=== PATIENT | male | born 1940 | race Caucasian/White ===

== ENCOUNTER 2018-07-28 14:48 | Emergency (ER) | payer MEDICARE ==
[2018-07-28] MEDS ORDERED: Sodium Chloride 0.9% 1,000 ML IV ONE (16:13)
--- NOTE | 2018-07-28 16:32 | C.PDOC ---
History Of Present Illness 78 year old male patient presents to the ER with c/o frontal headache. Patient reports he never had a headache before and that it happened suddenly in the morning as he was making coffee. Patient denies dizziness, syncope, neck pain, photophobia, weakness, light headedness, nasal congestion, nausea and blurry vision. Family at the bedside notes that patient has right-sided abdominal pain for several weeks along with excessive burping. Time Seen by Provider: 07/28/18 15:39 Chief Complaint (Nursing): Headache History Per: Patient History/Exam Limitations: no limitations Onset/Duration Of Symptoms: Hrs Current Symptoms Are (Timing): Still Present Past Medical History Reviewed: Historical Data, Nursing Documentation, Vital Signs Vital Signs: Last Vital Signs Temp 98.4 F 07/28/18 15:10 Pulse 63 07/28/18 15:10 Resp 20 07/28/18 15:10 BP 108/66 07/28/18 15:10 Pulse Ox 99 07/28/18 15:10 - Medical History PMH: HTN Surgical History: Pacemaker - [facility] Procedures DILATION OF COMMON BILE DUCT WITH INTRALUMINAL DEVICE, ENDO (10/08/16) Family History: States: Unknown Family Hx - Social History Hx Alcohol Use: No Hx Substance Use: No - Immunization History Hx Tetanus Toxoid Vaccination: No Hx Influenza Vaccination: No Hx Pneumococcal Vaccination: No Review Of Systems Constitutional: Negative for: Weakness Eyes: Negative for: Vision Change, Other (photophobia) ENT: Negative for: Nose Congestion Cardiovascular: Negative for: Light Headedness Gastrointestinal: Negative for: Nausea Musculoskeletal: Negative for: Neck Pain Neurological: Positive for: Headache (frontal). Negative for: Dizziness Psych: Negative for: Other (syncope) Physical Exam - Physical Exam Appears: Non-toxic, No Acute Distress Skin: Normal Color, Warm, Dry Head: Atraumatic, Normacephalic Eye(s): bilateral: Normal Inspection, PERRL, EOMI Oral Mucosa: Moist Throat: Normal Neck: Normal ROM, Supple Chest: Symmetrical, No Deformity, Other (well healed sternotomy scar; pacemaker on the L chest) Cardiovascular: Rhythm Regular Respiratory: Normal Breath Sounds, No Rales, No Rhonchi, No Wheezing Gastrointestinal/Abdominal: Soft, No Tenderness Back: No CVA Tenderness Extremity: Normal ROM (x4) Neurological/Psych: Oriented x3, Normal Speech, No Other (neuro deficit) Gait: Steady ED Course And Treatment - Laboratory Results Result Diagrams: 07/28/18 16:47 07/28/18 16:47 O2 Sat by Pulse Oximetry: 99 (RA) Pulse Ox Interpretation: Normal - CT Scan/US CT head Other Rad Studies (CT/US): Read By Radiologist, Radiology Report Reviewed CT/US Interpretation: Accession No. : [id number]. Patient Name / ID : DWAYNE VARGAS / [id number]. Exam Date : 07/28/2018 16:47:42 ( Approved ). Study Comment : Sex / Age : M / 78Y. Creator : Melissa Pineda. Dictator : Aaron Matos MD. Gatehouse Attendant : Rv Service Technician : Aaron Matos MD. Approver2 : Report Date : 07/28/2018 17:16:28. My Comment : . Date of service: 07/28/2018. PROCEDURE: CT HEAD WITHOUT CONTRAST. HISTORY: Headache. COMPARISON: None available. TECHNIQUE: Axial computed tomography images were obtained through the head/brain without intravenous contrast. Radiation dose: Total exam DLP = 1048.48 mGy-cm. This CT exam was performed using one or more of the following dose reduction techniques: Automated exposure control, adjustment of the mA and/or kV according to patient size, and/or use of iterative reconstruction technique. FINDINGS: HEMORRHAGE: No acute parenchymal, subarachnoid or extra-axial hemorrhage. BRAIN: Mild moderate diffuse/confluent chronic periventricular white matter ischemic changes seen extending peripherally with scattered more discrete deep and subcortical white matter chronic ischemic changes. 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 Moderate generalized volume loss. Minor vascular calcifications both carotid siphons. VENTRICLES: No obstructive hydrocephalus. CALVARIUM: Calvarium intact. PARANASAL SINUSES: Un visualized paranasal sinuses well-developed. No fluid levels seen to suggest acute sinusitis. Localized mucosal thickening superolateral margin right frontal sinus. MASTOID AIR CELLS: Unremarkable as visualized. No inflammatory changes. OTHER FINDINGS: None. IMPRESSION: No acute intracran ial hemorrhage. Mild moderate chronic periventricular white matter ischemic changes. Moderate generalized volume loss Medical Decision Making Medical Decision Making: Impression: frontal headache Plans: -- CT head -- chem labs -- blood work -- reglan -- IV fluids -- toradol -- UA Results discussed with patient and family. On re-eval, patient reports complete relief of headache after reglan, toradol and IV fluids. Stable for discharge home. Advised followupw ith PMD, patient and family are amenable to this plan. Disposition - Disposition Disposition: HOME/ ROUTINE Disposition Time: 18:17 Condition: GOOD Additional Instructions: SAM RICE, thank you for letting us take care of you today. Your provider was Donna Mariee MD and you were treated for HEADACHE. The emergency medical care you received today was directed at your acute symptoms. If you were prescribed any medication, please fill it and take as directed. It may take several days for your symptoms to resolve. Return to the Emergency Department if your symptoms worsen, do not improve, or if you have any other problems. Please contact your doctor or call one of the physicians/clinics you have been referred to that are listed on the Patient Visit Information form that is included in your discharge packet. Bring any paperwork you were given at discharge with you along with any medications you are taking to your follow up visit. Our treatment cannot replace ongoing medical care by a primary care provider outside of the emergency department. Thank you for allowing the [facility] team to be part of your care today. If you had an X-Ray or CT scan: A Radiologist will review the ED reading if any change in treatment is needed we will contact you. If you had a blood, urine, or wound culture: It will take several days for the results, if any change in treatment is needed we will contact you. If you had an STI test: It will take 48 hours for the results. Please call after 1 week if you have not heard back. Instructions: Headache, Adult (DC) Forms: [employer] (German) - Clinical Impression Clinical Impression: Headache - Scribe Statement The provider has reviewed the documentation as recorded by the Scribe Longoria Do Provider Attestation: All medical record entries made by the Scribe were at my direction and personally dictated by me. I have reviewed the chart and agree that the record accurately reflects my personal performance of the history, physical exam, medical decision making, and the department course for this patient. I have also personally directed, reviewed, and agree with the discharge instructions and disposition.
[2018-07-28 17:00] LABS: BASO % 0.8 % (0.0-2.0); EOS # 0.1 K/uL (0.0-0.7); EOS % 2.4 % (0.0-4.0); HEMOGLOBIN 13.8 g/dL (12.0-18.0); LYMPH # 1.6 K/uL (1.0-4.3); LYMPH % 26.7 % (20.0-40.0); MEAN CELL VOLUME 89.3 fL (80.0-94.0); MEAN CORPUSCULAR HEMOGLOBIN 30.7 pg (27.0-31.0); MEAN CORPUSCULAR HGB CONC 34.4 g/dL (33.0-37.0); MEAN PLATELET VOLUME 8.5 fL (7.2-11.7); MONO # 0.5 K/uL (0.0-0.8); MONO % 8.7 % (0.0-10.0); NEUT # 3.8 K/uL (1.8-7.0); NEUT % 61.4 % (50.0-75.0); NRBC % 0.1 % (0.0-2.0); RBC 4.49 Mil/uL (4.40-5.90); RED CELL DISTRIBUTION WIDTH 13.2 % (11.5-14.5); WHITE BLOOD COUNT 6.2 K/uL (4.8-10.8)
[2018-07-28 17:07] LABS: BLOOD UREA NITROGEN 12 mg/dL (9-20); CALCIUM 9.7 mg/dl (8.6-10.4); GFR NON-AFRICAN AMERICAN > 60; SQUAMOUS EPITHIAL < 1 /hpf (0-5); URINE BACTERIA FEW (<OCC); URINE BILIRUBIN NEGATIVE (NEGATIVE); URINE BLOOD NEGATIVE (NEGATIVE); URINE CLARITY Clear (Clear); URINE COLOR Yellow (YELLOW); URINE GLUCOSE (UA) NORMAL (Normal); URINE LEUKOCYTE ESTERASE 1+ Leu/uL (Negative); URINE PROTEIN NEGATIVE (NEGATIVE); URINE UROBILINOGEN NORMAL mg/dL (0.2-1.0)
--- NOTE | 2018-07-28 17:39 | CT ---
Date of service: 07/28/2018 PROCEDURE: CT HEAD WITHOUT CONTRAST. HISTORY: Headache COMPARISON: None available. TECHNIQUE: Axial computed tomography images were obtained through the head/brain without intravenous contrast. Radiation dose: Total exam DLP = 1048.48 mGy-cm. This CT exam was performed using one or more of the following dose reduction techniques: Automated exposure control, adjustment of the mA and/or kV according to patient size, and/or use of iterative reconstruction technique. FINDINGS: HEMORRHAGE: No acute parenchymal, subarachnoid or extra-axial hemorrhage. BRAIN: Mild moderate diffuse/confluent chronic periventricular white matter ischemic changes seen extending peripherally with scattered more discrete deep and subcortical white matter chronic ischemic changes. 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 Moderate generalized volume loss. Minor vascular calcifications both carotid siphons. VENTRICLES: No obstructive hydrocephalus. CALVARIUM: Calvarium intact. PARANASAL SINUSES: Un visualized paranasal sinuses well-developed. No fluid levels seen to suggest acute sinusitis. Localized mucosal thickening superolateral margin right frontal sinus. MASTOID AIR CELLS: Unremarkable as visualized. No inflammatory changes. OTHER FINDINGS: None. IMPRESSION: No acute intracranial hemorrhage. Mild moderate chronic periventricular white matter ischemic changes Moderate generalized volume loss
[2018-07-28 18:31] VITALS: BP 109/59; PULSE 62; RESP 16; TEMP 98.3
[2018-07-29 13:52] VITALS: O2SAT 99
== END 2018-07-28 18:31 | disposition home or self-care (01) ==
LOC: C.ER 14:48
DX: R51 Headache (principal); I10 Essential (primary) hypertension; Z95.0 Presence of cardiac pacemaker
CPT/HCPCS: 70450; 80048; 81001; 85025; 96361; 96374; 96375; 99285; J1885; J2765; J7030

== ENCOUNTER 2018-09-10 05:11 | Inpatient (IN) | payer MEDICARE ==
--- NOTE | 2018-09-10 05:38 | C.PDOC ---
History Of Present Illness 78 y/o male pt presents to the ER complaining of RUQ abdominal pain for x3 days. Associated sx includes decrease in appetite, decrease in water intake, nausea and vomiting. Pt reports the abdominal pain got worse in 24 hours. Pt denies fever, chills, diarrhea and back pain. Time Seen by Provider: 09/10/18 05:38 Chief Complaint (Nursing): Abdominal Pain History Per: Patient History/Exam Limitations: no limitations Onset/Duration Of Symptoms: Days (x3) Current Symptoms Are (Timing): Worse Severity: Moderate Pain Scale Rating Of: 4 Location Of Pain/Discomfort: RUQ Radiation Of Pain To:: None Quality Of Discomfort: "Pain" Associated Symptoms: Nausea, Vomiting, Loss Of Appetite, Other (decrease in water intake ). denies: Fever, Chills, Diarrhea, Back Pain Exacerbating Factors: None Alleviating Factors: None Last Bowel Movement: Yesterday Recent travel outside of the [place]: No Additional History Per: Family Past Medical History Reviewed: Historical Data, Nursing Documentation, Vital Signs - Medical History PMH: HTN Surgical History: Pacemaker - [facility] Procedures DILATION OF COMMON BILE DUCT WITH INTRALUMINAL DEVICE, ENDO (10/08/16) Family History: States: Unknown Family Hx - Social History Hx Alcohol Use: No Hx Substance Use: No - Immunization History Hx Tetanus Toxoid Vaccination: No Hx Influenza Vaccination: No Hx Pneumococcal Vaccination: No Review Of Systems Constitutional: Positive for: Other (decrease in appetite and water intake). Negative for: Fever, Chills ENT: Negative for: Throat Pain Cardiovascular: Negative for: Chest Pain Respiratory: Negative for: Shortness of Breath Gastrointestinal: Positive for: Nausea, Vomiting, Abdominal Pain (RUQ). Negative for: Diarrhea Musculoskeletal: Negative for: Back Pain Skin: Negative for: Rash Neurological: Negative for: Weakness Psych: Negative for: Anxiety Physical Exam - Physical Exam Appears: Non-toxic, No Acute Distress Skin: Warm, Dry Head: Normacephalic Eye(s): bilateral: Normal Inspection Oral Mucosa: Moist Neck: Trachea Midline, Supple Chest: Symmetrical, Other (CABG scar, pacer left) Cardiovascular: Rhythm Regular Respiratory: No Rales, No Rhonchi, No Wheezing Gastrointestinal/Abdominal: Bowel Sounds (tympanic to percussion), Soft, Tenderness, Distention, No Guarding Back: No CVA Tenderness Extremity: Normal ROM (x4) Extremity: Bilateral: Atraumatic, Normal Color And Temperature, Normal ROM Pulses: Left Dorsalis Pedis: Normal, Right Dorsalis Pedis: Normal Neurological/Psych: Oriented x3 Gait: Steady ED Course And Treatment - Laboratory Results Result Diagrams: 09/10/18 06:08 09/10/18 06:08 ECG: Interpreted By Me, Viewed By Me ECG Rhythm: Sinus Rhythm (62), Nonspecific Changes (ventricular paced rhythm) O2 Sat by Pulse Oximetry: 97 Pulse Ox Interpretation: Normal Progress Note: plans: -- EKG. -- chem labs. -- blood work. -- morphone. -- protonix injection. -- zofran injection. -- UA Disposition Counseled Patient/Family Regarding: Studies Performed, Diagnosis - Disposition Disposition Time: 05:38 Condition: FAIR Forms: [employer] (Czech) - Clinical Impression Clinical Impression: Abdominal pain - Scribe Statement The provider has reviewed the documentation as recorded by the Scribe Swati Schrader Provider Attestation: All medical record entries made by the Scribe were at my direction and personally dictated by me. I have reviewed the chart and agree that the record accurately reflects my personal performance of the history, physical exam, medical decision making, and the department course for this patient. I have also personally directed, reviewed, and agree with the discharge instructions and disposition. Physician Patient Turnover Patient Signed Over To: Lucero Marcos Handoff Comments: pending ct result , re-eval and dispostion
[2018-09-10] MEDS ORDERED: Morphine 4 MG/ML VIAL IV ONE (05:39)
[2018-09-10 06:12] LABS: BASO % 0.2 % (0.0-2.0); EOS % 0.1 % (0.0-4.0); HEMOGLOBIN 12.8 g/dL (12.0-18.0); LYMPH # 0.7 K/uL (1.0-4.3); LYMPH % 6.6 % (20.0-40.0); MEAN CELL VOLUME 89.5 fL (80.0-94.0); MEAN CORPUSCULAR HEMOGLOBIN 30.2 pg (27.0-31.0); MEAN CORPUSCULAR HGB CONC 33.7 g/dL (33.0-37.0); MONO # 0.6 K/uL (0.0-0.8); MONO % 6.1 % (0.0-10.0); NEUT # 8.9 K/uL (1.8-7.0); PLATELET COUNT 126 K/uL (130-400); RBC 4.24 Mil/uL (4.40-5.90); RED CELL DISTRIBUTION WIDTH 13.2 % (11.5-14.5); WHITE BLOOD COUNT 10.2 K/uL (4.8-10.8)
[2018-09-10 06:19] LABS: INR 1.6; PROTHROMBIN TIME 17.6 SECONDS (9.7-12.2)
[2018-09-10 06:23] LABS: ALB/GLOB RATIO 1.3 (1.0-2.1); ALBUMIN 4.2 g/dL (3.5-5.0); ALT/SGPT 26 U/L (21-72); AST/SGOT 25 U/L (17-59); BLOOD UREA NITROGEN 15 mg/dL (9-20); CALCIUM 8.7 mg/dl (8.6-10.4); GFR NON-AFRICAN AMERICAN > 60; LIPASE 17 U/L (23-300)
[2018-09-10] MEDS ORDERED: Iodixanol 320 MG/ML 100 ML BOTTLE IV ONE (06:36)
[2018-09-10 09:16] LABS: BANDS 6 % (0-2); LYMPHOCYTE 4 % (20-40); MONOCYTE 3 % (0-10); NEUTROPHIL 87 % (50-75); PLATELET ESTIMATE NORMAL (NORMAL); TOTAL CELLS COUNTED 100
[2018-09-10] MEDS ORDERED: Piperacillin/Tazobact 3.375 gm 100 ML IV STA (09:24)
[2018-09-10 09:34] LABS: SQUAMOUS EPITHIAL < 1 /hpf (0-5); URINE BILIRUBIN NEGATIVE (NEGATIVE); URINE BLOOD 1+ (NEGATIVE); URINE CLARITY Clear (Clear); URINE COLOR Yellow (YELLOW); URINE GLUCOSE (UA) NORMAL (Normal); URINE LEUKOCYTE ESTERASE NEG Leu/uL (Negative); URINE PROTEIN 1+ mg/dL (NEGATIVE); URINE UROBILINOGEN NORMAL mg/dL (0.2-1.0)
--- NOTE | 2018-09-10 10:37 | CP.PCM.HP ---
<Edgar Young E - Last Filed: 09/10/18 20:38> History of Present Illness - History of Present Illness History of Present Illness: CC: Right sided abdominal pain HPI: Patient is a 78 year old male with past medical history of CAD (CABG x3), HTN, HLD, and prior history of gall stones, who presents to the ED with his niece with complaints of right sided abdominal pain that started on 09/10/18 at 9am while sleeping. Patient reports the pain as a 9/10 intermittent squeezing pain that radiates to the right side of his chest, which is worsening with cough, hiccups and sneezing. In addition, patient had three episodes of non-bloody/non-bilious vomiting between Tuesday and Tuesday night as well 3-4 episodes of loose stool on Tuesday night. Patient states that he has been using warm compresses on his abdomen with no relief. As per EMR, patient has prior admission of probable choledocholithiasis. Patient admits to chills on Tuesday night but denies any symptoms of fever, chest pain, palpitations, shortness of breath. Patient has been on a liquid diet since Tuesday. Code Status: Full code Emergency contact: Bridger Guillory, PMD: [place] PSHx: CAD (CABG x3; 1980,1985 and 1999), HTN, HLD, and prior history of gall stones FHx: Unknown Medications: Ramipril 5mg po daily, Toprol XL 50mg PO daily, Lipitor 40mg PO HS Allergies: NKDA Social Hx: Lives alone. Denies any current or former use of Tobacco and illicit drugs and occasional ETOH intake Present on Admission - Present on Admission Any Indicators Present on Admission: No Review of Systems - Constitutional Constitutional: Chills. absent: Fever, Headache, Weakness - EENT Eyes: absent: Blurred Vision, Change in Vision - Cardiovascular Cardiovascular: absent: Chest Pain, Diaphoresis, Dyspnea, Lightheadedness, Palpitations, Pedal Edema, Syncope - Respiratory Respiratory: absent: Cough, Dyspnea, Wheezing - Gastrointestinal Gastrointestinal: Abdominal Pain, Loose Stools, Nausea, Vomiting - Neurological Neurological: absent: Confusion, Dizziness, Headaches, Weakness - Psychiatric Psychiatric: Change in Appetite - Endocrine Endocrine: absent: Fatigue, Palpitations Past Patient History - Infectious Disease Hx of Infectious Diseases: None - Past Medical History & Family History Past Medical History?: Yes - Past Social History Smoking Status: Never Smoked - CARDIAC Hx Hypertension: Yes Hx Pacemaker: Yes - MUSCULOSKELETAL/RHEUMATOLOGICAL Hx Falls: No - PSYCHIATRIC Hx Substance Use: No - SURGICAL HISTORY Hx Surgeries: Yes Hx Open Heart Surgery: Yes Hx Valve Replacement: Yes Other/Comment: Pacemaker - ANESTHESIA Hx Anesthesia: Yes Hx Anesthesia Reactions: No Hx Malignant Hyperthermia: No Meds Allergies/Adverse Reactions: Allergies Allergy/AdvReac Type Severity Reaction Status Date / Time No Known Allergies Allergy Verified 09/10/18 05:25 Physical Exam - Constitutional Appears: No Acute Distress - Head Exam Head Exam: ATRAUMATIC, NORMAL INSPECTION - Eye Exam Eye Exam: EOMI, Normal appearance. absent: Scleral icterus - ENT Exam ENT Exam: Mucous Membranes Moist - Respiratory Exam Respiratory Exam: Clear to Auscultation Bilateral, NORMAL BREATHING PATTERN. absent: Prolonged Expiratory Phase, Rhonchi, Wheezes - Cardiovascular Exam Cardiovascular Exam: REGULAR RHYTHM, +S1, +S2 Additional comments: Midline scar from previous CABG - GI/Abdominal Exam GI & Abdominal Exam: Normal Bowel Sounds, Soft. absent: Distended, Firm, Guarding Additional comments: RUQ tenderness (+ Nina sign) - Extremities Exam Extremities exam: Positive for: normal inspection. Negative for: calf tenderness, pedal edema - Back Exam Back exam: NORMAL INSPECTION. absent: CVA tenderness (L), CVA tenderness (R) - Neurological Exam Neurological exam: Alert, Normal Gait, Oriented x3 - Psychiatric Exam Psychiatric exam: Normal Affect - Skin Skin Exam: Normal Color Results - Vital Signs Recent Vital Signs: Last Vital Signs Temp 100.4 F H 09/10/18 08:53 Pulse 62 09/10/18 08:53 Resp 16 09/10/18 08:53 BP 132/69 09/10/18 08:53 Pulse Ox 97 09/10/18 08:53 - Labs Result Diagrams: 09/10/18 06:08 09/10/18 06:08 Labs: Laboratory Results - last 24 hr 09/10/18 09/10/18 09/10/18 06:08 06:08 06:08 WBC 10.2 D RBC 4.24 L Hgb 12.8 Hct 38.0 MCV 89.5 MCH 30.2 MCHC 33.7 RDW 13.2 Plt Count 126 L D MPV 9.0 Neut % (Auto) 87.0 H Lymph % (Auto) 6.6 L [place] % (Auto) 6.1 Eos % (Auto) 0.1 Baso % (Auto) 0.2 Neut # (Auto) 8.9 H Lymph # (Auto) 0.7 L [place] # (Auto) 0.6 Eos # (Auto) 0.0 Baso # (Auto) 0.0 Neutrophils % (Manual) 87 H Band Neutrophils % 6 H Lymphocytes % (Manual) 4 L Monocytes % (Manual) 3 Platelet Estimate Normal RBC Morphology Normal PT 17.6 H INR 1.6 APTT 38 H Sodium 134 Potassium 4.5 Chloride 96 L Carbon Dioxide 27 Anion Gap 17 BUN 15 Creatinine 1.0 Est GFR ( Amer) > 60 Est GFR (Non-Af Amer) > 60 Random Glucose 133 H Calcium 8.7 Total Bilirubin 2.0 H AST 25 ALT 26 Alkaline Phosphatase 77 Total Protein 7.4 Albumin 4.2 Globulin 3.3 Albumin/Globulin Ratio 1.3 Lipase 17 L Urine Color Urine Clarity Urine pH Ur Specific [place] Urine Protein Urine Glucose (UA) Urine Ketones Urine Blood Urine Nitrate Urine Bilirubin Urine Urobilinogen Ur Leukocyte Esterase Urine WBC (Auto) Urine RBC (Auto) Ur Squamous Epith Cells 09/10/18 09:22 WBC RBC Hgb Hct MCV MCH MCHC RDW Plt Count MPV Neut % (Auto) Lymph % (Auto) [place] % (Auto) Eos % (Auto) Baso % (Auto) Neut # (Auto) Lymph # (Auto) [place] # (Auto) Eos # (Auto) Baso # (Auto) Neutrophils % (Manual) Band Neutrophils % Lymphocytes % (Manual) Monocytes % (Manual) Platelet Estimate RBC Morphology PT INR APTT Sodium Potassium Chloride Carbon Dioxide Anion Gap BUN Creatinine Est GFR ( Amer) Est GFR (Non-Af Amer) Random Glucose Calcium Total Bilirubin AST ALT Alkaline Phosphatase Total Protein Albumin Globulin Albumin/Globulin Ratio Lipase Urine Color Yellow Urine Clarity Clear Urine pH 6.0 Ur Specific [place] 1.055 H Urine Protein 1+ H Urine Glucose (UA) Normal Urine Ketones Negative Urine Blood 1+ H Urine Nitrate Negative Urine Bilirubin Negative Urine Urobilinogen Normal Ur Leukocyte Esterase Neg Urine WBC (Auto) 4 Urine RBC (Auto) 13 H Ur Squamous Epith Cells < 1 Assessment & Plan (1) Acute cholecystitis Assessment and Plan: Consultation: General Surgery, Dr. Haq----> Help appreciated * management as per recommendation * Plans for surgery Cardiology, Dr. Garcia---> cardiac clearance * Management as per recommendation * F/u ECHO Imaging: * Abdomen pelvis/CT with contrast: Findings concerning for acute cholecystitis. Cholelithiasis. Biliary obstruction with intra and extrahepatic biliary di latation. Biliary drainage catheter noted. Mild ascites. Thickened bladder wall raising suspicion of cystitis versus bladder outlet obstruction. * Abdomen US: Cholelithiasis. Thickened gallbladder wall. Trace pericholecystic fluid negative sonographic Nina sign. Findings are concerning for cholecystitis nevertheless. Dilated common bile duct with biliary catheter. Medications/Management: * Morphine 1mg or 2mg iv Q6H PRN * Zosyn 3.375gm IV Q6H * Florastor 250mg PO BID * Liquid diet * Medicine day team to obtain cardiac clearance from Dr. Mariusz Valencia, earle adkins had recent stress test last year Status: Acute (2) History of coronary artery disease Assessment and Plan: CABG x3: * ASA 81mg PO daily * Toprol XL 50mg PO daily * Crestor 10mg PO daily Status: Acute (3) Hypertension Assessment and Plan: Toprol XL 50mg PO daily Ramipril 5mg PO at home converted to inpatient medication of vasotec 10mg PO daily Monitor with vital sign Q4H Status: Acute (4) Hyperlipidemia Assessment and Plan: Crestor 10mg PO HS Status: Acute (5) Prophylactic measure Assessment and Plan: DVT: SCDS GI: Not indicated Hypoglycemia protocol for liquid/NPO diet Disposition: Medical records to be obtained from Dr. Mariusz Valencia for cardiac clearance Patient does of effient to be clarified with patient's niece and to be restarted inpatient All plans and management discussed with Dr. Rashid Status: Acute <Babita Rashid V - Last Filed: 09/11/18 15:46> Results - Vital Signs Recent Vital Signs: Last Vital Signs Temp 99.2 F 09/11/18 09:15 Pulse 65 09/11/18 13:42 Resp 20 09/11/18 09:15 BP 150/65 09/11/18 13:11 Pulse Ox 95 09/11/18 13:42 - Labs Result Diagrams: 09/11/18 06:15 09/11/18 06:15 Labs: Laboratory Results - last 24 hr 09/11/18 09/11/18 09/11/18 00:14 06:09 06:15 WBC 6.1 RBC 4.09 L Hgb 12.4 Hct 36.1 MCV 88.3 MCH 30.2 MCHC 34.3 RDW 13.4 Plt Count 125 L MPV 8.5 Neut % (Auto) 83.7 H Lymph % (Auto) 9.0 L [place] % (Auto) 6.0 Eos % (Auto) 0.9 Baso % (Auto) 0.4 Neut # (Auto) 5.1 Lymph # (Auto) 0.6 L [place] # (Auto) 0.4 Eos # (Auto) 0.1 Baso # (Auto) 0.0 Neutrophils % (Manual) 83 H Lymphocytes % (Manual) 12 L Monocytes % (Manual) 5 Platelet Estimate Slightly decreased L Sodium Potassium Chloride Carbon Dioxide Anion Gap BUN Creatinine Est GFR ( Amer) Est GFR (Non-Af Amer) POC Glucose (mg/dL) 88 81 Random Glucose Calcium Total Bilirubin AST ALT Alkaline Phosphatase NT-Pro-B Natriuret Pep Total Protein Albumin Globulin Albumin/Globulin Ratio Triglycerides Cholesterol LDL Cholesterol Direct HDL Cholesterol 09/11/18 09/11/18 09/11/18 06:15 08:14 11:46 WBC RBC Hgb Hct MCV MCH MCHC RDW Plt Count MPV Neut % (Auto) Lymph % (Auto) [place] % (Auto) Eos % (Auto) Baso % (Auto) Neut # (Auto) Lymph # (Auto) [place] # (Auto) Eos # (Auto) Baso # (Auto) Neutrophils % (Manual) Lymphocytes % (Manual) Monocytes % (Manual) Platelet Estimate Sodium 136 Potassium 4.1 Chloride 98 Carbon Dioxide 25 Anion Gap 17 BUN 13 Creatinine 0.9 Est GFR ( Amer) > 60 Est GFR (Non-Af Amer) > 60 POC Glucose (mg/dL) 85 85 Random Glucose 97 Calcium 8.2 L Total Bilirubin 1.4 H AST 24 ALT 27 Alkaline Phosphatase 57 NT-Pro-B Natriuret Pep 1350 H Total Protein 6.8 Albumin 3.6 Globulin 3.3 Albumin/Globulin Ratio 1.1 Triglycerides 106 Cholesterol 124 LDL Cholesterol Direct 53 HDL Cholesterol 44 Attending/Attestation - Attestation I have personally seen and examined this patient.: Yes I have fully participated in the care of the patient.: Yes I have reviewed all pertinent clinical information: Yes Notes (Text): This is late computer entry for 09/10/18. Patient seen, examined and case discussed with medical claims assistant. Patient in the Emergency Room and accompaned by his niece. Patient noted for abdominal pain worsened with food. Patient has completed CT abdomen/pelvis and abdominal US. Patient has significant cardiac history including CAD, CABG, hypertension, lipid disorder, and follows-up with his PMD/step finisher. Resident has attempted to call him to obtain his prior cardiac workup but his office is closed and voice mail notes he is away. Niece indicates he has not had echo cardiogram in quite sometime and has had a stress test about one year ago. Will obtain chest xray, ekg, and obtain cardiac clearance. Medicine resident has discussed with surgery resident, and is aware patient has significant cardiac history. Will continue antibiotic to cover for cholecystitis and f/u result of Abdominal US Assessment/Plan (1) Acute cholecystitis Assessment and Plan: Consultation: General Surgery, Dr. Haq----> Help appreciated * management as per recommendation * Plans for surgery Cardiology, Dr. Garcia---> cardiac clearance * Management as per recommendation * F/u ECHO Imaging: * Abdomen pelvis/CT with contrast: Findings concerning for acute cholecystitis. Cholelithiasis. Biliary obstruction with intra and extrahepatic biliary dilatation. Biliary drainage catheter noted. Mild ascites. Thickened bladder wall raising suspicion of cystitis versus bladder outlet obstruction. * Abdomen US: Cholelithiasis. Thickened gallbladder wall. Trace pericholecystic fluid negative sonographic Nina sign. Findings are concerning for cholecystitis nevertheless. Dilated common bile duct with biliary catheter. Medications/Management: * Morphine 1mg or 2mg iv Q6H PRN * Zosyn 3.375gm IV Q6H * Florastor 250mg PO BID * Liquid diet * Medicine day team to obtain cardiac clearance from Dr. Mariusz Valencia, patient had recent stress test last year Status: Acute (2) History of coronary artery disease Assessment and Plan: CABG x3: * ASA 81mg PO daily * hold pending date of surgery * Toprol XL 50mg PO daily * Crestor 10mg PO daily Status: Acute (3) Hypertension Assessment and Plan: * Toprol XL 50mg PO daily * Ramipril 5mg PO at home converted to inpatient medication of vasotec 10mg PO daily * Monitor with vital sign Q4H Status: Acute (4) Hyperlipidemia Assessment and Plan: * Crestor 10mg PO HS Status: Acute (5) Prophylactic measure Assessment and Plan: * DVT: SCDS * GI: Not indicated * Hypoglycemia protocol for liquid/NPO diet Disposition: Medical records to be obtained from Dr. Mariusz Valencia for cardiac clearance * Patient does of effient to be clarified with patient's niece and to be re started inpatient; patient nor niece denies any recent intervention in the past year regarding TOI Status: Acute
[2018-09-10] MEDS ORDERED: Piperacillin/Tazobact 3.375 gm 100 ML IVPB ONE (10:54)
--- NOTE | 2018-09-10 11:57 | US ---
Date of service: 09/10/2018 HISTORY: ruq pain ro acute choles COMPARISON: None. TECHNIQUE: Sonographic evaluation of the right upper quadrant of the abdomen. FINDINGS: LIVER: Measures 16.3 cm in length. Normal echogenicity of the liver parenchyma. No mass. No intrahepatic bile duct dilatation. GALLBLADDER: Sludge and calculi. Thickened wall up to 10 mm. No definite calculi. Trace pericholecystic fluid. Negative sonographic Nina sign. COMMON BILE DUCT: Measures 16 mm. No evidence of choledocholithiasis. Biliary catheter seen within common bile duct. PANCREAS: Unremarkable as visualized. No mass. No ductal dilatation. RIGHT KIDNEY: Measures 10.3 cm in length. Normal echogenicity. Mid right renal cortical cyst, 4 x 5 x 5 mm. No calculus or hydronephrosis. AORTA: No aneurysmal dilatation. IVC: Unremarkable. OTHER FINDINGS: None . IMPRESSION: Cholelithiasis. Thickened gallbladder wall. Trace pericholecystic fluid negative sonographic Nina sign. Findings are concerning for cholecystitis nevertheless. Dilated common bile duct with biliary catheter.
--- NOTE | 2018-09-10 12:07 | CT ---
Date of service: 09/10/2018 PROCEDURE: CT Abdomen and Pelvis with contrast HISTORY: ruq abd pain, elevated bili COMPARISON: None. TECHNIQUE: Contrast dose: 100 mL Visipaque 320 Radiation dose: Total exam DLP = 207.02 mGy-cm. This CT exam was performed using one or more of the following dose reduction techniques: Automated exposure control, adjustment of the mA and/or kV according to patient size, and/or use of iterative reconstruction technique. FINDINGS: LOWER THORAX: Linear scar/atelectasis in left lower lobe. Cardiomegaly. AICD. LIVER: Normal size, contour and attenuation. No mass. There is mild intrahepatic biliary ductal dilatation in both the right and left lobe. GALLBLADDER AND BILE DUCTS: Thickened wall. Cholelithiasis. Pericholecystic inflammatory change. Concerning for cholecystitis. A biliary drainage catheter is seen extending from the common bile duct to the 3rd portion of the duodenum. There is dilatation of the common bile duct up to a diameter approximately 16 mm. PANCREAS: Unremarkable. No gross lesion or ductal dilatation. SPLEEN: Several accessory splenule incidentally noted. No mass. ADRENALS: Unremarkable. No mass. KIDNEYS AND URETERS: Left lower pole rounded low-density mass, 17 mm, measuring 18 Hounsfield units. Consistent with cortical cyst. No calculus or hydronephrosis. VASCULATURE: Unremarkable. No aortic aneurysm. No aortic atherosclerotic calcification or mural plaque present. BOWEL: Sigmoid diverticulosis. No evidence of diverticulitis. No bowel obstruction. APPENDIX: Normal appendix. PERITONEUM: Small amount of fluid in right pericolic gutter. LYMPH NODES: Unremarkable. No enlarged lymph nodes. BLADDER: Mild diffuse mural thickening. Rule out cystitis versus bladder outlet obstruction.. Correlate with urinalysis. REPRODUCTIVE: Enlarged prostate. BONES: No acute fracture. OTHER FINDINGS: None. IMPRESSION: Findings concerning for acute cholecystitis. Cholelithiasis. Biliary obstruction with intra and extrahepatic biliary dilatation. Biliary drainage catheter noted. Mild ascites. Thickened bladder wall raising suspicion of cystitis versus bladder outlet obstruction.. The preliminary findings for this examination were reported by [facility] Radiology at 7:47 a.m. on 09/10/2018. There is concurrence of this report with the preliminary findings. Correlate with urinalysis.
--- NOTE | 2018-09-10 12:54 | RAD ---
Date of service: 09/10/2018 HISTORY: MED CLEAR COMPARISON: No prior. TECHNIQUE: Chest PA and lateral FINDINGS: LUNGS: No active pulmonary disease. PLEURA: No significant pleural effusion identified. No pneumothorax apparent. CARDIOVASCULAR: No aortic atherosclerotic calcification present. Normal cardiac size. No congestive change. Permanent pacemaker. Sternotomy wires. OSSEOUS STRUCTURES: No significant abnormalities. VISUALIZED UPPER ABDOMEN: Normal. OTHER FINDINGS: None. IMPRESSION: No active disease.
[2018-09-10] MEDS ORDERED: Glucagon Recombinant 1 mg Inj IM PRN (13:22)
[2018-09-10] MEDS ORDERED: Dextrose 50% SYRINGE Inj (50 ml) IV PRN (13:22)
[2018-09-10] MEDS: Piperacill/Tazo 3.375gm in Dex 3.375 GM/50 ML BAG IVPB SCH ×2 (14:48→20:20)
[2018-09-10] MEDS: Saccharomyces Boulardi 250 mg Cap PO SCH (18:26)
--- NOTE | 2018-09-10 19:00 | CP.PCM.CON ---
History of Present Illness - History of Present Illness History of Present Illness: General Surgery Consult note for Dr. Haq This 78M with a PMH of open heart surgery X 3 , CAD s/p CABG, HTN & HLD presents today the emergencey department with right sided abdominal pain that started after thanksgiving meal. He reports that since that time he has only had small amounts of liquid due to the pain. He reports nothing makes it better and nothing makes it worse. He reports that he is not experiencing any nausea or vom iting and that he has not had any changes in his bowel habits and he is passing gas. He deneis any fevers or chills at home. He denies any chest pain or SOB. PMHx: as stated above PSHx: CABG, pacemaker, 3 open heart valve surgeries SocialHx: social EtOH Review of Systems - Review of Systems Review of Systems: 12 point review of symptoms conducted and negative aside from right sided abdominal pain. Past Patient History - Infectious Disease Hx of Infectious Diseases: None - Past Medical History & Family History Past Medical History?: Yes - Past Social History Smoking Status: Never Smoked - CARDIAC Hx Hypertension: Yes Hx Pacemaker: Yes - MUSCULOSKELETAL/RHEUMATOLOGICAL Hx Falls: No - PSYCHIATRIC Hx Substance Use: No - SURGICAL HISTORY Hx Surgeries: Yes Hx Open Heart Surgery: Yes Hx Valve Replacement: Yes Other/Comment: Pacemaker - ANESTHESIA Hx Anesthesia: Yes Hx Anesthesia Reactions: No Hx Malignant Hyperthermia: No Meds Allergies/Adverse Reactions: Allergies Allergy/AdvReac Type Severity Reaction Status Date / Time No Known Allergies Allergy Verified 09/10/18 05:25 - Medications Medications: Current Medications Acetaminophen (Tylenol 325mg Tab) 650 mg PO Q6 PRN PRN Reason: Fever >100.4 F Dextrose (Dextrose 50% Inj) 0 ml IV STAT PRN; Protocol PRN Reason: Hypoglycemia Protocol Dextrose (Glutose 15) 0 gm PO ONCE PRN; Protocol PRN Reason: Hypoglycemia Protocol Glucagon (Glucagen Diagnostic Kit) 0 mg IM STAT PRN; Protocol PRN Reason: Hypoglycemia Protocol Piperacillin Sod/Tazobactam Sod (Zosyn 3.375 Gm Iv Premix) 3.375 gm in 50 mls @ 100 mls/hr IVPB Q6H [facility]; Protocol Last Admin: 09/10/18 14:48 Dose: Not Given Dextrose (Dextrose 5% In Water 1000 Ml) 1,000 mls @ 0 mls/hr IV .Q0M PRN; Protocol PRN Reason: Hypoglycemia Protocol Saccharomyces Boulardii (Florastor) 250 mg PO BID KRISTIN Physical Exam - Constitutional Appears: Non-toxic, No Acute Distress - Head Exam Head Exam: ATRAUMATIC, NORMOCEPHALIC - Eye Exam Eye Exam: EOMI - ENT Exam ENT Exam: Mucous Membranes Moist - Respiratory Exam Respiratory Exam: NORMAL BREATHING PATTERN - Cardiovascular Exam Cardiovascular Exam: +S1, +S2 - GI/Abdominal Exam GI & Abdominal Exam: Soft, Tenderness. absent: Distended, Firm, Guarding, Hernia, Rebound, Rigid - Neurological Exam Neurological exam: Alert, Oriented x3 - Psychiatric Exam Psychiatric exam: Normal Affect, Normal Mood - Skin Skin Exam: Dry, Intact Results - Vital Signs Recent Vital Signs: Last Vital Signs Temp 98.4 F 09/10/18 16:34 Pulse 62 09/10/18 16:34 Resp 13 09/10/18 16:34 BP 109/62 09/10/18 16:34 Pulse Ox 98 09/10/18 16:34 - Labs Result Diagrams: 09/10/18 06:08 09/10/18 06:08 Labs: Laboratory Results - last 24 hr 09/10/18 09/10/18 09/10/18 06:08 06:08 06:08 WBC 10.2 D RBC 4.24 L Hgb 12.8 Hct 38.0 MCV 89.5 MCH 30.2 MCHC 33.7 RDW 13.2 Plt Count 126 L D MPV 9.0 Neut % (Auto) 87.0 H Lymph % (Auto) 6.6 L [place] % (Auto) 6.1 Eos % (Auto) 0.1 Baso % (Auto) 0.2 Neut # (Auto) 8.9 H Lymph # (Auto) 0.7 L [place] # (Auto) 0.6 Eos # (Auto) 0.0 Baso # (Auto) 0.0 Neutrophils % (Manual) 87 H Band Neutrophils % 6 H Lymphocytes % (Manual) 4 L Monocytes % (Manual) 3 Platelet Estimate Normal RBC Morphology Normal PT 17.6 H INR 1.6 APTT 38 H Sodium 134 Potassium 4.5 Chloride 96 L Carbon Dioxide 27 Anion Gap 17 BUN 15 Creatinine 1.0 Est GFR ( Amer) > 60 Est GFR (Non-Af Amer) > 60 Random Glucose 133 H Calcium 8.7 Total Bilirubin 2.0 H AST 25 ALT 26 Alkaline Phosphatase 77 Total Protein 7.4 Albumin 4.2 Globulin 3.3 Albumin/Globulin Ratio 1.3 Lipase 17 L Urine Color Urine Clarity Urine pH Ur Specific [place] Urine Protein Urine Glucose (UA) Urine Ketones Urine Blood Urine Nitrate Urine Bilirubin Urine Urobilinogen Ur Leukocyte Esterase Urine WBC (Auto) Urine RBC (Auto) Ur Squamous Epith Cells 09/10/18 09:22 WBC RBC Hgb Hct MCV MCH MCHC RDW Plt Count MPV Neut % (Auto) Lymph % (Auto) [place] % (Auto) Eos % (Auto) Baso % (Auto) Neut # (Auto) Lymph # (Auto) [place] # (Auto) Eos # (Auto) Baso # (Auto) Neutrophils % (Manual) Band Neutrophils % Lymphocytes % (Manual) Monocytes % (Manual) Platelet Estimate RBC Morphology PT INR APTT Sodium Potassium Chloride Carbon Dioxide Anion Gap BUN Creatinine Est GFR ( Amer) Est GFR (Non-Af Amer) Random Glucose Calcium Total Bilirubin AST ALT Alkaline Phosphatase Total Protein Albumin Globulin Albumin/Globulin Ratio Lipase Urine Color Yellow Urine Clarity Clear Urine pH 6.0 Ur Specific [place] 1.055 H Urine Protein 1+ H Urine Glucose (UA) Normal Urine Ketones Negative Urine Blood 1+ H Urine Nitrate Negative Urine Bilirubin Negative Urine Urobilinogen Normal Ur Leukocyte Esterase Neg Urine WBC (Auto) 4 Urine RBC (Auto) 13 H Ur Squamous Epith Cells < 1 Assessment & Plan - Assessment and Plan (Free Text) Assessment: 78M with acute cholecystitis US: 16MM CBD, no Stones 10m GB wall Regular diet Pain control Zofran Medical and cardiac clearance Plan for surgery D/W Dr. Severino Santos PGY3
[2018-09-11] MEDS: Piperacill/Tazo 3.375gm in Dex 3.375 GM/50 ML BAG IVPB SCH ×4 (02:13→19:39)
[2018-09-11 06:18] LABS: BASO % 0.4 % (0.0-2.0); EOS # 0.1 K/uL (0.0-0.7); EOS % 0.9 % (0.0-4.0); HEMOGLOBIN 12.4 g/dL (12.0-18.0); LYMPH # 0.6 K/uL (1.0-4.3); MEAN CELL VOLUME 88.3 fL (80.0-94.0); MEAN CORPUSCULAR HEMOGLOBIN 30.2 pg (27.0-31.0); MEAN CORPUSCULAR HGB CONC 34.3 g/dL (33.0-37.0); MEAN PLATELET VOLUME 8.5 fL (7.2-11.7); MONO # 0.4 K/uL (0.0-0.8); NEUT # 5.1 K/uL (1.8-7.0); NEUT % 83.7 % (50.0-75.0); PLATELET COUNT 125 K/uL (130-400); RBC 4.09 Mil/uL (4.40-5.90); RED CELL DISTRIBUTION WIDTH 13.4 % (11.5-14.5); WHITE BLOOD COUNT 6.1 K/uL (4.8-10.8)
[2018-09-11 06:35] LABS: ALB/GLOB RATIO 1.1 (1.0-2.1); ALBUMIN 3.6 g/dL (3.5-5.0); ALT/SGPT 27 U/L (21-72); AST/SGOT 24 U/L (17-59); BLOOD UREA NITROGEN 13 mg/dL (9-20); CALCIUM 8.2 mg/dl (8.6-10.4); GFR NON-AFRICAN AMERICAN > 60; HDL CHOLESTEROL 44 mg/dL (30-70)
[2018-09-11 06:43] LABS: B-TYPE NATRIURETIC PEPTIDE 1350 pg/mL (0-900)
[2018-09-11 06:45] LABS: LDL CHOLESTEROL 53 mg/dL (0-129)
--- NOTE | 2018-09-11 08:19 | CP.PCM.PN ---
Subjective - Date & Time of Evaluation Date of Evaluation: 09/11/18 Time of Evaluation: 07:00 - Subjective Subjective: general surgery progress note for Dr. Haq Patient seen and examined this am at bedside. Patient states that his pain is improving but still present. He has not eaten since last night. He denies n/v, f/c SOB, CP and extremity pain or weakness. Objective - Vital Signs/Intake and Output Vital Signs (last 24 hours): Temp Pulse Resp BP Pulse Ox 97.7 F 63 16 111/58 L 98 09/11/18 06:19 09/11/18 06:19 09/11/18 06:19 09/11/18 06:19 09/11/18 06:19 - Medications Medications: Current Medications Acetaminophen (Tylenol 325mg Tab) 650 mg PO Q6 PRN PRN Reason: Fever >100.4 F Aspirin (Ecotrin) 81 mg PO DAILY [facility] Dextrose (Dextrose 50% Inj) 0 ml IV STAT PRN; Protocol PRN Reason: Hypoglycemia Protocol Dextrose (Glutose 15) 0 gm PO ONCE PRN; Protocol PRN Reason: Hypoglycemia Protocol Enalapril Maleate (Vasotec) 10 mg PO DAILY [facility] Glucagon (Glucagen Diagnostic Kit) 0 mg IM STAT PRN; Protocol PRN Reason: Hypoglycemia Protocol Piperacillin Sod/Tazobactam Sod (Zosyn 3.375 Gm Iv Premix) 3.375 gm in 50 mls @ 100 mls/hr IVPB Q6H KRISTIN; Protocol Last Admin: 09/11/18 02:13 Dose: 100 mls/hr Dextrose (Dextrose 5% In Water 1000 Ml) 1,000 mls @ 0 mls/hr IV .Q0M PRN; Protocol PRN Reason: Hypoglycemia Protocol Metoprolol Succinate (Toprol Xl) 50 mg PO DAILY [facility] Morphine Sulfate (Morphine) 1 mg IV Q6 PRN PRN Reason: Pain, moderate (4-7) Last Admin: 09/11/18 04:40 Dose: 1 mg Morphine Sulfate (Morphine) 2 mg IV Q6H PRN PRN Reason: Pain, severe (8-10) Rosuvastatin Calcium (Crestor) 10 mg PO HS [facility] Last Admin: 09/10/18 22:14 Dose: 10 mg Saccharomyces Boulardii (Florastor) 250 mg PO BID [facility] Last Admin: 09/10/18 18:26 Dose: 250 mg - Labs Labs: 09/11/18 06:15 09/11/18 06:15 PT 17.6 SECONDS (9.7-12.2) H 09/10/18 06:08 INR 1.6 09/10/18 06:08 APTT 38 SECONDS (21-34) H 09/10/18 06:08 - Constitutional Appears: Well, Non-toxic, No Acute Distress - Head Exam Head Exam: ATRAUMATIC, NORMOCEPHALIC - Eye Exam Eye Exam: EOMI - ENT Exam ENT Exam: Mucous Membranes Moist - Respiratory Exam Respiratory Exam: NORMAL BREATHING PATTERN - Cardiovascular Exam Cardiovascular Exam: REGULAR RHYTHM - GI/Abdominal Exam GI & Abdominal Exam: Guarding (RUQ), Soft, Tenderness (RUQ). absent: Distended - Extremities Exam Extremities Exam: absent: Calf Tenderness, Pedal Edema - Neurological Exam Neurological Exam: Alert, Awake, Oriented x3 - Psychiatric Exam Psychiatric exam: Normal Affect, Normal Mood - Skin Skin Exam: Dry, Intact, Normal Color, Warm Assessment and Plan - Assessment and Plan (Free Text) Assessment: 78 yr old male with acute cholecystitis Plan: Pain control Zofran Medical and cardiac clearance Plan for surgery possibly tuesday will D/W Dr. Haq
[2018-09-11] MEDS ORDERED: Piperacillin/Tazobact 3.375 gm 100 ML IVPB ONE (08:20)
[2018-09-11 08:37] LABS: LYMPHOCYTE 12 % (20-40); MONOCYTE 5 % (0-10); NEUTROPHIL 83 % (50-75); PLATELET ESTIMATE SLIGHTLY DECREASED (NORMAL); TOTAL CELLS COUNTED 100
--- NOTE | 2018-09-11 09:19 | CP.PCM.PN ---
<Amador Hart - Last Filed: 09/11/18 17:04> Subjective - Date & Time of Evaluation Date of Evaluation: 09/11/18 Time of Evaluation: 09:14 - Subjective Subjective: Hospitalist Service Pt seen and examined at bedside. Pt reports the RUQ abdominal has improved but is furnace tender upon movement and deep palpation. Pt denies any acute event overnight. Pt denies CP FC NV SOB PALPs Objective - Vital Signs/Intake and Output Vital Signs (last 24 hours): Temp Pulse Resp BP Pulse Ox 97.7 F 60 18 117/67 100 09/11/18 08:30 09/11/18 08:30 09/11/18 08:30 09/11/18 08:30 09/11/18 08:30 - Medications Medications: Current Medications Acetaminophen (Tylenol 325mg Tab) 650 mg PO Q6 PRN PRN Reason: Fever >100.4 F Aspirin (Ecotrin) 81 mg PO DAILY [facility] Dextrose (Dextrose 50% Inj) 0 ml IV STAT PRN; Protocol PRN Reason: Hypoglycemia Protocol Dextrose (Glutose 15) 0 gm PO ONCE PRN; Protocol PRN Reason: Hypoglycemia Protocol Enalapril Maleate (Vasotec) 10 mg PO DAILY [facility] Glucagon (Glucagen Diagnostic Kit) 0 mg IM STAT PRN; Protocol PRN Reason: Hypoglycemia Protocol Piperacillin Sod/Tazobactam Sod (Zosyn 3.375 Gm Iv Premix) 3.375 gm in 50 mls @ 100 mls/hr IVPB Q6H KRISTIN; Protocol Last Admin: 09/11/18 08:20 Dose: 100 mls/hr Dextrose (Dextrose 5% In Water 1000 Ml) 1,000 mls @ 0 mls/hr IV .Q0M PRN; Protocol PRN Reason: Hypoglycemia Protocol Metoprolol Succinate (Toprol Xl) 50 mg PO DAILY [facility] Morphine Sulfate (Morphine) 1 mg IV Q6 PRN PRN Reason: Pain, moderate (4-7) Last Admin: 09/11/18 04:40 Dose: 1 mg Morphine Sulfate (Morphine) 2 mg IV Q6H PRN PRN Reason: Pain, severe (8-10) Rosuvastatin Calcium (Crestor) 10 mg PO HS [facility] Last Admin: 09/10/18 22:14 Dose: 10 mg Saccharomyces Boulardii (Florastor) 250 mg PO BID [facility] Last Admin: 09/10/18 18:26 Dose: 250 mg - Labs Labs: 09/11/18 06:15 09/11/18 06:15 PT 17.6 SECONDS (9.7-12.2) H 09/10/18 06:08 INR 1.6 09/10/18 06:08 APTT 38 SECONDS (21-34) H 09/10/18 06:08 - Constitutional Appears: Well, Non-toxic, No Acute Distress - Head Exam Head Exam: ATRAUMATIC, NORMAL INSPECTION - Eye Exam Eye Exam: EOMI, Scleral icterus - ENT Exam ENT Exam: Mucous Membranes Moist, Normal Exam - Neck Exam Neck Exam: Full ROM, Normal Inspection - Respiratory Exam Respiratory Exam: Clear to Ausculation Bilateral, NORMAL BREATHING PATTERN. absent: Rhonchi, Wheezes - Cardiovascular Exam Cardiovascular Exam: RRR, +S1, +S2 - GI/Abdominal Exam GI & Abdominal Exam: Guarding, Tenderness (RUQ). absent: Distended, Rebound - Extremities Exam Extremities Exam: Full ROM, Normal Inspection - Neurological Exam Neurological Exam: Alert, Awake, CN II-XII Intact, Oriented x3 - Psychiatric Exam Psychiatric exam: Normal Affect, Normal Mood - Skin Skin Exam: Dry, Intact, Normal Color, Warm Assessment and Plan - Assessment and Plan (Free Text) Assessment: 79 M pmhx of CAD CABGx3, HTN, HLD, plan for Lap Marisela tmrw/ Dr Haq, cleared by Dr Sams Acute Cholecystitis General Surgery, Dr. Haq----> Help appreciated * management as per recommendation * Plans for surgery 09/12 tmrw Cardiology, Dr. Garcia and Dr Sams---> cardiac clearance * Management as per recommendation * cleared for surgery * F/u ECHO Imaging: * Abdomen pelvis/CT with contrast: Findings concerning for acute cholecystitis. Cholelithiasis. Biliary obstruction with intra and extrahepatic biliary dilatation. Biliary drainage catheter noted. Mild ascites. Thickened bladder wall raising suspicion of cystitis versus bladder outlet obstruction. * Abdomen US: Cholelithiasis. Thickened gallbladder wall. Trace pericholecystic fluid negative sonographic Nina sign. Findings are concerning for cholecystitis nevertheless. Dilated common bile duct with biliary catheter. Medications/Management: * Morphine 1mg or 2mg iv Q6H PRN * Zosyn 3.375gm IV Q6H * Florastor 250mg PO BID * Liquid diet * 09/[address] Sams Status: Acute CAD CABG x3: * ASA 81mg PO daily * Toprol XL 50mg PO daily * Crestor 10mg PO daily Status: Acute HTN Toprol XL 50mg PO daily vasotec 10mg PO daily Monitor with vital sign Q4H Status: Acute HLD Crestor 10mg PO HS Status: Acute PPX DVT: SCDS GI: Not indicated Hypoglycemia protocol for liquid HHD Disposition: Pt to go for Lap Marisela tmrw 09/12, cardiac clearance obtained from Dr Sams All plans and management discussed with Dr. Feliz Hart PGY1 <Jason Piper - Last Filed: 09/15/18 22:52> Objective - Vital Signs/Intake and Output Vital Signs (last 24 hours): Temp Pulse Resp BP Pulse Ox 98.5 F 63 20 111/57 L 95 09/15/18 15:20 09/15/18 15:20 09/15/18 15:20 09/15/18 15:20 09/15/18 15:20 Intake and Output: 09/15/18 09/16/18 18:59 06:59 Intake Total 600 Balance 600 - Medications Medications: Current Medications Acetaminophen (Tylenol 325mg Tab) 650 mg PO Q6 PRN PRN Reason: Fever >100.4 F Aspirin (Ecotrin) 81 mg PO DAILY [facility] Last Admin: 09/11/18 11:00 Dose: Not Given Benzocaine/Menthol (Cepacol Sore Throat) 1 janet MT Q1H PRN PRN Reason: Sore Throat Cephalexin Monohydrate (Keflex) 500 mg PO BID [facility]; Protocol Stop: 09/20/18 10:01 Last Admin: 09/15/18 19:01 Dose: 500 mg Dextrose (Dextrose 50% Inj) 0 ml IV STAT PRN; Protocol PRN Reason: Hypoglycemia Protocol Dextrose (Glutose 15) 0 gm PO ONCE PRN; Protocol PRN Reason: Hypoglycemia Protocol Docusate Sodium (Colace) 100 mg PO DAILY [facility] Last Admin: 09/15/18 10:29 Dose: 100 mg Enalapril Maleate (Vasotec) 10 mg PO DAILY [facility] Last Admin: 09/15/18 10:16 Dose: 10 mg Famotidine (Pepcid) 20 mg PO DAILY [facility] Last Admin: 09/15/18 10:16 Dose: 20 mg Glucagon (Glucagen Diagnostic Kit) 0 mg IM STAT PRN; Protocol PRN Reason: Hypoglycemia Protocol Metoprolol Succinate (Toprol Xl) 50 mg PO DAILY [facility] Last Admin: 09/15/18 10:16 Dose: 50 mg Ondansetron HCl (Zofran Inj) 4 mg IVP Q6H PRN PRN Reason: Nausea/Vomiting Last Admin: 09/14/18 02:21 Dose: 4 mg Oxycodone/Acetaminophen (Percocet 5/325 Mg Tab) 1 tab PO Q4H PRN PRN Reason: Pain, moderate (4-7) Stop: 09/16/18 15:40 Last Admin: 09/15/18 19:58 Dose: 1 tab Rosuvastatin Calcium (Crestor) 10 mg PO HS [facility] Last Admin: 09/15/18 21:24 Dose: 10 mg Saccharomyces Boulardii (Florastor) 250 mg PO BID [facility] Last Admin: 09/15/18 17:54 Dose: 250 mg Tamsulosin HCl (Flomax) 0.4 mg PO DAILY [facility] Last Admin: 09/15/18 10:16 Dose: 0.4 mg - Labs Labs: 09/15/18 17:04 09/15/18 07:09 PT 12.7 SECONDS (9.7-12.2) H 09/12/18 14:00 INR 1.2 09/12/18 14:00 APTT 32 SECONDS (21-34) D 09/12/18 14:00 Attending/Attestation - Attestation I have personally seen and examined this patient.: Yes I have fully participated in the care of the patient.: Yes I have reviewed all pertinent clinical information, including history, physical exam and plan: Yes Notes (Text): 09/15/18 22:51 This is a late entry. Care of this patient was gone over in detail with resident Dr. Hart. Jason Piper D.O.
--- NOTE | 2018-09-11 09:46 | CP.PCM.CON ---
History of Present Illness - History of Present Illness History of Present Illness: The pt is a 78 year old man, a patient of Dr kathie Valencia, who had CABG several years ago. He also has a PPM. Pt has felt well, no chest pain, and Dr Valencia told him that hit hear was fine. No h/o chf or PAF. Pt has had a biliary stent in the past, and now CT and lab work, with patient's report of RUG abdominal pain are all c/w cholecystitis. Pt needs cardiac clearance for OR. CXR is clear. ECg shows NSR, V pacing first degree av block Review of Systems - Review of Systems All systems: reviewed and no additional remarkable complaints except (as above.) Past Patient History - Infectious Disease Hx of Infectious Diseases: None - Past Medical History & Family History Past Medical History?: Yes - Past Social History Smoking Status: Never Smoked - CARDIAC Hx Hypertension: Yes Hx Pacemaker: Yes - MUSCULOSKELETAL/RHEUMATOLOGICAL Hx Falls: No - PSYCHIATRIC Hx Substance Use: No - SURGICAL HISTORY Hx Surgeries: Yes Hx Open Heart Surgery: Yes Hx Valve Replacement: Yes Other/Comment: Pacemaker - ANESTHESIA Hx Anesthesia: Yes Hx Anesthesia Reactions: No Hx Malignant Hyperthermia: No Meds Allergies/Adverse Reactions: Allergies Allergy/AdvReac Type Severity Reaction Status Date / Time No Known Allergies Allergy Verified 09/10/18 05:25 - Medications Medications: Current Medications Acetaminophen (Tylenol 325mg Tab) 650 mg PO Q6 PRN PRN Reason: Fever >100.4 F Aspirin (Ecotrin) 81 mg PO DAILY [facility] Dextrose (Dextrose 50% Inj) 0 ml IV STAT PRN; Protocol PRN Reason: Hypoglycemia Protocol Dextrose (Glutose 15) 0 gm PO ONCE PRN; Protocol PRN Reason: Hypoglycemia Protocol Enalapril Maleate (Vasotec) 10 mg PO DAILY [facility] Glucagon (Glucagen Diagnostic Kit) 0 mg IM STAT PRN; Protocol PRN Reason: Hypoglycemia Protocol Piperacillin Sod/Tazobactam Sod (Zosyn 3.375 Gm Iv Premix) 3.375 gm in 50 mls @ 100 mls/hr IVPB Q6H KRISTIN; Protocol Last Admin: 09/11/18 08:20 Dose: 100 mls/hr Dextrose (Dextrose 5% In Water 1000 Ml) 1,000 mls @ 0 mls/hr IV .Q0M PRN; Protocol PRN Reason: Hypoglycemia Protocol Metoprolol Succinate (Toprol Xl) 50 mg PO DAILY [facility] Morphine Sulfate (Morphine) 1 mg IV Q6 PRN PRN Reason: Pain, moderate (4-7) Last Admin: 09/11/18 04:40 Dose: 1 mg Morphine Sulfate (Morphine) 2 mg IV Q6H PRN PRN Reason: Pain, severe (8-10) Rosuvastatin Calcium (Crestor) 10 mg PO [facility] Last Admin: 09/10/18 22:14 Dose: 10 mg Saccharomyces Boulardii (Florastor) 250 mg PO BID [facility] Last Admin: 09/10/18 18:26 Dose: 250 mg Physical Exam - Constitutional Appears: Well - Head Exam Head Exam: ATRAUMATIC - Eye Exam Eye Exam: EOMI Pupil Exam: NORMAL ACCOMODATION - ENT Exam ENT Exam: Mucous Membranes Moist - Respiratory Exam Respiratory Exam: Clear to Auscultation Bilateral - Cardiovascular Exam Cardiovascular Exam: REGULAR RHYTHM - GI/Abdominal Exam GI & Abdominal Exam: Hypoactive Bowel Sounds, Normal Bowel Sounds, Tenderness - Exam External exam: NORMAL EXTERNAL EXAM - Extremities Exam Extremities exam: Positive for: normal inspection - Back Exam Back exam: NORMAL INSPECTION - Neurological Exam Neurological exam: Alert, Oriented x3, Reflexes Normal - Psychiatric Exam Psychiatric exam: Normal Affect - Skin Skin Exam: Normal Color Results - Vital Signs Recent Vital Signs: Last Vital Signs Temp 97.7 F 09/11/18 08:30 Pulse 60 09/11/18 08:30 Resp 18 09/11/18 08:30 BP 117/67 09/11/18 08:30 Pulse Ox 100 09/11/18 08:30 - Labs Result Diagrams: 09/11/18 06:15 09/11/18 06:15 Labs: Laboratory Results - last 24 hr 09/11/18 09/11/18 09/11/18 00:14 06:09 06:15 WBC 6.1 RBC 4.09 L Hgb 12.4 Hct 36.1 MCV 88.3 MCH 30.2 MCHC 34.3 RDW 13.4 Plt Count 125 L MPV 8.5 Neut % (Auto) 83.7 H Lymph % (Auto) 9.0 L [place] % (Auto) 6.0 Eos % (Auto) 0.9 Baso % (Auto) 0.4 Neut # (Auto) 5.1 Lymph # (Auto) 0.6 L [place] # (Auto) 0.4 Eos # (Auto) 0.1 Baso # (Auto) 0.0 Neutrophils % (Manual) 83 H Lymphocytes % (Manual) 12 L Monocytes % (Manual) 5 Platelet Estimate Slightly decreased L Sodium Potassium Chloride Carbon Dioxide Anion Gap BUN Creatinine Est GFR ( Amer) Est GFR (Non-Af Amer) POC Glucose (mg/dL) 88 81 Random Glucose Calcium Total Bilirubin AST ALT Alkaline Phosphatase NT-Pro-B Natriuret Pep Total Protein Albumin Globulin Albumin/Globulin Ratio Triglycerides Cholesterol LDL Cholesterol Direct HDL Cholesterol 09/11/18 09/11/18 06:15 08:14 WBC RBC Hgb Hct MCV MCH MCHC RDW Plt Count MPV Neut % (Auto) Lymph % (Auto) [place] % (Auto) Eos % (Auto) Baso % (Auto) Neut # (Auto) Lymph # (Auto) [place] # (Auto) Eos # (Auto) Baso # (Auto) Neutrophils % (Manual) Lymphocytes % (Manual) Monocytes % (Manual) Platelet Estimate Sodium 136 Potassium 4.1 Chloride 98 Carbon Dioxide 25 Anion Gap 17 BUN 13 Creatinine 0.9 Est GFR ( Amer) > 60 Est GFR (Non-Af Amer) > 60 POC Glucose (mg/dL) 85 Random Glucose 97 Calcium 8.2 L Total Bilirubin 1.4 H AST 24 ALT 27 Alkaline Phosphatase 57 NT-Pro-B Natriuret Pep 1350 H Total Protein 6.8 Albumin 3.6 Globulin 3.3 Albumin/Globulin Ratio 1.1 Triglycerides 106 Cholesterol 124 LDL Cholesterol Direct 53 HDL Cholesterol 44 - EKG Data EKG Interpreted by: Myself EKG shows normal: Sinus rhythm (v pacing, first degree av block) Assessment & Plan - Assessment and Plan (Free Text) Assessment: 1. Pt is a 78 year old man with CAD, s/p CABG and PPM. He is currently optimized and surgery for gallbladder can proceed. May hold asa.
[2018-09-11] MEDS: Saccharomyces Boulardi 250 mg Cap PO SCH ×2 (11:00→17:42)
[2018-09-11] MEDS: Metoprolol Succinate 50 mg XL Tab PO SCH (13:11)
[2018-09-12] MEDS: Piperacill/Tazo 3.375gm in Dex 3.375 GM/50 ML BAG IVPB SCH ×4 (02:21→21:18)
[2018-09-12 08:33] LABS: BASO % 0.2 % (0.0-2.0); EOS # 0.1 K/uL (0.0-0.7); EOS % 1.5 % (0.0-4.0); HEMOGLOBIN 12.8 g/dL (12.0-18.0); LYMPH # 0.9 K/uL (1.0-4.3); LYMPH % 13.5 % (20.0-40.0); MEAN CELL VOLUME 88.7 fL (80.0-94.0); MEAN CORPUSCULAR HEMOGLOBIN 30.6 pg (27.0-31.0); MEAN CORPUSCULAR HGB CONC 34.5 g/dL (33.0-37.0); MEAN PLATELET VOLUME 8.8 fL (7.2-11.7); MONO # 0.5 K/uL (0.0-0.8); MONO % 8.4 % (0.0-10.0); NEUT # 4.8 K/uL (1.8-7.0); NEUT % 76.4 % (50.0-75.0); NRBC % 0.1 % (0.0-2.0); RBC 4.18 Mil/uL (4.40-5.90); RED CELL DISTRIBUTION WIDTH 12.9 % (11.5-14.5); WHITE BLOOD COUNT 6.3 K/uL (4.8-10.8)
[2018-09-12 08:55] LABS: ALB/GLOB RATIO 1.2 (1.0-2.1); ALBUMIN 4.1 g/dL (3.5-5.0); ALT/SGPT 29 U/L (21-72); AST/SGOT 22 U/L (17-59); BLOOD UREA NITROGEN 14 mg/dL (9-20); CALCIUM 8.8 mg/dl (8.6-10.4); GFR NON-AFRICAN AMERICAN > 60
[2018-09-12] MEDS: Metoprolol Succinate 50 mg XL Tab PO SCH (09:41)
[2018-09-12] MEDS: Saccharomyces Boulardi 250 mg Cap PO SCH ×2 (09:41→17:07)
--- NOTE | 2018-09-12 10:40 | CP.PCM.PN ---
<Amador Hart - Last Filed: 09/13/18 09:58> Subjective - Date & Time of Evaluation Date of Evaluation: 09/12/18 Time of Evaluation: 10:33 - Subjective Subjective: Hospitalist Service Pt seen and examined at bedside. Pt denies any acute events overnight. Pt still has the persistent RUQ abdominal pain. Pt is able tyo tolerate foods. Denies CP SOB FC NV acute changes in bms or urine Objective - Vital Signs/Intake and Output Vital Signs (last 24 hours): Temp Pulse Resp BP Pulse Ox 98.4 F 70 18 144/79 96 09/12/18 07:40 09/12/18 07:40 09/12/18 07:40 09/12/18 09:41 09/12/18 07:40 - Medications Medications: Current Medications Acetaminophen (Tylenol 325mg Tab) 650 mg PO Q6 PRN PRN Reason: Fever >100.4 F Aspirin (Ecotrin) 81 mg PO DAILY [facility] Last Admin: 09/11/18 11:00 Dose: Not Given Dextrose (Dextrose 50% Inj) 0 ml IV STAT PRN; Protocol PRN Reason: Hypoglycemia Protocol Dextrose (Glutose 15) 0 gm PO ONCE PRN; Protocol PRN Reason: Hypoglycemia Protocol Enalapril Maleate (Vasotec) 10 mg PO DAILY [facility] Last Admin: 09/12/18 09:41 Dose: 10 mg Glucagon (Glucagen Diagnostic Kit) 0 mg IM STAT PRN; Protocol PRN Reason: Hypoglycemia Protocol Heparin Sodium (Porcine) (Heparin) 5,000 units SC ONCE ONE Stop: 09/12/18 16:31 Heparin Sodium (Porcine) (Heparin) 5,000 units SC ONCE ONE Stop: 09/13/18 00:31 Piperacillin Sod/Tazobactam Sod (Zosyn 3.375 Gm Iv Premix) 3.375 gm in 50 mls @ 100 mls/hr IVPB Q6H [facility]; Protocol Last Admin: 09/12/18 09:41 Dose: 100 mls/hr Dextrose (Dextrose 5% In Water 1000 Ml) 1,000 mls @ 0 mls/hr IV .Q0M PRN; Protocol PRN Reason: Hypoglycemia Protocol Influenza Virus Vaccine (Fluzone Quad 1705-1100) 60 mcg IM .ONCE ONE Stop: 09/13/18 10:01 Metoprolol Succinate (Toprol Xl) 50 mg PO DAILY [facility] Last Admin: 09/12/18 09:41 Dose: 50 mg Morphine Sulfate (Morphine) 1 mg IV Q6 PRN PRN Reason: Pain, moderate (4-7) Last Admin: 09/11/18 22:15 Dose: 1 mg Morphine Sulfate (Morphine) 2 mg IV Q6H PRN PRN Reason: Pain, severe (8-10) Last Admin: 09/12/18 07:50 Dose: 2 mg Rosuvastatin Calcium (Crestor) 10 mg PO HS [facility] Last Admin: 09/11/18 22:14 Dose: 10 mg Saccharomyces Boulardii (Florastor) 250 mg PO BID [facility] Last Admin: 09/12/18 09:41 Dose: 250 mg - Labs Labs: 09/12/18 08:20 09/12/18 08:20 PT 17.6 SECONDS (9.7-12.2) H 09/10/18 06:08 INR 1.6 09/10/18 06:08 APTT 38 SECONDS (21-34) H 09/10/18 06:08 - Additional Findings Additional findings: - Constitutional Appears: Well, Non-toxic, No Acute Distress - Head Exam Head Exam: ATRAUMATIC, NORMAL INSPECTION - Eye Exam Eye Exam: EOMI, Scleral icterus - ENT Exam ENT Exam: Mucous Membranes Moist, Normal Exam - Neck Exam Neck Exam: Full ROM, Normal Inspection - Respiratory Exam Respiratory Exam: Clear to Ausculation Bilateral, NORMAL BREATHING PATTERN. absent: Rhonchi, Wheezes - Cardiovascular Exam Cardiovascular Exam: RRR, +S1, +S2 - GI/Abdominal Exam GI & Abdominal Exam: Guarding, Tenderness (RUQ). absent: Distended, Rebound - Extremities Exam Extremities Exam: Full ROM, Normal Inspection - Neurological Exam Neurological Exam: Alert, Awake, CN II-XII Intact, Oriented x3 - Psychiatric Exam Psychiatric exam: Normal Affect, Normal Mood - Skin Skin Exam: Dry, Intact, Normal Color, Warm Assessment and Plan - Assessment and Plan (Free Text) Assessment: 79 M pmhx of CAD CABGx3, HTN, HLD, plan for Lap Marisela tmrw/ Dr Haq, cleared by Dr Sams Acute Cholecystitis General Surgery, Dr. Haq----> Help appreciated * management as per recommendation * Plans for surgery 09/13 tmrw Cardiology, Dr. Garcia and Dr Sams---> cardiac clearance * Management as per recommendation * cleared for surgery * ECHO pending read Imaging: * Abdomen pelvis/CT with contrast: Findings concerning for acute cholecystitis. Cholelithiasis. Biliary obstruction with intra and extrahepatic biliary dilatation. Biliary drainage catheter noted. Mild ascites. Thickened bladder wall raising suspicion of cystitis versus bladder outlet obstruction. * Abdomen US: Cholelithiasis. Thickened gallbladder wall. Trace pericholecystic fluid negative sonographic Nina sign. Findings are concerning for cholecystitis nevertheless. Dilated common bile duct with carrol iary catheter. Medications/Management: * Morphine 1mg or 2mg iv Q6H PRN * Zosyn 3.375gm IV Q6H * Florastor 250mg PO BID * 09/[address] Sams CAD CABG x3: * ASA 81mg PO daily * Toprol XL 50mg PO daily * Crestor 10mg PO daily HTN Toprol XL 50mg PO daily vasotec 10mg PO daily Monitor with vital sign Q4H HLD Crestor 10mg PO HS PPX DVT: SCDS GI: Not indicated Hypoglycemia protocol for liquid HHD Disposition: Pt to go for Lap Marisela tmrw 09/13, cardiac clearance obtained from Dr Sams All plans and management discussed with Dr. Feliz Hart PGY1 <Jason Piper - Last Filed: 09/15/18 23:22> Objective - Vital Signs/Intake and Output Vital Signs (last 24 hours): Temp Pulse Resp BP Pulse Ox 98.5 F 63 20 111/57 L 95 09/15/18 15:20 09/15/18 15:20 09/15/18 15:20 09/15/18 15:20 09/15/18 15:20 Intake and Output: 09/15/18 09/16/18 18:59 06:59 Intake Total 600 Balance 600 - Medications Medications: Current Medications Acetaminophen (Tylenol 325mg Tab) 650 mg PO Q6 PRN PRN Reason: Fever >100.4 F Aspirin (Ecotrin) 81 mg PO DAILY [facility] Last Admin: 09/11/18 11:00 Dose: Not Given Benzocaine/Menthol (Cepacol Sore Throat) 1 janet MT Q1H PRN PRN Reason: Sore Throat Cephalexin Monohydrate (Keflex) 500 mg PO BID [facility]; Protocol Stop: 09/20/18 10:01 Last Admin: 09/15/18 19:01 Dose: 500 mg Dextrose (Dextrose 50% Inj) 0 ml IV STAT PRN; Protocol PRN Reason: Hypoglycemia Protocol Dextrose (Glutose 15) 0 gm PO ONCE PRN; Protocol PRN Reason: Hypoglycemia Protocol Docusate Sodium (Colace) 100 mg PO DAILY [facility] Last Admin: 09/15/18 10:29 Dose: 100 mg Enalapril Maleate (Vasotec) 10 mg PO DAILY [facility] Last Admin: 09/15/18 10:16 Dose: 10 mg Famotidine (Pepcid) 20 mg PO DAILY [facility] Last Admin: 09/15/18 10:16 Dose: 20 mg Glucagon (Glucagen Diagnostic Kit) 0 mg IM STAT PRN; Protocol PRN Reason: Hypoglycemia Protocol Metoprolol Succinate (Toprol Xl) 50 mg PO DAILY [facility] Last Admin: 09/15/18 10:16 Dose: 50 mg Ondansetron HCl (Zofran Inj) 4 mg IVP Q6H PRN PRN Reason: Nausea/Vomiting Last Admin: 09/14/18 02:21 Dose: 4 mg Oxycodone/Acetaminophen (Percocet 5/325 Mg Tab) 1 tab PO Q4H PRN PRN Reason: Pain, moderate (4-7) Stop: 09/16/18 15:40 Last Admin: 09/15/18 19:58 Dose: 1 tab Rosuvastatin Calcium (Crestor) 10 mg PO HS [facility] Last Admin: 09/15/18 21:24 Dose: 10 mg Saccharomyces Boulardii (Florastor) 250 mg PO BID [facility] Last Admin: 09/15/18 17:54 Dose: 250 mg Tamsulosin HCl (Flomax) 0.4 mg PO DAILY [facility] Last Admin: 09/15/18 10:16 Dose: 0.4 mg - Labs Labs: 09/15/18 17:04 09/15/18 07:09 PT 12.7 SECONDS (9.7-12.2) H 09/12/18 14:00 INR 1.2 09/12/18 14:00 APTT 32 SECONDS (21-34) D 09/12/18 14:00 Attending/Attestation - Attestation I have personally seen and examined this patient.: Yes I have fully participated in the care of the patient.: Yes I have reviewed all pertinent clinical information, including history, physical exam and plan: Yes Notes (Text): 09/15/18 23:21 This is a late entry. Care of this patient was gone over in detail with resident Dr. Hart. Jason Piper D.O.
[2018-09-12 14:15] LABS: INR 1.2; PROTHROMBIN TIME 12.7 SECONDS (9.7-12.2)
--- NOTE | 2018-09-12 14:36 | CP.PCM.PN ---
Subjective - Date & Time of Evaluation Date of Evaluation: 09/12/18 Time of Evaluation: 14:33 - Subjective Subjective: General Surgery Consult Note for Dr. Haq This 78M was seen and examined this AM at bedside no acute events overnight. he continue to complain of abdominal pain. He is tolerating clears. No new complaints at this time. Objective - Vital Signs/Intake and Output Vital Signs (last 24 hours): Temp Pulse Resp BP Pulse Ox 98.4 F 70 18 144/79 96 09/12/18 07:40 09/12/18 07:40 09/12/18 07:40 09/12/18 09:41 09/12/18 07:40 - Medications Medications: Current Medications Acetaminophen (Tylenol 325mg Tab) 650 mg PO Q6 PRN PRN Reason: Fever >100.4 F Aspirin (Ecotrin) 81 mg PO DAILY [facility] Last Admin: 09/11/18 11:00 Dose: Not Given Dextrose (Dextrose 50% Inj) 0 ml IV STAT PRN; Protocol PRN Reason: Hypoglycemia Protocol Dextrose (Glutose 15) 0 gm PO ONCE PRN; Protocol PRN Reason: Hypoglycemia Protocol Enalapril Maleate (Vasotec) 10 mg PO DAILY [facility] Last Admin: 09/12/18 09:41 Dose: 10 mg Glucagon (Glucagen Diagnostic Kit) 0 mg IM STAT PRN; Protocol PRN Reason: Hypoglycemia Protocol Heparin Sodium (Porcine) (Heparin) 5,000 units SC ONCE ONE Stop: 09/12/18 16:31 Piperacillin Sod/Tazobactam Sod (Zosyn 3.375 Gm Iv Premix) 3.375 gm in 50 mls @ 100 mls/hr IVPB Q6H [facility]; Protocol Last Admin: 09/12/18 13:58 Dose: 100 mls/hr Dextrose (Dextrose 5% In Water 1000 Ml) 1,000 mls @ 0 mls/hr IV .Q0M PRN; Protocol PRN Reason: Hypoglycemia Protocol Influenza Virus Vaccine (Fluzone Quad [id number]) 60 mcg IM .ONCE ONE Stop: 09/13/18 10:01 Metoprolol Succinate (Toprol Xl) 50 mg PO DAILY [facility] Last Admin: 09/12/18 09:41 Dose: 50 mg Morphine Sulfate (Morphine) 1 mg IV Q6 PRN PRN Reason: Pain, moderate (4-7) Last Admin: 09/11/18 22:15 Dose: 1 mg Morphine Sulfate (Morphine) 2 mg IV Q6H PRN PRN Reason: Pain, severe (8-10) Last Admin: 09/12/18 07:50 Dose: 2 mg Rosuvastatin Calcium (Crestor) 10 mg PO HS [facility] Last Admin: 09/11/18 22:14 Dose: 10 mg Saccharomyces Boulardii (Florastor) 250 mg PO BID [facility] Last Admin: 09/12/18 09:41 Dose: 250 mg - Labs Labs: 09/12/18 08:20 09/12/18 08:20 PT 12.7 SECONDS (9.7-12.2) H 09/12/18 14:00 INR 1.2 09/12/18 14:00 APTT 32 SECONDS (21-34) D 09/12/18 14:00 - Constitutional Appears: Well, Non-toxic, No Acute Distress - Head Exam Head Exam: ATRAUMATIC, NORMOCEPHALIC - Eye Exam Eye Exam: EOMI - ENT Exam ENT Exam: Mucous Membranes Moist - Respiratory Exam Respiratory Exam: NORMAL BREATHING PATTERN - Cardiovascular Exam Cardiovascular Exam: REGULAR RHYTHM - GI/Abdominal Exam GI & Abdominal Exam: Guarding (RUQ), Soft, Tenderness (RUQ). absent: Distended - Extremities Exam Extremities Exam: absent: Calf Tenderness, Pedal Edema - Neurological Exam Neurological Exam: Alert, Awake, Oriented x3 - Psychiatric Exam Psychiatric exam: Normal Affect, Normal Mood - Skin Skin Exam: Dry, Intact, Normal Color, Warm Assessment and Plan - Assessment and Plan (Free Text) Assessment: 77M with acute cholecystitis Cardiology cleared for surgery NPO past midnight IVF Plan for surgery tomorrow D/W Dr. Severino Santos PGY3
--- NOTE | 2018-09-12 16:47 | CP.PCM.PN ---
Subjective - Date & Time of Evaluation Date of Evaluation: 09/12/18 Time of Evaluation: 16:44 - Subjective Subjective: Pt feels well. Still has RUQ pain. Objective - Vital Signs/Intake and Output Vital Signs (last 24 hours): Temp Pulse Resp BP Pulse Ox 98.4 F 70 18 144/79 96 09/12/18 07:40 09/12/18 07:40 09/12/18 07:40 09/12/18 09:41 09/12/18 07:40 - Medications Medications: Current Medications Acetaminophen (Tylenol 325mg Tab) 650 mg PO Q6 PRN PRN Reason: Fever >100.4 F Aspirin (Ecotrin) 81 mg PO DAILY [facility] Last Admin: 09/11/18 11:00 Dose: Not Given Dextrose (Dextrose 50% Inj) 0 ml IV STAT PRN; Protocol PRN Reason: Hypoglycemia Protocol Dextrose (Glutose 15) 0 gm PO ONCE PRN; Protocol PRN Reason: Hypoglycemia Protocol Enalapril Maleate (Vasotec) 10 mg PO DAILY [facility] Last Admin: 09/12/18 09:41 Dose: 10 mg Glucagon (Glucagen Diagnostic Kit) 0 mg IM STAT PRN; Protocol PRN Reason: Hypoglycemia Protocol Piperacillin Sod/Tazobactam Sod (Zosyn 3.375 Gm Iv Premix) 3.375 gm in 50 mls @ 100 mls/hr IVPB Q6H [facility]; Protocol Last Admin: 09/12/18 13:58 Dose: 100 mls/hr Dextrose (Dextrose 5% In Water 1000 Ml) 1,000 mls @ 0 mls/hr IV .Q0M PRN; Protocol PRN Reason: Hypoglycemia Protocol Influenza Virus Vaccine (Fluzone Quad [id number]) 60 mcg IM .ONCE ONE Stop: 09/13/18 10:01 Metoprolol Succinate (Toprol Xl) 50 mg PO DAILY [facility] Last Admin: 09/12/18 09:41 Dose: 50 mg Morphine Sulfate (Morphine) 1 mg IV Q6 PRN PRN Reason: Pain, moderate (4-7) Last Admin: 09/11/18 22:15 Dose: 1 mg Morphine Sulfate (Morphine) 2 mg IV Q6H PRN PRN Reason: Pain, severe (8-10) Last Admin: 09/12/18 07:50 Dose: 2 mg Rosuvastatin Calcium (Crestor) 10 mg PO HS [facility] Last Admin: 09/11/18 22:14 Dose: 10 mg Saccharomyces Boulardii (Florastor) 250 mg PO BID [facility] Last Admin: 09/12/18 09:41 Dose: 250 mg - Labs Labs: 09/12/18 08:20 09/12/18 08:20 PT 12.7 SECONDS (9.7-12.2) H 09/12/18 14:00 INR 1.2 09/12/18 14:00 APTT 32 SECONDS (21-34) D 09/12/18 14:00 - Head Exam Head Exam: ATRAUMATIC, NORMAL INSPECTION - Eye Exam Eye Exam: EOMI, Normal appearance - ENT Exam ENT Exam: Mucous Membranes Moist - Respiratory Exam Respiratory Exam: Clear to Ausculation Bilateral - Cardiovascular Exam Cardiovascular Exam: REGULAR RHYTHM - GI/Abdominal Exam GI & Abdominal Exam: Soft, Normal Bowel Sounds - Exam Exam: NORMAL INSPECTION External exam: NORMAL EXTERNAL EXAM - Back Exam Back Exam: NORMAL INSPECTION - Neurological Exam Neurological Exam: Alert, Awake, CN II-XII Intact - Psychiatric Exam Psychiatric exam: Normal Affect, Normal Mood - Skin Skin Exam: Warm Assessment and Plan - Assessment and Plan (Free Text) Assessment: 1. CAD is stable: 2. S/P PPM. 3. Pt will have cholecystectomy tomorrow.
--- NOTE | 2018-09-12 19:47 | CARD ---
APPROVED REPORT Date of service: 09/11/2018 EXAM: Two-dimensional and M-mode echocardiogram with Doppler and color Doppler. Other Information Quality : GoodRhythm : INDICATION Cardiac Disease: CAD Surgery/Intervention Status/Post Aortic Valve Replacement: Bioprosthetic CABG: RISK FACTORS Hypertension Hyperlipidemia 2D DIMENSIONS IVSd0.9 (0.7-1.1cm)LVDd5.0 (3.9-5.9cm) PWd1.1 (0.7-1.1cm)LA Aftwfw31 (18-58mL) LVDs3.8 (2.5-4.0cm)FS (%) 25.0 % LVEF (%)49.1 (>50%)LVEF (Fish's)54.43 % M-Mode DIMENSIONS Left Atrium (MM)4.40 (2.5-4.0cm)IVSd0.88 (0.7-1.1cm) Aortic Root3.24 (2.2-3.7cm)LVDd4.78 (4.0-5.6cm) Aortic Cusp Exc.2.05 (1.5-2.0cm)PWd0.83 (0.7-1.1cm) FS (%) 17 %LVDs3.99 (2.0-3.8cm) LVEF (%)35 (>50%) Aortic Valve AoV Peak Galmfuul968.0cm/sAoV VTI54.7cmAO Peak GR.40mmHg AO Mean GR.22mmHg Mitral Valve MV E Oksyhwyl956.2cm/sMV A Odcbhyjm44.7cm/sE/A ratio1.9 TDI Lateral E' Peak V9.90cm/sMedial E' Peak V7.51cm/sE/Lateral E'10.6 E/Medial E'14.0 Tricuspid Valve TR Peak Grxwqqda779uw/sTR Peak Gr.99deNxPSNR49oaMo LEFT VENTRICLE The left ventricle is normal size. There is normal left ventricular wall thickness. Left ventricle systolic function is normal. The Ejection Fraction is 50-55%. There is normal LV segmental wall motion. The left ventricular diastolic function is normal. RIGHT VENTRICLE The right ventricle is normal size. There is normal right ventricular wall thickness. The right ventricular systolic function is normal. ATRIA The left atrium is mildly dilated. The right atrium size is normal. The interatrial septum is intact with no evidence for an atrial septal defect. AORTIC VALVE No aortic regurgitation is present. Calculated maximum pressure gradient of 40 mmHg and mean pressure gradient of 22 mmHg across the prosthetic aortic valve.. There are abnormal prosthetic aortic valve gradients. MITRAL VALVE Mitral annular calcification is mild to moderate. There is no evidence of mitral valve prolapse. There is no mitral valve stenosis. Mitral regurgitation is mild. TRICUSPID VALVE The tricuspid valve is normal in structure. There is mild to moderate tricuspid regurgitation. Right ventricular systolic pressure is estimated at 30-40 mmHg. There is mild pulmonary hypertension. PULMONIC VALVE The pulmonic valve is not well visualized. There is mild pulmonic valvular regurgitation. GREAT VESSELS The aortic root is normal in size. PERICARDIAL EFFUSION There is no significant pericardial effusion. <Conclusion> Left ventricle systolic function is normal. The Ejection Fraction is 50-55%. No aortic regurgitation is present. There are abnormal prosthetic aortic valve gradients. Mitral annular calcification is mild to moderate. Mitral regurgitation is mild. There is mild to moderate tricuspid regurgitation. There is mild pulmonary hypertension. There is mild pulmonic valvular regurgitation.
[2018-09-13] MEDS: Piperacill/Tazo 3.375gm in Dex 3.375 GM/50 ML BAG IVPB SCH ×2 (02:50→08:25)
[2018-09-13 07:57] LABS: BASO % 0.3 % (0.0-2.0); EOS # 0.1 K/uL (0.0-0.7); EOS % 2.4 % (0.0-4.0); HEMOGLOBIN 12.1 g/dL (12.0-18.0); LYMPH # 0.7 K/uL (1.0-4.3); LYMPH % 14.8 % (20.0-40.0); MEAN CELL VOLUME 88.3 fL (80.0-94.0); MEAN CORPUSCULAR HEMOGLOBIN 30.9 pg (27.0-31.0); MEAN PLATELET VOLUME 8.4 fL (7.2-11.7); MONO # 0.5 K/uL (0.0-0.8); MONO % 11.1 % (0.0-10.0); NEUT # 3.5 K/uL (1.8-7.0); NEUT % 71.4 % (50.0-75.0); NRBC % 0.1 % (0.0-2.0); RBC 3.93 Mil/uL (4.40-5.90); RED CELL DISTRIBUTION WIDTH 12.7 % (11.5-14.5)
[2018-09-13 08:07] LABS: ALB/GLOB RATIO 1.1 (1.0-2.1); ALBUMIN 3.5 g/dL (3.5-5.0); ALT/SGPT 31 U/L (21-72); AST/SGOT 17 U/L (17-59); BLOOD UREA NITROGEN 9 mg/dL (9-20); CALCIUM 8.6 mg/dl (8.6-10.4); GFR NON-AFRICAN AMERICAN > 60
[2018-09-13] MEDS ORDERED: Influenza Vaccine 60 MCG/0.5 ML SYR (3 yr & up) IM ONE (10:00)
[2018-09-13] MEDS: Metoprolol Succinate 50 mg XL Tab PO SCH (10:07)
[2018-09-13] MEDS: Saccharomyces Boulardi 250 mg Cap PO SCH ×2 (10:07→17:35)
[2018-09-13] MEDS ORDERED: Propofol 10 mg/ml Inj (20 ML) ONE (13:25)
[2018-09-13] MEDS ORDERED: Rocuronium 10 mg/ml (5 ml) ONE (13:26)
[2018-09-13] MEDS ORDERED: Succinylcholine Chloride 20 mg/ml Syr (5 ml) IV ONE (13:26)
[2018-09-13] MEDS ORDERED: Piperacillin/Tazobact 3.375 gm 100 ML IVPB ONE (13:39)
[2018-09-13] MEDS ORDERED: ePHEDrine 50 mg/ml Inj ONE (13:43)
--- NOTE | 2018-09-13 14:56 | CP.PCM.PN ---
<Amador Hart - Last Filed: 09/13/18 16:54> Subjective - Date & Time of Evaluation Date of Evaluation: 09/13/18 Time of Evaluation: 14:53 - Subjective Subjective: Hospitalist Service Pt seen and examined at bedside, denies acute events overnight, complains of persistent RUQ abdominal pain, pt remained npo past midnight, going for Lap Marisela today 09/[address] Haq. Pt understands status and agrees with plan, denies cp fc nv sob Objective - Vital Signs/Intake and Output Vital Signs (last 24 hours): Temp Pulse Resp BP Pulse Ox 99.1 F 61 20 113/63 98 09/13/18 08:00 09/13/18 08:00 09/13/18 08:00 09/13/18 08:00 09/13/18 08:00 Intake and Output: 09/13/18 09/13/18 06:59 18:59 Intake Total 100 Balance 100 - Medications Medications: Current Medications Acetaminophen (Tylenol 325mg Tab) 650 mg PO Q6 PRN PRN Reason: Fever >100.4 F Aspirin (Ecotrin) 81 mg PO DAILY [facility] Last Admin: 09/11/18 11:00 Dose: Not Given Dextrose (Dextrose 50% Inj) 0 ml IV STAT PRN; Protocol PRN Reason: Hypoglycemia Protocol Dextrose (Glutose 15) 0 gm PO ONCE PRN; Protocol PRN Reason: Hypoglycemia Protocol Enalapril Maleate (Vasotec) 10 mg PO DAILY [facility] Last Admin: 09/13/18 10:07 Dose: Not Given Glucagon (Glucagen Diagnostic Kit) 0 mg IM STAT PRN; Protocol PRN Reason: Hypoglycemia Protocol Influenza Virus Vaccine (Fluzone Quad [id number]) 60 mcg IM .ONCE ONE Stop: 09/14/18 10:01 Metoprolol Succinate (Toprol Xl) 50 mg PO DAILY [facility] Last Admin: 09/13/18 10:07 Dose: Not Given Morphine Sulfate (Morphine) 1 mg IV Q6 PRN PRN Reason: Pain, moderate (4-7) Last Admin: 09/11/18 22:15 Dose: 1 mg Morphine Sulfate (Morphine) 2 mg IV Q6H PRN PRN Reason: Pain, severe (8-10) Last Admin: 09/12/18 07:50 Dose: 2 mg Rosuvastatin Calcium (Crestor) 10 mg PO HS [facility] Last Admin: 09/12/18 21:17 Dose: 10 mg Saccharomyces Tommydii (Florastor) 250 mg PO BID [facility] Last Admin: 09/13/18 10:07 Dose: Not Given - Labs Labs: 09/13/18 07:44 09/13/18 07:44 PT 12.7 SECONDS (9.7-12.2) H 09/12/18 14:00 INR 1.2 09/12/18 14:00 APTT 32 SECONDS (21-34) D 09/12/18 14:00 - Additional Findings Additional findings: - Constitutional Appears: Well, Non-toxic, No Acute Distress - Head Exam Head Exam: ATRAUMATIC, NORMAL INSPECTION - Eye Exam Eye Exam: EOMI, Scleral icterus - ENT Exam ENT Exam: Mucous Membranes Moist, Normal Exam - Neck Exam Neck Exam: Full ROM, Normal Inspection - Respiratory Exam Respiratory Exam: Clear to Ausculation Bilateral, NORMAL BREATHING PATTERN. absent: Rhonchi, Wheezes - Cardiovascular Exam Cardiovascular Exam: RRR, +S1, +S2 - GI/Abdominal Exam GI & Abdominal Exam: Guarding, Tenderness (RUQ). absent: Distended, Rebound - Extremities Exam Extremities Exam: Full ROM, Normal Inspection - Neurological Exam Neurological Exam: Alert, Awake, CN II-XII Intact, Oriented x3 - Psychiatric Exam Psychiatric exam: Normal Affect, Normal Mood - Skin Skin Exam: Dry, Intact, Normal Color, Warm Assessment and Plan - Assessment and Plan (Free Text) Assessment: 79 M pmhx of CAD CABGx3, HTN, HLD, plan for Lap Marisela today w/ Dr Haq, cleared by Dr Sams Acute Cholecystitis General Surgery, Dr. Haq----> Help appreciated * management as per recommendation * Lap Marisela today * Extensive adhesions of peritoneum to the liver and gallbladder, gallbladder wall thickened, edematous with purulent fluid drainage from the gallbladder. Adequate hemostasis obtained by the end of the procedure by electrocautery Cardiology, Dr. Garcia and Dr Sams---> cardiac clearance * Management as per recommendation * cleared for surgery * ECHO shows EF 50%, abnormal aortic valve gradients, milf tricus and mitral regurg Imaging: * Abdomen pelvis/CT with contrast: Findings concerning for acute cholecystitis. Cholelithiasis. Biliary obstruction with intra and extrahepatic biliary dilatation. Biliary drainage catheter noted. Mild ascites. Thickened bladder wall raising suspicion of cystitis versus bladder outlet obstruction. * Abdomen US: Cholelithiasis. Thickened gallbladder wall. Trace pericholecystic fluid negative sonographic Nina sign. Findings are concerning for cholecystitis nevertheless. Dilated common bile duct with biliary catheter. Medications/Management: * Morphine 1mg or 2mg iv Q6H PRN * Zosyn 3.375gm IV Q6H * Florastor 250mg PO BID * 09/[address] Sams CAD CABG x3: * ASA 81mg PO daily * Toprol XL 50mg PO daily * Crestor 10mg PO daily HTN Toprol XL 50mg PO daily vasotec 10mg PO daily Monitor with vital sign Q4H HLD Crestor 10mg PO HS PPX DVT: SCDS GI: Not indicated Hypoglycemia protocol for liquid HHD Disposition: Pt to go for Lap Marisela today09/13, cardiac clearance obtained from Dr Sams Surgery success, ample bleeding no anticoag yet, All plans and management discussed with Dr. Feliz Hart PGY1 <Jason Piper - Last Filed: 09/14/18 00:29> Objective - Vital Signs/Intake and Output Vital Signs (last 24 hours): Temp Pulse Resp BP Pulse Ox 98.8 F 65 20 151/72 H 100 09/13/18 16:49 09/13/18 16:49 09/13/18 16:49 09/13/18 16:49 09/13/18 16:49 Intake and Output: 09/13/18 09/14/18 18:59 06:59 Intake Total 1999 1000 Output Total 500 Balance 1999 500 - Medications Medications: Current Medications Acetaminophen (Tylenol 325mg Tab) 650 mg PO Q6 PRN PRN Reason: Fever >100.4 F Aspirin (Ecotrin) 81 mg PO DAILY [facility] Last Admin: 09/11/18 11:00 Dose: Not Given Benzocaine/Menthol (Cepacol Sore Throat) 1 janet MT Q1H PRN PRN Reason: Sore Throat Dextrose (Dextrose 50% Inj) 0 ml IV STAT PRN; Protocol PRN Reason: Hypoglycemia Protocol Dextrose (Glutose 15) 0 gm PO ONCE PRN; Protocol PRN Reason: Hypoglycemia Protocol Docusate Sodium (Colace) 100 mg PO DAILY [facility] Enalapril Maleate (Vasotec) 10 mg PO DAILY [facility] Last Admin: 09/13/18 10:07 Dose: Not Given Famotidine (Pepcid) 20 mg PO DAILY [facility] Glucagon (Glucagen Diagnostic Kit) 0 mg IM STAT PRN; Protocol PRN Reason: Hypoglycemia Protocol Piperacillin Sod/Tazobactam (Sod 3.375 gm/ Sodium Chloride) 100 mls @ 200 mls/hr IVPB Q8H [facility]; Protocol Last Admin: 09/13/18 21:43 Dose: 200 mls/hr Influenza Virus Vaccine (Fluzone Quad 1392-5400) 60 mcg IM .ONCE ONE Stop: 09/14/18 10:01 Metoprolol Succinate (Toprol Xl) 50 mg PO DAILY [facility] Last Admin: 09/13/18 10:07 Dose: Not Given Morphine Sulfate (Morphine) 1 mg IV Q6 PRN PRN Reason: Pain, moderate (4-7) Last Admin: 09/11/18 22:15 Dose: 1 mg Morphine Sulfate (Morphine) 2 mg IV Q6H PRN PRN Reason: Pain, severe (8-10) Last Admin: 09/12/18 07:50 Dose: 2 mg Ondansetron HCl (Zofran Inj) 4 mg IVP Q6H PRN PRN Reason: Nausea/Vomiting Oxycodone/Acetaminophen (Percocet 5/325 Mg Tab) 1 tab PO Q4H PRN PRN Reason: Pain, moderate (4-7) Stop: 09/16/18 15:40 Last Admin: 09/13/18 21:28 Dose: 1 tab Rosuvastatin Calcium (Crestor) 10 mg PO HS [facility] Last Admin: 09/13/18 21:28 Dose: 10 mg Saccharomyces Boulardii (Florastor) 250 mg PO BID [facility] Last Admin: 09/13/18 17:35 Dose: 250 mg Tamsulosin HCl (Flomax) 0.4 mg PO DAILY [facility] - Labs Labs: 09/13/18 07:44 09/13/18 07:44 PT 12.7 SECONDS (9.7-12.2) H 09/12/18 14:00 INR 1.2 09/12/18 14:00 APTT 32 SECONDS (21-34) D 09/12/18 14:00 Attending/Attestation - Attestation I have personally seen and examined this patient.: Yes I have fully participated in the care of the patient.: Yes I have reviewed all pertinent clinical information, including history, physical exam and plan: Yes Notes (Text): 09/14/18 00:27 Patient was seen and examined at 7:15 PM 09/13/18 Care of this patient was gone over with resident Dr. Hart. Medicine Team please speak with Surgery Team to see if ok for discharge on 09/14/18 as long as tolerating diet, pain is controlled, passing flatus/moving bowels. Obtain follow up information with Surgeon and if antibiotics are needed. Jason Piper D.O.
[2018-09-13] MEDS ORDERED: Neostigmine Methylsulfate 3mg/3ml Syringe IV ONE (15:08)
--- NOTE | 2018-09-13 15:31 | PCM.SURG1 ---
Surgeon's Initial Post Op Note - Surgeon's Notes Surgeon: Dr. Robles Haq [employer] Requirements Analyst: Jocelyn Ny, PGY2 Type of Anesthesia: General Endo Pre-Operative Diagnosis: Acute exacerbation of chronic cholecystitis Operative Findings: Extensive adhesions of peritoneum to the liver and gallbladder, gallbladder wall thickened, edematous with purulent fluid drainage from the gallbladder. Adequate hemostasis obtained by the end of the procedure by electrocautery Post-Operative Diagnosis: Acute exacerbation of chronic cholecystitis Operation Performed: laparoscopic cholecystectomy Specimen/Specimens Removed: gallbladder Estimated Blood Loss: EBL {In ML}: 150 Blood Products Given: N/A Drains Used: No Drains Post-Op Condition: Fair Date of Surgery/Procedure: 09/13/18 Time of Surgery/Procedure: 13:00
[2018-09-13] MEDS: HYDROmorphone 0.5 mg/0.5 ml ISec IVP PRN ×2 (15:45→16:00)
[2018-09-13] MEDS ORDERED: HYDROmorphone 0.5 mg/0.5 ml ISec IVP PRN (15:57)
[2018-09-13] MEDS: Oxycodone/Acetaminophen 5/325 mg Tab PO PRN ×2 (17:39→21:28)
--- NOTE | 2018-09-13 18:00 | CARD ---
APPROVED REPORT Date of service: 09/10/2018 EKG Measurement Heart [id number] <Conclusion> Ventricular-paced rhythm Abnormal ECG
[2018-09-13] MEDS: Piperacillin/Tazobact 3.375 GM in Sodium Chloride 100 ML IVPB SCH (21:43)
[2018-09-13] MEDS ORDERED: Benzocaine/Menthol (Cepacol) Lozenge MT PRN (21:56)
--- NOTE | 2018-09-14 00:30 | CP.PCM.PCO ---
Physician Communication Note - Physician Communication Note Physician Communication Note: Please see above
[2018-09-14] MEDS: Piperacillin/Tazobact 3.375 GM in Sodium Chloride 100 ML IVPB SCH ×3 (04:46→21:44)
[2018-09-14 07:49] LABS: BASO % 0.4 % (0.0-2.0); EOS % 0.1 % (0.0-4.0); HEMOGLOBIN 11.8 g/dL (12.0-18.0); LYMPH # 0.4 K/uL (1.0-4.3); LYMPH % 5.1 % (20.0-40.0); MEAN CELL VOLUME 87.9 fL (80.0-94.0); MEAN CORPUSCULAR HGB CONC 35.3 g/dL (33.0-37.0); MEAN PLATELET VOLUME 8.1 fL (7.2-11.7); MONO # 0.6 K/uL (0.0-0.8); NEUT # 6.9 K/uL (1.8-7.0); NEUT % 86.4 % (50.0-75.0); PLATELET COUNT 179 K/uL (130-400); RBC 3.81 Mil/uL (4.40-5.90); RED CELL DISTRIBUTION WIDTH 12.7 % (11.5-14.5)
[2018-09-14 08:14] LABS: ALBUMIN 3.3 g/dL (3.5-5.0); ALT/SGPT 215 U/L (21-72); AST/SGOT 308 U/L (17-59); BLOOD UREA NITROGEN 11 mg/dL (9-20); CALCIUM 8.3 mg/dl (8.6-10.4); GFR NON-AFRICAN AMERICAN > 60
[2018-09-14 09:34] LABS: LYMPHOCYTE 4 % (20-40); MONOCYTE 8 % (0-10); NEUTROPHIL 88 % (50-75); PLATELET ESTIMATE NORMAL (NORMAL); TOTAL CELLS COUNTED 100
--- NOTE | 2018-09-14 09:37 | CP.PCM.PN ---
Subjective - Date & Time of Evaluation Date of Evaluation: 09/14/18 Time of Evaluation: 09:32 - Subjective Subjective: Surgery: Dr. Haq Pt seen and examined. No acute overnight events. States he feels well, and admits to post-op pain. Pt also admitting to burping a lot and denies flatus/BM. Denies fevers/chills. Objective - Vital Signs/Intake and Output Vital Signs (last 24 hours): Temp Pulse Resp BP Pulse Ox 98.8 F 63 20 128/60 97 09/14/18 08:43 09/14/18 08:43 09/14/18 08:43 09/14/18 08:43 09/14/18 08:43 Intake and Output: 09/14/18 09/14/18 06:59 18:59 Intake Total 2550 Output Total 600 Balance 1950 - Medications Medications: Current Medications Acetaminophen (Tylenol 325mg Tab) 650 mg PO Q6 PRN PRN Reason: Fever >100.4 F Aspirin (Ecotrin) 81 mg PO DAILY [facility] Last Admin: 09/11/18 11:00 Dose: Not Given Benzocaine/Menthol (Cepacol Sore Throat) 1 janet MT Q1H PRN PRN Reason: Sore Throat Dextrose (Dextrose 50% Inj) 0 ml IV STAT PRN; Protocol PRN Reason: Hypoglycemia Protocol Dextrose (Glutose 15) 0 gm PO ONCE PRN; Protocol PRN Reason: Hypoglycemia Protocol Docusate Sodium (Colace) 100 mg PO DAILY [facility] Enalapril Maleate (Vasotec) 10 mg PO DAILY [facility] Last Admin: 09/13/18 10:07 Dose: Not Given Famotidine (Pepcid) 20 mg PO DAILY [facility] Glucagon (Glucagen Diagnostic Kit) 0 mg IM STAT PRN; Protocol PRN Reason: Hypoglycemia Protocol Piperacillin Sod/Tazobactam (Sod 3.375 gm/ Sodium Chloride) 100 mls @ 200 mls/hr IVPB Q8H [facility]; Protocol Last Admin: 09/14/18 04:46 Dose: 200 mls/hr Influenza Virus Vaccine (Fluzone Quad [id number]) 60 mcg IM .ONCE ONE Stop: 09/14/18 10:01 Metoprolol Succinate (Toprol Xl) 50 mg PO DAILY [facility] Last Admin: 09/13/18 10:07 Dose: Not Given Morphine Sulfate (Morphine) 1 mg IV Q6 PRN PRN Reason: Pain, moderate (4-7) Last Admin: 09/14/18 01:11 Dose: 1 mg Morphine Sulfate (Morphine) 2 mg IV Q6H PRN PRN Reason: Pain, severe (8-10) Last Admin: 09/14/18 08:22 Dose: 2 mg Ondansetron HCl (Zofran Inj) 4 mg IVP Q6H PRN PRN Reason: Nausea/Vomiting Last Admin: 09/14/18 02:21 Dose: 4 mg Oxycodone/Acetaminophen (Percocet 5/325 Mg Tab) 1 tab PO Q4H PRN PRN Reason: Pain, moderate (4-7) Stop: 09/16/18 15:40 Last Admin: 09/13/18 21:28 Dose: 1 tab Rosuvastatin Calcium (Crestor) 10 mg PO HS [facility] Last Admin: 09/13/18 21:28 Dose: 10 mg Saccharomyces Boulardii (Florastor) 250 mg PO BID [facility] Last Admin: 09/13/18 17:35 Dose: 250 mg Tamsulosin HCl (Flomax) 0.4 mg PO DAILY [facility] - Labs Labs: 09/14/18 07:42 09/14/18 07:42 PT 12.7 SECONDS (9.7-12.2) H 09/12/18 14:00 INR 1.2 09/12/18 14:00 APTT 32 SECONDS (21-34) D 09/12/18 14:00 - Constitutional Appears: Well, No Acute Distress - Head Exam Head Exam: ATRAUMATIC, NORMOCEPHALIC - Eye Exam Eye Exam: Normal appearance - ENT Exam ENT Exam: Mucous Membranes Moist - Respiratory Exam Respiratory Exam: NORMAL BREATHING PATTERN - Cardiovascular Exam Cardiovascular Exam: RRR - GI/Abdominal Exam GI & Abdominal Exam: Distended (slightly ), Soft, Tenderness (around incisions, dressings C/D/I ) - Neurological Exam Neurological Exam: Alert, Awake, Oriented x3 - Skin Skin Exam: Dry, Warm Assessment and Plan - Assessment and Plan (Free Text) Assessment: 78M s/p lap cesar; POD#1 Plan: - due to abdominal distention & lack of flatus, keep pt on liquids - encourage ambulation - will advance diet slowly - monitor drain output - d/w Dr. Severino Shelton
[2018-09-14] MEDS: Metoprolol Succinate 50 mg XL Tab PO SCH (09:48)
[2018-09-14] MEDS: Saccharomyces Boulardi 250 mg Cap PO SCH ×2 (09:49→17:22)
[2018-09-14] MEDS ORDERED: Influenza Vaccine 60 MCG/0.5 ML SYR (3 yr & up) IM ONE ×2 (10:00→14:00)
--- NOTE | 2018-09-14 10:27 | CP.PCM.PN ---
Subjective - Date & Time of Evaluation Date of Evaluation: 09/14/18 Time of Evaluation: 10:20 - Subjective Subjective: Hospitalist Service Pt seen and examined at bedside. Pt reports intense LLQ abdominal pain, not passing gas or stools, burping frequent and vomiting. Surgery team notfied, Pt denies cp sob fc. Objective - Vital Signs/Intake and Output Vital Signs (last 24 hours): Temp Pulse Resp BP Pulse Ox 98.8 F 63 20 128/60 97 09/14/18 08:43 09/14/18 08:43 09/14/18 08:43 09/14/18 09:48 09/14/18 08:43 Intake and Output: 09/14/18 09/14/18 06:59 18:59 Intake Total 2550 Output Total 600 Balance 1950 - Medications Medications: Current Medications Acetaminophen (Tylenol 325mg Tab) 650 mg PO Q6 PRN PRN Reason: Fever >100.4 F Aspirin (Ecotrin) 81 mg PO DAILY [facility] Last Admin: 09/11/18 11:00 Dose: Not Given Benzocaine/Menthol (Cepacol Sore Throat) 1 janet MT Q1H PRN PRN Reason: Sore Throat Dextrose (Dextrose 50% Inj) 0 ml IV STAT PRN; Protocol PRN Reason: Hypoglycemia Protocol Dextrose (Glutose 15) 0 gm PO ONCE PRN; Protocol PRN Reason: Hypoglycemia Protocol Docusate Sodium (Colace) 100 mg PO DAILY [facility] Last Admin: 09/14/18 09:49 Dose: 100 mg Enalapril Maleate (Vasotec) 10 mg PO DAILY [facility] Last Admin: 09/14/18 09:48 Dose: 10 mg Famotidine (Pepcid) 20 mg PO DAILY [facility] Glucagon (Glucagen Diagnostic Kit) 0 mg IM STAT PRN; Protocol PRN Reason: Hypoglycemia Protocol Piperacillin Sod/Tazobactam (Sod 3.375 gm/ Sodium Chloride) 100 mls @ 200 mls/hr IVPB Q8H [facility]; Protocol Last Admin: 09/14/18 04:46 Dose: 200 mls/hr Metoprolol Succinate (Toprol Xl) 50 mg PO DAILY [facility] Last Admin: 09/14/18 09:48 Dose: 50 mg Morphine Sulfate (Morphine) 1 mg IV Q6 PRN PRN Reason: Pain, moderate (4-7) Last Admin: 09/14/18 01:11 Dose: 1 mg Morphine Sulfate (Morphine) 2 mg IV Q6H PRN PRN Reason: Pain, severe (8-10) Last Admin: 09/14/18 08:22 Dose: 2 mg Ondansetron HCl (Zofran Inj) 4 mg IVP Q6H PRN PRN Reason: Nausea/Vomiting Last Admin: 09/14/18 02:21 Dose: 4 mg Oxycodone/Acetaminophen (Percocet 5/325 Mg Tab) 1 tab PO Q4H PRN PRN Reason: Pain, moderate (4-7) Stop: 09/16/18 15:40 Last Admin: 09/13/18 21:28 Dose: 1 tab Rosuvastatin Calcium (Crestor) 10 mg PO HS [facility] Last Admin: 09/13/18 21:28 Dose: 10 mg Saccharomyces Boulardii (Florastor) 250 mg PO BID [facility] Last Admin: 09/14/18 09:49 Dose: 250 mg Tamsulosin HCl (Flomax) 0.4 mg PO DAILY [facility] Last Admin: 09/14/18 09:49 Dose: 0.4 mg - Labs Labs: 09/14/18 07:42 09/14/18 07:42 PT 12.7 SECONDS (9.7-12.2) H 09/12/18 14:00 INR 1.2 09/12/18 14:00 APTT 32 SECONDS (21-34) D 09/12/18 14:00 - Additional Findings Additional findings: - Constitutional Appears: Well, Non-toxic, No Acute Distress - Head Exam Head Exam: ATRAUMATIC, NORMAL INSPECTION - Eye Exam Eye Exam: EOMI, Scleral icterus - ENT Exam ENT Exam: Mucous Membranes Moist, Normal Exam - Neck Exam Neck Exam: Full ROM, Normal Inspection - Respiratory Exam Respiratory Exam: Clear to Ausculation Bilateral, NORMAL BREATHING PATTERN. absent: Rhonchi, Wheezes - Cardiovascular Exam Cardiovascular Exam: RRR, +S1, +S2 - GI/Abdominal Exam GI & Abdominal Exam: Guarding, Tenderness (RUQ). absent: Distended, Rebound - Extremities Exam Extremities Exam: Full ROM, Normal Inspection - Neurological Exam Neurological Exam: Alert, Awake, CN II-XII Intact, Oriented x3 - Psychiatric Exam Psychiatric exam: Normal Affect, Normal Mood - Skin Skin Exam: Dry, Intact, Normal Color, Warm Assessment and Plan - Assessment and Plan (Free Text) Assessment: 79 M pmhx of CAD CABGx3, HTN, HLD, POD #1 Uriel Antonio w/ Dr Haq, cleared by Dr Sams Acute Cholecystitis General Surgery, Dr. Haq----> Help appreciated * management as per recommendation * Lap Marisela 09/13 * Extensive adhesions of peritoneum to the liver and gallbladder, gallbladder wall thickened, edematous with purulent fluid drainage from the gallbladder. Adequate hemostasis obtained by the end of the procedure by electrocautery Cardiology, Dr. Garcia and Dr Sams---> cardiac clearance * Management as per recommendation * cleared for surgery * ECHO shows EF 50%, abnormal aortic valve gradients, milf tricus and mitral regurg Imaging: * Abdomen pelvis/CT with contrast: Findings concerning for acute cholecystitis. Cholelithiasis. Biliary obstruction with intra and extrahepatic biliary dilatation. Biliary drainage catheter noted. Mild ascites. Thickened bladder wall raising suspicion of cystitis versus bladder outlet obstruction. * Abdomen US: Cholelithiasis. Thickened gallbladder wall. Trace pericholecystic fluid negative sonographic Nina sign. Findings are concerning for cholecystitis nevertheless. Dilated common bile duct with biliary catheter. Medications/Management: * Morphine 1mg or 2mg iv Q6H PRN * Zosyn 3.375gm IV Q6H * Florastor 250mg PO BID * 09/[address] Sams Abdominal Distension General surgery notified POD#1 Uriel forbes/ Dr. Haq Monitor for possible SBO colace BID prn for constipation pt encouraged to ambulate Liquid diet CAD CABG x3: * ASA 81mg PO daily * Toprol XL 50mg PO daily * Crestor 10mg PO daily HTN Toprol XL 50mg PO daily vasotec 10mg PO daily Monitor with vital sign Q4H HLD Crestor 10mg PO HS PPX DVT: SCDS GI: Not indicated Hypoglycemia protocol for liquid HHD Disposition: Pt POD#1 Uriel forbes/ Dr Haq , cardiac clearance obtained from Dr Sams Surgery success, ample bleeding no anticoag yet, pending nbm and flatus may d/c home, All plans and management discussed with Dr. Rachid Hart PGY1
--- NOTE | 2018-09-14 19:12 | OP ---
PROCEDURE DATE: 09/13/2018 PREOPERATIVE DIAGNOSIS: Acute and chronic cholecystitis. POSTOPERATIVE DIAGNOSIS: Acute and chronic cholecystitis. PROCEDURE: Laparoscopic cholecystectomy. SURGEON: Robles Haq MD. EQUIPMENT OPERATOR WAREHOUSE: Jocelyn Ny DO ANESTHESIA: General. ANESTHESIOLOGIST: Jossue Shannon MD DESCRIPTION OF PROCEDURE: With the patient in the supine position under adequate general anesthesia, the abdomen was prepped and draped in the usual sterile manner. Veress needle puncture was performed at the umbilicus with insufflation to 15 cm water pressure of CO2 and a 10 mm laparoscopic trocar was inserted via an infraumbilical incision. Under direct vision, additional trocars were inserted in the epigastrium and right costal margin. The gallbladder was visualized. It was covered with a thick peel of matted omentum which was only loosely adherent to the liver, and the omentum was taken down bluntly to expose the gallbladder. The fundus of the gallbladder was noted to be thickened and distended and approximately 20 mL of bile was aspirated to allow the fundus to be grasped and elevated. The peritoneal surface of the gallbladder was then cleared of additional adhesions of the omentum to expose the area of the infundibulum and the stomach, which was somewhat adherent as well to the fundal portion of the gallbladder, was gently retracted downward. The area of the actual infundibulum was patulous and attempts to dissect more medially towards the common bile duct were made difficult by bleeding and adhesions where the patient had had previous ERCP with stent placement several years ago. Just above the area of the infundibulum, there was an area of thickening and narrowing and it was felt that the patient's acute symptoms were occurring distal to this area. At this point, the gallbladder was taken in a top-down manner free from the liver bed down past the area of the thickening which was extremely dense and may possibly be suspicious for either significant chronic inflammation or possibly malignancy, and the gallbladder was freed down past this area until more normal tissue was identified. The gallbladder at this point was freed completely from the liver bed and the 11 mm epigastric trocar was exchanged to a 12 mm trocar allowing an endoscopic stapler to be used to divide the gallbladder at the infundibulum. The gallbladder was removed. The liver bed was inspected for hemostasis, and the gallbladder was placed in a specimen retrieval bag and removed via the umbilical port site. The right upper quadrant was irrigated and suctioned and the pneumoperitoneum was released and the trocars were removed. The umbilical port site was closed with two [id number] fascial sutures of 0 Vicryl and all incisions closed with 4-0 Monocryl subcuticular sutures and Steri-Strips. Dry sterile dressings were applied. The patient tolerated the procedure well and transferred to recovery room in stable condition. Estimated blood loss for the procedure was 150 mL. Robles Haq MD Riley # [id number] ALDA
[2018-09-14] MEDS: Oxycodone/Acetaminophen 5/325 mg Tab PO PRN (21:43)
[2018-09-15] MEDS: Piperacillin/Tazobact 3.375 GM in Sodium Chloride 100 ML IVPB SCH (05:05)
[2018-09-15 07:19] LABS: BASO % 0.1 % (0.0-2.0); EOS # 0.1 K/uL (0.0-0.7); EOS % 0.9 % (0.0-4.0); HEMOGLOBIN 10.2 g/dL (12.0-18.0); LYMPH # 0.5 K/uL (1.0-4.3); MEAN CELL VOLUME 86.4 fL (80.0-94.0); MEAN CORPUSCULAR HEMOGLOBIN 30.6 pg (27.0-31.0); MEAN CORPUSCULAR HGB CONC 35.4 g/dL (33.0-37.0); MEAN PLATELET VOLUME 7.9 fL (7.2-11.7); MONO # 0.5 K/uL (0.0-0.8); MONO % 7.1 % (0.0-10.0); NEUT # 5.5 K/uL (1.8-7.0); NEUT % 83.9 % (50.0-75.0); PLATELET COUNT 153 K/uL (130-400); RBC 3.34 Mil/uL (4.40-5.90); RED CELL DISTRIBUTION WIDTH 13.1 % (11.5-14.5); WHITE BLOOD COUNT 6.6 K/uL (4.8-10.8)
[2018-09-15 07:47] LABS: ALB/GLOB RATIO 0.9 (1.0-2.1); ALBUMIN 2.9 g/dL (3.5-5.0); ALT/SGPT 140 U/L (21-72); AST/SGOT 102 U/L (17-59); BLOOD UREA NITROGEN 8 mg/dL (9-20); GFR NON-AFRICAN AMERICAN > 60
[2018-09-15] MEDS ORDERED: Sodium Chloride 0.9% 1,000 ML IV SCH (08:00)
[2018-09-15 08:27] LABS: MONOCYTE 6 % (0-10); NEUTROPHIL 84 % (50-75); TOTAL CELLS COUNTED 100
[2018-09-15 08:28] LABS: ANISOCYTOSIS SLIGHT; HYPOCHROMIC SLIGHT; LYMPHOCYTE 10 % (20-40); PLATELET ESTIMATE NORMAL (NORMAL); POIKILOCYTOSIS SLIGHT
--- NOTE | 2018-09-15 09:02 | CP.PCM.PN ---
Subjective - Date & Time of Evaluation Date of Evaluation: 09/15/18 Time of Evaluation: 08:59 - Subjective Subjective: Surgery: Dr. Haq Pt seen and examined. No acute events overnight. States he feels a lot better this morning. His abdominal pain has resolved, he admits to tolerating his diet and denies any nausea/vomiting. Pt states he's hungry this AM. Admits to one BM yest, denies flatus. Objective - Vital Signs/Intake and Output Vital Signs (last 24 hours): Temp Pulse Resp BP Pulse Ox 99.0 F 60 18 113/52 L 96 09/15/18 07:10 09/15/18 07:10 09/15/18 07:10 09/15/18 07:10 09/15/18 07:10 - Medications Medications: Current Medications Acetaminophen (Tylenol 325mg Tab) 650 mg PO Q6 PRN PRN Reason: Fever >100.4 F Aspirin (Ecotrin) 81 mg PO DAILY [facility] Last Admin: 09/11/18 11:00 Dose: Not Given Benzocaine/Menthol (Cepacol Sore Throat) 1 janet MT Q1H PRN PRN Reason: Sore Throat Dextrose (Dextrose 50% Inj) 0 ml IV STAT PRN; Protocol PRN Reason: Hypoglycemia Protocol Dextrose (Glutose 15) 0 gm PO ONCE PRN; Protocol PRN Reason: Hypoglycemia Protocol Docusate Sodium (Colace) 100 mg PO DAILY [facility] Last Admin: 09/14/18 09:49 Dose: 100 mg Enalapril Maleate (Vasotec) 10 mg PO DAILY [facility] Last Admin: 09/14/18 09:48 Dose: 10 mg Famotidine (Pepcid) 20 mg PO DAILY [facility] Last Admin: 09/14/18 09:49 Dose: 20 mg Glucagon (Glucagen Diagnostic Kit) 0 mg IM STAT PRN; Protocol PRN Reason: Hypoglycemia Protocol Sodium Chloride (Sodium Chloride 0.9%) 1,000 mls @ 75 mls/hr IV .[id number] [facility] Metoprolol Succinate (Toprol Xl) 50 mg PO DAILY [facility] Last Admin: 09/14/18 09:48 Dose: 50 mg Morphine Sulfate (Morphine) 2 mg IV Q6H PRN PRN Reason: Pain, severe (8-10) Last Admin: 09/14/18 08:22 Dose: 2 mg Ondansetron HCl (Zofran Inj) 4 mg IVP Q6H PRN PRN Reason: Nausea/Vomiting Last Admin: 09/14/18 02:21 Dose: 4 mg Oxycodone/Acetaminophen (Percocet 5/325 Mg Tab) 1 tab PO Q4H PRN PRN Reason: Pain, moderate (4-7) Stop: 09/16/18 15:40 Last Admin: 09/14/18 21:43 Dose: 1 tab Rosuvastatin Calcium (Crestor) 10 mg PO HS [facility] Last Admin: 09/14/18 21:43 Dose: 10 mg Saccharomyces Boulardii (Florastor) 250 mg PO BID [facility] Last Admin: 09/14/18 17:22 Dose: 250 mg Tamsulosin HCl (Flomax) 0.4 mg PO DAILY [facility] Last Admin: 09/14/18 09:49 Dose: 0.4 mg - Labs Labs: 09/15/18 07:09 09/15/18 07:09 PT 12.7 SECONDS (9.7-12.2) H 09/12/18 14:00 INR 1.2 09/12/18 14:00 APTT 32 SECONDS (21-34) D 09/12/18 14:00 - Constitutional Appears: Well, No Acute Distress - Head Exam Head Exam: ATRAUMATIC, NORMOCEPHALIC - Eye Exam Eye Exam: Normal appearance - ENT Exam ENT Exam: Mucous Membranes Moist - Respiratory Exam Respiratory Exam: NORMAL BREATHING PATTERN - Cardiovascular Exam Cardiovascular Exam: RRR - GI/Abdominal Exam GI & Abdominal Exam: Distended, Soft, Tenderness (around incision sites; inci sions clean/dry/intact with steris ). absent: Guarding, Rebound - Neurological Exam Neurological Exam: Alert, Awake, Oriented x3 - Skin Skin Exam: Dry, Warm Assessment and Plan - Assessment and Plan (Free Text) Assessment: 78M s/p lap cholecystectomy; POD#2 Plan: - advance to regular heart healthy diet - if pt tolerates regular diet; can be DC from surgical standpoint - f/u with Dr. Haq in 1-2 weeks - no heavy lifting > 15lbs for 4-6 weeks - d/w Dr. Severino Shelton
[2018-09-15] MEDS: Metoprolol Succinate 50 mg XL Tab PO SCH (10:16)
[2018-09-15] MEDS: Saccharomyces Boulardi 250 mg Cap PO SCH ×2 (10:17→17:54)
[2018-09-15] MEDS: Oxycodone/Acetaminophen 5/325 mg Tab PO PRN ×3 (10:22→19:58)
[2018-09-15] MEDS: Potassium & Sodium Phosphate PO SCH ×2 (14:31→17:54)
[2018-09-15 17:21] VITALS: RESP 20
[2018-09-15 17:22] LABS: BASO % 0.2 % (0.0-2.0); EOS # 0.1 K/uL (0.0-0.7); EOS % 0.8 % (0.0-4.0); HEMOGLOBIN 9.9 g/dL (12.0-18.0); LYMPH # 0.6 K/uL (1.0-4.3); LYMPH % 8.4 % (20.0-40.0); MEAN CELL VOLUME 87.4 fL (80.0-94.0); MEAN CORPUSCULAR HEMOGLOBIN 29.9 pg (27.0-31.0); MEAN CORPUSCULAR HGB CONC 34.2 g/dL (33.0-37.0); MEAN PLATELET VOLUME 8.4 fL (7.2-11.7); MONO # 0.4 K/uL (0.0-0.8); MONO % 6.4 % (0.0-10.0); NEUT # 5.7 K/uL (1.8-7.0); NEUT % 84.2 % (50.0-75.0); PLATELET COUNT 155 K/uL (130-400); RBC 3.32 Mil/uL (4.40-5.90); RED CELL DISTRIBUTION WIDTH 12.9 % (11.5-14.5); WHITE BLOOD COUNT 6.8 K/uL (4.8-10.8)
[2018-09-15 17:53] LABS: LYMPHOCYTE 5 % (20-40); MONOCYTE 4 % (0-10); NEUTROPHIL 91 % (50-75); PLATELET ESTIMATE NORMAL (NORMAL); TOTAL CELLS COUNTED 100
--- NOTE | 2018-09-15 18:46 | CP.PCM.PN ---
Subjective - Date & Time of Evaluation Date of Evaluation: 09/15/18 Time of Evaluation: 10:00 - Subjective Subjective: Pt seen and exaPGY-1 Medicine progress note for Dr. Weiss Pt was seen and examined at bedside. Pt continues to complain of RUQ pain and epigastric pain .he is passing gas and had a normal bowel movement today. He remains distended. Pt denies fever, chills, sob, chest pain, n/v/d, hematochezia, melena, lightehadedness, weakness, dizziness. Pt is ambulating well by himself, he continues to burp. Objective - Vital Signs/Intake and Output Vital Signs (last 24 hours): Temp Pulse Resp BP Pulse Ox 98.5 F 63 20 111/57 L 95 09/15/18 15:20 09/15/18 15:20 09/15/18 15:20 09/15/18 15:20 09/15/18 15:20 - Medications Medications: Current Medications Acetaminophen (Tylenol 325mg Tab) 650 mg PO Q6 PRN PRN Reason: Fever >100.4 F Aspirin (Ecotrin) 81 mg PO DAILY [facility] Last Admin: 09/11/18 11:00 Dose: Not Given Benzocaine/Menthol (Cepacol Sore Throat) 1 janet MT Q1H PRN PRN Reason: Sore Throat Dextrose (Dextrose 50% Inj) 0 ml IV STAT PRN; Protocol PRN Reason: Hypoglycemia Protocol Dextrose (Glutose 15) 0 gm PO ONCE PRN; Protocol PRN Reason: Hypoglycemia Protocol Docusate Sodium (Colace) 100 mg PO DAILY [facility] Last Admin: 09/15/18 10:29 Dose: 100 mg Enalapril Maleate (Vasotec) 10 mg PO DAILY [facility] Last Admin: 09/15/18 10:16 Dose: 10 mg Famotidine (Pepcid) 20 mg PO DAILY [facility] Last Admin: 09/15/18 10:16 Dose: 20 mg Glucagon (Glucagen Diagnostic Kit) 0 mg IM STAT PRN; Protocol PRN Reason: Hypoglycemia Protocol Metoprolol Succinate (Toprol Xl) 50 mg PO DAILY [facility] Last Admin: 09/15/18 10:16 Dose: 50 mg Ondansetron HCl (Zofran Inj) 4 mg IVP Q6H PRN PRN Reason: Nausea/Vomiting Last Admin: 09/14/18 02:21 Dose: 4 mg Oxycodone/Acetaminophen (Percocet 5/325 Mg Tab) 1 tab PO Q4H PRN PRN Reason: Pain, moderate (4-7) Stop: 09/16/18 15:40 Last Admin: 09/15/18 15:48 Dose: 1 tab Rosuvastatin Calcium (Crestor) 10 mg PO HS [facility] Last Admin: 09/14/18 21:43 Dose: 10 mg Saccharomyces Boulardii (Florastor) 250 mg PO BID [facility] Last Admin: 09/15/18 17:54 Dose: 250 mg Tamsulosin HCl (Flomax) 0.4 mg PO DAILY [facility] Last Admin: 09/15/18 10:16 Dose: 0.4 mg - Labs Labs: 09/15/18 17:04 09/15/18 07:09 PT 12.7 SECONDS (9.7-12.2) H 09/12/18 14:00 INR 1.2 09/12/18 14:00 APTT 32 SECONDS (21-34) D 09/12/18 14:00 - Additional Findings Additional findings: - Constitutional Appears: Well, Non-toxic, No Acute Distress - Head Exam Head Exam: ATRAUMATIC, NORMAL INSPECTION - Eye Exam Eye Exam: EOMI, Scleral icterus - ENT Exam ENT Exam: Mucous Membranes Moist, Normal Exam - Neck Exam Neck Exam: Full ROM, Normal Inspection - Respiratory Exam Respiratory Exam: Clear to Ausculation Bilateral, NORMAL BREATHING PATTERN. absent: Rhonchi, Wheezes - Cardiovascular Exam Cardiovascular Exam: RRR, +S1, +S2 - GI/Abdominal Exam GI & Abdominal Exam: Guarding, Tenderness (RUQ), distended. absent: Rebound, r igidity - Extremities Exam Extremities Exam: Full ROM, Normal Inspection - Neurological Exam Neurological Exam: Alert, Awake, CN II-XII Intact, Oriented x3 - Psychiatric Exam Psychiatric exam: Normal Affect, Normal Mood - Skin Skin Exam: Dry, Intact, Normal Color, Warm. No jaundice. Assessment and Plan - Assessment and Plan (Free Text) Assessment: 79 M pmhx of CAD CABGx3, HTN, HLD, POD #2 Uriel Cesar w/ Dr Haq, cleared by Dr Sams. Pt remains with abdominal distension, but is passing gas and mckeon a bowel movement. Reports minor improvement of abdominal pain. Acute Cholecystitis, treated with lap cesar General Surgery, Dr. Ivy * Lap Cesar 09/13 * currently POD #2 * Extensive adhesions of peritoneum to the liver and gallbladder, gallbladder wall thickened, edematous with purulent fluid drainage from the gallbladder. Adequate hemostasis obtained by the end of the procedure by electrocautery Cardiology, Dr. Garcia and Dr Sams---> cardiac clearance * Management as per recommendation * cleared for surgery * ECHO shows EF 50%, abnormal aortic valve gradients, milf tricus and mitral regurg Imaging: * Abdomen pelvis/CT with contrast: Findings concerning for acute cholecystitis. Cholelithiasis. Biliary obstruction with intra and extrahepatic biliary dilatation. Biliary drainage catheter noted. Mild ascites. Thickened bladder wall raising suspicion of cystitis versus bladder outlet obstruction. * Abdomen US: Cholelithiasis. Thickened gallbladder wall. Trace pericholecystic fluid negative sonographic Nina sign. Findings are concerning for cholecystitis nevertheless. Dilated common bile duct with biliary catheter. Medications/Management: * Morphine 1mg or 2mg iv Q6H PRN * Zosyn 3.375gm IV Q6H * pt started on Keflex 500 mg PO BID, with first dose today * Plan to give for total of 5 days * Florastor 250mg PO BID * 09/[address] Sams Abdominal Distension General surgery notified * if pt tolerates regular diet; can be DC from surgical standpoint * f/u with Dr. Haq in 1-2 weeks * no heavy lifting > 15lbs for 4-6 weeks Tbili is normal Hx of CAD CABG x3: * ASA 81mg PO daily * Toprol XL 50mg PO daily * Crestor 10mg PO daily Hx of HTN * Toprol XL 50mg PO daily * vasotec 10mg PO daily * Monitor with vital sign Q4H Hx of HLD * Crestor 10mg PO HS PPX DVT: SCDS GI: Not indicated HHD Disposition: Pt POD#2 Lap cesar w/ Dr Haq, cardiac clearance obtained from Dr Sams Surgery success, ample bleeding no anticoag yet Surgery has signed off, and would like outpatient follow up Pt to be discharge tomorrow pending any acute changes on clinical exam or labs Case discussed with attending physician, Dr. Weiss
[2018-09-16] MEDS: Oxycodone/Acetaminophen 5/325 mg Tab PO PRN ×3 (02:43→11:10)
--- NOTE | 2018-09-16 07:40 | CP.PCM.DIS ---
<Shoshana Brown - Last Filed: 09/16/18 14:25> Provider - Provider Date of Admission: 09/10/18 09:24 Attending physician: Jason Piper MD Primary care physician: Dr. Estephanie Rogers Consults: 09/10/18 09:18 Physician Consult Routine Comment: *ALREADY CALLED Consulting Provider: Robles Haq Consulting Physician: Robles Haq Reason for Consult: ACUTE MAGALY 09/10/18 10:52 Cardiology Consult Routine Comment: for magaly surgery Consulting Provider: Benji Garcia Consulting Physician: Benji Garcia Reason for Consult: cardiac clearance, hx of cad/cabg/pacemaker Time Spent in preparation of Discharge (in minutes): 45 Diagnosis - Discharge Diagnosis (1) Acute cholecystitis Status: Resolved Priority: High (2) Cholelithiasis Status: Resolved Priority: High Hospital Course - Lab Results Lab Results: Micro Results 09/10/18 12:16 Blood Blood Culture - Final NO GROWTH AFTER 5 DAYS 09/10/18 12:16 Blood Gram Stain - Final TEST NOT PERFORMED 09/10/18 11:12 Blood Blood Culture - Final NO GROWTH AFTER 5 DAYS 09/10/18 11:12 Blood Gram Stain - Final TEST NOT PERFORMED 09/10/18 11:12 Urine,Catheterized Urine Culture - Final No Growth (<1,000 CFU/ML) Most Recent Lab Values WBC 6.8 K/uL (4.8-10.8) 09/15/18 17:04 RBC 3.32 Mil/uL (4.40-5.90) L 09/15/18 17:04 Hgb 9.9 g/dL (12.0-18.0) L 09/15/18 17:04 Hct 29.0 % (35.0-51.0) L 09/15/18 17:04 MCV 87.4 fL (80.0-94.0) 09/15/18 17:04 MCH 29.9 pg (27.0-31.0) 09/15/18 17:04 MCHC 34.2 g/dL (33.0-37.0) 09/15/18 17:04 RDW 12.9 % (11.5-14.5) 09/15/18 17:04 Plt Count 155 K/uL (130-400) 09/15/18 17:04 MPV 8.4 fL (7.2-11.7) 09/15/18 17:04 Neut % (Auto) 84.2 % (50.0-75.0) H 09/15/18 17:04 Lymph % (Auto) 8.4 % (20.0-40.0) L 09/15/18 17:04 [place] % (Auto) 6.4 % (0.0-10.0) 09/15/18 17:04 Eos % (Auto) 0.8 % (0.0-4.0) 09/15/18 17:04 Baso % (Auto) 0.2 % (0.0-2.0) 09/15/18 17:04 Neut # (Auto) 5.7 K/uL (1.8-7.0) 09/15/18 17:04 Lymph # (Auto) 0.6 K/uL (1.0-4.3) L 09/15/18 17:04 [place] # (Auto) 0.4 K/uL (0.0-0.8) 09/15/18 17:04 Eos # (Auto) 0.1 K/uL (0.0-0.7) 09/15/18 17:04 Baso # (Auto) 0.0 K/uL (0.0-0.2) 09/15/18 17:04 Neutrophils % (Manual) 91 % (50-75) H 09/15/18 17:04 Band Neutrophils % 6 % (0-2) H 09/10/18 06:08 Lymphocytes % (Manual) 5 % (20-40) L 09/15/18 17:04 Monocytes % (Manual) 4 % (0-10) 09/15/18 17:04 Platelet Estimate Normal (NORMAL) 09/15/18 17:04 RBC Morphology Normal 09/15/18 17:04 Hypochromasia (manual) Slight 09/15/18 07:09 Poikilocytosis (manual Slight 09/15/18 07:09 Anisocytosis (manual) Slight 09/15/18 07:09 PT 12.7 SECONDS (9.7-12.2) H 09/12/18 14:00 INR 1.2 09/12/18 14:00 APTT 32 SECONDS (21-34) D 09/12/18 14:00 Sodium 132 mmol/L (132-148) 09/15/18 07:09 Potassium 4.4 mmol/L (3.6-5.2) 09/15/18 07:09 Chloride 94 mmol/L (98-107) L 09/15/18 07:09 Carbon Dioxide 30 mmol/L (22-30) 09/15/18 07:09 Anion Gap 12 (10-20) 09/15/18 07:09 BUN 8 mg/dL (9-20) L 09/15/18 07:09 Creatinine 0.9 mg/dL (0.8-1.5) 09/15/18 07:09 Est GFR ( Amer) > 60 09/15/18 07:09 Est GFR (Non-Af Amer) > 60 09/15/18 07:09 POC Glucose (mg/dL) 109 mg/dL (65-110) 09/16/18 06:31 Random Glucose 120 mg/dL (75-110) H 09/15/18 07:09 Hemoglobin A1c 5.7 % (4.2-6.5) 09/11/18 06:15 Calcium 8.0 mg/dl (8.6-10.4) L 09/15/18 07:09 Phosphorus 1.7 mg/dL (2.5-4.5) L 09/15/18 07:09 Magnesium 2.2 mg/dL (1.6-2.3) 09/15/18 07:09 Total Bilirubin 0.9 mg/dL (0.2-1.3) 09/15/18 07:09 AST 102 U/L (17-59) H D 09/15/18 07:09 ALT 140 U/L (21-72) H D 09/15/18 07:09 Alkaline Phosphatase 60 U/L (38-126) 09/15/18 07:09 NT-Pro-B Natriuret Pep 1350 pg/mL (0-900) H 09/11/18 06:15 Total Protein 6.1 g/dL (6.3-8.3) L 09/15/18 07:09 Albumin 2.9 g/dL (3.5-5.0) L 09/15/18 07:09 Globulin 3.1 gm/dL (2.2-3.9) 09/15/18 07:09 Albumin/Globulin Ratio 0.9 (1.0-2.1) L 09/15/18 07:09 Triglycerides 106 mg/dL (0-149) 09/11/18 06:15 Cholesterol 124 mg/dL (0-199) 09/11/18 06:15 LDL Cholesterol Direct 53 mg/dL (0-129) 09/11/18 06:15 HDL Cholesterol 44 mg/dL (30-70) 09/11/18 06:15 Lipase 17 U/L (23-300) L 09/10/18 06:08 Urine Color Yellow (YELLOW) 09/10/18 09:22 Urine Clarity Clear (Clear) 09/10/18 09:22 Urine pH 6.0 (5.0-8.0) 09/10/18 09:22 Ur Specific [place] 1.055 (1.003-1.030) H 09/10/18 09:22 Urine Protein 1+ mg/dL (NEGATIVE) H 09/10/18 09:22 Urine Glucose (UA) Normal mg/dL (Normal) 09/10/18 09:22 Urine Ketones Negative mg/dL (NEGATIVE) 09/10/18 09:22 Urine Blood 1+ (NEGATIVE) H 09/10/18 09:22 Urine Nitrate Negative (NEGATIVE) 09/10/18 09:22 Urine Bilirubin Negative (NEGATIVE) 09/10/18 09:22 Urine Urobilinogen Normal mg/dL (0.2-1.0) 09/10/18 09:22 Ur Leukocyte Esterase Neg Javad/uL (Negative) 09/10/18 09:22 Urine WBC (Auto) 4 /hpf (0-5) 09/10/18 09:22 Urine RBC (Auto) 13 /hpf (0-3) H 09/10/18 09:22 Ur Squamous Epith Cells < 1 /hpf (0-5) 09/10/18 09:22 - Hospital Course Hospital Course: Patient is a 78 year old male with past medical history of CAD (CABG x3), HTN, HLD, and prior history of gall stones, who presents to the ED with his niece with complaints of right sided abdominal pain that started on 09/10/18 at 9am while sleeping. Patient reports the pain as a 9/10 intermittent squeezing pain that radiates to the right side of his chest, which is worsening with cough, hiccups and sneezing. In addition, patient had three episodes of non-bloody/non-bilious vomiting between Tuesday and Tuesday night as well 3-4 episodes of loose stool on Tuesday night. Patient states that he has been using warm compresses on his abdomen with no relief. As per EMR, patient has prior admission of probable choledocholithiasis. Patient admits to chills on Tuesday night but denies any symptoms of fever, chest pain, palpitations, shortness of breath. Patient has been on a liquid diet since Tuesday. Patient was found to have acute cholecystitis 2/2 cholelithiasis on US and CT. Luna cummings had lap cholecystectomy on 09/13. Extensive adhesions of peritoneum to the liver and gallbladder, gallbladder wall thickened, edematous with purulent fluid drainage from the gallbladder. Adequate hemostasis obtained by the end of the procedure by electrocautery. Upon discharge, patient's abdominal pain was well controlled. His vitals were stable and wnl. He was ambulating independently. He had a BM and was urinating. He will continue a 5 day course of abx and follow-up with surgery in 1 week. Discharge Exam - Head Exam Head Exam: ATRAUMATIC, NORMOCEPHALIC - Eye Exam Eye Exam: EOMI, Normal appearance, PERRL - ENT Exam ENT Exam: Mucous Membranes Moist - Neck Exam Neck exam: Normal Inspection - Respiratory Exam Respiratory Exam: Clear to PA & Lateral, NORMAL BREATHING PATTERN, UNREMARKABLE - Cardiovascular Exam Cardiovascular Exam: REGULAR RHYTHM, +S1, +S2 - GI/Abdominal Exam GI & Abdominal Exam: Distended, Soft. absent: Guarding, Mass, Rebound, Tenderness Additional comments: surgical incisions clean, no signs of bleeding or infection - Rectal Exam Rectal Exam: Deferred - Extremities Exam Extremities exam: normal inspection - Neurological Exam Neurological exam: Alert, CN II-XII Intact, Normal Gait, Oriented x3 - Psychiatric Exam Psychiatric exam: Normal Affect, Normal Mood - Skin Skin Exam: Dry, Intact, Normal Color, Warm Discharge Plan - Discharge Medications Prescriptions: RX: Cephalexin [Keflex] 500 mg PO BID 4 Days #8 cap RX: Tamsulosin [Flomax] 0.4 mg PO DAILY #5 cap - Follow Up Plan Condition: IMPROVED Disposition: HOME/ ROUTINE Patient education suggested?: Yes Instructions: Cholecystitis (DC), Cholecystitis (GEN) Additional Instructions: Please follow-up with your primary care physician within 3-5 days of discharge. Please follow-up with surgery, Dr. Haq, in 1-2 weeks. No heavy lifting (>15 lb) for 4-6 weeks. You will be given a prescription for Keflex, an antibiotic. Please take twice daily for a total of 4 days. You may take over the counter medications for pain. you will be given a 5 day prescription for Flomax to help with urination. You may obtain refills from your primary care physician or surgeon if needed fro longer than 5 days. Resume all of your home medications. If symptoms recur, return to the nearest emergency room. Referrals: Robles Haq MD [Staff Provider] - Estephanie Rogers MD [Staff Provider] - <Marilin Rowland - Last Filed: 09/17/18 20:40> Provider - Provider Date of Admission: 09/10/18 09:24 Attending physician: Marilin Rowland MD Consults: 09/10/18 09:18 Physician Consult Routine Comment: *ALREADY CALLED Consulting Provider: Robles Haq Consulting Physician: Robles Haq Reason for Consult: ACUTE MAGALY 09/10/18 10:52 Cardiology Consult Routine Comment: for magaly surgery Consulting Provider: Benji Garcia Consulting Physician: Benji Garcia Reason for Consult: cardiac clearance, hx of cad/cabg/pacemaker Hospital Course - Lab Results Lab Results: Micro Results 09/10/18 12:16 Blood Blood Culture - Final NO GROWTH AFTER 5 DAYS 09/10/18 12:16 Blood Gram Stain - Final TEST NOT PERFORMED 09/10/18 11:12 Blood Blood Culture - Final NO GROWTH AFTER 5 DAYS 09/10/18 11:12 Blood Gram Stain - Final TEST NOT PERFORMED 09/10/18 11:12 Urine,Catheterized Urine Culture - Final No Growth (<1,000 CFU/ML) Most Recent Lab Values WBC 6.0 K/uL (4.8-10.8) 09/16/18 07:43 RBC 3.14 Mil/uL (4.40-5.90) L 09/16/18 07:43 Hgb 9.6 g/dL (12.0-18.0) L 09/16/18 07:43 Hct 27.4 % (35.0-51.0) L 09/16/18 07:43 MCV 87.2 fL (80.0-94.0) 09/16/18 07:43 MCH 30.5 pg (27.0-31.0) 09/16/18 07:43 MCHC 35.0 g/dL (33.0-37.0) 09/16/18 07:43 RDW 12.7 % (11.5-14.5) 09/16/18 07:43 Plt Count 168 K/uL (130-400) 09/16/18 07:43 MPV 8.2 fL (7.2-11.7) 09/16/18 07:43 Neut % (Auto) 82.9 % (50.0-75.0) H 09/16/18 07:43 Lymph % (Auto) 8.7 % (20.0-40.0) L 09/16/18 07:43 [place] % (Auto) 5.9 % (0.0-10.0) 09/16/18 07:43 Eos % (Auto) 2.3 % (0.0-4.0) 09/16/18 07:43 Baso % (Auto) 0.2 % (0.0-2.0) 09/16/18 07:43 Neut # (Auto) 5.0 K/uL (1.8-7.0) 09/16/18 07:43 Lymph # (Auto) 0.5 K/uL (1.0-4.3) L 09/16/18 07:43 [place] # (Auto) 0.4 K/uL (0.0-0.8) 09/16/18 07:43 Eos # (Auto) 0.1 K/uL (0.0-0.7) 09/16/18 07:43 Baso # (Auto) 0.0 K/uL (0.0-0.2) 09/16/18 07:43 Neutrophils % (Manual) 87 % (50-75) H 09/16/18 07:43 Band Neutrophils % 6 % (0-2) H 09/10/18 06:08 Lymphocytes % (Manual) 8 % (20-40) L 09/16/18 07:43 Monocytes % (Manual) 4 % (0-10) 09/16/18 07:43 Eosinophils % (Manual) 1 % (0-4) 09/16/18 07:43 Toxic Granulation Present 09/16/18 07:43 Platelet Estimate Normal (NORMAL) 09/16/18 07:43 Large Platelets Present 09/16/18 07:43 RBC Morphology Normal 09/15/18 17:04 Polychromasia Slight 09/16/18 07:43 Hypochromasia (manual) Slight 09/16/18 07:43 Poikilocytosis (manual Slight 09/16/18 07:43 Anisocytosis (manual) Slight 09/16/18 07:43 Ovalocytes Slight 09/16/18 07:43 PT 12.7 SECONDS (9.7-12.2) H 09/12/18 14:00 INR 1.2 09/12/18 14:00 APTT 32 SECONDS (21-34) D 09/12/18 14:00 Sodium 134 mmol/L (132-148) 09/16/18 07:43 Potassium 4.6 mmol/L (3.6-5.2) 09/16/18 07:43 Chloride 97 mmol/L (98-107) L 09/16/18 07:43 Carbon Dioxide 31 mmol/L (22-30) H 09/16/18 07:43 Anion Gap 12 (10-20) 09/16/18 07:43 BUN 7 mg/dL (9-20) L 09/16/18 07:43 Creatinine 0.8 mg/dL (0.8-1.5) 09/16/18 07:43 Est GFR ( Amer) > 60 09/16/18 07:43 Est GFR (Non-Af Amer) > 60 09/16/18 07:43 POC Glucose (mg/dL) 140 mg/dL (65-110) H 09/16/18 11:43 Random Glucose 117 mg/dL (75-110) H 09/16/18 07:43 Hemoglobin A1c 5.7 % (4.2-6.5) 09/11/18 06:15 Calcium 8.0 mg/dl (8.6-10.4) L 09/16/18 07:43 Phosphorus 2.7 mg/dL (2.5-4.5) 09/16/18 07:43 Magnesium 2.3 mg/dL (1.6-2.3) 09/16/18 07:43 Total Bilirubin 0.7 mg/dL (0.2-1.3) 09/16/18 07:43 AST 56 U/L (17-59) 09/16/18 07:43 ALT 102 U/L (21-72) H D 09/16/18 07:43 Alkaline Phosphatase 62 U/L (38-126) 09/16/18 07:43 NT-Pro-B Natriuret Pep 1350 pg/mL (0-900) H 09/11/18 06:15 Total Protein 6.0 g/dL (6.3-8.3) L 09/16/18 07:43 Albumin 2.8 g/dL (3.5-5.0) L 09/16/18 07:43 Globulin 3.1 gm/dL (2.2-3.9) 09/16/18 07:43 Albumin/Globulin Ratio 0.9 (1.0-2.1) L 09/16/18 07:43 Triglycerides 106 mg/dL (0-149) 09/11/18 06:15 Cholesterol 124 mg/dL (0-199) 09/11/18 06:15 LDL Cholesterol Direct 53 mg/dL (0-129) 09/11/18 06:15 HDL Cholesterol 44 mg/dL (30-70) 09/11/18 06:15 Lipase 17 U/L (23-300) L 09/10/18 06:08 Urine Color Yellow (YELLOW) 09/10/18 09:22 Urine Clarity Clear (Clear) 09/10/18 09:22 Urine pH 6.0 (5.0-8.0) 09/10/18 09:22 Ur Specific [place] 1.055 (1.003-1.030) H 09/10/18 09:22 Urine Protein 1+ mg/dL (NEGATIVE) H 09/10/18 09:22 Urine Glucose (UA) Normal mg/dL (Normal) 09/10/18 09:22 Urine Ketones Negative mg/dL (NEGATIVE) 09/10/18 09:22 Urine Blood 1+ (NEGATIVE) H 09/10/18 09:22 Urine Nitrate Negative (NEGATIVE) 09/10/18 09:22 Urine Bilirubin Negative (NEGATIVE) 09/10/18 09:22 Urine Urobilinogen Normal mg/dL (0.2-1.0) 09/10/18 09:22 Ur Leukocyte Esterase Neg Javad/uL (Negative) 09/10/18 09:22 Urine WBC (Auto) 4 /hpf (0-5) 09/10/18 09:22 Urine RBC (Auto) 13 /hpf (0-3) H 09/10/18 09:22 Ur Squamous Epith Cells < 1 /hpf (0-5) 09/10/18 09:22 Attending/Attestation - Attestation I have personally seen and examined this patient.: Yes I have fully participated in the care of the patient.: Yes I have reviewed all pertinent clinical information, including history, physical exam and plan: Yes
[2018-09-16 07:58] LABS: BASO % 0.2 % (0.0-2.0); EOS # 0.1 K/uL (0.0-0.7); EOS % 2.3 % (0.0-4.0); HEMOGLOBIN 9.6 g/dL (12.0-18.0); LYMPH # 0.5 K/uL (1.0-4.3); LYMPH % 8.7 % (20.0-40.0); MEAN CELL VOLUME 87.2 fL (80.0-94.0); MEAN CORPUSCULAR HEMOGLOBIN 30.5 pg (27.0-31.0); MEAN PLATELET VOLUME 8.2 fL (7.2-11.7); MONO # 0.4 K/uL (0.0-0.8); MONO % 5.9 % (0.0-10.0); NEUT % 82.9 % (50.0-75.0); PLATELET COUNT 168 K/uL (130-400); RBC 3.14 Mil/uL (4.40-5.90); RED CELL DISTRIBUTION WIDTH 12.7 % (11.5-14.5)
[2018-09-16 08:15] VITALS: PULSE 63; TEMP 98.4; O2SAT 96
[2018-09-16 08:28] LABS: ALB/GLOB RATIO 0.9 (1.0-2.1); ALBUMIN 2.8 g/dL (3.5-5.0); ALT/SGPT 102 U/L (21-72); AST/SGOT 56 U/L (17-59); BLOOD UREA NITROGEN 7 mg/dL (9-20); GFR NON-AFRICAN AMERICAN > 60
[2018-09-16 10:25] VITALS: BP 115/67
[2018-09-16] MEDS: Metoprolol Succinate 50 mg XL Tab PO SCH (10:25)
[2018-09-16] MEDS: Saccharomyces Boulardi 250 mg Cap PO SCH (10:36)
[2018-09-16 10:42] LABS: ANISOCYTOSIS SLIGHT; EOSINOPHIL 1 % (0-4); HYPOCHROMIC SLIGHT; LYMPHOCYTE 8 % (20-40); MONOCYTE 4 % (0-10); NEUTROPHIL 87 % (50-75); PLATELET ESTIMATE NORMAL (NORMAL); POLYCHROMIC SLIGHT; TOTAL CELLS COUNTED 100
[2018-09-16 10:43] LABS: LARGE PLATELETS PRESENT; POIKILOCYTOSIS SLIGHT; TOXIC GRANULATION PRESENT
[2018-09-16 10:44] LABS: OVALOCYTES SLIGHT
--- NOTE | 2018-09-16 11:25 | CP.PCM.PN ---
Subjective - Date & Time of Evaluation Date of Evaluation: 09/16/18 Time of Evaluation: 09:45 - Subjective Subjective: General Surgery Pt seen and examined. No acute events overnight. No abdominal pain, tolerating diet. Denies nausea/vomiting. + BM/flatus. Objective - Vital Signs/Intake and Output Vital Signs (last 24 hours): Temp Pulse Resp BP Pulse Ox 98.4 F 63 20 115/67 96 09/16/18 07:25 09/16/18 07:25 09/16/18 07:25 09/16/18 10:24 09/16/18 07:25 Intake and Output: 09/16/18 09/16/18 06:59 18:59 Intake Total 840 Balance 840 - Medications Medications: Current Medications Acetaminophen (Tylenol 325mg Tab) 650 mg PO Q6 PRN PRN Reason: Fever >100.4 F Aspirin (Ecotrin) 81 mg PO DAILY [facility] Last Admin: 09/11/18 11:00 Dose: Not Given Benzocaine/Menthol (Cepacol Sore Throat) 1 janet MT Q1H PRN PRN Reason: Sore Throat Last Admin: 09/16/18 10:39 Dose: 1 janet Cephalexin Monohydrate (Keflex) 500 mg PO BID [facility]; Protocol Stop: 09/20/18 10:01 Last Admin: 09/16/18 10:34 Dose: 500 mg Dextrose (Dextrose 50% Inj) 0 ml IV STAT PRN; Protocol PRN Reason: Hypoglycemia Protocol Dextrose (Glutose 15) 0 gm PO ONCE PRN; Protocol PRN Reason: Hypoglycemia Protocol Docusate Sodium (Colace) 100 mg PO DAILY [facility] Last Admin: 09/16/18 10:26 Dose: 100 mg Enalapril Maleate (Vasotec) 10 mg PO DAILY [facility] Last Admin: 09/16/18 10:24 Dose: 10 mg Famotidine (Pepcid) 20 mg PO DAILY [facility] Last Admin: 09/16/18 10:24 Dose: 20 mg Glucagon (Glucagen Diagnostic Kit) 0 mg IM STAT PRN; Protocol PRN Reason: Hypoglycemia Protocol Metoprolol Succinate (Toprol Xl) 50 mg PO DAILY [facility] Last Admin: 09/16/18 10:25 Dose: 50 mg Ondansetron HCl (Zofran Inj) 4 mg IVP Q6H PRN PRN Reason: Nausea/Vomiting Last Admin: 11/29/18 02:21 Dose: 4 mg Oxycodone/Acetaminophen (Percocet 5/325 Mg Tab) 1 tab PO Q4H PRN PRN Reason: Pain, moderate (4-7) Stop: 09/16/18 15:40 Last Admin: 09/16/18 11:10 Dose: 1 tab Rosuvastatin Calcium (Crestor) 10 mg PO HS [facility] Last Admin: 09/15/18 21:24 Dose: 10 mg Saccharomyces Boulardii (Florastor) 250 mg PO BID [facility] Last Admin: 09/16/18 10:36 Dose: 250 mg Tamsulosin HCl (Flomax) 0.4 mg PO DAILY [facility] Last Admin: 09/16/18 10:25 Dose: 0.4 mg - Labs Labs: 09/16/18 07:43 09/16/18 07:43 PT 12.7 SECONDS (9.7-12.2) H 09/12/18 14:00 INR 1.2 09/12/18 14:00 APTT 32 SECONDS (21-34) D 09/12/18 14:00 - Constitutional Appears: Non-toxic, No Acute Distress - Head Exam Head Exam: ATRAUMATIC, NORMOCEPHALIC - Eye Exam Eye Exam: EOMI. absent: Scleral icterus - Respiratory Exam Respiratory Exam: NORMAL BREATHING PATTERN. absent: Respiratory Distress - Cardiovascular Exam Cardiovascular Exam: RRR, +S1, +S2 - GI/Abdominal Exam GI & Abdominal Exam: Soft. absent: Distended, Firm, Guarding, Rigid, Tenderness, Rebound Additional comments: Incisions C/D/I - Extremities Exam Extremities Exam: absent: Calf Tenderness, Pedal Edema - Neurological Exam Neurological Exam: Alert, Awake, Oriented x3 - Skin Skin Exam: Dry, Warm Assessment and Plan - Assessment and Plan (Free Text) Assessment: 78M s/p lap cholecystectomy; POD#3 Plan: -Ok for DC from surgical standpoint - f/u with Dr. Haq in 1-2 weeks - no heavy lifting > 15lbs for 4-6 weeks - D/W Dr. Severino Martini PGY4
== END 2018-09-16 15:08 | disposition home or self-care (01) | DRG 418 ==
LOC: C.ER 05:11 → C.9E 09:24 → C.5S 09-11 07:21 → C.6T 09-14 22:34
PROVIDERS: ADMIT Internal Medicine; ATTEND Internal Medicine
PROC: 0FT44ZZ Resection of Gallbladder, Percutaneous Endoscopic Approach (ICD-10-PCS; principal; 2018-09-10)
DX: K80.00 Calculus of gallbladder with acute cholecystitis without obstruction (principal); R18.8 Other ascites; E78.5 Hyperlipidemia, unspecified; I10 Essential (primary) hypertension; I25.10 Atherosclerotic heart disease of native coronary artery without angina pectoris; I44.0 Atrioventricular block, first degree; Z95.0 Presence of cardiac pacemaker; Z95.1 Presence of aortocoronary bypass graft; Z95.2 Presence of prosthetic heart valve

== ENCOUNTER 2018-09-17 10:54 | Emergency (ER) | payer MEDICARE ==
[2018-09-17 10:59] VITALS: BMI 28.6
--- NOTE | 2018-09-17 11:24 | C.PDOC ---
History Of Present Illness 78 year old male presents to the ED complaining of worsening upper abdominal pain overnight. Reports he had a cholecystectomy 3 days ago and was discharged yesterday. Notes mild nausea but denies vomiting, fever, chills, GI bleeding, dysuria, hematuria, chest pain, shortness of breath. Last bowel movement was 2 days ago. Time Seen by Provider: 09/17/18 11:03 Chief Complaint (Nursing): Abdominal Pain History Per: Patient History/Exam Limitations: no limitations Onset/Duration Of Symptoms: Hrs Current Symptoms Are (Timing): Still Present Location Of Pain/Discomfort: RUQ Radiation Of Pain To:: None Last Bowel Movement: Days Ago (2) Past Medical History Reviewed: Historical Data, Nursing Documentation, Vital Signs Vital Signs: Last Vital Signs Temp 99.2 F 09/17/18 10:59 Pulse 71 09/17/18 10:59 Resp 18 09/17/18 10:59 BP 123/66 09/17/18 10:59 Pulse Ox 97 09/17/18 10:59 - Medical History PMH: HTN Surgical History: Cholecystectomy, Pacemaker - [facility] Procedures DILATION OF COMMON BILE DUCT WITH INTRALUMINAL DEVICE, ENDO (10/08/16) Family History: States: No Known Family Hx - Social History Hx Alcohol Use: No Hx Substance Use: No - Immunization History Hx Tetanus Toxoid Vaccination: Yes Hx Influenza Vaccination: Yes Hx Pneumococcal Vaccination: Yes Review Of Systems Except As Marked, All Systems Reviewed And Found Negative. Constitutional: Negative for: Fever, Chills Cardiovascular: Negative for: Chest Pain Respiratory: Negative for: Shortness of Breath Gastrointestinal: Positive for: Nausea, Abdominal Pain. Negative for: Vomiting, Diarrhea Genitourinary: Negative for: Dysuria, Hematuria Physical Exam - Physical Exam Appears: Non-toxic, No Acute Distress Skin: Warm, Dry Head: Normacephalic Eye(s): bilateral: Normal Inspection Nose: Normal Oral Mucosa: Moist Neck: Normal ROM, Supple Chest: Symmetrical Cardiovascular: Rhythm Regular Respiratory: Normal Breath Sounds, No Rales, No Rhonchi, No Wheezing Gastrointestinal/Abdominal: Soft, Tenderness (RUQ ), No Guarding, No Rebound, Other (Surgical wounds are healing well. Steri Strips in placed. No signs of infection) Extremity: Normal ROM Neurological/Psych: Oriented x3, Normal Speech Gait: Steady ED Course And Treatment - Laboratory Results Result Diagrams: 09/17/18 11:59 09/17/18 11:59 Lab Interpretation: Abnormal (low chloride and Na, anemia, elevated LFTs) O2 Sat by Pulse Oximetry: 97 (RA) Pulse Ox Interpretation: Normal - Other Rad CXR X-Ray: Viewed By Nm, Read By Radiologist Interpretation: Accession No. : [id number]. Patient Name / ID : DWAYNE LUNA CTOR / [id number]. Exam Date : 09/17/2018 11:28:37 ( Approved ). Study Comment : Sex / Age : M / 78Y. Creator : Christos Herron MD. Dictator : Christos Herron MD. Tiller Worker : Supervisor Looping : Christos Herron MD. Approver2 : Report Date : 09/17/2018 13:33:27. My Comment : . Chest x-ray single frontal view. HISTORY: Abdominal pain. COMPARISON: 09/10/2018. Findings: Left-sided pacemaker. Status post median sternotomy. Tortuous ectatic aorta. Cardiomegaly. Mild venous congestion. Patchy increased markings at the left lung base. Elevated right hemidiaphragm. Impression: Left-sided pacemaker. Status post median sternotomy. Tortuous ectatic aorta. Cardiomegaly. Mild venous congestion. Patchy increased markings at the left lung base. Elevated right hemidiaphragm. - CT Scan/US CT Abd/pel Other Rad Studies (CT/US): Read By Radiologist, Radiology Report Reviewed CT/US Interpretation: Accession No. : [id number]. Patient Name / ID : DWAYNE VARGAS / [id number]. Exam Date : 09/17/2018 13:31:06 ( Approved ). Study Comment : Sex / Age : M / 78Y. Creator : Christos Herron MD. Dictator : Christos Herron MD. Tiller Worker : Supervisor Looping : Christos Herron MD. Approver2 : Report Date : 09/17/2018 14:41:47. My Comment : . CT abdomen and pelvis. HISTORY: Abdominal pain. COMPARISON: CT scan dated 09/10/2018. TECHNIQUE: Multiple contiguous axial images were performed through the abdomen and pelvis with the use of intravenous contrast. Subsequently, sagittal coronal reformatted images were obtained. This CT exam was performed using one or more of the following dose reduction techniques: Automated exposure control, adjustment of the mA and/or kV according to patient size, and/or use of iterative reconstruction technique. Findings: Small right and trace left pleural effusion. Scattered atelectasis at the lung bases. Cardiomegaly. Pacer leads in place. Intrahepatic biliary ductal d ilatation. Internal biliary stent in place. Surgical clips at the gallbladder hiatus suggestive for prior surgery. Clinical correlation. At the level of the gallbladder fossa and extending inferiorly along the liver, there is a large collection measuring 11.8 x 7.6 x 12.1 centimeters demonstrating a Hounsfield unit attenuation of 16 with mixed attenuation. The collection extends from the gallbladder hiatus medially and inferiorly along the right hepatic lobe. This is of uncertain clinical etiology and may represent a postsurgical seroma versus postsurgical hematoma versus postsurgical abscess versus subcapsular collection versus additional etiology. Clinical correlation. Free intraperitoneal air in the upper abdomen likely from recent postsurgical status. Large amount of contiguous perihepatic ascites. Splenule. Spleen is preserved. Adrenal glands are preserved. Pancreas is preserved. Gastric distention with contrast and fluid. Few mildly distended loops of small bowel in the upper and mid abdomen. 5.6 millimeter low-attenuation lesion in the upper to midpole of the right kidney, too small to adequately characterize. Perinephric fat stranding. Parenchymal cortical defect at the upper pole of the right kidney. 6 millimeter low-attenuation lesion at the upper pole of the right kidney, too small to adequately characterize. Left Kidney: Perinephric fat stranding. Partially exophytic 2.7 centimeter low-attenuation lesion demonstrating a Hounsfield unit attenuation of 22, indeterminate. Distended and thick-walled urinary bladder. Prominent prostate measuring 6.5 x 5.5 centimeters with associated internal calcifications. Small amount of free fluid within the posterior pelvic cul-de-sac. Moderate fecal retention in the right hemicolon. Free fluid in the right paracolic gutter extending into the right inguinal region. Appendix not well delineated. Possibly imaged on series 601, image 48 measuring up to 8 millimeters in width, upper limits of normal. Clinical correlation. Small fat containing bilateral inguinal hernias. Atherosclerotic calcification and plaque within the aorta. Few shotty para-aortic and inguinal lymph nodes. Few shotty mesenteric lymph nodes. Degenerative changes in the spine. Degenerative change in the bilateral hips. Prominent subchondral cyst formation within the right proximal femur. Prominent paravertebral osteophytosis. Impression: Intrahepatic biliary ductal dilatation. Internal biliary stent in place. Surgical clips at the gallbladder hiatus suggestive for prior surgery. Clinical correlation. At the level of the gallbladder fossa and extending inferiorly along the liver, there is a large collection measuring 11.8 x 7.6 x 12.1 centimeters demonstrating a Hounsfield unit attenuation of 16 with mixed attenuation. The collection extends from the gallbladder hiatus medially and inferiorly along the right hepatic lobe. This is of uncertain clinical etiology and may represent a postsurgical seroma versus postsurgical hematoma versus postsurgical abscess versus subcapsular collection versus additional etiology. Clinical correlation. Free intraperitoneal air in the upper abdomen likely from recent postsurgical status. Large amount of contiguous perihepatic ascites. Free fluid in the right paracolic gutter extending into the right inguinal region. Additional findings as above. Medical Decision Making Medical Decision Making: Plan - CT abd/pel - EKG - CXR - UA - Tylenol 650mg PO - Zofran 4mg IVP Results - Elevated LFT Case discussed with Dr. Foster, after reviewing abd/pelvis CT report she recommended to d/c pt with 12 tabs of percocet, colace and mild of Mg. Pt has no fever, no sign of acute surgical pathology. Disposition Counseled Patient/Family Regarding: Studies Performed, Diagnosis, Need For Followup, Rx Given - Disposition Referrals: Robles Foster MD [Staff Provider] - Disposition: HOME/ ROUTINE Disposition Time: 15:34 Condition: STABLE Additional Instructions: FOLLOW UP WITH DR. FOSTER SCHEDULED. DRINK PLENTY OF WATER. IF SYMPTOMS GET WORSE OR ANY NEW CONCERNING SYMPTOMS DEVELOP RETURN TO ED. Prescriptions: Docusate [Colace] 100 mg PO TID #30 cap Magnesium Hydroxide [Milk Of Magnesia] 30 ml PO ONCE PRN #12 oz PRN Reason: Constipation oxyCODONE/Acetaminophen [Percocet 5/325 mg Tab] 1 tab PO QID PRN #12 tab PRN Reason: Pain Instructions: Acute Abdomen (Belly Pain), Adult (DC) Forms: Novacem (Serbian) - Clinical Impression Clinical Impression: Elevated LFTs, Abdominal pain - Scribe Statement The provider has reviewed the documentation as recorded by the Scribe Fatuma Garcia All medical record entries made by the Scribe were at my direction and perso suni dictated by me. I have reviewed the chart and agree that the record accurately reflects my personal performance of the history, physical exam, medical decision making, and the department course for this patient. I have also personally directed, reviewed, and agree with the discharge instructions and disposition.
[2018-09-17] MEDS ORDERED: Iohexol 240 (50 ml) PO STA (11:27)
[2018-09-17] MEDS ORDERED: Iohexol 240 (50 ml) ONE (11:46)
[2018-09-17 12:04] LABS: BASO % 0.3 % (0.0-2.0); EOS % 0.2 % (0.0-4.0); HEMOGLOBIN 10.3 g/dL (12.0-18.0); LYMPH # 0.2 K/uL (1.0-4.3); LYMPH % 2.6 % (20.0-40.0); MEAN CELL VOLUME 87.1 fL (80.0-94.0); MEAN CORPUSCULAR HEMOGLOBIN 30.4 pg (27.0-31.0); MEAN CORPUSCULAR HGB CONC 34.9 g/dL (33.0-37.0); MEAN PLATELET VOLUME 7.5 fL (7.2-11.7); MONO # 0.6 K/uL (0.0-0.8); MONO % 6.5 % (0.0-10.0); NEUT # 8.2 K/uL (1.8-7.0); NEUT % 90.4 % (50.0-75.0); PLATELET COUNT 211 K/uL (130-400); RBC 3.39 Mil/uL (4.40-5.90); RED CELL DISTRIBUTION WIDTH 13.1 % (11.5-14.5); WHITE BLOOD COUNT 9.1 K/uL (4.8-10.8)
[2018-09-17 12:33] LABS: ALBUMIN 3.4 g/dL (3.5-5.0); ALT/SGPT 184 U/L (21-72); AST/SGOT 218 U/L (17-59); BLOOD UREA NITROGEN 9 mg/dL (9-20); CALCIUM 8.3 mg/dl (8.6-10.4); GFR NON-AFRICAN AMERICAN > 60; LIPASE 43 U/L (23-300)
[2018-09-17 12:34] LABS: ANISOCYTOSIS SLIGHT; LYMPHOCYTE 3 % (20-40); MONOCYTE 6 % (0-10); NEUTROPHIL 91 % (50-75); PLATELET ESTIMATE NORMAL (NORMAL); TOTAL CELLS COUNTED 100
[2018-09-17 12:35] LABS: HYPOCHROMIC SLIGHT; POLYCHROMIC SLIGHT
[2018-09-17] MEDS ORDERED: Iodixanol 320 MG/ML 100 ML BOTTLE IV ONE (13:11)
--- NOTE | 2018-09-17 13:37 | RAD ---
Chest x-ray single frontal view HISTORY: Abdominal pain. COMPARISON: 09/10/2018 Findings: Left-sided pacemaker. Status post median sternotomy. Tortuous ectatic aorta. Cardiomegaly. Mild venous congestion. Patchy increased markings at the left lung base. Elevated right hemidiaphragm. Impression: Left-sided pacemaker. Status post median sternotomy. Tortuous ectatic aorta. Cardiomegaly. Mild venous congestion. Patchy increased markings at the left lung base. Elevated right hemidiaphragm.
--- NOTE | 2018-09-17 14:45 | CT ---
CT abdomen and pelvis HISTORY: Abdominal pain. COMPARISON: CT scan dated 09/10/2018 TECHNIQUE: Multiple contiguous axial images were performed through the abdomen and pelvis with the use of intravenous contrast. Subsequently, sagittal coronal reformatted images were obtained. This CT exam was performed using one or more of the following dose reduction techniques: Automated exposure control, adjustment of the mA and/or kV according to patient size, and/or use of iterative reconstruction technique. Findings: Small right and trace left pleural effusion. Scattered atelectasis at the lung bases. Cardiomegaly. Pacer leads in place. Intrahepatic biliary ductal dilatation. Internal biliary stent in place. Surgical clips at the gallbladder hiatus suggestive for prior surgery. Clinical correlation. At the level of the gallbladder fossa and extending inferiorly along the liver, there is a large collection measuring 11.8 x 7.6 x 12.1 centimeters demonstrating a Hounsfield unit attenuation of 16 with mixed attenuation. The collection extends from the gallbladder hiatus medially and inferiorly along the right hepatic lobe. This is of uncertain clinical etiology and may represent a postsurgical seroma versus postsurgical hematoma versus postsurgical abscess versus subcapsular collection versus additional etiology. Clinical correlation. Free intraperitoneal air in the upper abdomen likely from recent postsurgical status. Large amount of contiguous perihepatic ascites. Splenule. Spleen is preserved. Adrenal glands are preserved. Pancreas is preserved. Gastric distention with contrast and fluid. Few mildly distended loops of small bowel in the upper and mid abdomen. 5.6 millimeter low-attenuation lesion in the upper to midpole of the right kidney, too small to adequately characterize. Perinephric fat stranding. Parenchymal cortical defect at the upper pole of the right kidney. 6 millimeter low-attenuation lesion at the upper pole of the right kidney, too small to adequately characterize. Left Kidney: Perinephric fat stranding. Partially exophytic 2.7 centimeter low-attenuation lesion demonstrating a Hounsfield unit attenuation of 22, indeterminate. Distended and thick-walled urinary bladder. Prominent prostate measuring 6.5 x 5.5 centimeters with associated internal calcifications. Small amount of free fluid within the posterior pelvic cul-de-sac. Moderate fecal retention in the right hemicolon. Free fluid in the right paracolic gutter extending into the right inguinal region. Appendix not well delineated. Possibly imaged on series 601, image 48 measuring up to 8 millimeters in width, upper limits of normal. Clinical correlation. Small fat containing bilateral inguinal hernias. Atherosclerotic calcification and plaque within the aorta. Few shotty para-aortic and inguinal lymph nodes. Few shotty mesenteric lymph nodes. Degenerative changes in the spine. Degenerative change in the bilateral hips. Prominent subchondral cyst formation within the right proximal femur. Prominent paravertebral osteophytosis. Impression: Intrahepatic biliary ductal dilatation. Internal biliary stent in place. Surgical clips at the gallbladder hiatus suggestive for prior surgery. Clinical correlation. At the level of the gallbladder fossa and extending inferiorly along the liver, there is a large collection measuring 11.8 x 7.6 x 12.1 centimeters demonstrating a Hounsfield unit attenuation of 16 with mixed attenuation. The collection extends from the gallbladder hiatus medially and inferiorly along the right hepatic lobe. This is of uncertain clinical etiology and may represent a postsurgical seroma versus postsurgical hematoma versus postsurgical abscess versus subcapsular collection versus additional etiology. Clinical correlation. Free intraperitoneal air in the upper abdomen likely from recent postsurgical status. Large amount of contiguous perihepatic ascites. Free fluid in the right paracolic gutter extending into the right inguinal region. Additional findings as above.
[2018-09-17 14:48] VITALS: RESP 17
[2018-09-17 15:23] LABS: URINE BILIRUBIN NEGATIVE (NEGATIVE); URINE CLARITY Clear (Clear); URINE COLOR Yellow (YELLOW); URINE GLUCOSE (UA) NORMAL (Normal); URINE LEUKOCYTE ESTERASE NEG Leu/uL (Negative); URINE PROTEIN 1+ mg/dL (NEGATIVE); URINE UROBILINOGEN NORMAL mg/dL (0.2-1.0)
[2018-09-17] MEDS ORDERED: Sodium Chloride 0.9% 500 ML IV ONE ×2 (15:23→15:40)
[2018-09-17] MEDS ORDERED: Oxycodone/Acetaminophen 5/325 mg Tab PO STA (15:23)
[2018-09-17] MEDS ORDERED: Sodium Chloride 0.9% 0 ML ONE (15:30)
[2018-09-17] MEDS ORDERED: Oxycodone/Acetaminophen 5/325 mg Tab ONE (15:30)
[2018-09-17 15:38] LABS: URINE BLOOD TRACE (NEGATIVE)
[2018-09-17 16:17] VITALS: BP 142/60; PULSE 65; TEMP 99.6
[2018-09-17 18:30] VITALS: O2SAT 97
--- NOTE | 2018-09-18 09:51 | CARD ---
APPROVED REPORT Date of service: 09/17/2018 EKG Measurement Heart [id number] P84 [id number] <Conclusion> Ventricular-paced rhythm with premature ventricular or aberrantly conducted complexes Abnormal ECG
== END 2018-09-17 16:25 | disposition home or self-care (01) ==
LOC: C.ER 10:54
DX: R79.89 Other specified abnormal findings of blood chemistry (principal); R10.9 Unspecified abdominal pain; I10 Essential (primary) hypertension; Z90.49 Acquired absence of other specified parts of digestive tract; Z95.0 Presence of cardiac pacemaker
CPT/HCPCS: 71045; 74177; 80053; 81001; 83690; 84484; 85025; 93005; 96374; 99285; J2405; J7040; Q9966; Q9967

== ENCOUNTER 2018-10-13 17:00 | Inpatient (IN) | payer MEDICARE ==
[2018-10-13 17:00] VITALS: BMI 28.6
--- NOTE | 2018-10-13 17:50 | C.PDOC ---
History Of Present Illness 78 year old male presents to the ED complaining of right sided chest pain on exertion associated with shortness of breath on exertion. Reports he had a gallbladder removal surgery with no complications one month again. Denies any other symptoms. Time Seen by Provider: 10/13/18 17:34 Chief Complaint (Nursing): Chest Pain Past Medical History Reviewed: Historical Data, Nursing Documentation, Vital Signs Vital Signs: Last Vital Signs Temp 98.7 F 10/13/18 17:05 Pulse 71 10/13/18 17:05 Resp 20 10/13/18 17:05 BP 130/78 10/13/18 17:05 Pulse Ox 97 10/13/18 17:32 - Medical History PMH: HTN Surgical History: Cholecystectomy, Pacemaker - [facility] Procedures DILATION OF COMMON BILE DUCT WITH INTRALUMINAL DEVICE, ENDO (10/08/16) RESECTION OF GALLBLADDER, PERCUTANEOUS ENDOSCOPIC APPROACH (09/10/18) Family History: States: No Known Family Hx - Social History Hx Alcohol Use: No Hx Substance Use: No - Immunization History Hx Tetanus Toxoid Vaccination: No Hx Influenza Vaccination: No Hx Pneumococcal Vaccination: No Review Of Systems Except As Marked, All Systems Reviewed And Found Negative. Cardiovascular: Positive for: Chest Pain Musculoskeletal: Positive for: Other (b/l leg swelling ) Physical Exam - Physical Exam Appears: Non-toxic, No Acute Distress Skin: Warm, Dry, No Rash Head: Atraumatic, Normacephalic Eye(s): bilateral: Normal Inspection, PERRL, EOMI Neck: Supple Chest: Symmetrical Cardiovascular: Rhythm Regular, Murmur ( 3/6 systolic ejection murmur) Respiratory: Decreased Breath Sounds (B/L diminished breath sounds at the bases ), No Rales, No Rhonchi, No Wheezing Gastrointestinal/Abdominal: Soft, Tenderness (mild tenderness to ruq ), Other (surgical wound over abdomen are clean, dry, and intact ) Extremity: Pedal Edema (3+ B/L pitting edema ) Neurological/Psych: Oriented x3, Normal Speech Gait: Steady ED Course And Treatment - Laboratory Results Result Diagrams: 10/14/18 08:08 10/14/18 08:08 ECG: Interpreted By Me ECG Rhythm: V Paced Rate From EC O2 Sat by Pulse Oximetry: 97 (ra) Pulse Ox Interpretation: Normal - Other Rad CXR X-Ray: Viewed By Me, Read By Radiologist Interpretation: Accession No. : [id number]. Patient Name / ID : DWAYNE VARGAS / [id number]. Exam Date : 10/13/2018 17:08:26 ( Approved ). Study Comment : Sex / Age : M / 78Y. Creator : Satnam Grace MD. Dictator : Satnam Grace MD. Saddle Stitching Machine Operator : Natural Resources Engineer : Satnam Grace MD. Approver2 : Report Date : 10/13/2018 18:05:25. My Comment : . Date of service: 10/13/2018. PROCEDURE: CHEST RADIOGRAPH, 1 VIEW. HISTORY: chest pain. COMPARISON: 09/17/2018. FINDINGS: LUNGS: Extensive opacity lower right lung. This is due in large part to pleural effusion. Cannot rule out superimposed consolidation. PLEURA: Moderate right pleural effusion. No left pleural effusion no pneumothorax. CARDIOVASCULAR: No aortic atherosclerotic calcification present. Mild cardiomegaly. Permanent pacemaker. OSSEOUS STRUCTURES: No significant abnormalities. VISUALIZED UPPER ABDOMEN: Normal. OTHER FINDINGS: None. IMPRESSION: Moderate right pleural effusion. No defin ite consolidation. Permanent pacemaker - CT Scan/US CTA Chest Other Rad Studies (CT/US): Read By Radiologist, Radiology Report Reviewed CT/US Interpretation: Findings: The pulmonary arteries are well-opacified with contrast, with no intraluminal filling defects to suggest embolism. The thoracic aorta is unremarkable. Thyroid gland is within normal limits. There is no thoracic lymphadenopathy. There is a very small pericardial effusion along the lateral border of the right ventricle. There is a large right-sided pleural effusion with significant atelectasis of the right lower lung. There is a small left-sided pleural effusion. Limited imaging of the upper abdomen demonstrates a large loculated fluid collection air fluid level in the right upper quadrant measuring 12.3 x 8.1 cm. There are no suspicious osseous lesions. Impression: 1. No evidence of pulmonary embolism. 2. Large right-sided pleural effusion with significant atelectasis of the right lower lung. 3. Small left-sided pleural effusion. 4. Small pericardial effusion. 5. Large loculated fluid collection with air fluid level in the right upper quadrant, most likely representing a intrahepatic abscess or biloma. A dedicated CT of the abdomen and pelvis would be helpful for further evaluation. Medical Decision Making Medical Decision Making: Assessment: chest pain with shortness of breath Plan - Bloodwork - CXR - CTA Chest Patient admitted under hospitalist service to telemetry. Surgical consulted phoned in, discussed case with surgical corsetier. Antibiotics administered. Discussed plan with family who understand and agree. Disposition Discussed With DrAlva: Sherwin Pantoja Doctor Will See Patient In The: Hospital Counseled Patient/Family Regarding: Studies Performed, Diagnosis - Disposition Disposition Time: 20:42 Condition: FAIR - Clinical Impression Clinical Impression: SOB (shortness of breath), Pleural effusion, Biloma following surgery - Scribe Statement The provider has reviewed the documentation as recorded by the Scribvíctor Garcia All medical record entries made by the Salvadoribvíctor were at my direction and personally dictated by me. I have reviewed the chart and agree that the record accurately reflects my personal performance of the history, physical exam, medical decision making, and the department course for this patient. I have also personally directed, reviewed, and agree with the discharge instructions and disposition.
[2018-10-13 17:57] LABS: BASO % 0.4 % (0.0-2.0); EOS # 0.1 K/uL (0.0-0.7); EOS % 1.1 % (0.0-4.0); HEMOGLOBIN 9.3 g/dL (12.0-18.0); LYMPH # 0.9 K/uL (1.0-4.3); MEAN CELL VOLUME 85.7 fL (80.0-94.0); MEAN CORPUSCULAR HEMOGLOBIN 27.5 pg (27.0-31.0); MEAN CORPUSCULAR HGB CONC 32.1 g/dL (33.0-37.0); MEAN PLATELET VOLUME 7.4 fL (7.2-11.7); MONO # 0.7 K/uL (0.0-0.8); MONO % 11.2 % (0.0-10.0); NEUT # 4.5 K/uL (1.8-7.0); NEUT % 73.3 % (50.0-75.0); NRBC % 0.1 % (0.0-2.0); RBC 3.37 Mil/uL (4.40-5.90); RED CELL DISTRIBUTION WIDTH 15.2 % (11.5-14.5); WHITE BLOOD COUNT 6.1 K/uL (4.8-10.8)
--- NOTE | 2018-10-13 18:09 | RAD ---
Date of service: 10/13/2018 PROCEDURE: CHEST RADIOGRAPH, 1 VIEW HISTORY: chest pain COMPARISON: 09/17/2018 FINDINGS: LUNGS: Extensive opacity lower right lung. This is due in large part to pleural effusion. Cannot rule out superimposed consolidation. PLEURA: Moderate right pleural effusion. No left pleural effusion no pneumothorax. CARDIOVASCULAR: No aortic atherosclerotic calcification present. Mild cardiomegaly. Permanent pacemaker. OSSEOUS STRUCTURES: No significant abnormalities. VISUALIZED UPPER ABDOMEN: Normal. OTHER FINDINGS: None. IMPRESSION: Moderate right pleural effusion. No definite consolidation. Permanent pacemaker
[2018-10-13 18:14] LABS: ALB/GLOB RATIO 0.8 (1.0-2.1); ALT/SGPT 54 U/L (21-72); AST/SGOT 57 U/L (17-59); BLOOD UREA NITROGEN 9 mg/dL (9-20); CALCIUM 7.8 mg/dl (8.6-10.4); GFR NON-AFRICAN AMERICAN > 60
[2018-10-13 18:21] LABS: B-TYPE NATRIURETIC PEPTIDE 6520 pg/mL (0-900)
[2018-10-13] MEDS ORDERED: Iohexol 300 100 ML IJ ONE (19:08)
[2018-10-13] MEDS ORDERED: Piperacill/Tazo 3.375gm in Dex 3.375 GM/50 ML BAG IVPB STA (20:26)
[2018-10-13] MEDS ORDERED: Piperacillin/Tazobact 3.375 gm 100 ML IVPB ONE (21:03)
--- NOTE | 2018-10-13 21:47 | CP.PCM.CON ---
History of Present Illness - History of Present Illness History of Present Illness: Surgery Consult note. Dr. Haq 78yo M with PMHx of HTN, HLD, CAD s/p CABG, s/p lap cesar 09/13/18 here for evaluation of worsening shortness of breath with exertion and some mild RUQ tenderness. Patient states that he has been having worsening shortness of breath when he exerts himself. He also has some mild RUQ tenderness. Of note, he had a lap cholecystectomy performed on 09/13/18 and had a rajan-hepatic fluid collection post-operatively. Currently, he denies any fevers or chills. Abdominal pain is mild and located in the RUQ. Has been tolerating his diet, no N/V/D. Has been having regular bowel movements. Denies any Chest pain. No urinary complaints. In the ED, CTA chest was performed with no evidence of PE. Noted to have bilateral pleural effusions, R>L and a RUQ fluid collection (incompletely evaluated). He has a history of a biliary stent placed in 09/2016 for a biliary obstruction and cholecystectomy was deferred at that time. PMHx: HTN, HLD, CAD s/p CABG PSHx: Lap Cesar 09/13/18, Biliary Stent 09/2016. CABG. Pacemaker Family Hx: non-contributory Social Hx: Social ETOH use. Denies tobacco use. Denies illicit drugs NKDA Review of Systems - Review of Systems All systems: reviewed and no additional remarkable complaints except - Constitutional Constitutional: absent: Chills, Fever - EENT Eyes: absent: Blurred Vision Nose/Mouth/Throat: absent: Nasal Congestion - Cardiovascular Cardiovascular: Dyspnea, Dyspnea on Exertion - Respiratory Respiratory: Dyspnea, Dyspnea on Exertion. absent: Cough - Gastrointestinal Gastrointestinal: Abdominal Pain. absent: Diarrhea, Hematemesis, Hematochezia, Melena, Nausea, Vomiting - Genitourinary Genitourinary: absent: Dysuria - Musculoskeletal Musculoskeletal: absent: Back Pain - Integumentary Integumentary: absent: Jaundice - Neurological Neurological: absent: Dizziness, Headaches Past Patient History - Infectious Disease Hx of Infectious Diseases: None - Past Medical History & Family History Past Medical History?: Yes Past Family History: Reviewed and not pertinent - Past Social History Smoking Status: Never Smoked Alcohol: Social Drugs: Denies - CARDIAC Hx Hypertension: Yes Hx Pacemaker: Yes - MUSCULOSKELETAL/RHEUMATOLOGICAL Hx Falls: Yes - PSYCHIATRIC Hx Substance Use: No - SURGICAL HISTORY Hx Cholecystectomy: Yes - ANESTHESIA Hx Anesthesia: Yes Hx Anesthesia Reactions: No Hx Malignant Hyperthermia: No Meds Allergies/Adverse Reactions: Allergies Allergy/AdvReac Type Severity Reaction Status Date / Time No Known Allergies Allergy Verified 10/13/18 17:12 Physical Exam - Constitutional Appears: Well, Non-toxic, No Acute Distress - Head Exam Head Exam: ATRAUMATIC, NORMAL INSPECTION, NORMOCEPHALIC - Eye Exam Eye Exam: EOMI, Normal appearance. absent: Scleral icterus - ENT Exam ENT Exam: Mucous Membranes Moist - Respiratory Exam Respiratory Exam: NORMAL BREATHING PATTERN. absent: Accessory Muscle Use, Respiratory Distress - Cardiovascular Exam Cardiovascular Exam: absent: JVD - GI/Abdominal Exam GI & Abdominal Exam: Soft. absent: Firm, Guarding, Rebound, Rigid Additional comments: Mild RUQ tenderness No rebound, no guarding. No skin changes skin incisions healing well. mild distention - Neurological Exam Neurological exam: Alert, Oriented x3 - Psychiatric Exam Psychiatric exam: Normal Affect, Normal Mood - Skin Skin Exam: Dry, Intact, Normal Color, Warm Results - Vital Signs Recent Vital Signs: Last Vital Signs Temp 98.7 F 10/13/18 17:05 Pulse 64 10/13/18 18:56 Resp 20 10/13/18 17:05 BP 133/62 10/13/18 18:56 Pulse Ox 97 10/13/18 20:46 - Labs Result Diagrams: 10/13/18 17:48 10/13/18 17:48 Labs: Laboratory Results - last 24 hr 10/13/18 10/13/18 10/13/18 17:48 17:48 17:48 WBC 6.1 RBC 3.37 L Hgb 9.3 L Hct 28.8 L MCV 85.7 MCH 27.5 MCHC 32.1 L RDW 15.2 H Plt Count 266 MPV 7.4 Neut % (Auto) 73.3 Lymph % (Auto) 14.0 L Morgan % (Auto) 11.2 H Eos % (Auto) 1.1 Baso % (Auto) 0.4 Neut # (Auto) 4.5 Lymph # (Auto) 0.9 L Morgan # (Auto) 0.7 Eos # (Auto) 0.1 Baso # (Auto) 0.0 D-Dimer, Quantitative 4232 H Sodium 134 Potassium 4.2 Chloride 100 Carbon Dioxide 24 Anion Gap 14 BUN 9 Creatinine 0.6 L Est GFR ( Amer) > 60 Est GFR (Non-Af Amer) > 60 Random Glucose 133 H Calcium 7.8 L Total Bilirubin 0.8 AST 57 ALT 54 Alkaline Phosphatase 149 H D Troponin I 0.0230 NT-Pro-B Natriuret Pep 6520 H Total Protein 7.0 Albumin 3.0 L Globulin 3.9 Albumin/Globulin Ratio 0.8 L Assessment & Plan - Assessment and Plan (Free Text) Assessment: 78yo M here with SOB, noted to have bilateral pleural effusions R>L. He is s/p lap Cholecystectomy on 09/13/18 complicated with perihepatic fluid collection post-operatively. - T.Bili within normal limits. - No Leukocytosis. Afebrile - Hx of biliary stent placed in 09/2016 Plan: - Recommend dedicated CT Abd/Pelvis w PO contrast (non-urgent) - Recommend GI evaluation - We will follow and make recommendations as we follow patient's clinical course - f/u Labs in AM - medical management as per Primary team Further recs as per Dr. Severino Brennan PGY2 Surgery
--- NOTE | 2018-10-13 23:32 | CP.PCM.HP ---
<Cris Hart - Last Filed: 10/13/18 23:34> History of Present Illness - History of Present Illness History of Present Illness: Cris Hart PGY1 H&P for Dr. Pantoja Pt is a 78yo M with PMHx of HTN, HLD, CAD s/p CABG, s/p lap marisela 09/13/18 presenting to ED with shortness of breath for 1 week. He reports progressive shortness of breath over the past week, worse with exertion. He also reports some swelling in the legs b/l since the surgery. He also complains of abdominal pain since his surgery, which is mild. Pt denies fever, chills, nausea, vomiting, diarrhea. He reports last bowel movement was today which was formed and without any blood. Pt denies chest pain, dizziness, dysuria. PSHx: Lap Marisela 09/13/18, biliary stent 09/2016. CABG 2009, pacemaker 2008 FamHx: denies SocH: Denies tobacco use. Reports prior social etoh. Denies recreational drug use. Allergies: NKDA Meds: as per EMR PMD: [place] Present on Admission - Present on Admission Any Indicators Present on Admission: No Review of Systems - Review of Systems Review of Systems: as per HPI Past Patient History - Infectious Disease Hx of Infectious Diseases: None - Past Medical History & Family History Past Medical History?: Yes - Past Social History Smoking Status: Never Smoked Alcohol: Social Drugs: Denies - CARDIAC Hx Cardiac Disorders: Yes Hx Hypertension: Yes Hx Pacemaker: Yes - PULMONARY Hx Respiratory Disorders: No - NEUROLOGICAL Hx Neurological Disorder: No - HEENT Hx HEENT Problems: No - RENAL Hx Chronic Kidney Disease: No - ENDOCRINE/METABOLIC Hx Endocrine Disorders: No - HEMATOLOGICAL/ONCOLOGICAL Hx Blood Disorders: No - INTEGUMENTARY Hx Dermatological Problems: No - MUSCULOSKELETAL/RHEUMATOLOGICAL Hx Musculoskeletal Disorders: Yes Hx Falls: Yes - GASTROINTESTINAL Hx Gastrointestinal Disorders: Yes Hx Gall Bladder Disease: Yes - GENITOURINARY/GYNECOLOGICAL Hx Genitourinary Disorders: No - PSYCHIATRIC Hx Psychophysiologic Disorder: No Hx Substance Use: No - SURGICAL HISTORY Hx Surgeries: Yes Hx Cholecystectomy: Yes - ANESTHESIA Hx Anesthesia: Yes Hx Anesthesia Reactions: No Hx Malignant Hyperthermia: No Meds Allergies/Adverse Reactions: Allergies Allergy/AdvReac Type Severity Reaction Status Date / Time No Known Allergies Allergy Verified 10/13/18 17:12 Physical Exam - Constitutional Appears: Well, No Acute Distress - Head Exam Head Exam: ATRAUMATIC, NORMOCEPHALIC - Eye Exam Eye Exam: EOMI, Normal appearance, PERRL Pupil Exam: NORMAL ACCOMODATION - ENT Exam ENT Exam: Mucous Membranes Moist - Respiratory Exam Respiratory Exam: Decreased Breath Sounds, Clear to Auscultation Bilateral, NORMAL BREATHING PATTERN. absent: Rhonchi, Wheezes - Cardiovascular Exam Cardiovascular Exam: REGULAR RHYTHM, +S1, +S2. absent: Gallop, Rubs, Systolic Murmur - GI/Abdominal Exam GI & Abdominal Exam: Distended, Normal Bowel Sounds, Soft. absent: Firm, Tenderness - Extremities Exam Extremities exam: Positive for: pedal edema. Negative for: calf tenderness - Neurological Exam Neurological exam: Alert, CN II-XII Intact, Oriented x3 - Psychiatric Exam Psychiatric exam: Normal Affect, Normal Mood - Skin Skin Exam: Normal Color Results - Vital Signs Recent Vital Signs: Last Vital Signs Temp 98.8 F 10/13/18 22:15 Pulse 63 10/13/18 22:15 Resp 20 10/13/18 22:15 BP 131/68 10/13/18 22:15 Pulse Ox 97 10/13/18 22:15 - Labs Result Diagrams: 10/13/18 17:48 10/13/18 17:48 Labs: Laboratory Results - last 24 hr 10/13/18 10/13/18 10/13/18 17:48 17:48 17:48 WBC 6.1 RBC 3.37 L Hgb 9.3 L Hct 28.8 L MCV 85.7 MCH 27.5 MCHC 32.1 L RDW 15.2 H Plt Count 266 MPV 7.4 Neut % (Auto) 73.3 Lymph % (Auto) 14.0 L Reagan % (Auto) 11.2 H Eos % (Auto) 1.1 Baso % (Auto) 0.4 Neut # (Auto) 4.5 Lymph # (Auto) 0.9 L Reagan # (Auto) 0.7 Eos # (Auto) 0.1 Baso # (Auto) 0.0 D-Dimer, Quantitative 4232 H Sodium 134 Potassium 4.2 Chloride 100 Carbon Dioxide 24 Anion Gap 14 BUN 9 Creatinine 0.6 L Est GFR ( Amer) > 60 Est GFR (Non-Af Amer) > 60 Random Glucose 133 H Calcium 7.8 L Total Bilirubin 0.8 AST 57 ALT 54 Alkaline Phosphatase 149 H D Troponin I 0.0230 NT-Pro-B Natriuret Pep 6520 H Total Protein 7.0 Albumin 3.0 L Globulin 3.9 Albumin/Globulin Ratio 0.8 L Assessment & Plan - Assessment and Plan (Free Text) Assessment: 78yo M with PMHx of HTN, HLD, CAD s/p CABG, s/p lap marisela 09/13/18 presenting to ED with shortness of breath for 1 week, CT showing b/l pleural effusions and RUQ fluid. Admitted for fluid in abdomen. Plan: RUQ Fluid Collection - CT abdomen/pelvis: RUQ air fluid level, f/u official reading - pt with mild abdominal pain - s/p lap marisela 09/13/18, biliary stent 09/2016 - f/u CT abd/pel w/ PO and IV contrast - Gen Sx consulted, Dr. Severino rizo appreciated - GI consulted, Dr. Vera - f/u recs Pleural Effusions - CT abd/pelvis: b/l pleural effusions with atelectasis - likely due to RUQ fluid collection - pt with shortness of breath, worsening - Gen Sx Consulted, Dr. Severino rizo appreciated - consider IR consult once cause of effusions determined CAD - f/u ECHO - crestor 10mg PO HS - continue home pradaxa 150mg PO daily HTN - continue home ramipril 5mg PO daily - continue home metoprolol succinate 50mg PO daily HLD - crestor 10mg PO HS PPX GI: protonix DVT: lovenox HHD Pt seen and case reviewed with Dr. Pantoja <Sherwin Pantoja P - Last Filed: 10/14/18 08:19> Results - Vital Signs Recent Vital Signs: Last Vital Signs Temp 98 F 10/14/18 07:00 Pulse 68 10/14/18 07:00 Resp 20 10/14/18 07:00 BP 132/76 10/14/18 07:00 Pulse Ox 97 10/14/18 07:00 - Labs Result Diagrams: 10/13/18 17:48 10/13/18 17:48 Labs: Laboratory Results - last 24 hr 12/28/18 12/28/18 12/28/18 17:48 17:48 17:48 WBC 6.1 RBC 3.37 L Hgb 9.3 L Hct 28.8 L MCV 85.7 MCH 27.5 MCHC 32.1 L RDW 15.2 H Plt Count 266 MPV 7.4 Neut % (Auto) 73.3 Lymph % (Auto) 14.0 L Reagan % (Auto) 11.2 H Eos % (Auto) 1.1 Baso % (Auto) 0.4 Neut # (Auto) 4.5 Lymph # (Auto) 0.9 L Reagan # (Auto) 0.7 Eos # (Auto) 0.1 Baso # (Auto) 0.0 D-Dimer, Quantitative 4232 H Sodium 134 Potassium 4.2 Chloride 100 Carbon Dioxide 24 Anion Gap 14 BUN 9 Creatinine 0.6 L Est GFR ( Amer) > 60 Est GFR (Non-Af Amer) > 60 Random Glucose 133 H Calcium 7.8 L Total Bilirubin 0.8 AST 57 ALT 54 Alkaline Phosphatase 149 H D Troponin I 0.0230 NT-Pro-B Natriuret Pep 6520 H Total Protein 7.0 Albumin 3.0 L Globulin 3.9 Albumin/Globulin Ratio 0.8 L Attending/Attestation - Attestation I have personally seen and examined this patient.: Yes I have fully participated in the care of the patient.: Yes I have reviewed all pertinent clinical information: Yes Notes (Text): 10/14/18 08:[address] effusion, perihepatic ascitis, hepatic cyst with air- fluid level suspecting billioma, and feeding air through billiary stent, h/o billiary stent, recent cholecystectomy complicated post op with perihepatic ascitis, h/o CABG, s/p pacemaker, ?on pradaxa. Plan Need dedicated CT of the abd/pelvis with oral and iv contrast, may need hida Hold on pradaxa, confirm home meds GI and surgery consult IR eval for drainage Clinically not abscess or infectious process. Gi/dvt prophylaxis See orders for detail.
--- NOTE | 2018-10-14 07:34 | CP.PCM.PN ---
Subjective - Date & Time of Evaluation Date of Evaluation: 10/14/18 Time of Evaluation: 07:31 - Subjective Subjective: General Surgery - Dr. Haq PT S&E. MICHELLE. Pt reports his SOB is significantly improved since admission. He denies any pain and states that it has resolved. He denies any nasuea or vomiting and is requesting food. No fevers/chills, SOB/chest pain. Objective - Vital Signs/Intake and Output Vital Signs (last 24 hours): Temp Pulse Resp BP Pulse Ox 98.9 F 64 20 124/68 95 10/13/18 23:05 10/13/18 23:05 10/13/18 23:05 10/13/18 23:05 10/13/18 23:05 Intake and Output: 10/14/18 10/14/18 06:59 18:59 Intake Total 200 Balance 200 - Medications Medications: Current Medications Dabigatran (Pradaxa) 150 mg PO DAILY [facility] Enalapril Maleate (Vasotec) 10 mg PO DAILY [facility] Enoxaparin Sodium (Lovenox) 40 mg SC DAILY [facility] Influenza Virus Vaccine (Fluzone Quad [id number]) 60 mcg IM .ONCE ONE Stop: 10/16/18 10:01 Metoprolol Succinate (Toprol Xl) 50 mg PO DAILY [facility] Rosuvastatin Calcium (Crestor) 10 mg PO HS [facility] Last Admin: 10/13/18 23:49 Dose: 10 mg Tamsulosin HCl (Flomax) 0.4 mg PO DAILY [facility] Zolpidem Tartrate (Ambien) 5 mg PO HS [facility] Last Admin: 10/13/18 23:49 Dose: 5 mg - Labs Labs: 10/13/18 17:48 10/13/18 17:48 - Constitutional Appears: No Acute Distress - Head Exam Head Exam: ATRAUMATIC, NORMAL INSPECTION, NORMOCEPHALIC - Eye Exam Eye Exam: Normal appearance - Respiratory Exam Respiratory Exam: NORMAL BREATHING PATTERN. absent: Respiratory Distress - Cardiovascular Exam Cardiovascular Exam: REGULAR RHYTHM - GI/Abdominal Exam GI & Abdominal Exam: Soft. absent: Distended, Guarding, Rigid, Tenderness, Rebound Additional comments: surgical incisions c/d/i - Neurological Exam Neurological Exam: Alert, Oriented x3 - Psychiatric Exam Psychiatric exam: Normal Affect, Normal Mood - Skin Skin Exam: Dry, Intact Assessment and Plan - Assessment and Plan (Free Text) Assessment: 78yo M s/p lap cesar on 09/13, admitted 10/13 w SOB, found to have bilateral pleural effusions R>L and perihepatic fluid collection -Pt asymptomatic this AM -Afebrile, No leukocytosis, TBili WNL -F/U AM Labs -F/U GI reccs -Possible IR drainage of effusion and perihepatic collection -Medical management as per primary team Further reccs as per Dr. Severino Arambula PGY4
--- NOTE | 2018-10-14 08:02 | CP.PCM.PN ---
<Andrew Vale - Last Filed: 10/14/18 20:50> Subjective - Date & Time of Evaluation Date of Evaluation: 10/14/18 Time of Evaluation: 08:00 - Subjective Subjective: PGY-[address] Jason Piper Patient is seen and examined at bedside. Patient reports feeling better, no abdominal pain with improving in his shortness of breath since admission. Patient admits to continuing swelling in both lower extremities. Patient denies fever, chills, chest pain, shortness of breath, N/V/D/C or urinary complaints. Objective - Vital Signs/Intake and Output Vital Signs (last 24 hours): Temp Pulse Resp BP Pulse Ox 98 F 68 20 132/76 97 10/14/18 07:00 10/14/18 07:00 10/14/18 07:00 10/14/18 07:00 10/14/18 07:00 Intake and Output: 10/14/18 10/14/18 06:59 18:59 Intake Total 200 Balance 200 - Medications Medications: Current Medications Dabigatran (Pradaxa) 150 mg PO DAILY [facility] Enalapril Maleate (Vasotec) 10 mg PO DAILY [facility] Enoxaparin Sodium (Lovenox) 40 mg SC DAILY [facility] Influenza Virus Vaccine (Fluzone Quad [id number]) 60 mcg IM .ONCE ONE Stop: 10/16/18 10:01 Metoprolol Succinate (Toprol Xl) 50 mg PO DAILY [facility] Rosuvastatin Calcium (Crestor) 10 mg PO [facility] Last Admin: 10/13/18 23:49 Dose: 10 mg Tamsulosin HCl (Flomax) 0.4 mg PO DAILY [facility] Zolpidem Tartrate (Ambien) 5 mg PO [facility] Last Admin: 10/13/18 23:49 Dose: 5 mg - Labs Labs: 10/13/18 17:48 10/13/18 17:48 - Constitutional Appears: Non-toxic, No Acute Distress - Head Exam Head Exam: ATRAUMATIC, NORMAL INSPECTION, NORMOCEPHALIC - Eye Exam Eye Exam: EOMI, Normal appearance - ENT Exam ENT Exam: Mucous Membranes Moist, Normal Exam - Neck Exam Neck Exam: Full ROM, Normal Inspection - Respiratory Exam Respiratory Exam: Clear to Ausculation Bilateral, NORMAL BREATHING PATTERN - Cardiovascular Exam Cardiovascular Exam: REGULAR RHYTHM, +S1, +S2 - GI/Abdominal Exam GI & Abdominal Exam: Distended, Normal Bowel Sounds. absent: Tenderness - Extremities Exam Extremities Exam: Full ROM, Normal Inspection, Pedal Edema. absent: Tenderness - Back Exam Back Exam: NORMAL INSPECTION - Neurological Exam Neurological Exam: Alert, Awake, Oriented x3 - Psychiatric Exam Psychiatric exam: Normal Affect, Normal Mood - Skin Skin Exam: Dry, Intact Assessment and Plan - Assessment and Plan (Free Text) Plan: RUQ Fluid Collection - s/p lap cesar 09/13/18, biliary stent 09/2016 - CT abdomen/pelvis: 12.0 x 8.0 x 14.2 cm loculated fluid collection with air fluid level in subcapsular right hepatic lobe concernng for an abscess, ;arge right and small left pleural effusion - CT abd/pel w/ PO and IV contrast - Large subscapula/perihepatic cyst loculated fluid collection with air-fluid level in the right hepatic lobe suspicious for complex bilioma vs abscess - Gen Sx consulted, Dr. Haq -Pt asymptomatic this AM -Afebrile, No leukocytosis, TBili WNL -Possible IR drainage of effusion and perihepatic collection - GI consulted, Dr. Vera CT Abd/Pelvis with PO+IV contrast ordered F/u above scan, may need MRCP+MRI, HIDA or ERCP with stenting if bile leak Agree with IR consult to drain and assess fluid Diet per surgery/primary Agree with holding anticoagulation in light of anticipated procedures Monitor labs - IR consulted, Dr Castaneda - will see patient on tuesday - spoke with Dr Jimenez (IR environmental field team member) about case, patient is currently stable, on abx treatment, will follow with him if patient's status changes. Otherwise, patient can be evaluated and treated for possible abscess, fluid collection on Tuesday10/16/18 - DALJIT Ch, consulted - will follow up recs Meds: - zosyn IVPB Q6hrs - Metronidazole IVPB Q8h - f/u am labs - f/u blood cultures Pleural Effusions - CT abd/pelvis: Large right and small left pleural effusion - likely due to RUQ fluid collection - management as mentioned above - possible IR drainage on 10/16 CAD - f/u ECHO - crestor 10mg PO HS - Held home pradaxa 150mg PO daily HTN enalapril 10mg PO daily metoprolol succinate 50mg PO daily hx of BPH - Flomax .4mg PO daily HLD - crestor 10mg PO HS PPX GI: protonix DVT: lovenox - will hold med for IR procedure 10/16 HHD -- Pt to be NPO after midnight into 10/16/2018 Lactobacillus 1 cap PO BID PT eval and treat - f/u Plan discussed with Dr Feliz Vale, PGY-1 <Jason Piper - Last Filed: 10/18/18 00:02> Objective - Vital Signs/Intake and Output Vital Signs (last 24 hours): Temp Pulse Resp BP Pulse Ox 98.4 F 65 18 90/56 L 97 10/17/18 15:00 10/17/18 15:00 10/17/18 15:00 10/17/18 15:00 10/17/18 15:00 Intake and Output: 10/17/18 10/18/18 18:59 06:59 Intake Total 600 410 Output Total 40 20 Balance 560 390 - Medications Medications: Current Medications Acetaminophen (Tylenol 325mg Tab) 650 mg PO Q6 PRN PRN Reason: Pain, Mild (1-3) Last Admin: 10/17/18 13:14 Dose: 650 mg Aspirin (Ecotrin) 81 mg PO DAILY [facility] Last Admin: 10/17/18 10:30 Dose: 81 mg Dabigatran (Pradaxa) 150 mg PO DAILY [facility] Enalapril Maleate (Vasotec) 10 mg PO DAILY [facility] Last Admin: 10/17/18 10:29 Dose: 10 mg Enoxaparin Sodium (Lovenox) 40 mg SC DAILY [facility] Last Admin: 10/17/18 10:30 Dose: 40 mg Guaifenesin/Dextromethorphan (Robitussin Dm) 10 ml PO Q4H PRN PRN Reason: Cough and congestion Last Admin: 10/17/18 00:02 Dose: 10 ml Metronidazole (Flagyl) 500 mg in 100 mls @ 100 mls/hr IVPB Q8H [facility]; Protocol Last Admin: 10/17/18 17:01 Dose: 100 mls/hr Piperacillin Sod/Tazobactam (Sod 3.375 gm/ Sodium Chloride) 100 mls @ 200 ml s/hr IVPB Q6H [facility]; Protocol Last Admin: 10/17/18 18:43 Dose: 200 mls/hr Lactobacillus Acidophilus (Bacid Acidophilus) 1 cap PO BID [facility] Last Admin: 10/17/18 17:01 Dose: 1 cap Metoprolol Succinate (Toprol Xl) 50 mg PO DAILY [facility] Last Admin: 10/17/18 10:30 Dose: 50 mg Pantoprazole Sodium (Protonix Inj) 40 mg IVP DAILY [facility] Last Admin: 10/17/18 10:29 Dose: 40 mg Rosuvastatin Calcium (Crestor) 10 mg PO HS [facility] Last Admin: 10/17/18 21:36 Dose: 10 mg Tamsulosin HCl (Flomax) 0.4 mg PO DAILY [facility] Last Admin: 10/17/18 10:30 Dose: 0.4 mg Zolpidem Tartrate (Ambien) 5 mg PO HS PRN PRN Reason: Insomnia - Labs Labs: 10/17/18 07:52 10/17/18 07:52 PT 16.4 SECONDS (9.7-12.2) H 10/14/18 10:58 INR 1.5 10/14/18 10:58 APTT 31 SECONDS (21-34) 10/14/18 10:58 Attending/Attestation - Attestation I have personally seen and examined this patient.: Yes I have fully participated in the care of the patient.: Yes I have reviewed all pertinent clinical information, including history, physical exam and plan: Yes Notes (Text): 10/18/18 00:02 This is a late entry. Care of this patient was gone over with resident Dr. Renetta Vale. Jason Piper D.O.
[2018-10-14 08:16] LABS: BASO % 0.5 % (0.0-2.0); EOS % 0.8 % (0.0-4.0); HEMOGLOBIN 8.9 g/dL (12.0-18.0); LYMPH % 18.4 % (20.0-40.0); MEAN CELL VOLUME 84.9 fL (80.0-94.0); MEAN CORPUSCULAR HEMOGLOBIN 27.8 pg (27.0-31.0); MEAN CORPUSCULAR HGB CONC 32.7 g/dL (33.0-37.0); MEAN PLATELET VOLUME 7.6 fL (7.2-11.7); MONO # 0.6 K/uL (0.0-0.8); MONO % 11.8 % (0.0-10.0); NEUT # 3.7 K/uL (1.8-7.0); NEUT % 68.5 % (50.0-75.0); NRBC % 0.1 % (0.0-2.0); RBC 3.22 Mil/uL (4.40-5.90); WHITE BLOOD COUNT 5.3 K/uL (4.8-10.8)
[2018-10-14 08:38] LABS: ALB/GLOB RATIO 0.7 (1.0-2.1); ALBUMIN 2.7 g/dL (3.5-5.0); ALT/SGPT 54 U/L (21-72); AST/SGOT 42 U/L (17-59); BLOOD UREA NITROGEN 8 mg/dL (9-20); CALCIUM 7.8 mg/dl (8.6-10.4); GFR NON-AFRICAN AMERICAN > 60
[2018-10-14] MEDS ORDERED: Iohexol 240 (50 ml) PO ONE ×2 (09:00→10:30)
--- NOTE | 2018-10-14 09:10 | CT ---
Date of service: 10/13/2018 PROCEDURE: CT Chest with contrast (Pulmonary Angiogram) HISTORY: Shortness of breath, elevated d-dimer COMPARISON: None available. TECHNIQUE: Axial computed tomography images were obtained of the chest in the pulmonary arterial phase of enhancement. Coronal and sagittal reformatted images were created and reviewed. Intravenous contrast dose: 100 cc Omnipaque 300 Radiation dose: Total exam DLP = 319.07 mGy-cm. This CT exam was performed using one or more of the following dose reduction techniques: Automated exposure control, adjustment of the mA and/or kV according to patient size, and/or use of iterative reconstruction technique. FINDINGS: PULMONARY ARTERIES: There are no filling defects in the pulmonary arteries to suggest acute pulmonary embolism. AORTA: No acute findings. No thoracic aortic aneurysm. There are aortic atherosclerotic calcifications present. LUNGS: Compressive atelectasis of the lungs, worse on the right. There is multifocal subsegmental atelectasis in the lingula, right middle lobe and left lower lobe. No endobronchial lesions. PLEURAL SPACES: Large right and small left pleural effusions with compressive atelectasis of the right posterior lung. No pneumothorax. HEART: Mild cardiomegaly. Small pericardial effusion. LYMPH NODES: No pathologic mediastinal or hilar lymphadenopathy. BONES, CHEST WALL: Within normal limits for the patient's age. No fracture or destructive lesion OTHER FINDINGS: There is a large cystic mass with air-fluid level measuring 8.5 x 13.2 cm in the right upper quadrant. IMPRESSION: No CTA evidence for acute pulmonary embolism. Large right and small left pleural effusions with compressive atelectasis of the underlying lungs. Mild cardiomegaly and small pericardial effusion. Large loculated fluid collection with air-fluid level in the right upper quadrant incompletely imaged and characterized on this examination. Dedicated CT scan of the abdomen and pelvis with intravenous contrast is recommended for further evaluation. A preliminary report was provided by [email or web address].
[2018-10-14] MEDS: Enoxaparin 40 mg Syringe SC SCH (10:19)
[2018-10-14] MEDS: Metoprolol Succinate 50 mg XL Tab PO SCH (10:21)
[2018-10-14 11:10] LABS: INR 1.5; PROTHROMBIN TIME 16.4 SECONDS (9.7-12.2)
[2018-10-14] MEDS ORDERED: Iodixanol 320 MG/ML 100 ML BOTTLE IV ONE (11:58)
--- NOTE | 2018-10-14 12:53 | CP.PCM.CON ---
<Alexis Fuentes - Last Filed: 10/14/18 12:57> History of Present Illness - History of Present Illness History of Present Illness: PGY-4 GI Fellow Consult Note Pt is a 78 yo Hisp Male with HTN, HLD, CAD s/p CABG (on dabigatran?), s/p lap marisela 09/13/18, h/o biliary stent (Sep for CBD obstruction, no panc mass seen) presenting with shortness of breath. He states symptoms have been going on for about the last week, progressively worse with more pronounced symptoms with exertion. He also reports some chronic RUQ, vaugue discomfort since lap marisela on 09/13. States pain is worse with certain movements or bending over. Denied any fever, chills, nausea, vomiting, diarrhea, melena nor hematochezia. No prior endoscopic evaluations 12 point ROS negative other than stated above MHx: See above PSHx: Lap Marisela 09/13/18, biliary stent 09/2016. CABG 2009, pacemaker 2008 Meds: Reviewed in chart FamHx: denies GI problems SocH: Denies tobacco use. Reports prior social etoh. Denies recreational drug use. Allergies: NKDA Past Patient History - Infectious Disease Hx of Infectious Diseases: None - Past Medical History & Family History Past Medical History?: Yes - Past Social History Smoking Status: Never Smoked Alcohol: Social Drugs: Denies - CARDIAC Hx Cardiac Disorders: Yes Hx Hypertension: Yes Hx Pacemaker: Yes - PULMONARY Hx Respiratory Disorders: No - NEUROLOGICAL Hx Neurological Disorder: No - HEENT Hx HEENT Problems: No - RENAL Hx Chronic Kidney Disease: No - ENDOCRINE/METABOLIC Hx Endocrine Disorders: No - HEMATOLOGICAL/ONCOLOGICAL Hx Blood Disorders: No - INTEGUMENTARY Hx Dermatological Problems: No - MUSCULOSKELETAL/RHEUMATOLOGICAL Hx Musculoskeletal Disorders: Yes Hx Falls: Yes - GASTROINTESTINAL Hx Gastrointestinal Disorders: Yes Hx Gall Bladder Disease: Yes - GENITOURINARY/GYNECOLOGICAL Hx Genitourinary Disorders: No - PSYCHIATRIC Hx Psychophysiologic Disorder: No Hx Substance Use: No - SURGICAL HISTORY Hx Surgeries: Yes Hx Cholecystectomy: Yes - ANESTHESIA Hx Anesthesia: Yes Hx Anesthesia Reactions: No Hx Malignant Hyperthermia: No Meds Allergies/Adverse Reactions: Allergies Allergy/AdvReac Type Severity Reaction Status Date / Time No Known Allergies Allergy Verified 10/13/18 17:12 - Medications Medications: Current Medications Dabigatran (Pradaxa) 150 mg PO DAILY [facility] Enalapril Maleate (Vasotec) 10 mg PO DAILY [facility] Last Admin: 10/14/18 10:21 Dose: 10 mg Enoxaparin Sodium (Lovenox) 40 mg SC DAILY [facility] Last Admin: 10/14/18 10:19 Dose: Not Given Influenza Virus Vaccine (Fluzone Quad [id number]) 60 mcg IM .ONCE ONE Stop: 10/16/18 10:01 Metoprolol Succinate (Toprol Xl) 50 mg PO DAILY [facility] Last Admin: 10/14/18 10:21 Dose: 50 mg Rosuvastatin Calcium (Crestor) 10 mg PO HS [facility] Last Admin: 10/13/18 23:49 Dose: 10 mg Tamsulosin HCl (Flomax) 0.4 mg PO DAILY [facility] Last Admin: 10/14/18 10:21 Dose: 0.4 mg Zolpidem Tartrate (Ambien) 5 mg PO [facility] Last Admin: 10/13/18 23:49 Dose: 5 mg Physical Exam - Constitutional Appears: Well, No Acute Distress - Head Exam Head Exam: ATRAUMATIC, NORMAL INSPECTION - Eye Exam Eye Exam: EOMI. absent: Scleral icterus - ENT Exam ENT Exam: Mucous Membranes Dry. absent: Mucous Membranes Moist - Respiratory Exam Respiratory Exam: NORMAL BREATHING PATTERN. absent: Accessory Muscle Use, Respiratory Distress - Cardiovascular Exam Cardiovascular Exam: REGULAR RHYTHM, RRR - GI/Abdominal Exam GI & Abdominal Exam: Organomegaly (palpable liver), Soft. absent: Bruit, Diminished Bowel Sounds, Distended, Firm, Guarding, Hernia, Normal Bowel Sounds, Pulsatile Mass, Rebound, Rigid, Tenderness - Rectal Exam Rectal Exam: Deferred - Extremities Exam Extremities exam: Positive for: normal inspection. Negative for: pedal edema - Neurological Exam Neurological exam: Alert, CN II-XII Intact - Skin Skin Exam: Normal Color, Warm Results - Vital Signs Recent Vital Signs: Last Vital Signs Temp 98 F 10/14/18 07:00 Pulse 72 10/14/18 10:20 Resp 20 10/14/18 07:00 BP 114/61 10/14/18 10:21 Pulse Ox 97 10/14/18 07:00 - Labs Result Diagrams: 10/14/18 08:08 10/14/18 08:08 Labs: Laboratory Results - last 24 hr 10/13/18 10/13/18 10/13/18 17:48 17:48 17:48 WBC 6.1 RBC 3.37 L Hgb 9.3 L Hct 28.8 L MCV 85.7 MCH 27.5 MCHC 32.1 L RDW 15.2 H Plt Count 266 MPV 7.4 Neut % (Auto) 73.3 Lymph % (Auto) 14.0 L [place] % (Auto) 11.2 H Eos % (Auto) 1.1 Baso % (Auto) 0.4 Neut # (Auto) 4.5 Lymph # (Auto) 0.9 L [place] # (Auto) 0.7 Eos # (Auto) 0.1 Baso # (Auto) 0.0 PT INR APTT D-Dimer, Quantitative 4232 H Sodium 134 Potassium 4.2 Chloride 100 Carbon Dioxide 24 Anion Gap 14 BUN 9 Creatinine 0.6 L Est GFR ( Amer) > 60 Est GFR (Non-Af Amer) > 60 Random Glucose 133 H Calcium 7.8 L Total Bilirubin 0.8 AST 57 ALT 54 Alkaline Phosphatase 149 H D Troponin I 0.0230 NT-Pro-B Natriuret Pep 6520 H Total Protein 7.0 Albumin 3.0 L Globulin 3.9 Albumin/Globulin Ratio 0.8 L 10/14/18 10/14/18 10/14/18 08:08 08:08 10:58 WBC 5.3 RBC 3.22 L Hgb 8.9 L Hct 27.3 L MCV 84.9 MCH 27.8 MCHC 32.7 L RDW 15.0 H Plt Count 247 MPV 7.6 Neut % (Auto) 68.5 Lymph % (Auto) 18.4 L [place] % (Auto) 11.8 H Eos % (Auto) 0.8 Baso % (Auto) 0.5 Neut # (Auto) 3.7 Lymph # (Auto) 1.0 [place] # (Auto) 0.6 Eos # (Auto) 0.0 Baso # (Auto) 0.0 PT 16.4 H INR 1.5 APTT 31 D-Dimer, Quantitative Sodium 132 Potassium 4.0 Chloride 97 L Carbon Dioxide 27 Anion Gap 12 BUN 8 L Creatinine 0.7 L Est GFR ( Amer) > 60 Est GFR (Non-Af Amer) > 60 Random Glucose 103 D Calcium 7.8 L Total Bilirubin 0.9 AST 42 ALT 54 Alkaline Phosphatase 141 H Troponin I NT-Pro-B Natriuret Pep Total Protein 6.6 Albumin 2.7 L Globulin 3.9 Albumin/Globulin Ratio 0.7 L Assessment & Plan - Assessment and Plan (Free Text) Assessment: 78 yo Hisp Male with recent lap marisela, h/o biliary stent, CAD s/p CABG on dabigatran presenting with shortness of breath and abd pain. # Perihepatic fluid collection, Pleural effusion: Suspect related to post-op complication of lap marisela with resulting biloma or hematoma? Hgb has been somewhat lower than baseline since surgery with ongoing anticogulation use. No signs of GI bleed. No prior endoscopic evaluations. Plan: - Gen Surg Consulted - CT Abd/Pelvis with PO+IV contrast ordered --- F/u above scan, may need MRCP+MRI, HIDA or ERCP with stenting if bile leak - Agree with IR consult to drain and assess fluid - Diet per surgery/primary - Agree with holding anticoagulation in light of anticipated procedures - Monitor labs Pt discussed with Dr. Busch; please see attestation for further recs/changes. Alexis Fuentes, PGY-4 <Tobi Busch - Last Filed: 10/14/18 22:50> Meds - Medications Medications: Current Medications Dabigatran (Pradaxa) 150 mg PO DAILY [facility] Enalapril Maleate (Vasotec) 10 mg PO DAILY [facility] Last Admin: 10/14/18 10:21 Dose: 10 mg Enoxaparin Sodium (Lovenox) 40 mg SC DAILY [facility] Last Admin: 10/14/18 10:19 Dose: Not Given Metronidazole (Flagyl) 500 mg in 100 mls @ 100 mls/hr IVPB Q8H [facility]; Protocol Last Admin: 10/14/18 18:44 Dose: 100 mls/hr Piperacillin Sod/Tazobactam (Sod 3.375 gm/ Sodium Chloride) 100 mls @ 200 mls/hr IVPB Q6H [facility]; Protocol Last Admin: 10/14/18 18:43 Dose: 200 mls/hr Lactobacillus Acidophilus (Bacid Acidophilus) 1 cap PO BID [facility] Last Admin: 10/14/18 18:45 Dose: 1 cap Metoprolol Succinate (Toprol Xl) 50 mg PO DAILY [facility] Last Admin: 10/14/18 10:21 Dose: 50 mg Pantoprazole Sodium (Protonix Inj) 40 mg IVP DAILY [facility] Rosuvastatin Calcium (Crestor) 10 mg PO HS [facility] Last Admin: 10/14/18 21:57 Dose: 10 mg Tamsulosin HCl (Flomax) 0.4 mg PO DAILY [facility] Last Admin: 10/14/18 10:21 Dose: 0.4 mg Zolpidem Tartrate (Ambien) 5 mg PO HS [facility] Last Admin: 10/13/18 23:49 Dose: 5 mg Results - Vital Signs Recent Vital Signs: Last Vital Signs Temp 99.0 F 10/14/18 15:03 Pulse 63 10/14/18 15:03 Resp 20 10/14/18 15:03 BP 125/55 L 10/14/18 15:03 Pulse Ox 97 10/14/18 21:00 - Labs Result Diagrams: 10/14/18 08:08 10/14/18 08:08 Labs: Laboratory Results - last 24 hr 10/14/18 10/14/18 10/14/18 08:08 08:08 10:58 WBC 5.3 RBC 3.22 L Hgb 8.9 L Hct 27.3 L MCV 84.9 MCH 27.8 MCHC 32.7 L RDW 15.0 H Plt Count 247 MPV 7.6 Neut % (Auto) 68.5 Lymph % (Auto) 18.4 L [place] % (Auto) 11.8 H Eos % (Auto) 0.8 Baso % (Auto) 0.5 Neut # (Auto) 3.7 Lymph # (Auto) 1.0 [place] # (Auto) 0.6 Eos # (Auto) 0.0 Baso # (Auto) 0.0 PT 16.4 H INR 1.5 APTT 31 Sodium 132 Potassium 4.0 Chloride 97 L Carbon Dioxide 27 Anion Gap 12 BUN 8 L Creatinine 0.7 L Est GFR ( Amer) > 60 Est GFR (Non-Af Amer) > 60 Random Glucose 103 D Calcium 7.8 L Total Bilirubin 0.9 AST 42 ALT 54 Alkaline Phosphatase 141 H Total Protein 6.6 Albumin 2.7 L Globulin 3.9 Albumin/Globulin Ratio 0.7 L Attending/Attestation - Attestation I have personally seen and examined this patient.: Yes I have fully participated in the care of the patient.: Yes I have reviewed all pertinent clinical information: Yes Notes (Text): 10/14/18 22:50 The patient was seen and examined earlier today. Chart reviewed. Findings and management, as documented above, were discussed with Dr. Fuentes.
--- NOTE | 2018-10-14 14:03 | CT ---
Date of service: 10/13/2018 PROCEDURE: CT Abdomen and Pelvis without intravenous contrast HISTORY: right upper quadrant pain evaluate for abscess COMPARISON: 09/17/2018. TECHNIQUE: CT scan of the abdomen and pelvis was performed without administration of intravenous contrast. Oral contrast was not administered. Coronal and sagittal reformatted images were obtained. . Radiation dose: Total exam DLP = 287.38 mGy-cm. This CT exam was performed using one or more of the following dose reduction techniques: Automated exposure control, adjustment of the mA and/or kV according to patient size, and/or use of iterative reconstruction technique. FINDINGS: LOWER THORAX: Large right and small left pleural effusions and compressive atelectasis of the right lower lobe. LIVER: There is a 12.0 x 8.0 x 14.2 cm loculated collection with air-fluid level in the right hepatic lobe. GALLBLADDER AND BILE DUCTS: Surgically absent. Metallic stent remains in place in the common bile duct. PANCREAS: Normal in size. No ductal dilatation. SPLEEN: Normal in size. ADRENALS: Normal in size. No discrete nodule. KIDNEYS AND URETERS: Normal in size without nephrolithiasis. No hydronephrosis. There is a 2.4 x 1.5 cm exophytic simple cyst in the lower pole of the left kidney. VASCULATURE: No aortic aneurysm. No aortic atherosclerotic calcification or mural plaque present. BOWEL: The small bowel loops are normal in caliber. The colon is normal in size. No bowel dilatation or wall thickening. No bowel obstruction. APPENDIX: Normal appendix. PERITONEUM: No free fluid. No free air. LYMPH NODES: No enlarged lymph nodes. BLADDER: There is contrast material within the urinary bladder. There is apparent moderate circumferential mural thickening of the bladder wall. REPRODUCTIVE: There is moderate enlargement of the prostate gland with median lobe hypertrophy indenting on the base of the urinary bladder. There are posterior coarse calcifications. BONES: No acute fracture. Multilevel degenerative changes in the lower thoracic spine. OTHER FINDINGS: None. IMPRESSION: Approximately 12.0 x 8.0 x 14.2 cm loculated fluid collection with air-fluid level in the subcapsular right hepatic lobe concerning for an abscess. Large right and small left pleural effusions. Moderate enlargement of the prostate gland with median lobe hypertrophy indenting on the base of the urinary bladder and suspected bladder outlet obstruction with apparent circumferential mural thickening of the urinary bladder wall. Underlying cystitis cannot be excluded. Please correlate with urine analysis. A preliminary report was provided by [employer].
--- NOTE | 2018-10-14 15:02 | CT ---
Date of service: 10/14/2018 PROCEDURE: CT Abdomen and Pelvis with contrast HISTORY: fluid collection in abdomen COMPARISON: None available. TECHNIQUE: CT scan of the abdomen and pelvis was performed after administration of intravenous contrast. Oral contrast was administered. Coronal and sagittal reformatted images were obtained. Contrast dose: 100 mL Visipaque Radiation dose: Total exam DLP = 378.79 mGy-cm. This CT exam was performed using one or more of the following dose reduction techniques: Automated exposure control, adjustment of the mA and/or kV according to patient size, and/or use of iterative reconstruction technique. FINDINGS: LOWER THORAX: Large right and small left pleural effusions and small pericardial effusion. Compressive atelectasis of the right lower lobe. LIVER: There is redemonstration of a large 12.7 x 8.3 x 14.1 cm subcapsular/perihepatic loculated fluid collection with air-fluid level in the right hepatic lobe. There is low density and probable hyperemia in the subjacent liver. No gross lesion or ductal dilatation. GALLBLADDER AND BILE DUCTS: Surgically absent. A metallic stent remains in place in the common bile duct. PANCREAS: Normal in size with homogeneous enhancement. No gross lesion or ductal dilatation. SPLEEN: Normal in size and appearance. ADRENALS: No discrete nodule. KIDNEYS AND URETERS: Normal in size with homogeneous enhancement. No hydronephrosis. No solid mass. There are stable simple cysts in the kidneys. VASCULATURE: No aortic aneurysm. BOWEL: The small bowel loops are normal in caliber. Scattered colonic diverticulosis without CT evidence for acute diverticulitis. No bowel wall thickening or obstruction. APPENDIX: Normal appendix. PERITONEUM: No free fluid. No free air. LYMPH NODES: No enlarged lymph nodes. BLADDER: There is moderate circumferential mural thickening of the urinary bladder wall likely related to bladder outlet obstruction. Underlying cystitis cannot be excluded. REPRODUCTIVE: There is moderate enlargement of the prostate gland with median lobe hypertrophy indenting on the base of the urinary bladder. There are posterior central coarse calcifications. BONES: No acute fracture. There is diffuse bone demineralization and multilevel degenerative changes in the spine. OTHER FINDINGS: There are bilateral small fat containing inguinal hernias. IMPRESSION: Large subcapsular/perihepatic cyst loculated fluid collection with air-fluid level in the right hepatic lobe suspicious for complex bilioma versus abscess. No other interval change since the prior examination.
[2018-10-14] MEDS ORDERED: cefTRIAXone 2 GM in Sodium Chloride 0.9% 100 ML IVPB SCH (16:45)
[2018-10-14] MEDS: Piperacillin/Tazobact 3.375 GM in Sodium Chloride 100 ML IVPB SCH (18:43)
[2018-10-14] MEDS: metroNIDAZOLE IV 500 mg/100 ml 500 MG/100 ML BAG IVPB SCH (18:44)
[2018-10-14] MEDS: Lactobacillus Acidophilus 500 MU Cap PO SCH (18:45)
[2018-10-14] MEDS ORDERED: Enoxaparin 40 mg Syringe SC ONE (19:24)
[2018-10-15] MEDS: metroNIDAZOLE IV 500 mg/100 ml 500 MG/100 ML BAG IVPB SCH ×3 (00:27→16:26)
[2018-10-15] MEDS: Piperacillin/Tazobact 3.375 GM in Sodium Chloride 100 ML IVPB SCH ×4 (01:28→17:37)
--- NOTE | 2018-10-15 07:43 | CP.PCM.PN ---
Subjective - Date & Time of Evaluation Date of Evaluation: 10/15/18 Time of Evaluation: 06:45 - Subjective Subjective: General Surgery Pt Seen and examined. No issues overnight. No new complaints. Awaiting IR drainage tomorrow. Objective - Vital Signs/Intake and Output Vital Signs (last 24 hours): Temp Pulse Resp BP Pulse Ox 98.2 F 60 20 112/67 97 10/14/18 23:10 10/15/18 04:10 10/14/18 23:10 10/14/18 23:10 10/14/18 23:10 Intake and Output: 10/15/18 10/15/18 06:59 18:59 Intake Total 420 Balance 420 - Medications Medications: Current Medications Dabigatran (Pradaxa) 150 mg PO DAILY [facility] Enalapril Maleate (Vasotec) 10 mg PO DAILY [facility] Last Admin: 10/14/18 10:21 Dose: 10 mg Enoxaparin Sodium (Lovenox) 40 mg SC DAILY [facility] Last Admin: 10/14/18 10:19 Dose: Not Given Metronidazole (Flagyl) 500 mg in 100 mls @ 100 mls/hr IVPB Q8H [facility]; Protocol Last Admin: 10/15/18 00:27 Dose: 100 mls/hr Piperacillin Sod/Tazobactam (Sod 3.375 gm/ Sodium Chloride) 100 mls @ 200 mls/ hr IVPB Q6H [facility]; Protocol Last Admin: 10/15/18 05:57 Dose: 200 mls/hr Lactobacillus Acidophilus (Bacid Acidophilus) 1 cap PO BID [facility] Last Admin: 10/14/18 18:45 Dose: 1 cap Metoprolol Succinate (Toprol Xl) 50 mg PO DAILY [facility] Last Admin: 10/14/18 10:21 Dose: 50 mg Pantoprazole Sodium (Protonix Inj) 40 mg IVP DAILY [facility] Rosuvastatin Calcium (Crestor) 10 mg PO HS [facility] Last Admin: 10/14/18 21:57 Dose: 10 mg Tamsulosin HCl (Flomax) 0.4 mg PO DAILY [facility] Last Admin: 10/14/18 10:21 Dose: 0.4 mg Zolpidem Tartrate (Ambien) 5 mg PO HS [facility] Last Admin: 10/15/18 00:25 Dose: 5 mg - Labs Labs: 10/14/18 08:08 10/14/18 08:08 PT 16.4 SECONDS (9.7-12.2) H 10/14/18 10:58 INR 1.5 10/14/18 10:58 APTT 31 SECONDS (21-34) 10/14/18 10:58 - Constitutional Appears: Non-toxic, No Acute Distress - Head Exam Head Exam: ATRAUMATIC, NORMOCEPHALIC - Eye Exam Eye Exam: EOMI. absent: Scleral icterus - Respiratory Exam Respiratory Exam: NORMAL BREATHING PATTERN. absent: Respiratory Distress - GI/Abdominal Exam GI & Abdominal Exam: Soft. absent: Distended, Firm, Guarding, Rigid, Tenderness - Extremities Exam Extremities Exam: absent: Calf Tenderness, Pedal Edema - Neurological Exam Neurological Exam: Alert, Awake - Skin Skin Exam: Dry, Warm Assessment and Plan - Assessment and Plan (Free Text) Assessment: 78M s/p lap cesar on 09/13, admitted 10/13 w SOB, found to have bilateral pleural effusions R>L and perihepatic fluid collection Plan: IR drainage of pleural effusion and perihepatic collection planned for Tuesday Will follow up result of drainage. D/W Dr. Severino Martini PGY4
[2018-10-15 08:11] LABS: BASO % 0.4 % (0.0-2.0); EOS % 0.9 % (0.0-4.0); HEMOGLOBIN 8.7 g/dL (12.0-18.0); LYMPH % 17.3 % (20.0-40.0); MEAN CELL VOLUME 85.1 fL (80.0-94.0); MEAN CORPUSCULAR HEMOGLOBIN 28.8 pg (27.0-31.0); MEAN CORPUSCULAR HGB CONC 33.8 g/dL (33.0-37.0); MEAN PLATELET VOLUME 7.4 fL (7.2-11.7); MONO # 0.6 K/uL (0.0-0.8); MONO % 11.2 % (0.0-10.0); NEUT % 70.2 % (50.0-75.0); RBC 3.04 Mil/uL (4.40-5.90); RED CELL DISTRIBUTION WIDTH 15.3 % (11.5-14.5); WHITE BLOOD COUNT 5.7 K/uL (4.8-10.8)
[2018-10-15 08:26] LABS: ALB/GLOB RATIO 0.7 (1.0-2.1); ALBUMIN 2.6 g/dL (3.5-5.0); ALT/SGPT 46 U/L (21-72); AST/SGOT 42 U/L (17-59); BLOOD UREA NITROGEN 7 mg/dL (9-20); CALCIUM 7.6 mg/dl (8.6-10.4); GFR NON-AFRICAN AMERICAN > 60
[2018-10-15] MEDS: Lactobacillus Acidophilus 500 MU Cap PO SCH ×2 (09:46→17:37)
[2018-10-15] MEDS: Metoprolol Succinate 50 mg XL Tab PO SCH (09:46)
[2018-10-15] MEDS: Enoxaparin 40 mg Syringe SC SCH (09:47)
--- NOTE | 2018-10-15 13:07 | CP.PCM.PN ---
<Alexis Fuentes - Last Filed: 10/15/18 13:05> Subjective - Date & Time of Evaluation Date of Evaluation: 10/15/18 Time of Evaluation: 08:15 - Subjective Subjective: PGY-4 GI Fellow Prog Note Pt lying in bed when seen this AM. States breathing continues to be improved from admission. Mild upper abd pain stable. Denied F/C, N/V. 5 point ROS negative other than stated above Objective - Vital Signs/Intake and Output Vital Signs (last 24 hours): Temp Pulse Resp BP Pulse Ox 98.6 F 78 18 118/65 95 10/15/18 07:40 10/15/18 12:27 10/15/18 07:40 10/15/18 09:47 10/15/18 12:27 Intake and Output: 10/15/18 10/15/18 06:59 18:59 Intake Total 420 Balance 420 - Medications Medications: Current Medications Aspirin (Ecotrin) 81 mg PO DAILY [facility] Last Admin: 10/15/18 09:47 Dose: 81 mg Dabigatran (Pradaxa) 150 mg PO DAILY [facility] Enalapril Maleate (Vasotec) 10 mg PO DAILY [facility] Last Admin: 10/15/18 09:47 Dose: 10 mg Enoxaparin Sodium (Lovenox) 40 mg SC DAILY [facility] Last Admin: 10/15/18 09:47 Dose: 40 mg Metronidazole (Flagyl) 500 mg in 100 mls @ 100 mls/hr IVPB Q8H [facility]; Protocol Last Admin: 10/15/18 07:45 Dose: 100 mls/hr Piperacillin Sod/Tazobactam (Sod 3.375 gm/ Sodium Chloride) 100 mls @ 200 mls/hr IVPB Q6H [facility]; Protocol Last Admin: 10/15/18 11:58 Dose: 200 mls/hr Lactobacillus Acidophilus (Bacid Acidophilus) 1 cap PO BID [facility] Last Admin: 10/15/18 09:46 Dose: 1 cap Metoprolol Succinate (Toprol Xl) 50 mg PO DAILY [facility] Last Admin: 10/15/18 09:46 Dose: 50 mg Pantoprazole Sodium (Protonix Inj) 40 mg IVP DAILY [facility] Last Admin: 10/15/18 09:47 Dose: 40 mg Rosuvastatin Calcium (Crestor) 10 mg PO HS [facility] Last Admin: 10/14/18 21:57 Dose: 10 mg Tamsulosin HCl (Flomax) 0.4 mg PO DAILY [facility] Last Admin: 10/15/18 09:47 Dose: 0.4 mg Zolpidem Tartrate (Ambien) 5 mg PO HS [facility] Last Admin: 10/15/18 00:25 Dose: 5 mg - Labs Labs: 10/15/18 07:49 10/15/18 07:49 PT 16.4 SECONDS (9.7-12.2) H 10/14/18 10:58 INR 1.5 10/14/18 10:58 APTT 31 SECONDS (21-34) 10/14/18 10:58 <Tobi Busch - Last Filed: 10/15/18 22:25> Objective - Vital Signs/Intake and Output Vital Signs (last 24 hours): Temp Pulse Resp BP Pulse Ox 98.7 F 72 20 127/62 97 10/15/18 15:22 10/15/18 15:22 10/15/18 15:22 10/15/18 15:22 10/15/18 15:22 Intake and Output: 10/15/18 10/16/18 18:59 06:59 Intake Total 600 600 Balance 600 600 - Medications Medications: Current Medications Aspirin (Ecotrin) 81 mg PO DAILY [facility] Last Admin: 10/15/18 09:47 Dose: 81 mg Dabigatran (Pradaxa) 150 mg PO DAILY [facility] Enalapril Maleate (Vasotec) 10 mg PO DAILY [facility] Last Admin: 10/15/18 09:47 Dose: 10 mg Enoxaparin Sodium (Lovenox) 40 mg SC DAILY [facility] Last Admin: 10/15/18 09:47 Dose: 40 mg Metronidazole (Flagyl) 500 mg in 100 mls @ 100 mls/hr IVPB Q8H [facility]; Protocol Last Admin: 10/15/18 16:26 Dose: 100 mls/hr Piperacillin Sod/Tazobactam (Sod 3.375 gm/ Sodium Chloride) 100 mls @ 200 mls/hr IVPB Q6H [facility]; Protocol Last Admin: 10/15/18 17:37 Dose: 200 mls/hr Lactobacillus Acidophilus (Bacid Acidophilus) 1 cap PO BID [facility] Last Admin: 10/15/18 17:37 Dose: 1 cap Metoprolol Succinate (Toprol Xl) 50 mg PO DAILY [facility] Last Admin: 10/15/18 09:46 Dose: 50 mg Pantoprazole Sodium (Protonix Inj) 40 mg IVP DAILY [facility] Last Admin: 10/15/18 09:47 Dose: 40 mg Rosuvastatin Calcium (Crestor) 10 mg PO HS [facility] Last Admin: 10/15/18 21:49 Dose: 10 mg Tamsulosin HCl (Flomax) 0.4 mg PO DAILY [facility] Last Admin: 10/15/18 09:47 Dose: 0.4 mg Zolpidem Tartrate (Ambien) 5 mg PO HS [facility] Last Admin: 10/15/18 21:49 Dose: 5 mg - Labs Labs: 10/15/18 07:49 10/15/18 07:49 PT 16.4 SECONDS (9.7-12.2) H 10/14/18 10:58 INR 1.5 10/14/18 10:58 APTT 31 SECONDS (21-34) 10/14/18 10:58 Attending/Attestation - Attestation I have personally seen and examined this patient.: Yes I have fully participated in the care of the patient.: Yes I have reviewed all pertinent clinical information, including history, physical exam and plan: Yes Notes (Text): 10/15/18 22:24 please refer to the other note 10/15/18 22:24
--- NOTE | 2018-10-15 13:11 | CP.PCM.PN ---
<Alexis Fuentes - Last Filed: 10/15/18 13:09> Subjective - Date & Time of Evaluation Date of Evaluation: 10/15/18 Time of Evaluation: 08:15 - Subjective Subjective: PGY-4 GI Fellow Prog Note Pt lying in bed when seen this AM. States breathing continues to improved. Abd discomfort stable, denied F/C, N/V 5 point ROS negative other than stated above Objective - Vital Signs/Intake and Output Vital Signs (last 24 hours): Temp Pulse Resp BP Pulse Ox 98.6 F 78 18 118/65 95 10/15/18 07:40 10/15/18 12:27 10/15/18 07:40 10/15/18 09:47 10/15/18 12:27 Intake and Output: 10/15/18 10/15/18 06:59 18:59 Intake Total 420 Balance 420 - Medications Medications: Current Medications Aspirin (Ecotrin) 81 mg PO DAILY [facility] Last Admin: 10/15/18 09:47 Dose: 81 mg Dabigatran (Pradaxa) 150 mg PO DAILY [facility] Enalapril Maleate (Vasotec) 10 mg PO DAILY [facility] Last Admin: 10/15/18 09:47 Dose: 10 mg Enoxaparin Sodium (Lovenox) 40 mg SC DAILY [facility] Last Admin: 10/15/18 09:47 Dose: 40 mg Metronidazole (Flagyl) 500 mg in 100 mls @ 100 mls/hr IVPB Q8H [facility]; Protocol Last Admin: 10/15/18 07:45 Dose: 100 mls/hr Piperacillin Sod/Tazobactam (Sod 3.375 gm/ Sodium Chloride) 100 mls @ 200 mls/hr IVPB Q6H [facility]; Protocol Last Admin: 10/15/18 11:58 Dose: 200 mls/hr Lactobacillus Acidophilus (Bacid Acidophilus) 1 cap PO BID [facility] Last Admin: 10/15/18 09:46 Dose: 1 cap Metoprolol Succinate (Toprol Xl) 50 mg PO DAILY [facility] Last Admin: 10/15/18 09:46 Dose: 50 mg Pantoprazole Sodium (Protonix Inj) 40 mg IVP DAILY [facility] Last Admin: 10/15/18 09:47 Dose: 40 mg Rosuvastatin Calcium (Crestor) 10 mg PO HS [facility] Last Admin: 10/14/18 21:57 Dose: 10 mg Tamsulosin HCl (Flomax) 0.4 mg PO DAILY [facility] Last Admin: 10/15/18 09:47 Dose: 0.4 mg Zolpidem Tartrate (Ambien) 5 mg PO HS [facility] Last Admin: 10/15/18 00:25 Dose: 5 mg - Labs Labs: 10/15/18 07:49 10/15/18 07:49 PT 16.4 SECONDS (9.7-12.2) H 10/14/18 10:58 INR 1.5 10/14/18 10:58 APTT 31 SECONDS (21-34) 10/14/18 10:58 - Constitutional Appears: Well, No Acute Distress - Head Exam Head Exam: ATRAUMATIC, NORMAL INSPECTION - Eye Exam Eye Exam: EOMI. absent: Scleral icterus - ENT Exam ENT Exam: Mucous Membranes Moist. absent: Mucous Membranes Dry - Respiratory Exam Respiratory Exam: NORMAL BREATHING PATTERN. absent: Accessory Muscle Use, Respiratory Distress - GI/Abdominal Exam GI & Abdominal Exam: Distended (mildly), Soft, Tenderness (mildly ttp in RUQ w/o guarding), Normal Bowel Sounds. absent: Bruit, Firm, Guarding, Rigid Assessment and Plan - Assessment and Plan (Free Text) Assessment: 78 yo Hisp Male with recent lap cesar, h/o biliary stent, CAD s/p CABG on dabigatran presenting with shortness of breath and abd pain. # Perihepatic fluid collection, Pleural effusion: Suspect related to post-op complication of lap cesar with resulting biloma or hematoma? Hgb has been somewhat lower than baseline since surgery with ongoing anticogulation use. No signs of GI bleed. No prior endoscopic evaluations. Plan: - Gen Surg Consulted - Ordered HIDA scan to eval for bile leak - Agree with IR consult to drain and assess fluid - Diet and Abx per primary/surgery - Monitor labs Pt discussed with Dr. Busch; please see attestation for further recs/changes. Alexis Fuentes, PGY-4 <Tobi Busch - Last Filed: 10/15/18 22:10> Objective - Vital Signs/Intake and Output Vital Signs (last 24 hours): Temp Pulse Resp BP Pulse Ox 98.7 F 72 20 127/62 97 10/15/18 15:22 10/15/18 15:22 10/15/18 15:22 10/15/18 15:22 10/15/18 15:22 Intake and Output: 10/15/18 10/16/18 18:59 06:59 Intake Total 600 Balance 600 - Medications Medications: Current Medications Aspirin (Ecotrin) 81 mg PO DAILY [facility] Last Admin: 10/15/18 09:47 Dose: 81 mg Dabigatran (Pradaxa) 150 mg PO DAILY [facility] Enalapril Maleate (Vasotec) 10 mg PO DAILY [facility] Last Admin: 10/15/18 09:47 Dose: 10 mg Enoxaparin Sodium (Lovenox) 40 mg SC DAILY [facility] Last Admin: 10/15/18 09:47 Dose: 40 mg Metronidazole (Flagyl) 500 mg in 100 mls @ 100 mls/hr IVPB Q8H [facility]; Protocol Last Admin: 10/15/18 16:26 Dose: 100 mls/hr Piperacillin Sod/Tazobactam (Sod 3.375 gm/ Sodium Chloride) 100 mls @ 200 mls/hr IVPB Q6H [facility]; Protocol Last Admin: 10/15/18 17:37 Dose: 200 mls/hr Lactobacillus Acidophilus (Bacid Acidophilus) 1 cap PO BID [facility] Last Admin: 10/15/18 17:37 Dose: 1 cap Metoprolol Succinate (Toprol Xl) 50 mg PO DAILY [facility] Last Admin: 10/15/18 09:46 Dose: 50 mg Pantoprazole Sodium (Protonix Inj) 40 mg IVP DAILY [facility] Last Admin: 10/15/18 09:47 Dose: 40 mg Rosuvastatin Calcium (Crestor) 10 mg PO HS [facility] Last Admin: 10/15/18 21:49 Dose: 10 mg Tamsulosin HCl (Flomax) 0.4 mg PO DAILY [facility] Last Admin: 10/15/18 09:47 Dose: 0.4 mg Zolpidem Tartrate (Ambien) 5 mg PO HS [facility] Last Admin: 10/15/18 21:49 Dose: 5 mg - Labs Labs: 10/15/18 07:49 10/15/18 07:49 PT 16.4 SECONDS (9.7-12.2) H 10/14/18 10:58 INR 1.5 10/14/18 10:58 APTT 31 SECONDS (21-34) 10/14/18 10:58 Attending/Attestation - Attestation I have personally seen and examined this patient.: Yes I have fully participated in the care of the patient.: Yes I have reviewed all pertinent clinical information, including history, physical exam and plan: Yes Notes (Text): 10/15/18 22:09 The patient was seen and examined earlier to day. Chart reviewed. Findings, assessment and management were discussed with Dr. Fuentes and reflected above.
--- NOTE | 2018-10-15 13:44 | CP.PCM.PN ---
<Andrew Vale - Last Filed: 10/15/18 19:44> Subjective - Date & Time of Evaluation Date of Evaluation: 10/15/18 Time of Evaluation: 09:00 - Subjective Subjective: PGY-[address] Jason Piper Patient is seen and examined sitting in chair. Patient was coming from finishing Physical therapy earlier. As per physical therapy, orthostatics were within normal limits, patient tolerating therapy session. Patient denies any acute events overnight. Patient states his shortness of breath and abdominal pain have improved since admission. Denies any fevers, chills, chest pain, abdominal pain, shortness of breath, nausea, vomiting, diarrhea or constipation. PAtient is eating well, and urinating and having regular bowel movements. Objective - Vital Signs/Intake and Output Vital Signs (last 24 hours): Temp Pulse Resp BP Pulse Ox 98.6 F 78 18 118/65 95 10/15/18 07:40 10/15/18 12:27 10/15/18 07:40 10/15/18 09:47 10/15/18 12:27 Intake and Output: 10/15/18 10/15/18 06:59 18:59 Intake Total 420 Balance 420 - Medications Medications: Current Medications Aspirin (Ecotrin) 81 mg PO DAILY [facility] Last Admin: 10/15/18 09:47 Dose: 81 mg Dabigatran (Pradaxa) 150 mg PO DAILY [facility] Enalapril Maleate (Vasotec) 10 mg PO DAILY [facility] Last Admin: 10/15/18 09:47 Dose: 10 mg Enoxaparin Sodium (Lovenox) 40 mg SC DAILY [facility] Last Admin: 10/15/18 09:47 Dose: 40 mg Metronidazole (Flagyl) 500 mg in 100 mls @ 100 mls/hr IVPB Q8H [facility]; Protocol Last Admin: 10/15/18 07:45 Dose: 100 mls/hr Piperacillin Sod/Tazobactam (Sod 3.375 gm/ Sodium Chloride) 100 mls @ 200 mls/hr IVPB Q6H [facility]; Protocol Last Admin: 10/15/18 11:58 Dose: 200 mls/hr Lactobacillus Acidophilus (Bacid Acidophilus) 1 cap PO BID [facility] Last Admin: 10/15/18 09:46 Dose: 1 cap Metoprolol Succinate (Toprol Xl) 50 mg PO DAILY [facility] Last Admin: 10/15/18 09:46 Dose: 50 mg Pantoprazole Sodium (Protonix Inj) 40 mg IVP DAILY [facility] Last Admin: 10/15/18 09:47 Dose: 40 mg Rosuvastatin Calcium (Crestor) 10 mg PO HS [facility] Last Admin: 10/14/18 21:57 Dose: 10 mg Tamsulosin HCl (Flomax) 0.4 mg PO DAILY [facility] Last Admin: 10/15/18 09:47 Dose: 0.4 mg Zolpidem Tartrate (Ambien) 5 mg PO [facility] Last Admin: 10/15/18 00:25 Dose: 5 mg - Labs Labs: 10/15/18 07:49 10/15/18 07:49 PT 16.4 SECONDS (9.7-12.2) H 10/14/18 10:58 INR 1.5 10/14/18 10:58 APTT 31 SECONDS (21-34) 10/14/18 10:58 - Constitutional Appears: Well, Non-toxic, No Acute Distress - Head Exam Head Exam: ATRAUMATIC, NORMAL INSPECTION, NORMOCEPHALIC - Eye Exam Eye Exam: EOMI, Normal appearance, PERRL - ENT Exam ENT Exam: Mucous Membranes Moist, Normal Exam - Neck Exam Neck Exam: Full ROM, Normal Inspection - Respiratory Exam Respiratory Exam: Clear to Ausculation Bilateral, NORMAL BREATHING PATTERN. absent: Accessory Muscle Use, Rales, Rhonchi, Wheezes, Respiratory Distress - Cardiovascular Exam Cardiovascular Exam: REGULAR RHYTHM, +S1, +S2 - GI/Abdominal Exam GI & Abdominal Exam: Distended, Soft, Normal Bowel Sounds. absent: Guarding, Tenderness - Extremities Exam Extremities Exam: Full ROM, Normal Inspection. absent: Joint Swelling, Pedal Edema, Tenderness - Back Exam Back Exam: Full ROM, NORMAL INSPECTION. absent: rash noted - Neurological Exam Neurological Exam: Alert, Awake, CN II-XII Intact, Normal Gait, Oriented x3 - Psychiatric Exam Psychiatric exam: Normal Affect, Normal Mood - Skin Skin Exam: Dry, Intact, Normal Color, Warm Additional comments: black nevus of about 1 cm located inferior to umbilicus, as per patient is not new or it has not changed in color or size recently Assessment and Plan - Assessment and Plan (Free Text) Plan: RUQ Fluid Collection - s/p lap cesar 09/13/18, biliary stent 09/2016 - CT abdomen/pelvis: 12.0 x 8.0 x 14.2 cm loculated fluid collection with air fluid level in subcapsular right hepatic lobe concernng for an abscess, ;arge right and small left pleural effusion - CT abd/pel w/ PO and IV contrast - Large subscapula/perihepatic cyst loculated fluid collection with air-fluid level in the right hepatic lobe suspicious for complex bilioma vs abscess - Gen Sx consulted, Dr. Haq -Pt asymptomatic this AM -Afebrile, No leukocytosis, TBili WNL -Possible IR drainage of effusion and perihepatic collection - GI consulted, Dr. Vera CT Abd/Pelvis with PO+IV contrast ordered F/u above scan, may need MRCP+MRI, HIDA or ERCP with stenting if bile leak Agree with IR consult to drain and assess fluid Diet per surgery/primary Agree with holding anticoagulation in light of anticipated procedures Monitor labs - IR consulted, Dr Castaneda - will see patient on tuesday - spoke with Dr Jimenez (IR rapier insertion loom fixer) about case, patient is currently stable, on abx treatment, will follow with him if patient's status changes. Otherwise, patient can be evaluated and treated for possible abscess, fluid collection on Tuesday10/16/18 - Patient is NPO at midnight - Lovenox held for tomorrow due to procedure - ID Jing, consulted - will follow up recs Meds: - zosyn IVPB Q6hrs - Metronidazole IVPB Q8h - f/u am labs - f/u blood cultures Pleural Effusions - CT abd/pelvis: Large right and small left pleural effusion - likely due to RUQ fluid collection - management as mentioned above - possible IR drainage on 10/16 - will follow up with Dr Castaneda CAD - f/u ECHO - crestor 10mg PO HS - Held home pradaxa 150mg PO daily - can be restarted after IR procedure HTN enalapril 10mg PO daily metoprolol succinate 50mg PO daily hx of BPH - Flomax .4mg PO daily HLD - crestor 10mg PO HS PPX GI: protonix DVT: lovenox - will hold med for IR procedure 10/16 HHD -- Pt to be NPO after midnight into 10/16/2018 Lactobacillus 1 cap PO BID PT eval and treat - continue treatments - will f/u Plan discussed with Dr Feliz Vael, PGY-1 <Jason Piper - Last Filed: 10/18/18 00:02> Objective - Vital Signs/Intake and Output Vital Signs (last 24 hours): Temp Pulse Resp BP Pulse Ox 98.4 F 65 18 90/56 L 97 10/17/18 15:00 10/17/18 15:00 10/17/18 15:00 10/17/18 15:00 10/17/18 15:00 Intake and Output: 10/17/18 10/18/18 18:59 06:59 Intake Total 600 410 Output Total 40 20 Balance 560 390 - Medications Medications: Current Medications Acetaminophen (Tylenol 325mg Tab) 650 mg PO Q6 PRN PRN Reason: Pain, Mild (1-3) Last Admin: 10/17/18 13:14 Dose: 650 mg Aspirin (Ecotrin) 81 mg PO DAILY [facility] Last Admin: 10/17/18 10:30 Dose: 81 mg Dabigatran (Pradaxa) 150 mg PO DAILY [facility] Enalapril Maleate (Vasotec) 10 mg PO DAILY [facility] Last Admin: 10/17/18 10:29 Dose: 10 mg Enoxaparin Sodium (Lovenox) 40 mg SC DAILY [facility] Last Admin: 10/17/18 10:30 Dose: 40 mg Guaifenesin/Dextromethorphan (Robitussin Dm) 10 ml PO Q4H PRN PRN Reason: Cough and congestion Last Admin: 10/17/18 00:02 Dose: 10 ml Metronidazole (Flagyl) 500 mg in 100 mls @ 100 mls/hr IVPB Q8H [facility]; Protocol Last Admin: 10/17/18 17:01 Dose: 100 mls/hr Piperacillin Sod/Tazobactam (Sod 3.375 gm/ Sodium Chloride) 100 mls @ 200 mls/hr IVPB Q6H [facility]; Protocol Last Admin: 10/17/18 18:43 Dose: 200 mls/hr Lactobacillus Acidophilus (Bacid Acidophilus) 1 cap PO BID [facility] Last Admin: 10/17/18 17:01 Dose: 1 cap Metoprolol Succinate (Toprol Xl) 50 mg PO DAILY [facility] Last Admin: 10/17/18 10:30 Dose: 50 mg Pantoprazole Sodium (Protonix Inj) 40 mg IVP DAILY [facility] Last Admin: 10/17/18 10:29 Dose: 40 mg Rosuvastatin Calcium (Crestor) 10 mg PO HS [facility] Last Admin: 10/17/18 21:36 Dose: 10 mg Tamsulosin HCl (Flomax) 0.4 mg PO DAILY [facility] Last Admin: 10/17/18 10:30 Dose: 0.4 mg Zolpidem Tartrate (Ambien) 5 mg PO HS PRN PRN Reason: Insomnia - Labs Labs: 10/17/18 07:52 10/17/18 07:52 PT 16.4 SECONDS (9.7-12.2) H 10/14/18 10:58 INR 1.5 10/14/18 10:58 APTT 31 SECONDS (21-34) 10/14/18 10:58 Attending/Attestation - Attestation I have personally seen and examined this patient.: Yes I have fully participated in the care of the patient.: Yes I have reviewed all pertinent clinical information, including history, physical exam and plan: Yes Notes (Text): 10/18/18 00:02 This is a late entry. Care of this patient was gone over with resident Dr. Chavez Vale. Jason Piper D.O.
[2018-10-15] MEDS ORDERED: Simethicone 80 mg Chewtab PO ONE (14:19)
[2018-10-15 14:59] LABS: SQUAMOUS EPITHIAL 1 /hpf (0-5); URINE BILIRUBIN NEGATIVE (NEGATIVE); URINE BLOOD NEGATIVE (NEGATIVE); URINE CLARITY Hazy (Clear); URINE COLOR Yellow (YELLOW); URINE GLUCOSE (UA) NORMAL (Normal); URINE LEUKOCYTE ESTERASE 1+ Leu/uL (Negative); URINE PROTEIN 1+ mg/dL (NEGATIVE); URINE UROBILINOGEN NORMAL mg/dL (0.2-1.0)
--- NOTE | 2018-10-15 15:04 | CP.PCM.CON ---
History of Present Illness - History of Present Illness History of Present Illness: dictated Past Patient History - Infectious Disease Hx of Infectious Diseases: None - Past Medical History & Family History Past Medical History?: Yes - Past Social History Smoking Status: Never Smoked Alcohol: Social Drugs: Denies - CARDIAC Hx Hypertension: Yes - PULMONARY Hx Respiratory Disorders: No - NEUROLOGICAL Hx Neurological Disorder: No - HEENT Hx HEENT Problems: No - RENAL Hx Chronic Kidney Disease: No - ENDOCRINE/METABOLIC Hx Endocrine Disorders: No - HEMATOLOGICAL/ONCOLOGICAL Hx Blood Disorders: No - INTEGUMENTARY Hx Dermatological Problems: No - MUSCULOSKELETAL/RHEUMATOLOGICAL Hx Musculoskeletal Disorders: Yes Hx Falls: Yes - GASTROINTESTINAL Hx Gastrointestinal Disorders: Yes Hx Gall Bladder Disease: Yes - GENITOURINARY/GYNECOLOGICAL Hx Genitourinary Disorders: No - PSYCHIATRIC Hx Substance Use: No - SURGICAL HISTORY Hx Cholecystectomy: Yes - ANESTHESIA Hx Anesthesia: Yes Hx Anesthesia Reactions: No Hx Malignant Hyperthermia: No Meds Allergies/Adverse Reactions: Allergies Allergy/AdvReac Type Severity Reaction Status Date / Time No Known Allergies Allergy Verified 10/13/18 17:12 - Medications Medications: Current Medications Aspirin (Ecotrin) 81 mg PO DAILY [facility] Last Admin: 10/15/18 09:47 Dose: 81 mg Dabigatran (Pradaxa) 150 mg PO DAILY [facility] Enalapril Maleate (Vasotec) 10 mg PO DAILY [facility] Last Admin: 10/15/18 09:47 Dose: 10 mg Enoxaparin Sodium (Lovenox) 40 mg SC DAILY [facility] Last Admin: 10/15/18 09:47 Dose: 40 mg Metronidazole (Flagyl) 500 mg in 100 mls @ 100 mls/hr IVPB Q8H [facility]; Protocol Last Admin: 10/15/18 07:45 Dose: 100 mls/hr Piperacillin Sod/Tazobactam (Sod 3.375 gm/ Sodium Chloride) 100 mls @ 200 mls/hr IVPB Q6H [facility]; Protocol Last Admin: 10/15/18 11:58 Dose: 200 mls/hr Lactobacillus Acidophilus (Bacid Acidophilus) 1 cap PO BID [facility] Last Admin: 10/15/18 09:46 Dose: 1 cap Metoprolol Succinate (Toprol Xl) 50 mg PO DAILY [facility] Last Admin: 10/15/18 09:46 Dose: 50 mg Pantoprazole Sodium (Protonix Inj) 40 mg IVP DAILY [facility] Last Admin: 10/15/18 09:47 Dose: 40 mg Rosuvastatin Calcium (Crestor) 10 mg PO HS [facility] Last Admin: 10/14/18 21:57 Dose: 10 mg Tamsulosin HCl (Flomax) 0.4 mg PO DAILY [facility] Last Admin: 10/15/18 09:47 Dose: 0.4 mg Zolpidem Tartrate (Ambien) 5 mg PO HS [facility] Last Admin: 10/15/18 00:25 Dose: 5 mg Results - Vital Signs Recent Vital Signs: Last Vital Signs Temp 98.6 F 10/15/18 07:40 Pulse 78 10/15/18 12:27 Resp 18 10/15/18 07:40 BP 118/65 10/15/18 09:47 Pulse Ox 95 10/15/18 12:27 - Labs Result Diagrams: 10/15/18 07:49 10/15/18 07:49 Labs: Laboratory Results - last 24 hr 10/15/18 10/15/18 10/15/18 07:49 07:49 07:49 WBC 5.7 RBC 3.04 L Hgb 8.7 L Hct 25.8 L MCV 85.1 MCH 28.8 MCHC 33.8 RDW 15.3 H Plt Count 215 MPV 7.4 Neut % (Auto) 70.2 Lymph % (Auto) 17.3 L [place] % (Auto) 11.2 H Eos % (Auto) 0.9 Baso % (Auto) 0.4 Neut # (Auto) 4.0 Lymph # (Auto) 1.0 [place] # (Auto) 0.6 Eos # (Auto) 0.0 Baso # (Auto) 0.0 ESR 50 H Sodium 132 Potassium 4.1 Chloride 99 Carbon Dioxide 27 Anion Gap 10 BUN 7 L Creatinine 0.8 Est GFR ( Amer) > 60 Est GFR (Non-Af Amer) > 60 Random Glucose 112 H Calcium 7.6 L Total Bilirubin 0.8 AST 42 ALT 46 Alkaline Phosphatase 123 C-React Prot High Sens > 15.00 H Total Protein 6.3 Albumin 2.6 L Globulin 3.7 Albumin/Globulin Ratio 0.7 L Urine Color Urine Clarity Urine pH Ur Specific [place] Urine Protein Urine Glucose (UA) Urine Ketones Urine Blood Urine Nitrate Urine Bilirubin Urine Urobilinogen Ur Leukocyte Esterase Urine WBC (Auto) Urine RBC (Auto) Ur Squamous Epith Cells 10/15/18 14:45 WBC RBC Hgb Hct MCV MCH MCHC RDW Plt Count MPV Neut % (Auto) Lymph % (Auto) [place] % (Auto) Eos % (Auto) Baso % (Auto) Neut # (Auto) Lymph # (Auto) [place] # (Auto) Eos # (Auto) Baso # (Auto) ESR Sodium Potassium Chloride Carbon Dioxide Anion Gap BUN Creatinine Est GFR ( Amer) Est GFR (Non-Af Amer) Random Glucose Calcium Total Bilirubin AST ALT Alkaline Phosphatase C-React Prot High Sens Total Protein Albumin Globulin Albumin/Globulin Ratio Urine Color Yellow Urine Clarity Hazy Urine pH 5.0 Ur Specific [place] 1.031 H Urine Protein 1+ H Urine Glucose (UA) Normal Urine Ketones Negative Urine Blood Negative Urine Nitrate Negative Urine Bilirubin Negative Urine Urobilinogen Normal Ur Leukocyte Esterase 1+ H Urine WBC (Auto) 15 H Urine RBC (Auto) 5 H Ur Squamous Epith Cells 1
[2018-10-16] MEDS: Piperacillin/Tazobact 3.375 GM in Sodium Chloride 100 ML IVPB SCH ×5 (00:06→23:56)
--- NOTE | 2018-10-16 00:29 | CON ---
DATE: 10/15/2018 INFECTIOUS DISEASE CONSULTATION REQUESTING PHYSICIAN: Sherwin Pantoja MD HISTORY OF PRESENT ILLNESS: This patient is a 78-year-old male who has a history of coronary artery disease, hypertension and hyperlipidemia. He had a lap choly done on 09/13/2018 and he presented to the emergency room with one week of shortness of breath which was getting progressive and he was feeling worse. On exertion, he has never had these symptoms, he says in spite of having coronary artery disease and he was getting swelling in lower extremities and complaining of pain in the right abdomen. He denied any fever, chills, nausea, vomiting or diarrhea. These were his main complaints. He has had a bowel movement and he had no blood in it. He had no other symptoms except getting short of breath and having pain on the right side of his body. He has had no fever. PAST SURGICAL HISTORY: Significant for lap choly on 09/13/2018, biliary stent that he had in 09/2016. He has had CABG in 2009 and pacemaker in 2008. 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 He does not use any drugs. He lives with his granddaughter, he says. He never smoked. He says alcohol socially. ALLERGIES: HE IS NOT ALLERGIC TO ANY MEDICINE. PAST MEDICAL HISTORY: As above. REVIEW OF SYSTEMS: As above. He has no fevers. He does have a big cardiac history. He denies any lung problems in the past. Denies any neurological problems. No HEENT problems. He does not have any renal issues. He has no endocrine issues, no blood disorder, no dermatological problems. He does have a history of joint disorder and a history of fall. He also has a history of gallbladder disease and GI disorders. He has no substance abuse. He has had surgery and had anesthesia. HE IS NOT ALLERGIC TO ANY MEDICINE. PHYSICAL EXAMINATION VITAL SIGNS: His temperature was 98.7, pulse 72, blood pressure 122/82, respirations 20. HEENT: Head is atraumatic and normocephalic. He is a thin-built male. Pupils are reacting to light. Eye movements are unremarkable. Throat, no congestion or thrush seen. NECK: Supple. JVP is flat. Trachea is central. CHEST: He has a sternal wound of the previous cardiac surgery. HEART: S1, S2 is regular. No murmurs appreciated. No gallop present. LUNGS: There are decreased breath sounds on right lung. Left lung is unremarkable. No crackles, rales or wheezing heard. ABDOMEN: Distended, but there is no tenderness. Abdomen is soft and nontender. No guarding, no rigidity present. EXTREMITIES: No edema, clubbing or cyanosis at this time. LABORATORY DATA: White count when he came in was 6.1, BUN 9, creatinine 0.6. His labs today were also hemoglobin 8.7, decreased from 9.3 and now it is 5.7, so he is anemic. Labs are noted. Sodium is 132, potassium 4.1, chloride is 99, CO2 is 27, BUN is 10, creatinine is 0.8. C-reactive protein is more than 15. Blood culture x2 are negative. He also had a CAT scan of the abdomen and pelvis and also a CT of chest. The CT of chest shows compressive atelectasis of the lung, worse on the right. There is multifocal subsegmental atelectasis in the lingula, right middle lobe and left lower lobe. No endobronchial lesion noted. The other one is CT of the abdomen and pelvis, which shows there is a re-demonstration of a large 12.7 x 8.3 x 14.1 subcapsular hepatic loculated fluid collection with air-fluid level in the right hepatic lobe. There is low density and probable hyperemia in the subjacent liver, no gross lesion in ductal dilation. Gallbladder is surgically absent. Metallic stent remains in place of the common bile duct, so there is a metallic stent. I think, in this case, it may be important to get GI involved. There is moderate circumferential mural thickening of the urinary bladder wall, likely related to the bladder outlet obstruction, underlying cystitis cannot be excluded. It says maybe we should get a urine also checked. He has bilateral small fat-containing inguinal hernias. There is moderate enlargement of the prostate with medial lobe hypertrophy indwelling at the base of the urinary bladder. IMPRESSION: He has an air-fluid level in the hepatic, may be hepatic abscess postprocedure. He also has a previous stent. I think Gastroenterology should be involved here as this is not just a postop problem, and he will probably need Interventional Radiology to drain it, but he was on to drain it. I will leave him on Zosyn and Flagyl at this time. He has been afebrile. Unclear whether it is a or abscess, we will need the fluid to be sent for culture, C and S and for anaerobic as well as aerobic. He is already on antibiotics. He has a CRP which is elevated. I would also suggest to do a UA, urine C and S and PSA as the bladder has cystitis, it seems like and he has enlargement of the prostate. We will follow for the abscess and we will follow the surgical evaluation and suggestions to see what they are suggesting and will work from there. The patient was already seen by GI fellow, so we will try to see what their recommendations are. Leno Ch MD
[2018-10-16] MEDS: metroNIDAZOLE IV 500 mg/100 ml 500 MG/100 ML BAG IVPB SCH ×3 (01:22→16:21)
[2018-10-16 07:15] LABS: BASO % 0.5 % (0.0-2.0); EOS # 0.1 K/uL (0.0-0.7); EOS % 0.9 % (0.0-4.0); HEMOGLOBIN 8.9 g/dL (12.0-18.0); MEAN CELL VOLUME 85.4 fL (80.0-94.0); MEAN CORPUSCULAR HGB CONC 32.7 g/dL (33.0-37.0); MEAN PLATELET VOLUME 7.4 fL (7.2-11.7); MONO # 0.5 K/uL (0.0-0.8); MONO % 8.5 % (0.0-10.0); NEUT # 4.5 K/uL (1.8-7.0); NEUT % 73.1 % (50.0-75.0); NRBC % 0.1 % (0.0-2.0); RBC 3.17 Mil/uL (4.40-5.90); RED CELL DISTRIBUTION WIDTH 15.4 % (11.5-14.5); WHITE BLOOD COUNT 6.1 K/uL (4.8-10.8)
--- NOTE | 2018-10-16 07:21 | CP.PCM.PN ---
<Na Moreno P - Last Filed: 10/16/18 20:09> Subjective - Date & Time of Evaluation Date of Evaluation: 10/16/18 Time of Evaluation: 07:21 - Subjective Subjective: PGY-[address] Conner Piper. Patient seen and examined at bedside s/p IR drainage of perihepatic abscess and thorocentesis. Patient tolerated procedure well. States shortness of breath has improved. Reports a mild dry cough. States abdominal pain has resolved. Denies fever, chills, nausea, vomiting, diarrhea, chest pain, hemoptosis, and headache. Objective - Vital Signs/Intake and Output Vital Signs (last 24 hours): Temp Pulse Resp BP Pulse Ox 99.2 F 70 20 126/71 96 10/15/18 23:05 10/15/18 23:05 10/15/18 23:05 10/15/18 23:05 10/15/18 23:05 Intake and Output: 10/16/18 10/16/18 06:59 18:59 Intake Total 900 Balance 900 - Medications Medications: Current Medications Aspirin (Ecotrin) 81 mg PO DAILY [facility] Last Admin: 10/15/18 09:47 Dose: 81 mg Dabigatran (Pradaxa) 150 mg PO DAILY [facility] Enalapril Maleate (Vasotec) 10 mg PO DAILY [facility] Last Admin: 10/15/18 09:47 Dose: 10 mg Enoxaparin Sodium (Lovenox) 40 mg SC DAILY [facility] Last Admin: 10/15/18 09:47 Dose: 40 mg Metronidazole (Flagyl) 500 mg in 100 mls @ 100 mls/hr IVPB Q8H [facility]; Protocol Last Admin: 10/16/18 01:22 Dose: 100 mls/hr Piperacillin Sod/Tazobactam (Sod 3.375 gm/ Sodium Chloride) 100 mls @ 200 mls /hr IVPB Q6H [facility]; Protocol Last Admin: 10/16/18 05:28 Dose: 200 mls/hr Lactobacillus Acidophilus (Bacid Acidophilus) 1 cap PO BID [facility] Last Admin: 10/15/18 17:37 Dose: 1 cap Metoprolol Succinate (Toprol Xl) 50 mg PO DAILY [facility] Last Admin: 10/15/18 09:46 Dose: 50 mg Pantoprazole Sodium (Protonix Inj) 40 mg IVP DAILY [facility] Last Admin: 10/15/18 09:47 Dose: 40 mg Rosuvastatin Calcium (Crestor) 10 mg PO HS [facility] Last Admin: 10/15/18 21:49 Dose: 10 mg Tamsulosin HCl (Flomax) 0.4 mg PO DAILY [facility] Last Admin: 10/15/18 09:47 Dose: 0.4 mg Zolpidem Tartrate (Ambien) 5 mg PO HS [facility] Last Admin: 10/15/18 21:49 Dose: 5 mg - Labs Labs: 10/15/18 07:49 10/15/18 07:49 PT 16.4 SECONDS (9.7-12.2) H 10/14/18 10:58 INR 1.5 10/14/18 10:58 APTT 31 SECONDS (21-34) 10/14/18 10:58 - Additional Findings Additional findings: - Constitutional Appears: No Acute Distress - Head Exam Head Exam: ATRAUMATIC, NORMOCEPHALIC - Eye Exam Eye Exam: EOMI, PERRL - ENT Exam ENT Exam: Mucous Membranes Moist - Neck Exam Neck Exam: Full ROM - Respiratory Exam Respiratory Exam: Decreased Breath Sounds (R>L). absent: Wheezes - Cardiovascular Exam Cardiovascular Exam: REGULAR RHYTHM, +S1, +S2 Additional comments: S2 click heard in all louie - GI/Abdominal Exam GI & Abdominal Exam: Soft. absent: Tenderness Additional comments: RUQ and epigastric incision sites dressed and clean. - Extremities Exam Extremities Exam: Full ROM, 1+ pitting edema B/l ankles R>L - Skin Exam nevus noted to R medial aspect of lower lip which has remained the same for a number of years Assessment and Plan - Assessment and Plan (Free Text) Plan: 78 yo Hisp Male with recent lap cesar, h/o biliary stent, CAD s/p CABG on dabigatran presenting with shortness of breath and abd pain. Perihepatic abscess with Fluid Collection s/p laparoscopic cholecystectomy - s/p lap cesar 09/13/18, biliary stent 09/2016 - CT abdomen/pelvis on admission: 12.0 x 8.0 x 14.2 cm loculated fluid collection with air fluid level in subcapsular right hepatic lobe concernng for an abscess, large right and small left pleural effusion - repeat CT abd/pel w/ PO and IV contrast - Large subscapula/perihepatic cyst loculated fluid collection with air-fluid level in the right hepatic lobe suspicious for complex bilioma vs abscess HIDA Scan 10/15: Findings suspicious for bile leak. There is pooling of radionuclide in the gallbladder fossa and amorphous collection of radionuclide anteriorly and laterally on the left. - IR consulted, Dr Castaneda -10/16/18- patient underwent CT guided drainage of right perihepatic collection with removal of 20 cc of purulent drainage from abdominal abscess - Gen Sx consulted, Dr. Haq -f/u pleural effusion and perihepatic drainage - GI consulted, Dr. Vera - HIDA scan reviewed, possible bile leak yudy-laterally. - Will need to discuss with surgical team and advanced endoscopist. - S/P IR drain with foul smelling purulent fluid. - Fluid Micro pending - Gen Surg Consulted - Diet and Abx per primary/surgery - Monitor labs - Lovenox 40mg restarted -Pradaxa 150mg PO daily to be resumed on 10/17/18, 24 hours following procedure - ID Jing, consulted - will follow up recs - Zosyn IVPB Q6hrs - Metronidazole IVPB Q8h - blood cultures- No growth x48 hours -F/u culture of pleural effusion and perihepatic collection Pleural Effusions - CT abd/pelvis: Large right and small left pleural effusion - likely due to RUQ fluid collection - management as mentioned above - CT guided thoracentesis with removal of 1100 cc of serosanguinous pleural fluid on 10/16 -F/u fluid culture Bilateral lower extremity edema -Venous duplex 10/15: Abnormal findings of the right calf muscular veins. LLE: No abnormal finding of examined veins. Follow up official read. CAD - ECHO 09/10/18: LV systolic function is normal. EF is 50-55%. No aortic regurgitation. Abnormal prosthetic aortic valve gradients. Mitral Annular calcification is mild to moderate. Mitral regurgitation is mild. There is mild to moderate tricuspid regurgitation. There is mild pulmonary htn. Mild pulmonic valvular regurgitation. - crestor 10mg PO HS - Held home pradaxa 150mg PO daily - can be restarted 24 hours after IR procedure on 10/17/18 HTN enalapril 10mg PO daily metoprolol succinate 50mg PO daily hx of BPH - Flomax .4mg PO daily HLD - crestor 10mg PO HS PPX GI: protonix DVT: lovenox restarted 10/16 HHD restarted Lactobacillus 1 cap PO BID PT eval and treat - continue treatments - will f/u Case discussed with Dr. Conner Piper. Na Moreno, PGY-1. <Jason Piper - Last Filed: 10/18/18 00:02> Objective - Vital Signs/Intake and Output Vital Signs (last 24 hours): Temp Pulse Resp BP Pulse Ox 98.4 F 65 18 90/56 L 97 10/17/18 15:00 10/17/18 15:00 10/17/18 15:00 10/17/18 15:00 10/17/18 15:00 Intake and Output: 10/17/18 10/18/18 18:59 06:59 Intake Total 600 410 Output Total 40 20 Balance 560 390 - Medications Medications: Current Medications Acetaminophen (Tylenol 325mg Tab) 650 mg PO Q6 PRN PRN Reason: Pain, Mild (1-3) Last Admin: 10/17/18 13:14 Dose: 650 mg Aspirin (Ecotrin) 81 mg PO DAILY [facility] Last Admin: 10/17/18 10:30 Dose: 81 mg Dabigatran (Pradaxa) 150 mg PO DAILY [facility] Enalapril Maleate (Vasotec) 10 mg PO DAILY [facility] Last Admin: 10/17/18 10:29 Dose: 10 mg Enoxaparin Sodium (Lovenox) 40 mg SC DAILY [facility] Last Admin: 10/17/18 10:30 Dose: 40 mg Guaifenesin/Dextromethorphan (Robitussin Dm) 10 ml PO Q4H PRN PRN Reason: Cough and congestion Last Admin: 10/17/18 00:02 Dose: 10 ml Metronidazole (Flagyl) 500 mg in 100 mls @ 100 mls/hr IVPB Q8H [facility]; Protocol Last Admin: 10/17/18 17:01 Dose: 100 mls/hr Piperacillin Sod/Tazobactam (Sod 3.375 gm/ Sodium Chloride) 100 mls @ 200 mls/hr IVPB Q6H [facility]; Protocol Last Admin: 10/17/18 18:43 Dose: 200 mls/hr Lactobacillus Acidophilus (Bacid Acidophilus) 1 cap PO BID [facility] Last Admin: 10/17/18 17:01 Dose: 1 cap Metoprolol Succinate (Toprol Xl) 50 mg PO DAILY [facility] Last Admin: 10/17/18 10:30 Dose: 50 mg Pantoprazole Sodium (Protonix Inj) 40 mg IVP DAILY [facility] Last Admin: 10/17/18 10:29 Dose: 40 mg Rosuvastatin Calcium (Crestor) 10 mg PO HS [facility] Last Admin: 10/17/18 21:36 Dose: 10 mg Tamsulosin HCl (Flomax) 0.4 mg PO DAILY [facility] Last Admin: 10/17/18 10:30 Dose: 0.4 mg Zolpidem Tartrate (Ambien) 5 mg PO HS PRN PRN Reason: Insomnia - Labs Labs: 10/17/18 07:52 10/17/18 07:52 PT 16.4 SECONDS (9.7-12.2) H 10/14/18 10:58 INR 1.5 10/14/18 10:58 APTT 31 SECONDS (21-34) 10/14/18 10:58 Attending/Attestation - Attestation I have personally seen and examined this patient.: Yes I have fully participated in the care of the patient.: Yes I have reviewed all pertinent clinical information, including history, physical exam and plan: Yes Notes (Text): 10/18/18 00:01 This is a late entry. Care of this patient was gone over with resident Dr. Renetta Moreno. Jason Piper D.O.
[2018-10-16 07:31] LABS: ALB/GLOB RATIO 0.7 (1.0-2.1); ALBUMIN 2.7 g/dL (3.5-5.0); ALT/SGPT 41 U/L (21-72); AST/SGOT 34 U/L (17-59); BLOOD UREA NITROGEN 6 mg/dL (9-20); CALCIUM 7.6 mg/dl (8.6-10.4); GFR NON-AFRICAN AMERICAN > 60
--- NOTE | 2018-10-16 08:11 | CARD ---
APPROVED REPORT Date of service: 10/13/2018 EKG Measurement Heart [id number] <Conclusion> Ventricular-paced rhythm with occasional premature ventricular complexes Abnormal ECG
[2018-10-16] MEDS ORDERED: Influenza Vaccine 60 MCG/0.5 ML SYR (3 yr & up) IM ONE (10:00)
--- NOTE | 2018-10-16 10:03 | CP.PCM.PN ---
Subjective - Date & Time of Evaluation Date of Evaluation: 10/16/18 Time of Evaluation: 10:01 - Subjective Subjective: General Surgery - Dr. Haq Pt S&E. NAEO. PT denies any complaints at this time. He is aware of plan for IR draingae today. NO Fevers/Chills/SOB/Chest pain/Abdomina lpain Objective - Vital Signs/Intake and Output Vital Signs (last 24 hours): Temp Pulse Resp BP Pulse Ox 98.3 F 69 20 125/58 L 98 10/16/18 07:45 10/16/18 07:45 10/16/18 07:45 10/16/18 07:45 10/16/18 07:45 Intake and Output: 10/16/18 10/16/18 06:59 18:59 Intake Total 900 Balance 900 - Medications Medications: Current Medications Aspirin (Ecotrin) 81 mg PO DAILY [facility] Last Admin: 10/15/18 09:47 Dose: 81 mg Dabigatran (Pradaxa) 150 mg PO DAILY [facility] Enalapril Maleate (Vasotec) 10 mg PO DAILY [facility] Last Admin: 10/15/18 09:47 Dose: 10 mg Enoxaparin Sodium (Lovenox) 40 mg SC DAILY [facility] Last Admin: 10/15/18 09:47 Dose: 40 mg Metronidazole (Flagyl) 500 mg in 100 mls @ 100 mls/hr IVPB Q8H [facility]; Protocol Last Admin: 10/16/18 08:24 Dose: 100 mls/hr Piperacillin Sod/Tazobactam (Sod 3.375 gm/ Sodium Chloride) 100 mls @ 200 mls/hr IVPB Q6H [facility]; Protocol Last Admin: 10/16/18 05:28 Dose: 200 mls/hr Lactobacillus Acidophilus (Bacid Acidophilus) 1 cap PO BID [facility] Last Admin: 10/15/18 17:37 Dose: 1 cap Metoprolol Succinate (Toprol Xl) 50 mg PO DAILY [facility] Last Admin: 10/15/18 09:46 Dose: 50 mg Pantoprazole Sodium (Protonix Inj) 40 mg IVP DAILY [facility] Last Admin: 10/15/18 09:47 Dose: 40 mg Rosuvastatin Calcium (Crestor) 10 mg PO HS [facility] Last Admin: 10/15/18 21:49 Dose: 10 mg Tamsulosin HCl (Flomax) 0.4 mg PO DAILY [facility] Last Admin: 10/15/18 09:47 Dose: 0.4 mg Zolpidem Tartrate (Ambien) 5 mg PO HS [facility] Last Admin: 10/15/18 21:49 Dose: 5 mg - Labs Labs: 10/16/18 07:05 10/16/18 07:05 PT 16.4 SECONDS (9.7-12.2) H 10/14/18 10:58 INR 1.5 10/14/18 10:58 APTT 31 SECONDS (21-34) 10/14/18 10:58 - Constitutional Appears: No Acute Distress - Head Exam Head Exam: ATRAUMATIC, NORMAL INSPECTION, NORMOCEPHALIC - Eye Exam Eye Exam: Normal appearance - Respiratory Exam Respiratory Exam: NORMAL BREATHING PATTERN. absent: Respiratory Distress - Cardiovascular Exam Cardiovascular Exam: REGULAR RHYTHM - GI/Abdominal Exam GI & Abdominal Exam: Soft. absent: Distended, Guarding, Rigid, Tenderness, Rebound - Neurological Exam Neurological Exam: Alert, Oriented x3 - Psychiatric Exam Psychiatric exam: Normal Affect, Normal Mood - Skin Skin Exam: Dry, Intact Assessment and Plan - Assessment and Plan (Free Text) Assessment: 78M s/p lap cesar on 09/13, admitted 10/13 w SOB, found to have bilateral pleural effusions R>L and perihepatic fluid collection Plan: IR drainage of pleural effusion and perihepatic collection today Will follow up result of drainage D/W Dr. Severino Arambula PGY4
[2018-10-16] MEDS: Lactobacillus Acidophilus 500 MU Cap PO SCH ×2 (10:44→17:46)
[2018-10-16] MEDS ORDERED: Lidocaine Hydrochloride 0 ML INJ ONE (10:45)
[2018-10-16] MEDS: Metoprolol Succinate 50 mg XL Tab PO SCH (10:45)
[2018-10-16] MEDS ORDERED: Lidocaine 2% MPF (5 ml) Inj ONE (10:45)
[2018-10-16] MEDS ORDERED: Midazolam 2 MG/2 ML VIAL ONE (11:00)
--- NOTE | 2018-10-16 11:23 | PCM.SURG1 ---
Surgeon's Initial Post Op Note - Surgeon's Notes Surgeon: Abdiel Castaneda MD Musculoskeletal Physician: NONE Type of Anesthesia: IV Sedation Pre-Operative Diagnosis: Perihepatic abcess, right pleural effusion Operative Findings: CT showed complex right perihepatic collection and moderate right pleural effusion Post-Operative Diagnosis: Perihepatic abcess, right pleural effusion Operation Performed: CT guided drainage of right perihepatic collection, CT guided thoracentesis Specimen/Specimens Removed: 1100 cc of serosanguinous pleural fluid. 20 cc of purulent drainage from abdominal abscess Estimated Blood Loss: EBL {In ML}: 2 Blood Products Given: N/A Drains Used: [place] Post-Op Condition: Fair Date of Surgery/Procedure: 10/16/18 Time of Surgery/Procedure: 11:20
--- NOTE | 2018-10-16 11:41 | CT ---
PROCEDURE: Date of procedure: 10/16/2018 Procedure: 1. abdominal abscess drainage with CT guidance, CPT [address] guided right thoracentesis Medications: The patient received IV sedation administered by anesthesiologist Radiation: 1180.46 MGy-cm HISTORY: Perihepatic abscess, right pleural effusion TECHNIQUE: Following informed consent procedure time-out, non contrast CT was performed which showed a large complex perihepatic collection and a right moderate pleural effusion. The skin localizer was placed on the patient's abdomen and lateral chest and a repeat CT scan performed. The skin was marked, prepped, and draped in the usual sterile fashion. CT guided thoracentesis was performed. A total of 1200 cc of serosanguinous fluid was removed. Under CT guidance, a needle was advanced into the collection. Upon return of purulent drainage, the needle was exchanged over an 035 guidewire and the tract was dilated to accommodate a 10 Greek pigtail drainage catheter formed within the collection. The position of the 10 Fr drainage catheter was confirmed with repeat CT scan. 20 cubic centimeters of purulent drainage was removed and sent for culture and sensitivity. The catheter was secured the patient's skin. A dressing was applied. IMPRESSION: CT-guided abscess drainage within the placement of a 10 Greek drainage catheter with abscess. The fluid specimen was sent for culture and sensitivity. CT guided right thoracentesis with removal of 1200 cc of serosanguinous fluid.
--- NOTE | 2018-10-16 15:06 | NM ---
Date of service: 10/16/2018 PROCEDURE: Nuclear Medicine Hepatobiliary Scan HISTORY: Perihepatic fluid collection, r/o Bile leak COMPARISON: 10/14/2018 CT abdomen and pelvis TECHNIQUE: 7.2 mCi of technetium 99m Mebrofenin was administered intravenously. Planar images of the abdomen were obtained at 5 min intervals to 60 mins. Delayed images were also obtained. FINDINGS: LIVER: Absence of accumulation of radionuclide right hepatic lobe about the liver capsule consistent with findings on recent CT scan. COMMON BILE DUCT: Status post cholecystectomy. Pooling of radionuclide in the right upper quadrant/gallbladder fossa noted. GALLBLADDER: identified at 180 mins. 3 hr SMALL BOWEL: Identified at 20 mins. IMPRESSION: Findings suspicious for bile leak. There is pooling of radionuclide in the gallbladder fossa and amorphous collection of radionuclide anteriorly and laterally on the left. Communication of results: I discussed findings directly with health Care personnel involved in the care and management of the patient at 14:58.
--- NOTE | 2018-10-16 18:10 | CP.PCM.PN ---
<Augie Tyson - Last Filed: 10/16/18 18:34> Subjective - Date & Time of Evaluation Date of Evaluation: 10/16/18 Time of Evaluation: 18:34 - Subjective Subjective: Patient is s/p IR drain. He is in good spirits. No complaints of abdominal pain, n/v, diarrhea. No fever. Objective - Vital Signs/Intake and Output Vital Signs (last 24 hours): Temp Pulse Resp BP Pulse Ox 98.3 F 69 20 125/58 L 98 10/16/18 07:45 10/16/18 07:45 10/16/18 07:45 10/16/18 07:45 10/16/18 07:45 Intake and Output: 10/16/18 10/16/18 06:59 18:59 Intake Total 900 Output Total 400 Balance 900 -400 - Medications Medications: Current Medications Aspirin (Ecotrin) 81 mg PO DAILY [facility] Last Admin: 10/16/18 10:44 Dose: Not Given Dabigatran (Pradaxa) 150 mg PO DAILY [facility] Enalapril Maleate (Vasotec) 10 mg PO DAILY [facility] Last Admin: 10/16/18 10:45 Dose: Not Given Enoxaparin Sodium (Lovenox) 40 mg SC DAILY [facility] Last Admin: 10/15/18 09:47 Dose: 40 mg Metronidazole (Flagyl) 500 mg in 100 mls @ 100 mls/hr IVPB Q8H [facility]; Protocol Last Admin: 10/16/18 16:21 Dose: 100 mls/hr Piperacillin Sod/Tazobactam (Sod 3.375 gm/ Sodium Chloride) 100 mls @ 200 mls/hr IVPB Q6H [facility]; Protocol Last Admin: 10/16/18 17:46 Dose: 200 mls/hr Lactobacillus Acidophilus (Bacid Acidophilus) 1 cap PO BID [facility] Last Admin: 10/16/18 17:46 Dose: 1 cap Metoprolol Succinate (Toprol Xl) 50 mg PO DAILY [facility] Last Admin: 10/16/18 10:45 Dose: Not Given Pantoprazole Sodium (Protonix Inj) 40 mg IVP DAILY [facility] Last Admin: 10/16/18 10:45 Dose: Not Given Rosuvastatin Calcium (Crestor) 10 mg PO HS [facility] Last Admin: 10/15/18 21:49 Dose: 10 mg Tamsulosin HCl (Flomax) 0.4 mg PO DAILY [facility] Last Admin: 10/16/18 10:45 Dose: Not Given Zolpidem Tartrate (Ambien) 5 mg PO HS [facility] Last Admin: 10/15/18 21:49 Dose: 5 mg - Labs Labs: 10/16/18 07:05 10/16/18 07:05 PT 16.4 SECONDS (9.7-12.2) H 10/14/18 10:58 INR 1.5 10/14/18 10:58 APTT 31 SECONDS (21-34) 10/14/18 10:58 - Constitutional Appears: Well, Non-toxic - Head Exam Head Exam: ATRAUMATIC, NORMAL INSPECTION - ENT Exam ENT Exam: Mucous Membranes Moist, Normal Exam - Neck Exam Neck Exam: Full ROM, Normal Inspection - Cardiovascular Exam Cardiovascular Exam: REGULAR RHYTHM, +S1, +S2 - GI/Abdominal Exam GI & Abdominal Exam: Soft, Normal Bowel Sounds. absent: Tenderness - Extremities Exam Extremities Exam: Full ROM, Normal Capillary Refill - Neurological Exam Neurological Exam: Alert, Awake, Oriented x3 - Psychiatric Exam Psychiatric exam: Normal Affect, Normal Mood - Skin Skin Exam: Dry, Warm Assessment and Plan - Assessment and Plan (Free Text) Assessment: 78 yo Hisp Male with recent lap cesar, h/o biliary stent, CAD s/p CABG on da bigatran presenting with shortness of breath and abd pain. #Perihepatic fluid collection, Pleural effusion: Suspect related to post-op complication of lap cesar with resulting abscess. #Possible Bile leak Plan: - HIDA scan reviewed, possible bile leak yudy-laterally. - Will need to discuss with surgical team and advanced endoscopist. - S/P IR drain with foul smelling purulent fluid. - Fluid Micro pending - Gen Surg Consulted - Diet and Abx per primary/surgery - Monitor labs Pt discussed with Dr. Busch; please see attestation for further recs/changes. <Tobi Busch - Last Filed: 10/17/18 11:41> Objective - Vital Signs/Intake and Output Vital Signs (last 24 hours): Temp Pulse Resp BP Pulse Ox 97.9 F 72 18 104/62 94 L 10/17/18 07:35 10/17/18 10:28 10/17/18 07:35 10/17/18 10:29 10/17/18 07:35 Intake and Output: 10/17/18 10/17/18 06:59 18:59 Intake Total 800 Output Total 240 Balance 560 - Medications Medications: Current Medications Acetaminophen (Tylenol 325mg Tab) 650 mg PO Q6 PRN PRN Reason: Pain, Mild (1-3) Aspirin (Ecotrin) 81 mg PO DAILY [facility] Last Admin: 10/17/18 10:30 Dose: 81 mg Dabigatran (Pradaxa) 150 mg PO DAILY [facility] Enalapril Maleate (Vasotec) 10 mg PO DAILY [facility] Last Admin: 10/17/18 10:29 Dose: 10 mg Enoxaparin Sodium (Lovenox) 40 mg SC DAILY [facility] Last Admin: 10/17/18 10:30 Dose: 40 mg Guaifenesin/Dextromethorphan (Robitussin Dm) 10 ml PO Q4H PRN PRN Reason: Cough and congestion Last Admin: 10/17/18 00:02 Dose: 10 ml Metronidazole (Flagyl) 500 mg in 100 mls @ 100 mls/hr IVPB Q8H [facility]; Protocol Last Admin: 10/17/18 08:03 Dose: 100 mls/hr Lactobacillus Acidophilus (Bacid Acidophilus) 1 cap PO BID [facility] Last Admin: 10/17/18 10:30 Dose: 1 cap Metoprolol Succinate (Toprol Xl) 50 mg PO DAILY [facility] Last Admin: 10/17/18 10:30 Dose: 50 mg Pantoprazole Sodium (Protonix Inj) 40 mg IVP DAILY [facility] Last Admin: 10/17/18 10:29 Dose: 40 mg Potassium Chloride (K-Dur 20 Meq Er Tab) 40 meq PO ONCE ONE Stop: 10/17/18 14:01 Rosuvastatin Calcium (Crestor) 10 mg PO HS [facility] Last Admin: 10/16/18 21:10 Dose: 10 mg Tamsulosin HCl (Flomax) 0.4 mg PO DAILY [facility] Last Admin: 10/17/18 10:30 Dose: 0.4 mg Zolpidem Tartrate (Ambien) 5 mg PO HS [facility] Last Admin: 10/16/18 21:10 Dose: 5 mg - Labs Labs: 10/17/18 07:52 10/17/18 07:52 PT 16.4 SECONDS (9.7-12.2) H 10/14/18 10:58 INR 1.5 10/14/18 10:58 APTT 31 SECONDS (21-34) 10/14/18 10:58 Attending/Attestation - Attestation I have personally seen and examined this patient.: Yes I have fully participated in the care of the patient.: Yes I have reviewed all pertinent clinical information, including history, physical exam and plan: Yes Notes (Text): 10/16/19 Chart reviewed. Findings, assessment and management, as reflected above, were discussed with Dr. Tyson.
--- NOTE | 2018-10-16 18:39 | CP.PCM.PN ---
Subjective - Date & Time of Evaluation Date of Evaluation: 10/16/18 Time of Evaluation: 16:00 - Subjective Subjective: dictated Objective - Vital Signs/Intake and Output Vital Signs (last 24 hours): Temp Pulse Resp BP Pulse Ox 98.3 F 69 20 125/58 L 98 10/16/18 07:45 10/16/18 07:45 10/16/18 07:45 10/16/18 07:45 10/16/18 07:45 Intake and Output: 10/16/18 10/16/18 06:59 18:59 Intake Total 900 Output Total 400 Balance 900 -400 - Medications Medications: Current Medications Aspirin (Ecotrin) 81 mg PO DAILY [facility] Last Admin: 10/16/18 10:44 Dose: Not Given Dabigatran (Pradaxa) 150 mg PO DAILY [facility] Enalapril Maleate (Vasotec) 10 mg PO DAILY [facility] Last Admin: 10/16/18 10:45 Dose: Not Given Enoxaparin Sodium (Lovenox) 40 mg SC DAILY [facility] Last Admin: 10/15/18 09:47 Dose: 40 mg Enoxaparin Sodium (Lovenox) 40 mg SC ONCE ONE Stop: 10/17/18 19:01 Metronidazole (Flagyl) 500 mg in 100 mls @ 100 mls/hr IVPB Q8H [facility]; Protocol Last Admin: 10/16/18 16:21 Dose: 100 mls/hr Piperacillin Sod/Tazobactam (Sod 3.375 gm/ Sodium Chloride) 100 mls @ 200 mls/hr IVPB Q6H [facility]; Protocol Last Admin: 10/16/18 17:46 Dose: 200 mls/hr Lactobacillus Acidophilus (Bacid Acidophilus) 1 cap PO BID [facility] Last Admin: 10/16/18 17:46 Dose: 1 cap Metoprolol Succinate (Toprol Xl) 50 mg PO DAILY [facility] Last Admin: 10/16/18 10:45 Dose: Not Given Pantoprazole Sodium (Protonix Inj) 40 mg IVP DAILY [facility] Last Admin: 10/16/18 10:45 Dose: Not Given Rosuvastatin Calcium (Crestor) 10 mg PO HS [facility] Last Admin: 10/15/18 21:49 Dose: 10 mg Tamsulosin HCl (Flomax) 0.4 mg PO DAILY [facility] Last Admin: 10/16/18 10:45 Dose: Not Given Zolpidem Tartrate (Ambien) 5 mg PO HS [facility] Last Admin: 10/15/18 21:49 Dose: 5 mg - Labs Labs: 10/16/18 07:05 10/16/18 07:05 PT 16.4 SECONDS (9.7-12.2) H 10/14/18 10:58 INR 1.5 10/14/18 10:58 APTT 31 SECONDS (21-34) 10/14/18 10:58
--- NOTE | 2018-10-16 18:46 | CP.PCM.PN ---
Subjective - Date & Time of Evaluation Date of Evaluation: 10/16/18 Time of Evaluation: 17:00 - Subjective Subjective: dictated Objective - Vital Signs/Intake and Output Vital Signs (last 24 hours): Temp Pulse Resp BP Pulse Ox 100.2 F H 71 18 122/70 98 10/16/18 16:50 10/16/18 16:50 10/16/18 16:50 10/16/18 16:50 10/16/18 16:50 Intake and Output: 10/16/18 10/16/18 06:59 18:59 Intake Total 900 Output Total 400 Balance 900 -400 - Medications Medications: Current Medications Aspirin (Ecotrin) 81 mg PO DAILY [facility] Last Admin: 10/16/18 10:44 Dose: Not Given Dabigatran (Pradaxa) 150 mg PO DAILY [facility] Enalapril Maleate (Vasotec) 10 mg PO DAILY [facility] Last Admin: 10/16/18 10:45 Dose: Not Given Enoxaparin Sodium (Lovenox) 40 mg SC DAILY [facility] Last Admin: 10/15/18 09:47 Dose: 40 mg Enoxaparin Sodium (Lovenox) 40 mg SC ONCE ONE Stop: 10/17/18 19:01 Metronidazole (Flagyl) 500 mg in 100 mls @ 100 mls/hr IVPB Q8H [facility]; Protocol Last Admin: 10/16/18 16:21 Dose: 100 mls/hr Piperacillin Sod/Tazobactam (Sod 3.375 gm/ Sodium Chloride) 100 mls @ 200 mls/hr IVPB Q6H [facility]; Protocol Last Admin: 10/16/18 17:46 Dose: 200 mls/hr Lactobacillus Acidophilus (Bacid Acidophilus) 1 cap PO BID [facility] Last Admin: 10/16/18 17:46 Dose: 1 cap Metoprolol Succinate (Toprol Xl) 50 mg PO DAILY [facility] Last Admin: 10/16/18 10:45 Dose: Not Given Pantoprazole Sodium (Protonix Inj) 40 mg IVP DAILY [facility] Last Admin: 10/16/18 10:45 Dose: Not Given Rosuvastatin Calcium (Crestor) 10 mg PO HS [facility] Last Admin: 10/15/18 21:49 Dose: 10 mg Tamsulosin HCl (Flomax) 0.4 mg PO DAILY [facility] Last Admin: 10/16/18 10:45 Dose: Not Given Zolpidem Tartrate (Ambien) 5 mg PO HS [facility] Last Admin: 10/15/18 21:49 Dose: 5 mg - Labs Labs: 10/16/18 07:05 10/16/18 07:05 PT 16.4 SECONDS (9.7-12.2) H 10/14/18 10:58 INR 1.5 10/14/18 10:58 APTT 31 SECONDS (21-34) 10/14/18 10:58
[2018-10-16] MEDS ORDERED: guaiFENesin DM 200 mg-20 mg/10 ml UD PO PRN (19:40)
[2018-10-16] MEDS ORDERED: guaiFENesin DM 200 mg-20 mg/10 ml UD PO STA (19:44)
[2018-10-16] MEDS ORDERED: Enoxaparin 40 mg Syringe SC ONE (20:27)
--- NOTE | 2018-10-17 00:37 | PN ---
DATE: 10/16/2018 INFECTIOUS DISEASE FOLLOWUP NOTE SUBJECTIVE: The patient went to IR for the drainage of the abscess, and I see that he had abscess and right pleural effusion. They took out 1100 mL of serosanguineous pleural fluid and 20 mL of purulent drainage from abdominal abscess. He had a RICARDO drain today and he said he was feeling a little better. He was breathing a little easier. PHYSICAL EXAMINATION VITAL SIGNS: T-max is 98.3, pulse 69, blood pressure 125/58, respirations are 20. HEENT: Head is atraumatic and normocephalic. NECK: Supple. LUNGS: Clear. Decreased breath sounds in the right base. HEART: S1 and S2 regular. ABDOMEN: Soft, nontender. No guarding, no rigidity present. EXTREMITIES: No edema, clubbing or cyanosis. LABORATORY DATA: Labs are noted. Labs show white count 6.1, hemoglobin 8.9, hematocrit 27, platelet count is 228. BUN is 10, creatinine 0.8. ASSESSMENT AND PLAN: I am sure that they did cultures from the body fluid and we are going to follow those. We will leave him on antibiotics for now. He is on Zosyn and Flagyl at this time; we will continue those. We will follow with Surgery as well as the Primary. Once the cultures come back, we will decide about the need for a PICC line and IV antibiotics to continue. He is status post laparoscopic cholecystectomy and developed perihepatic abscess and right pleural effusion and is on antibiotics. Leno Ch MD
[2018-10-17] MEDS: metroNIDAZOLE IV 500 mg/100 ml 500 MG/100 ML BAG IVPB SCH ×3 (01:28→17:01)
[2018-10-17] MEDS: Piperacillin/Tazobact 3.375 GM in Sodium Chloride 100 ML IVPB SCH ×3 (05:25→18:43)
--- NOTE | 2018-10-17 07:39 | CP.PCM.PN ---
Subjective - Date & Time of Evaluation Date of Evaluation: 10/17/18 Time of Evaluation: 07:36 - Subjective Subjective: SURGERY NOTE FOR DR. FOSTER 78M seen and examined at bedside. Patient denies abdominal pain, denies nausea, vomiting, fevers or chills. He is tolerating regular diet. Went for IR procedure yesterday for drainage of rajan-hepatic collection and thoracentesis. Was able to drain 1100cc serosang pleural effusion and 20cc of purulent material from RUQ with drain left in place. Objective - Vital Signs/Intake and Output Vital Signs (last 24 hours): Temp Pulse Resp BP Pulse Ox 97.9 F 64 20 109/70 97 10/17/18 00:00 10/17/18 00:00 10/17/18 00:00 10/17/18 00:00 10/17/18 00:00 Intake and Output: 10/17/18 10/17/18 06:59 18:59 Intake Total 800 Output Total 240 Balance 560 - Medications Medications: Current Medications Aspirin (Ecotrin) 81 mg PO DAILY [facility] Last Admin: 10/16/18 10:44 Dose: Not Given Dabigatran (Pradaxa) 150 mg PO DAILY [facility] Enalapril Maleate (Vasotec) 10 mg PO DAILY [facility] Last Admin: 10/16/18 10:45 Dose: Not Given Enoxaparin Sodium (Lovenox) 40 mg SC DAILY [facility] Guaifenesin/Dextromethorphan (Robitussin Dm) 10 ml PO Q4H PRN PRN Reason: Cough and congestion Last Admin: 10/17/18 00:02 Dose: 10 ml Metronidazole (Flagyl) 500 mg in 100 mls @ 100 mls/hr IVPB Q8H [facility]; Protocol Last Admin: 10/17/18 01:28 Dose: 100 mls/hr Piperacillin Sod/Tazobactam (Sod 3.375 gm/ Sodium Chloride) 100 mls @ 200 mls/hr IVPB Q6H [facility]; Protocol Last Admin: 10/17/18 05:25 Dose: 200 mls/hr Lactobacillus Acidophilus (Bacid Acidophilus) 1 cap PO BID [facility] Last Admin: 10/16/18 17:46 Dose: 1 cap Metoprolol Succinate (Toprol Xl) 50 mg PO DAILY [facility] Last Admin: 10/16/18 10:45 Dose: Not Given Pantoprazole Sodium (Protonix Inj) 40 mg IVP DAILY [facility] Last Admin: 10/16/18 10:45 Dose: Not Given Rosuvastatin Calcium (Crestor) 10 mg PO HS [facility] Last Admin: 10/16/18 21:10 Dose: 10 mg Tamsulosin HCl (Flomax) 0.4 mg PO DAILY [facility] Last Admin: 10/16/18 10:45 Dose: Not Given Zolpidem Tartrate (Ambien) 5 mg PO HS [facility] Last Admin: 10/16/18 21:10 Dose: 5 mg - Labs Labs: 10/16/18 07:05 10/16/18 07:05 PT 16.4 SECONDS (9.7-12.2) H 10/14/18 10:58 INR 1.5 10/14/18 10:58 APTT 31 SECONDS (21-34) 10/14/18 10:58 - Constitutional Appears: Non-toxic, No Acute Distress - Respiratory Exam Respiratory Exam: Clear to Ausculation Bilateral, NORMAL BREATHING PATTERN - Cardiovascular Exam Cardiovascular Exam: REGULAR RHYTHM, +S1, +S2 - GI/Abdominal Exam GI & Abdominal Exam: Soft. absent: Distended, Firm, Guarding, Rigid, Tenderness, Rebound Additional comments: drain in place with bilious output - Extremities Exam Extremities Exam: absent: Pedal Edema, Tenderness - Neurological Exam Neurological Exam: Alert, Awake - Skin Skin Exam: Dry, Intact, Normal Color, Warm Assessment and Plan - Assessment and Plan (Free Text) Assessment: 78M with history of lap cholecystectomy 09/13/18 Plan: - continue diet - pain control - antibiotics - monitor drain output - monitor AM labs, LFTs Further recs discuss with Dr. Severino Bishop, PGY3
[2018-10-17 07:58] LABS: BASO % 0.7 % (0.0-2.0); EOS # 0.1 K/uL (0.0-0.7); EOS % 1.8 % (0.0-4.0); HEMOGLOBIN 9.3 g/dL (12.0-18.0); LYMPH # 1.2 K/uL (1.0-4.3); LYMPH % 22.7 % (20.0-40.0); MEAN CELL VOLUME 84.3 fL (80.0-94.0); MEAN CORPUSCULAR HEMOGLOBIN 27.8 pg (27.0-31.0); MEAN CORPUSCULAR HGB CONC 32.9 g/dL (33.0-37.0); MEAN PLATELET VOLUME 7.1 fL (7.2-11.7); MONO # 0.5 K/uL (0.0-0.8); MONO % 8.9 % (0.0-10.0); NEUT # 3.3 K/uL (1.8-7.0); NEUT % 65.9 % (50.0-75.0); NRBC % 0.1 % (0.0-2.0); RBC 3.36 Mil/uL (4.40-5.90); RED CELL DISTRIBUTION WIDTH 15.4 % (11.5-14.5); WHITE BLOOD COUNT 5.1 K/uL (4.8-10.8)
[2018-10-17 08:23] LABS: ALB/GLOB RATIO 0.7 (1.0-2.1); ALBUMIN 2.4 g/dL (3.5-5.0); ALT/SGPT 35 U/L (21-72); AST/SGOT 42 U/L (17-59); BLOOD UREA NITROGEN 6 mg/dL (9-20); CALCIUM 7.4 mg/dl (8.6-10.4); GFR NON-AFRICAN AMERICAN > 60
--- NOTE | 2018-10-17 08:23 | CP.PCM.PN ---
<Na Moreno P - Last Filed: 10/17/18 22:37> Subjective - Date & Time of Evaluation Date of Evaluation: 10/17/18 Time of Evaluation: 08:20 - Subjective Subjective: PGY-[address] Conner Piper. Patient seen and evaluated at bedside. Reports mild RUQ pain at RICARDO drain site. States tylenol overnight helped improve pain. Complains of persistent dry cough improved with Robitussin. Patient denies fever, chills, chest pain, shortness of breath, nausea and vomiting. Objective - Vital Signs/Intake and Output Vital Signs (last 24 hours): Temp Pulse Resp BP Pulse Ox 97.9 F 64 20 109/70 97 10/17/18 00:00 10/17/18 00:00 10/17/18 00:00 10/17/18 00:00 10/17/18 00:00 Intake and Output: 10/17/18 10/17/18 06:59 18:59 Intake Total 800 Output Total 240 Balance 560 - Medications Medications: Current Medications Acetaminophen (Tylenol 325mg Tab) 650 mg PO Q6 PRN PRN Reason: Pain, Mild (1-3) Aspirin (Ecotrin) 81 mg PO DAILY [facility] Last Admin: 10/16/18 10:44 Dose: Not Given Dabigatran (Pradaxa) 150 mg PO DAILY [facility] Enalapril Maleate (Vasotec) 10 mg PO DAILY [facility] Last Admin: 10/16/18 10:45 Dose: Not Given Enoxaparin Sodium (Lovenox) 40 mg SC DAILY [facility] Guaifenesin/Dextromethorphan (Robitussin Dm) 10 ml PO Q4H PRN PRN Reason: Cough and congestion Last Admin: 10/17/18 00:02 Dose: 10 ml Metronidazole (Flagyl) 500 mg in 100 mls @ 100 mls/hr IVPB Q8H [facility]; Protocol Last Admin: 10/17/18 08:03 Dose: 100 mls/hr Lactobacillus Acidophilus (Bacid Acidophilus) 1 cap PO BID [facility] Last Admin: 10/16/18 17:46 Dose: 1 cap Metoprolol Succinate (Toprol Xl) 50 mg PO DAILY [facility] Last Admin: 10/16/18 10:45 Dose: Not Given Pantoprazole Sodium (Protonix Inj) 40 mg IVP DAILY [facility] Last Admin: 10/16/18 10:45 Dose: Not Given Rosuvastatin Calcium (Crestor) 10 mg PO HS [facility] Last Admin: 10/16/18 21:10 Dose: 10 mg Tamsulosin HCl (Flomax) 0.4 mg PO DAILY [facility] Last Admin: 10/16/18 10:45 Dose: Not Given Zolpidem Tartrate (Ambien) 5 mg PO HS [facility] Last Admin: 10/16/18 21:10 Dose: 5 mg - Labs Labs: 10/17/18 07:52 10/16/18 07:05 PT 16.4 SECONDS (9.7-12.2) H 10/14/18 10:58 INR 1.5 10/14/18 10:58 APTT 31 SECONDS (21-34) 10/14/18 10:58 - Additional Findings Additional findings: - Constitutional Appears: No Acute Distress - Head Exam Head Exam: ATRAUMATIC, NORMOCEPHALIC - Eye Exam Eye Exam: EOMI, PERRL - ENT Exam ENT Exam: Mucous Membranes Moist - Neck Exam Neck Exam: Full ROM - Respiratory Exam Respiratory Exam: Decreased Breath Sounds (R>L). absent: Wheezes - Cardiovascular Exam Cardiovascular Exam: REGULAR RHYTHM, +S1, +S2 Additional comments: S2 click heard in all louie - GI/Abdominal Exam GI & Abdominal Exam: Soft. Slight Tenderness at RICARDO site Additional comments: RUQ incision site dressed and clean. RICARDO drain with 25cc of yellow/red drainage. Steri strips to epigastrium intact. - Extremities Exam Extremities Exam: Full ROM, 1+ pitting edema B/l ankles R>L - Skin Exam nevus noted to R medial aspect of lower lip which has remained the same for a number of years, as well as nevus adjacent to umbilicus Assessment and Plan - Assessment and Plan (Free Text) Plan: 78 yo Hisp Male with recent lap cesar, h/o biliary stent, CAD s/p CABG on dabigatran presenting with shortness of breath and abd pain. Perihepatic abscess with Fluid Collection s/p laparoscopic cholecystectomy - s/p lap cesar 09/13/18, biliary stent 09/2016 - CT abdomen/pelvis on admission: 12.0 x 8.0 x 14.2 cm loculated fluid collection with air fluid level in subcapsular right hepatic lobe concernng for an abscess, large right and small left pleural effusion - repeat CT abd/pel w/ PO and IV contrast - Large subscapula/perihepatic cyst loculated fluid collection with air-fluid level in the right hepatic lobe suspicious for complex bilioma vs abscess -HIDA Scan 10/15: Findings suspicious for bile leak. There is pooling of radionuclide in the gallbladder fossa and amorphous collection of radionuclide anteriorly and laterally on the left. - IR consulted, Dr Castaneda -10/16/18- patient underwent CT guided drainage of right perihepatic co llection with removal of 20 cc of purulent drainage from abdominal abscess - Gen Sx consulted, Dr. Haq -[place] scan shows possible leak in location of RICARDO drain. Drainage should decrease with time. Monitor drainage. - GI consulted, Dr. Vera - [place] scan reviewed, possible bile leak yudy-laterally. Will continue to monitor RICARDO output. - Fluid Micro pending - Gen Surg Consulted - Diet and Abx per primary/surgery - Monitor labs - ID Jing, consulted - will follow up recs - Zosyn IVPB Q6hrs - Metronidazole IVPB Q8h - blood cultures- No growth x4days - perihepatic collection prelim: gram positive cocci in chains Pleural Effusions - CT abd/pelvis: Large right and small left pleural effusion - likely due to RUQ fluid collection - management as mentioned above - CT guided thoracentesis with removal of 1100 cc of serosanguinous pleural fluid on 10/16 -pleural fluid culture: no growth 24H Bilateral lower extremity edema -Venous duplex 10/15: Abnormal findings of the right calf muscular veins. LLE: No abnormal finding of examined veins. Follow up official read. CAD - ECHO 09/10/18: LV systolic function is normal. EF is 50-55%. No aortic regurgitation. Abnormal prosthetic aortic valve gradients. Mitral Annular calcification is mild to moderate. Mitral regurgitation is mild. There is mild to moderate tricuspid regurgitation. There is mild pulmonary htn. Mild pulmonic valvular regurgitation. - crestor 10mg PO HS - Held home pradaxa 150mg PO daily - can be restarted 48 hours after IR procedure on 10/18/18 HTN enalapril 10mg PO daily metoprolol succinate 50mg PO daily hx of BPH - Flomax .4mg PO daily HLD - crestor 10mg PO HS PPX GI: protonix DVT: lovenox restarted 10/16 HHD restarted Lactobacillus 1 cap PO BID PT eval and treat - continue treatments - will f/u Case discussed with Dr. Conner Piper. Na Moreno, PGY-1. <Jason Piper - Last Filed: 10/18/18 00:01> Objective - Vital Signs/Intake and Output Vital Signs (last 24 hours): Temp Pulse Resp BP Pulse Ox 98.4 F 65 18 90/56 L 97 10/17/18 15:00 10/17/18 15:00 10/17/18 15:00 10/17/18 15:00 10/17/18 15:00 Intake and Output: 10/17/18 10/18/18 18:59 06:59 Intake Total 600 410 Output Total 40 20 Balance 560 390 - Medications Medications: Current Medications Acetaminophen (Tylenol 325mg Tab) 650 mg PO Q6 PRN PRN Reason: Pain, Mild (1-3) Last Admin: 10/17/18 13:14 Dose: 650 mg Aspirin (Ecotrin) 81 mg PO DAILY [facility] Last Admin: 10/17/18 10:30 Dose: 81 mg Dabigatran (Pradaxa) 150 mg PO DAILY [facility] Enalapril Maleate (Vasotec) 10 mg PO DAILY [facility] Last Admin: 10/17/18 10:29 Dose: 10 mg Enoxaparin Sodium (Lovenox) 40 mg SC DAILY [facility] Last Admin: 10/17/18 10:30 Dose: 40 mg Guaifenesin/Dextromethorphan (Robitussin Dm) 10 ml PO Q4H PRN PRN Reason: Cough and congestion Last Admin: 10/17/18 00:02 Dose: 10 ml Metronidazole (Flagyl) 500 mg in 100 mls @ 100 mls/hr IVPB Q8H [facility]; Protocol Last Admin: 10/17/18 17:01 Dose: 100 mls/hr Piperacillin Sod/Tazobactam (Sod 3.375 gm/ Sodium Chloride) 100 mls @ 200 mls/hr IVPB Q6H [facility]; Protocol Last Admin: 10/17/18 18:43 Dose: 200 mls/hr Lactobacillus Acidophilus (Bacid Acidophilus) 1 cap PO BID [facility] Last Admin: 10/17/18 17:01 Dose: 1 cap Metoprolol Succinate (Toprol Xl) 50 mg PO DAILY [facility] Last Admin: 10/17/18 10:30 Dose: 50 mg Pantoprazole Sodium (Protonix Inj) 40 mg IVP DAILY [facility] Last Admin: 10/17/18 10:29 Dose: 40 mg Rosuvastatin Calcium (Crestor) 10 mg PO HS [facility] Last Admin: 10/17/18 21:36 Dose: 10 mg Tamsulosin HCl (Flomax) 0.4 mg PO DAILY [facility] Last Admin: 10/17/18 10:30 Dose: 0.4 mg Zolpidem Tartrate (Ambien) 5 mg PO HS PRN PRN Reason: Insomnia - Labs Labs: 10/17/18 07:52 10/17/18 07:52 PT 16.4 SECONDS (9.7-12.2) H 10/14/18 10:58 INR 1.5 10/14/18 10:58 APTT 31 SECONDS (21-34) 10/14/18 10:58 Attending/Attestation - Attestation I have personally seen and examined this patient.: Yes I have fully participated in the care of the patient.: Yes I have reviewed all pertinent clinical information, including history, physical exam and plan: Yes Notes (Text): 10/18/18 00:01 This is a late entry. Care of this patient was gone over with resident Dr. Renetta Moreno. Jason Piper D.O.
[2018-10-17] MEDS ORDERED: Potassium Chloride 20 mEq ER Tab PO ONE ×2 (10:00→14:00)
[2018-10-17] MEDS: Lactobacillus Acidophilus 500 MU Cap PO SCH ×2 (10:30→17:01)
[2018-10-17] MEDS: Metoprolol Succinate 50 mg XL Tab PO SCH (10:30)
[2018-10-17] MEDS: Enoxaparin 40 mg Syringe SC SCH (10:30)
--- NOTE | 2018-10-17 14:25 | CP.PCM.PN ---
<Augie Tyson - Last Filed: 10/17/18 15:07> Subjective - Date & Time of Evaluation Date of Evaluation: 10/17/18 Time of Evaluation: 14:24 - Subjective Subjective: Patient is doing well. No complaints. RICARDO drain with serosanguinous drainage. Tolerating diet. No abdominal pain. No fevers. Objective - Vital Signs/Intake and Output Vital Signs (last 24 hours): Temp Pulse Resp BP Pulse Ox 97.9 F 72 18 104/62 94 L 10/17/18 07:35 10/17/18 10:28 10/17/18 07:35 10/17/18 10:29 10/17/18 07:35 Intake and Output: 10/17/18 10/17/18 06:59 18:59 Intake Total 800 Output Total 240 Balance 560 - Medications Medications: Current Medications Acetaminophen (Tylenol 325mg Tab) 650 mg PO Q6 PRN PRN Reason: Pain, Mild (1-3) Last Admin: 10/17/18 13:14 Dose: 650 mg Aspirin (Ecotrin) 81 mg PO DAILY [facility] Last Admin: 10/17/18 10:30 Dose: 81 mg Dabigatran (Pradaxa) 150 mg PO DAILY [facility] Enalapril Maleate (Vasotec) 10 mg PO DAILY [facility] Last Admin: 10/17/18 10:29 Dose: 10 mg Enoxaparin Sodium (Lovenox) 40 mg SC DAILY [facility] Last Admin: 10/17/18 10:30 Dose: 40 mg Guaifenesin/Dextromethorphan (Robitussin Dm) 10 ml PO Q4H PRN PRN Reason: Cough and congestion Last Admin: 10/17/18 00:02 Dose: 10 ml Metronidazole (Flagyl) 500 mg in 100 mls @ 100 mls/hr IVPB Q8H [facility]; Protocol Last Admin: 10/17/18 08:03 Dose: 100 mls/hr Piperacillin Sod/Tazobactam (Sod 3.375 gm/ Sodium Chloride) 100 mls @ 200 mls/hr IVPB Q6H [facility]; Protocol Last Admin: 10/17/18 12:15 Dose: 200 mls/hr Lactobacillus Acidophilus (Bacid Acidophilus) 1 cap PO BID [facility] Last Admin: 10/17/18 10:30 Dose: 1 cap Metoprolol Succinate (Toprol Xl) 50 mg PO DAILY [facility] Last Admin: 10/17/18 10:30 Dose: 50 mg Pantoprazole Sodium (Protonix Inj) 40 mg IVP DAILY [facility] Last Admin: 10/17/18 10:29 Dose: 40 mg Rosuvastatin Calcium (Crestor) 10 mg PO [facility] Last Admin: 10/16/18 21:10 Dose: 10 mg Tamsulosin HCl (Flomax) 0.4 mg PO DAILY [facility] Last Admin: 10/17/18 10:30 Dose: 0.4 mg Zolpidem Tartrate (Ambien) 5 mg PO [facility] Last Admin: 10/16/18 21:10 Dose: 5 mg - Labs Labs: 10/17/18 07:52 10/17/18 07:52 PT 16.4 SECONDS (9.7-12.2) H 10/14/18 10:58 INR 1.5 10/14/18 10:58 APTT 31 SECONDS (21-34) 10/14/18 10:58 - Constitutional Appears: Non-toxic, No Acute Distress - Head Exam Head Exam: ATRAUMATIC, NORMAL INSPECTION - Eye Exam Eye Exam: EOMI, Normal appearance - Respiratory Exam Respiratory Exam: Clear to Ausculation Bilateral, NORMAL BREATHING PATTERN - Cardiovascular Exam Cardiovascular Exam: REGULAR RHYTHM, +S1, +S2 - GI/Abdominal Exam GI & Abdominal Exam: Soft, Normal Bowel Sounds. absent: Tenderness Additional comments: RICARDO drain with seroangoinous fluid. - Extremities Exam Extremities Exam: Full ROM, Normal Inspection - Psychiatric Exam Psychiatric exam: Normal Affect, Normal Mood - Skin Skin Exam: Normal Color, Warm Assessment and Plan - Assessment and Plan (Free Text) Assessment: 78 yo Hisp Male with recent lap cesar, h/o biliary stent, CAD s/p CABG on dabigatran presenting with shortness of breath and abd pain. #Perihepatic fluid collection, Pleural effusion: Suspect related to post-op complication of lap cesar with resulting abscess. #Possible Bile leak #CBD stent Plan: - HIDA scan reviewed, possible bile leak yudy-laterally. I have discussed with surgical team. Will continue to monitor RICARDO output. - S/P IR drain with foul smelling purulent fluid. - Fluid Micro pending - Gen Surg Consulted - Diet and Abx per primary/surgery - Monitor labs Pt discussed with Dr. Busch; please see attestation for further recs/changes. <Tobi Busch - Last Filed: 10/17/18 21:38> Objective - Vital Signs/Intake and Output Vital Signs (last 24 hours): Temp Pulse Resp BP Pulse Ox 98.4 F 65 18 90/56 L 97 10/17/18 15:00 10/17/18 15:00 10/17/18 15:00 10/17/18 15:00 10/17/18 15:00 Intake and Output: 10/17/18 10/18/18 18:59 06:59 Intake Total 600 Output Total 40 Balance 560 - Medications Medications: Current Medications Acetaminophen (Tylenol 325mg Tab) 650 mg PO Q6 PRN PRN Reason: Pain, Mild (1-3) Last Admin: 10/17/18 13:14 Dose: 650 mg Aspirin (Ecotrin) 81 mg PO DAILY [facility] Last Admin: 10/17/18 10:30 Dose: 81 mg Dabigatran (Pradaxa) 150 mg PO DAILY [facility] Enalapril Maleate (Vasotec) 10 mg PO DAILY [facility] Last Admin: 10/17/18 10:29 Dose: 10 mg Enoxaparin Sodium (Lovenox) 40 mg SC DAILY [facility] Last Admin: 10/17/18 10:30 Dose: 40 mg Guaifenesin/Dextromethorphan (Robitussin Dm) 10 ml PO Q4H PRN PRN Reason: Cough and congestion Last Admin: 10/17/18 00:02 Dose: 10 ml Metronidazole (Flagyl) 500 mg in 100 mls @ 100 mls/hr IVPB Q8H [facility]; Protocol Last Admin: 10/17/18 17:01 Dose: 100 mls/hr Piperacillin Sod/Tazobactam (Sod 3.375 gm/ Sodium Chloride) 100 mls @ 200 mls/hr IVPB Q6H [facility]; Protocol Last Admin: 10/17/18 18:43 Dose: 200 mls/hr Lactobacillus Acidophilus (Bacid Acidophilus) 1 cap PO BID [facility] Last Admin: 10/17/18 17:01 Dose: 1 cap Metoprolol Succinate (Toprol Xl) 50 mg PO DAILY [facility] Last Admin: 10/17/18 10:30 Dose: 50 mg Pantoprazole Sodium (Protonix Inj) 40 mg IVP DAILY [facility] Last Admin: 10/17/18 10:29 Dose: 40 mg Rosuvastatin Calcium (Crestor) 10 mg PO HS [facility] Last Admin: 10/16/18 21:10 Dose: 10 mg Tamsulosin HCl (Flomax) 0.4 mg PO DAILY [facility] Last Admin: 10/17/18 10:30 Dose: 0.4 mg Zolpidem Tartrate (Ambien) 5 mg PO HS [facility] Last Admin: 10/16/18 21:10 Dose: 5 mg - Labs Labs: 10/17/18 07:52 10/17/18 07:52 PT 16.4 SECONDS (9.7-12.2) H 10/14/18 10:58 INR 1.5 10/14/18 10:58 APTT 31 SECONDS (21-34) 10/14/18 10:58 Attending/Attestation - Attestation I have personally seen and examined this patient.: Yes I have fully participated in the care of the patient.: Yes I have reviewed all pertinent clinical information, including history, physical exam and plan: Yes Notes (Text): 10/17/18 21:38 Chart reviewed. Findings, assessment and management, as reflected above, were discussed with Dr. Tyson.
[2018-10-17] MEDS ORDERED: Enoxaparin 40 mg Syringe SC ONE (19:00)
--- NOTE | 2018-10-17 23:30 | CP.PCM.PCO ---
Physician Communication Note - Physician Communication Note Physician Communication Note: Please see above
[2018-10-18] MEDS: Piperacillin/Tazobact 3.375 GM in Sodium Chloride 100 ML IVPB SCH ×4 (01:24→23:55)
[2018-10-18] MEDS: metroNIDAZOLE IV 500 mg/100 ml 500 MG/100 ML BAG IVPB SCH ×3 (01:27→17:19)
[2018-10-18 06:40] LABS: BASO % 0.7 % (0.0-2.0); EOS # 0.1 K/uL (0.0-0.7); EOS % 1.6 % (0.0-4.0); HEMOGLOBIN 9.2 g/dL (12.0-18.0); LYMPH # 1.3 K/uL (1.0-4.3); LYMPH % 22.5 % (20.0-40.0); MEAN CELL VOLUME 85.1 fL (80.0-94.0); MEAN CORPUSCULAR HEMOGLOBIN 27.6 pg (27.0-31.0); MEAN CORPUSCULAR HGB CONC 32.4 g/dL (33.0-37.0); MEAN PLATELET VOLUME 7.4 fL (7.2-11.7); MONO # 0.5 K/uL (0.0-0.8); MONO % 8.9 % (0.0-10.0); NEUT # 3.7 K/uL (1.8-7.0); NEUT % 66.3 % (50.0-75.0); NRBC % 0.1 % (0.0-2.0); RBC 3.34 Mil/uL (4.40-5.90); RED CELL DISTRIBUTION WIDTH 15.4 % (11.5-14.5); WHITE BLOOD COUNT 5.6 K/uL (4.8-10.8)
--- NOTE | 2018-10-18 08:29 | CP.PCM.PN ---
<Augie Tyson - Last Filed: 10/18/18 08:30> Subjective - Date & Time of Evaluation Date of Evaluation: 10/18/18 Time of Evaluation: 08:26 - Subjective Subjective: GI Fellow PGY4, Progress note. Patient is clinically doing well. No complaints at this time. Denies abdominal pain, fever. He is tolerating diet. RICARDO drain in place with minimal serous/yellow output. Objective - Vital Signs/Intake and Output Vital Signs (last 24 hours): Temp Pulse Resp BP Pulse Ox 98.1 F 80 20 105/65 97 10/18/18 07:00 10/18/18 07:00 10/18/18 07:00 10/18/18 07:00 10/18/18 07:00 Intake and Output: 10/18/18 10/18/18 06:59 18:59 Intake Total 410 Output Total 20 20 Balance 390 -20 - Medications Medications: Current Medications Acetaminophen (Tylenol 325mg Tab) 650 mg PO Q6 PRN PRN Reason: Pain, Mild (1-3) Last Admin: 10/17/18 13:14 Dose: 650 mg Aspirin (Ecotrin) 81 mg PO DAILY [facility] Last Admin: 10/17/18 10:30 Dose: 81 mg Dabigatran (Pradaxa) 150 mg PO DAILY [facility] Enalapril Maleate (Vasotec) 10 mg PO DAILY [facility] Last Admin: 10/17/18 10:29 Dose: 10 mg Enoxaparin Sodium (Lovenox) 40 mg SC DAILY [facility] Last Admin: 10/17/18 10:30 Dose: 40 mg Guaifenesin/Dextromethorphan (Robitussin Dm) 10 ml PO Q4H PRN PRN Reason: Cough and congestion Last Admin: 10/17/18 00:02 Dose: 10 ml Metronidazole (Flagyl) 500 mg in 100 mls @ 100 mls/hr IVPB Q8H [facility]; Protocol Last Admin: 10/18/18 01:27 Dose: 100 mls/hr Piperacillin Sod/Tazobactam (Sod 3.375 gm/ Sodium Chloride) 100 mls @ 200 mls/hr IVPB Q6H [facility]; Protocol Last Admin: 10/18/18 06:16 Dose: 200 mls/hr Lactobacillus Acidophilus (Bacid Acidophilus) 1 cap PO BID [facility] Last Admin: 10/17/18 17:01 Dose: 1 cap Metoprolol Succinate (Toprol Xl) 50 mg PO DAILY [facility] Last Admin: 10/17/18 10:30 Dose: 50 mg Pantoprazole Sodium (Protonix Inj) 40 mg IVP DAILY [facility] Last Admin: 10/17/18 10:29 Dose: 40 mg Rosuvastatin Calcium (Crestor) 10 mg PO HS [facility] Last Admin: 10/17/18 21:36 Dose: 10 mg Tamsulosin HCl (Flomax) 0.4 mg PO DAILY [facility] Last Admin: 10/17/18 10:30 Dose: 0.4 mg Zolpidem Tartrate (Ambien) 5 mg PO HS PRN PRN Reason: Insomnia - Labs Labs: 10/18/18 06:16 10/17/18 07:52 PT 16.4 SECONDS (9.7-12.2) H 10/14/18 10:58 INR 1.5 10/14/18 10:58 APTT 31 SECONDS (21-34) 10/14/18 10:58 - Constitutional Appears: Well, Non-toxic - Head Exam Head Exam: ATRAUMATIC, NORMAL INSPECTION - Eye Exam Eye Exam: EOMI, Normal appearance - Respiratory Exam Respiratory Exam: Clear to Ausculation Bilateral, NORMAL BREATHING PATTERN - Cardiovascular Exam Cardiovascular Exam: REGULAR RHYTHM, +S1, +S2 - GI/Abdominal Exam GI & Abdominal Exam: Soft, Normal Bowel Sounds. absent: Tenderness Additional comments: RICARDO drain in place wiht yellow output ~3cc. - Extremities Exam Extremities Exam: Full ROM, Normal Inspection - Neurological Exam Neurological Exam: Alert, Awake, Oriented x3 - Psychiatric Exam Psychiatric exam: Normal Affect, Normal Mood - Skin Skin Exam: Normal Color, Warm Assessment and Plan - Assessment and Plan (Free Text) Assessment: 78 yo Hisp Male with recent lap cesar, h/o biliary stent, CAD s/p CABG on dabigatran presenting with shortness of breath and abd pain. #Perihepatic fluid collection, Pleural effusion: Suspect related to post-op complication of lap cesar with resulting abscess. #Possible Bile leak #CBD stent Plan: - CT reviewed, reported metallic CBD stent in good position. - HIDA scan reviewed, possible bile leak yudy-laterally. I have discussed with surgical team. Will continue to monitor RICARDO output. - S/P IR drain with foul smelling purulent fluid. - Peritoneal fluid with GPC in chains - Gen Surg Consulted - Diet and Abx per primary/surgery - Monitor labs Pt discussed with Dr. Vera; please see attestation for further recs/changes. <Rajan Vera - Last Filed: 10/18/18 09:00> Objective - Vital Signs/Intake and Output Vital Signs (last 24 hours): Temp Pulse Resp BP Pulse Ox 98.1 F 80 20 105/65 97 10/18/18 07:00 10/18/18 07:00 10/18/18 07:00 10/18/18 07:00 10/18/18 07:00 Intake and Output: 10/18/18 10/18/18 06:59 18:59 Intake Total 410 Output Total 20 20 Balance 390 -20 - Medications Medications: Current Medications Acetaminophen (Tylenol 325mg Tab) 650 mg PO Q6 PRN PRN Reason: Pain, Mild (1-3) Last Admin: 10/17/18 13:14 Dose: 650 mg Aspirin (Ecotrin) 81 mg PO DAILY [facility] Last Admin: 10/17/18 10:30 Dose: 81 mg Dabigatran (Pradaxa) 150 mg PO DAILY [facility] Enalapril Maleate (Vasotec) 10 mg PO DAILY [facility] Last Admin: 10/17/18 10:29 Dose: 10 mg Enoxaparin Sodium (Lovenox) 40 mg SC DAILY [facility] Last Admin: 10/17/18 10:30 Dose: 40 mg Guaifenesin/Dextromethorphan (Robitussin Dm) 10 ml PO Q4H PRN PRN Reason: Cough and congestion Last Admin: 10/17/18 00:02 Dose: 10 ml Metronidazole (Flagyl) 500 mg in 100 mls @ 100 mls/hr IVPB Q8H [facility]; Protocol Last Admin: 10/18/18 08:43 Dose: 100 mls/hr Piperacillin Sod/Tazobactam (Sod 3.375 gm/ Sodium Chloride) 100 mls @ 200 mls/hr IVPB Q6H [facility]; Protocol Last Admin: 10/18/18 06:16 Dose: 200 mls/hr Lactobacillus Acidophilus (Bacid Acidophilus) 1 cap PO BID [facility] Last Admin: 10/17/18 17:01 Dose: 1 cap Metoprolol Succinate (Toprol Xl) 50 mg PO DAILY [facility] Last Admin: 10/17/18 10:30 Dose: 50 mg Pantoprazole Sodium (Protonix Inj) 40 mg IVP DAILY [facility] Last Admin: 10/17/18 10:29 Dose: 40 mg Rosuvastatin Calcium (Crestor) 10 mg PO HS [facility] Last Admin: 10/17/18 21:36 Dose: 10 mg Tamsulosin HCl (Flomax) 0.4 mg PO DAILY [facility] Last Admin: 10/17/18 10:30 Dose: 0.4 mg Zolpidem Tartrate (Ambien) 5 mg PO HS PRN PRN Reason: Insomnia - Labs Labs: 10/18/18 06:16 10/17/18 07:52 PT 16.4 SECONDS (9.7-12.2) H 10/14/18 10:58 INR 1.5 10/14/18 10:58 APTT 31 SECONDS (21-34) 10/14/18 10:58 Attending/Attestation - Attestation I have personally seen and examined this patient.: Yes I have fully participated in the care of the patient.: Yes I have reviewed all pertinent clinical information, including history, physical exam and plan: Yes Notes (Text): 10/18/18 08:57 I have seen and examined patient with GI fellow. No acute events overnight, he is seen resting in bed comfortably. He denies abdominal pain, nausea, vomiting, fever/chills, tolerating PO diet without difficulty. Scant purulent output noted in RUQ drain. CAD/CABG Abdominal pain - s/p cholecystectomy with presence of perihepatic fluid evelia ection/abscess CBD metallic stent for unclear reasons - Diet as tolerated - LFTs normal, continue to monitor - Follow up surgical recommendations - Continue with antibiotic therapy - Will continue to monitor patient clinical course
[2018-10-18] MEDS: Enoxaparin 40 mg Syringe SC SCH (09:25)
[2018-10-18] MEDS: Metoprolol Succinate 50 mg XL Tab PO SCH (09:27)
[2018-10-18] MEDS: Lactobacillus Acidophilus 500 MU Cap PO SCH ×2 (09:28→17:19)
--- NOTE | 2018-10-18 10:47 | CP.PCM.PN ---
Subjective - Date & Time of Evaluation Date of Evaluation: 10/18/18 Time of Evaluation: 10:00 - Subjective Subjective: General Surgery Pt Seen and examined. No issues overnight. 60cc serous appearing fluid from drain. No abd pain. Afebrile. Objective - Vital Signs/Intake and Output Vital Signs (last 24 hours): Temp Pulse Resp BP Pulse Ox 98.1 F 80 20 105/65 97 10/18/18 07:00 10/18/18 07:00 10/18/18 07:00 10/18/18 09:26 10/18/18 07:00 Intake and Output: 10/18/18 10/18/18 06:59 18:59 Intake Total 410 Output Total 20 20 Balance 390 -20 - Medications Medications: Current Medications Acetaminophen (Tylenol 325mg Tab) 650 mg PO Q6 PRN PRN Reason: Pain, Mild (1-3) Last Admin: 10/17/18 13:14 Dose: 650 mg Aspirin (Ecotrin) 81 mg PO DAILY [facility] Last Admin: 10/18/18 09:27 Dose: 81 mg Dabigatran (Pradaxa) 150 mg PO DAILY [facility] Last Admin: 10/18/18 09:29 Dose: Not Given Enalapril Maleate (Vasotec) 10 mg PO DAILY [facility] Last Admin: 10/18/18 09:26 Dose: 10 mg Enoxaparin Sodium (Lovenox) 40 mg SC DAILY [facility] Last Admin: 10/18/18 09:25 Dose: 40 mg Guaifenesin/Dextromethorphan (Robitussin Dm) 10 ml PO Q4H PRN PRN Reason: Cough and congestion Last Admin: 10/17/18 00:02 Dose: 10 ml Metronidazole (Flagyl) 500 mg in 100 mls @ 100 mls/hr IVPB Q8H [facility]; Protocol Last Admin: 10/18/18 08:43 Dose: 100 mls/hr Piperacillin Sod/Tazobactam (Sod 3.375 gm/ Sodium Chloride) 100 mls @ 200 mls/hr IVPB Q6H [facility]; Protocol Last Admin: 10/18/18 06:16 Dose: 200 mls/hr Lactobacillus Acidophilus (Bacid Acidophilus) 1 cap PO BID [facility] Last Admin: 10/18/18 09:28 Dose: 1 cap Metoprolol Succinate (Toprol Xl) 50 mg PO DAILY [facility] Last Admin: 10/18/18 09:27 Dose: 50 mg Pantoprazole Sodium (Protonix Inj) 40 mg IVP DAILY [facility] Last Admin: 10/18/18 09:26 Dose: 40 mg Rosuvastatin Calcium (Crestor) 10 mg PO HS [facility] Last Admin: 10/17/18 21:36 Dose: 10 mg Tamsulosin HCl (Flomax) 0.4 mg PO DAILY [facility] Last Admin: 10/18/18 09:25 Dose: 0.4 mg Zolpidem Tartrate (Ambien) 5 mg PO HS PRN PRN Reason: Insomnia - Labs Labs: 10/18/18 06:16 10/17/18 07:52 PT 16.4 SECONDS (9.7-12.2) H 10/14/18 10:58 INR 1.5 10/14/18 10:58 APTT 31 SECONDS (21-34) 10/14/18 10:58 - Constitutional Appears: Non-toxic, No Acute Distress - Head Exam Head Exam: ATRAUMATIC, NORMOCEPHALIC - Eye Exam Eye Exam: EOMI. absent: Scleral icterus - Respiratory Exam Respiratory Exam: NORMAL BREATHING PATTERN. absent: Respiratory Distress - GI/Abdominal Exam GI & Abdominal Exam: Soft. absent: Distended, Tenderness Additional comments: drain in place, - Extremities Exam Extremities Exam: absent: Calf Tenderness, Pedal Edema - Neurological Exam Neurological Exam: Alert, Awake - Skin Skin Exam: Dry, Warm Assessment and Plan - Assessment and Plan (Free Text) Assessment: 78M s/p lap cesar on 09/13, admitted 10/13 w SOB, found to have perihepatic fluid collection now s/p IR drainage Plan: Continue abx Monitor Drain output for bile/pus. D/W Dr. Severino Martini PGY4
--- NOTE | 2018-10-18 10:51 | CP.PCM.PN ---
<Na Moreno P - Last Filed: 10/18/18 22:05> Subjective - Date & Time of Evaluation Date of Evaluation: 10/18/18 Time of Evaluation: 06:00 - Subjective Subjective: PGY-[address] Rashid. Patient seen and examined at bedside. RUQ pain has improved to 2/10 pain, but it is more pronounced with coughing. Patient admits to having 4 episodes of black stool this morning. As per nurse, stool was brown in color. 20cc yellow fluid noted in RICARDO drain. Tolerating diet. Denies fever, chills, nausea, vomiting, chest pain, new abdominal pain and shortness of breath. Objective - Vital Signs/Intake and Output Vital Signs (last 24 hours): Temp Pulse Resp BP Pulse Ox 98.1 F 80 20 105/65 97 10/18/18 07:00 10/18/18 07:00 10/18/18 07:00 10/18/18 09:26 10/18/18 07:00 Intake and Output: 10/18/18 10/18/18 06:59 18:59 Intake Total 410 Output Total 20 20 Balance 390 -20 - Medications Medications: Current Medications Acetaminophen (Tylenol 325mg Tab) 650 mg PO Q6 PRN PRN Reason: Pain, Mild (1-3) Last Admin: 10/17/18 13:14 Dose: 650 mg Aspirin (Ecotrin) 81 mg PO DAILY [facility] Last Admin: 10/18/18 09:27 Dose: 81 mg Dabigatran (Pradaxa) 150 mg PO DAILY [facility] Last Admin: 10/18/18 09:29 Dose: Not Given Enalapril Maleate (Vasotec) 10 mg PO DAILY [facility] Last Admin: 10/18/18 09:26 Dose: 10 mg Enoxaparin Sodium (Lovenox) 40 mg SC DAILY [facility] Last Admin: 10/18/18 09:25 Dose: 40 mg Guaifenesin/Dextromethorphan (Robitussin Dm) 10 ml PO Q4H PRN PRN Reason: Cough and congestion Last Admin: 10/17/18 00:02 Dose: 10 ml Metronidazole (Flagyl) 500 mg in 100 mls @ 100 mls/hr IVPB Q8H [facility]; Protocol Last Admin: 10/18/18 08:43 Dose: 100 mls/hr Piperacillin Sod/Tazobactam (Sod 3.375 gm/ Sodium Chloride) 100 mls @ 200 mls/hr IVPB Q6H [facility]; Protocol Last Admin: 10/18/18 06:16 Dose: 200 mls/hr Lactobacillus Acidophilus (Bacid Acidophilus) 1 cap PO BID [facility] Last Admin: 10/18/18 09:28 Dose: 1 cap Metoprolol Succinate (Toprol Xl) 50 mg PO DAILY [facility] Last Admin: 10/18/18 09:27 Dose: 50 mg Pantoprazole Sodium (Protonix Inj) 40 mg IVP DAILY [facility] Last Admin: 10/18/18 09:26 Dose: 40 mg Rosuvastatin Calcium (Crestor) 10 mg PO HS [facility] Last Admin: 10/17/18 21:36 Dose: 10 mg Tamsulosin HCl (Flomax) 0.4 mg PO DAILY [facility] Last Admin: 10/18/18 09:25 Dose: 0.4 mg Zolpidem Tartrate (Ambien) 5 mg PO HS PRN PRN Reason: Insomnia - Labs Labs: 10/18/18 06:16 10/17/18 07:52 PT 16.4 SECONDS (9.7-12.2) H 10/14/18 10:58 INR 1.5 10/14/18 10:58 APTT 31 SECONDS (21-34) 10/14/18 10:58 - Additional Findings Additional findings: - Constitutional Appears: No Acute Distress - Head Exam Head Exam: ATRAUMATIC, NORMOCEPHALIC - Eye Exam Eye Exam: EOMI, PERRL - ENT Exam ENT Exam: Mucous Membranes Moist - Neck Exam Neck Exam: Full ROM - Respiratory Exam Respiratory Exam: Decreased Breath Sounds (R>L). absent: Wheezes - Cardiovascular Exam Cardiovascular Exam: REGULAR RHYTHM, +S1, +S2 Additional comments: S2 click heard in all louie - GI/Abdominal Exam GI & Abdominal Exam: Soft. Slight Tenderness at RICARDO site in RUQ otherwise non tender Additional comments: RUQ incision site dressed and clean. RICARDO drain with 20cc of yellow/red drainage. Steri strips to epigastrium intact. Rectal: normal inspection, brown stool in rectal vault, no hemorrhoids palpated, FOB+ - Extremities Exam Extremities Exam: Full ROM, 1+ pitting edema B/l ankles R>L - Skin Exam nevus noted to R medial aspect of lower lip which has remained the same for a number of years, as well as nevus adjacent to umbilicus Assessment and Plan - Assessment and Plan (Free Text) Plan: 78 yo Hisp Male with recent lap cesar, h/o biliary stent, CAD s/p CABG on dabigatran presenting with shortness of breath and abd pain. Perihepatic abscess with Fluid Collection s/p laparoscopic cholecystectomy - s/p lap cesar 09/13/18, biliary stent 09/2016 - CT abdomen/pelvis on admission: 12.0 x 8.0 x 14.2 cm loculated fluid collection with air fluid level in subcapsular right hepatic lobe concernng for an abscess, large right and small left pleural effusion - repeat CT abd/pel w/ PO and IV contrast - Large subscapula/perihepatic cyst loculated fluid collection with air-fluid level in the right hepatic lobe suspicious for complex bilioma vs abscess -HIDA Scan 10/15: Findings suspicious for bile leak. There is pooling of radionuclide in the gallbladder fossa and amorphous collection of radionuclide anteriorly and laterally on the left. - IR consulted, Dr Castaneda -10/16/18- patient underwent CT guided drainage of right perihepatic collection with removal of 20 cc of purulent drainage from abdominal abscess - Gen Sx consulted, Dr. Haq -[place] scan shows possible leak in location of RICARDO drain. Drainage should decrease with time. Monitor drainage. - GI consulted, Dr. Vera - [place] scan reviewed, possible bile leak yudy-laterally. Will continue to monitor RICARDO output. - Fluid Micro pending - Gen Surg Consulted - Diet and Abx per primary/surgery - Monitor labs - ID Jing, consulted - will follow up recs - Zosyn IVPB Q6hrs - Metronidazole IVPB Q8h - blood cultures- No growth x4days - perihepatic collection prelim: Enterococcus faecalis, gram neg kelley Pleural Effusions - CT abd/pelvis: Large right and small left pleural effusion - likely due to RUQ fluid collection - management as mentioned above - CT guided thoracentesis with removal of 1100 cc of serosanguinous pleural fluid on 10/16 -pleural fluid culture: no growth 48H Possible GI Bleed Patient reports 4 bloody BMs on 10/18/18 Hgb drop from 9.2 to 8.3 brown stool, FOB+ on rectal CLD Protonix 40mg anticoagulation held follow up with GI Bilateral lower extremity edema -Venous duplex 10/15: Prelim read-Abnormal findings of the right calf muscular veins. LLE: No abnormal finding of examined veins. Official read-Left: there is a left solely calf vein is partial compression with acute thrombus. Impression: No evidence of deep or superficial vein thrombosis in the R or L lower extremity. Reading is inconsistent-follow up with radiology tomorrow CAD - ECHO 09/10/18: LV systolic function is normal. EF is 50-55%. No aortic regurgitation. Abnormal prosthetic aortic valve gradients. Mitral Annular calcification is mild to moderate. Mitral regurgitation is mild. There is mild to moderate tricuspid regurgitation. There is mild pulmonary htn. Mild pulmonic valvular regurgitation. - crestor 10mg PO HS - Continue to hold home pradaxa 150mg PO daily- patient with complaint of black bowel movement 10/18/18 HTN enalapril 10mg PO daily metoprolol succinate 50mg PO daily hx of BPH - Flomax .4mg PO daily HLD - crestor 10mg PO HS PPX GI: protonix DVT: lovenox discontinued HHD restarted Lactobacillus 1 cap PO BID PT eval and treat - continue treatments - will f/u Patient draining yellow/serosanguanous fluid into drain. Continue to monitor output. As per surgical specialist, patient will likely remain with RICARDO drain for several weeks. Perihepatic abscess fluid culture positive for Enterococcus faecalis and gram neg rods- awaiting final report for sensitivities. Follow up with ID. Patient complained of black BM today. Anticoagulation d/c'ed. patient now on CLD. CBC drop from 9.2-> 8.3, FOB+ on rectal. f/u CBC in AM. follow up with GI. LE duplex official read and prelim read inconsistent- vascular lab closed at this time. Will call tomorrow to verify reading. Case discussed with Dr. Rashid. Na Moreno, PGY-1. <Babita Rashid V - Last Filed: 10/22/18 18:48> Objective - Vital Signs/Intake and Output Vital Signs (last 24 hours): Temp Pulse Resp BP Pulse Ox 98.4 F 62 20 100/57 L 97 10/22/18 15:00 10/22/18 15:00 10/22/18 15:00 10/22/18 15:00 10/22/18 15:00 Intake and Output: 10/22/18 10/22/18 06:59 18:59 Intake Total 880 600 Output Total 20 5 Balance 860 595 - Medications Medications: Current Medications Acetaminophen (Tylenol 325mg Tab) 650 mg PO Q6 PRN PRN Reason: Pain, Mild (1-3) Last Admin: 10/22/18 02:51 Dose: 650 mg Aspirin (Ecotrin) 81 mg PO DAILY [facility] Last Admin: 10/22/18 09:09 Dose: 81 mg Dabigatran (Pradaxa) 150 mg PO DAILY [facility] Last Admin: 10/22/18 09:10 Dose: 150 mg Enalapril Maleate (Vasotec) 10 mg PO DAILY [facility] Last Admin: 10/22/18 09:10 Dose: 10 mg Guaifenesin/Dextromethorphan (Robitussin Dm) 10 ml PO Q4H PRN PRN Reason: Cough and congestion Last Admin: 10/17/18 00:02 Dose: 10 ml Metronidazole (Flagyl) 500 mg in 100 mls @ 100 mls/hr IVPB Q8H [facility]; Protocol Last Admin: 10/22/18 16:08 Dose: 100 mls/hr Meropenem 1 gm/ Sodium (Chloride) 100 mls @ 100 mls/hr IVPB Q8H [facility]; Protocol Last Admin: 10/22/18 17:12 Dose: 100 mls/hr Lactobacillus Acidophilus (Bacid Acidophilus) 1 cap PO BID [facility] Last Admin: 10/22/18 17:12 Dose: 1 cap Metoprolol Succinate (Toprol Xl) 50 mg PO DAILY [facility] Last Admin: 10/22/18 09:10 Dose: 50 mg Pantoprazole Sodium (Protonix Inj) 40 mg IVP DAILY [facility] Last Admin: 10/18/18 09:26 Dose: 40 mg Rosuvastatin Calcium (Crestor) 10 mg PO HS [facility] Last Admin: 10/21/18 21:45 Dose: 10 mg Tamsulosin HCl (Flomax) 0.4 mg PO DAILY [facility] Last Admin: 10/22/18 09:10 Dose: 0.4 mg Zolpidem Tartrate (Ambien) 5 mg PO HS PRN PRN Reason: Insomnia Last Admin: 10/22/18 00:40 Dose: 5 mg - Labs Labs: 10/22/18 09:16 10/22/18 09:16 PT 16.4 SECONDS (9.7-12.2) H 10/14/18 10:58 INR 1.5 10/14/18 10:58 APTT 31 SECONDS (21-34) 10/14/18 10:58 Attending/Attestation - Attestation I have personally seen and examined this patient.: Yes I have fully participated in the care of the patient.: Yes I have reviewed all pertinent clinical information, including history, physical exam and plan: Yes Notes (Text): This is late computer entry for 10/18/18. Patient seen, examined, and case discussed with day-time resident. Patient seen this afternoon with the resident. He reports he had 4 black bowel movements with the resident as he started to eat his lunch. Patient's pradexa on hold. This was not witnessed. We will repeat CBC and check occult blood X2 in light of black stool complaint. I spoke with patient with his niece again, he had reported to her "blood" in the toilet bowl. I had spoken with his nurse on shift who was not aware of any black stool. 1) Perihepatic abscess with Fluid Collection s/p laparoscopic cholecystectomy Assessment/Plan * Dr. Vera (GI) on case help appreciated * Dr. Haq (surgery) on case help appreciated * Infectious Disease (Dr. Ch) on the case help appreciated * s/p lap cesar 09/13/18, biliary stent 09/2016 * CT abdomen/pelvis (10/14/18): 12.0 x 8.0 x 14.2 cm loculated fluid collection with air fluid level in subcapsular right hepatic lobe concernng for an abscess, large right and small left pleural effusion * Repeat CT abd/pel w/ PO and IV contrast (10/14/18) - Large subscapula/perihepatic cyst loculated fluid collection with air-fluid level in the right hepatic lobe suspicious for complex bilioma vs abscess. No other interval change. * HIDA Scan 10/15: Findings suspicious for bile leak. There is pooling of radionuclide in the gallbladder fossa and amorphous collection of radionuclide anteriorly and laterally on the left. * Patient underwent 10/16/[address] guided drainage of right perihepatic collection with removal of 20 cc of purulent drainage from abdominal abscess. * Antibiotics: * Zosyn 3/375 gm IVPB Q6H (active since 10/14/18) * Flagyl 500mg IVPB Q8H (active since 10/14/18) * Blood culture (10/13/18): No growth x4days * Awaiting Perihepatic collection (10/16/18) prelim: Enterococcus faecalis, gram neg kelley 2) Pleural Effusions Assessment/Plan * CT Chest (10/14/18): NO CTA evidence of acute pulmonary embolism. Large right and small left pleural effusions with compressive atelctasis of the underlying lungs. mild cardiomegaly and small pericardial effusion. Large loculated fluid collection with air fluid level in the right upper quadrant. Further findings per report * Patient underwent thoracentesis with IR; removal of 1.1 L of fluid. 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 EF is 50-55%. No aortic regurgitation. Abnormal prosthetic aortic valve gradients. Mitral Annular calcification is mild to moderate. Mitral regurgitation is mild. There is mild to moderate tricuspid regurgitation. There is mild pulmonary htn. Mild pulmonic valvular regurgitation. * Crestor 10mg PO HS * Continue to hold home pradaxa 150mg PO daily- patient with complaint of black bowel movement 10/18/18 * enalapril 10mg PO daily * metoprolol succinate 50mg PO daily 6) Hypertension Assessment/Plan * enalapril 10mg PO daily * metoprolol succinate 50mg PO daily 7) Hx of BPH Assessment/Plan * Flomax .4mg PO daily 8) Lipid Disorder Assessment/Plan * Crestor 10mg PO HS 9) PPX * GI ppx: protonix 40mg IVQ12 * DVT ppx: lovenox discontinued; pradexa on hold in light of black stool complaint * Lactobacillus 1 cap PO BID * PT eval and treat - continue treatments - will f/u * Changed diet to clears in light of black stool complaint Case discussed with resident during rounds.
--- NOTE | 2018-10-18 11:50 | VASCLAB ---
Date of service: 10/16/2018 PROCEDURE: Lower Extremity Venous Duplex Exam. HISTORY: edema b/l LE PRIORS: None. TECHNIQUE: Bilateral common femoral, femoral, popliteal and posterior tibial, peroneal and great saphenous veins were evaluated. Flow was assessed with color Doppler, compressibility, assessment of phasic flow and augmentation response. Report prepared by Nettie Oscar, TAMARA, RVS FINDINGS: RIGHT: 1. Common Femoral Vein: 1.1. Compressibility - Fully compressible: Thrombus - None : Flow - Phasic: Augmentation -Normal: Reflux - None. 2. Femoral Vein: 2.1. Compressibility - Fully compressible: Thrombus - None : Flow - Phasic: Augmentation -Normal: Reflux - None. 3. Popliteal Vein: 3.1. Compressibility - Fully compressible: Thrombus - None : Flow - Phasic: Augmentation -Normal: Reflux - None. 4. Posterior Tibial Vein: 4.1. Compressibility - Fully compressible: Thrombus - None: Flow - Phasic: Augmentation -Normal: Reflux - None. 5. Peroneal Vein: 5.1. Compressibility - Fully compressible: Thrombus - None: Flow - Phasic: Augmentation -Normal: Reflux - None. 6. Great Saphenous Vein: 6.1. Compressibility - Fully compressible: Thrombus - None: Flow - Phasic: Augmentation - Normal: Reflux - None. LEFT: 1. Common Femoral Vein: 1.1. Compressibility - Fully compressible: Thrombus - None: Flow - Phasic: Augmentation -Normal: Reflux - None. 2. Femoral Vein: 2.1. Compressibility - Fully compressible: Thrombus - None: Flow - Phasic: Augmentation -Normal: Reflux - None. 3. Popliteal Vein: 3.1. Compressibility - Fully compressible: Thrombus - None : Flow - Phasic: Augmentation -Normal: Reflux - None. 4. Posterior Tibial Vein: 4.1. Compressibility - Fully compressible: Thrombus - None: Flow - Phasic: Augmentation -Normal: Reflux - None. 5. Peroneal Vein: 5.1. Compressibility - Fully compressible: Thrombus - None: Flow - Phasic: Augmentation -Normal: Reflux - None. 6. Great Saphenous Vein: 6.1. Compressibility - Fully compressible: Thrombus - None: Flow - Phasic: Augmentation - Normal: Reflux - None. OTHER FINDINGS: Right: Left: There is a left solely calf vein is partial compression with acute thrombus IMPRESSION: Right: No evidence of deep or superficial vein thrombosis of the right lower extremity. Normal valve function noted of the right side. Left: No evidence of deep or superficial vein thrombosis of the left lower extremity. Normal valve function noted of the left side.
[2018-10-18 13:11] LABS: BLOOD UREA NITROGEN 6 mg/dL (9-20); CALCIUM 7.7 mg/dl (8.6-10.4); GFR NON-AFRICAN AMERICAN > 60
[2018-10-18 13:12] LABS: ALB/GLOB RATIO 0.7 (1.0-2.1); ALBUMIN 2.4 g/dL (3.5-5.0); ALT/SGPT 49 U/L (21-72); AST/SGOT 75 U/L (17-59)
[2018-10-18 14:32] LABS: ALB/GLOB RATIO 0.7 (1.0-2.1); ALBUMIN 2.6 g/dL (3.5-5.0); ALT/SGPT 53 U/L (21-72); AST/SGOT 72 U/L (17-59); BLOOD UREA NITROGEN 5 mg/dL (9-20); CALCIUM 7.3 mg/dl (8.6-10.4); GFR NON-AFRICAN AMERICAN > 60
[2018-10-18 20:35] LABS: BASO % 1.1 % (0.0-2.0); EOS # 0.1 K/uL (0.0-0.7); EOS % 2.4 % (0.0-4.0); HEMOGLOBIN 8.3 g/dL (12.0-18.0); LYMPH # 1.2 K/uL (1.0-4.3); LYMPH % 28.2 % (20.0-40.0); MEAN CELL VOLUME 85.2 fL (80.0-94.0); MEAN CORPUSCULAR HEMOGLOBIN 27.1 pg (27.0-31.0); MEAN CORPUSCULAR HGB CONC 31.9 g/dL (33.0-37.0); MEAN PLATELET VOLUME 6.8 fL (7.2-11.7); MONO # 0.4 K/uL (0.0-0.8); MONO % 9.5 % (0.0-10.0); NEUT # 2.4 K/uL (1.8-7.0); NEUT % 58.8 % (50.0-75.0); NRBC % 0.1 % (0.0-2.0); RBC 3.04 Mil/uL (4.40-5.90); RED CELL DISTRIBUTION WIDTH 15.8 % (11.5-14.5); WHITE BLOOD COUNT 4.1 K/uL (4.8-10.8)
--- NOTE | 2018-10-18 20:58 | CP.PCM.PN ---
Subjective - Date & Time of Evaluation Date of Evaluation: 10/18/18 Time of Evaluation: 15:00 - Subjective Subjective: dictated Objective - Vital Signs/Intake and Output Vital Signs (last 24 hours): Temp Pulse Resp BP Pulse Ox 98.1 F 66 20 119/59 L 98 10/18/18 15:00 10/18/18 15:00 10/18/18 15:00 10/18/18 15:00 10/18/18 15:00 Intake and Output: 10/18/18 10/19/18 18:59 06:59 Intake Total 230 Output Total 25 Balance 205 - Medications Medications: Current Medications Acetaminophen (Tylenol 325mg Tab) 650 mg PO Q6 PRN PRN Reason: Pain, Mild (1-3) Last Admin: 10/18/18 20:12 Dose: 650 mg Aspirin (Ecotrin) 81 mg PO DAILY [facility] Last Admin: 10/18/18 09:27 Dose: 81 mg Dabigatran (Pradaxa) 150 mg PO DAILY [facility] Last Admin: 10/18/18 09:29 Dose: Not Given Enalapril Maleate (Vasotec) 10 mg PO DAILY [facility] Last Admin: 10/18/18 09:26 Dose: 10 mg Enoxaparin Sodium (Lovenox) 40 mg SC DAILY [facility] Last Admin: 10/18/18 09:25 Dose: 40 mg Guaifenesin/Dextromethorphan (Robitussin Dm) 10 ml PO Q4H PRN PRN Reason: Cough and congestion Last Admin: 10/17/18 00:02 Dose: 10 ml Metronidazole (Flagyl) 500 mg in 100 mls @ 100 mls/hr IVPB Q8H [facility]; Protocol Last Admin: 10/18/18 17:19 Dose: 100 mls/hr Piperacillin Sod/Tazobactam (Sod 3.375 gm/ Sodium Chloride) 100 mls @ 200 ml s/hr IVPB Q6H [facility]; Protocol Last Admin: 10/18/18 19:24 Dose: 200 mls/hr Lactobacillus Acidophilus (Bacid Acidophilus) 1 cap PO BID [facility] Last Admin: 10/18/18 17:19 Dose: 1 cap Metoprolol Succinate (Toprol Xl) 50 mg PO DAILY [facility] Last Admin: 10/18/18 09:27 Dose: 50 mg Pantoprazole Sodium (Protonix Inj) 40 mg IVP DAILY [facility] Last Admin: 10/18/18 09:26 Dose: 40 mg Rosuvastatin Calcium (Crestor) 10 mg PO HS [facility] Last Admin: 10/17/18 21:36 Dose: 10 mg Tamsulosin HCl (Flomax) 0.4 mg PO DAILY [facility] Last Admin: 10/18/18 09:25 Dose: 0.4 mg Zolpidem Tartrate (Ambien) 5 mg PO HS PRN PRN Reason: Insomnia - Labs Labs: 10/18/18 20:30 10/18/18 14:02 PT 16.4 SECONDS (9.7-12.2) H 10/14/18 10:58 INR 1.5 10/14/18 10:58 APTT 31 SECONDS (21-34) 10/14/18 10:58
[2018-10-19] MEDS: metroNIDAZOLE IV 500 mg/100 ml 500 MG/100 ML BAG IVPB SCH ×4 (01:40→23:45)
--- NOTE | 2018-10-19 02:36 | PN ---
DATE: 10/18/2018 INFECTIOUS DISEASE FOLLOWUP NOTE SUBJECTIVE: The patient was seen today. His niece, , was at the bedside and he was saying he has little pain on his right upper quadrant. He did have a drain which was draining. PHYSICAL EXAMINATION: VITAL SIGNS: T-max was 98.1, pulse 66, blood pressure 119/59, and respirations are 20. HEENT: Head is atraumatic and normocephalic. He has defibrillator. NECK: Supple. LUNGS: Decreased breath sounds on right side. HEART: S1 and S2 are regular. I could hear a click, but they said he has a biological wealth, so he does have a valve replacement in the past and he has a defibrillator. ABDOMEN: Right abdomen with the drain present. No guarding, no rigidity present. Bowel sounds are present. EXTREMITIES: Have no edema. LABORATORY DATA: Labs are noted. Urine cultures negative. Fluid culture is negative from 10/16/2018, but pleural fluid was negative, but the fluid that came out of the right upper quadrant shows Enterococcus fecalis, Gram-negative kelley 1 and Gram-negative kelley 2. One organism has been finalized, and Enterococcus is ampicillin sensitive, and we are waiting for the other two Gram-negative organisms. At this time, labs are noted. Labs show white count is 4.1, hemoglobin 8.3, hematocrit 25.9, platelet count is 204, and his chemistry shows BUN is 5, creatinine 0.7, total bili is 0.5, AST is 72, ALT is 53, alkaline phosphatase 129. I was reading Dr. Piper's note which shows that this patient did come in with a right hepatic lobe abscess or a complex biloma, and it was drained on 10/16/2018, and he also has a history of a biliary stent placement in 09/05/2018. He has a CABG, he has a defibrillator. He also has a prosthetic valve. 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 So HIDA scan and suspicious findings for bile leak with pulling of radionuclide gallbladder. RICARDO drain in place. So I would think if he is draining, he may need an ERCP or he will need GI evaluation, and at this time, I would continue the antibiotic Zosyn and the Flagyl, and we will follow, and he is on Pradaxa, and we will follow as things develop. We will follow. Leno Ch MD
[2018-10-19] MEDS: Piperacillin/Tazobact 3.375 GM in Sodium Chloride 100 ML IVPB SCH ×2 (05:47→12:39)
[2018-10-19 07:26] LABS: BASO % 0.8 % (0.0-2.0); EOS # 0.1 K/uL (0.0-0.7); HEMOGLOBIN 9.4 g/dL (12.0-18.0); LYMPH # 1.6 K/uL (1.0-4.3); MEAN CELL VOLUME 85.6 fL (80.0-94.0); MEAN CORPUSCULAR HEMOGLOBIN 28.2 pg (27.0-31.0); MEAN CORPUSCULAR HGB CONC 32.9 g/dL (33.0-37.0); MEAN PLATELET VOLUME 7.5 fL (7.2-11.7); MONO # 0.4 K/uL (0.0-0.8); MONO % 7.7 % (0.0-10.0); NEUT # 3.4 K/uL (1.8-7.0); NEUT % 60.5 % (50.0-75.0); NRBC % 0.1 % (0.0-2.0); RBC 3.33 Mil/uL (4.40-5.90); RED CELL DISTRIBUTION WIDTH 15.4 % (11.5-14.5); WHITE BLOOD COUNT 5.6 K/uL (4.8-10.8)
[2018-10-19 07:46] LABS: ALB/GLOB RATIO 0.7 (1.0-2.1); ALBUMIN 2.5 g/dL (3.5-5.0); ALT/SGPT 59 U/L (21-72); AST/SGOT 85 U/L (17-59); BLOOD UREA NITROGEN 4 mg/dL (9-20); CALCIUM 7.8 mg/dl (8.6-10.4); GFR NON-AFRICAN AMERICAN > 60
--- NOTE | 2018-10-19 08:47 | CP.PCM.PN ---
Subjective - Date & Time of Evaluation Date of Evaluation: 10/19/18 Time of Evaluation: 09:00 - Subjective Subjective: Surgery Progress note. Dr. Haq. Pt seen and examined at bedside. No acute events overnight. No N/V/D. Tolerating diet. No Fevers or chills. Drain put out 48cc/24 hours of serous output. FOBT positive yesterday, patient being taken for EGD today by GI team. Objective - Vital Signs/Intake and Output Vital Signs (last 24 hours): Temp Pulse Resp BP Pulse Ox 98.2 F 76 20 131/67 98 10/19/18 07:00 10/19/18 07:00 10/19/18 07:00 10/19/18 07:00 10/19/18 07:00 Intake and Output: 10/19/18 10/19/18 06:59 18:59 Intake Total 300 Output Total 23 Balance 277 - Medications Medications: Current Medications Acetaminophen (Tylenol 325mg Tab) 650 mg PO Q6 PRN PRN Reason: Pain, Mild (1-3) Last Admin: 10/18/18 20:12 Dose: 650 mg Aspirin (Ecotrin) 81 mg PO DAILY [facility] Last Admin: 10/18/18 09:27 Dose: 81 mg Dabigatran (Pradaxa) 150 mg PO DAILY [facility] Last Admin: 10/18/18 09:29 Dose: Not Given Enalapril Maleate (Vasotec) 10 mg PO DAILY [facility] Last Admin: 10/18/18 09:26 Dose: 10 mg Guaifenesin/Dextromethorphan (Robitussin Dm) 10 ml PO Q4H PRN PRN Reason: Cough and congestion Last Admin: 10/17/18 00:02 Dose: 10 ml Metronidazole (Flagyl) 500 mg in 100 mls @ 100 mls/hr IVPB Q8H [facility]; Protocol Last Admin: 10/19/18 01:40 Dose: 100 mls/hr Piperacillin Sod/Tazobactam (Sod 3.375 gm/ Sodium Chloride) 100 mls @ 200 mls/hr IVPB Q6H [facility]; Protocol Last Admin: 10/19/18 05:47 Dose: 200 mls/hr Lactobacillus Acidophilus (Bacid Acidophilus) 1 cap PO BID [facility] Last Admin: 10/18/18 17:19 Dose: 1 cap Metoprolol Succinate (Toprol Xl) 50 mg PO DAILY [facility] Last Admin: 10/18/18 09:27 Dose: 50 mg Pantoprazole Sodium (Protonix Inj) 40 mg IVP DAILY [facility] Last Admin: 10/18/18 09:26 Dose: 40 mg Rosuvastatin Calcium (Crestor) 10 mg PO HS [facility] Last Admin: 10/17/18 21:36 Dose: 10 mg Tamsulosin HCl (Flomax) 0.4 mg PO DAILY [facility] Last Admin: 10/18/18 09:25 Dose: 0.4 mg Zolpidem Tartrate (Ambien) 5 mg PO HS PRN PRN Reason: Insomnia Last Admin: 10/19/18 00:07 Dose: 5 mg - Labs Labs: 10/19/18 07:15 10/19/18 07:15 PT 16.4 SECONDS (9.7-12.2) H 10/14/18 10:58 INR 1.5 10/14/18 10:58 APTT 31 SECONDS (21-34) 10/14/18 10:58 - Constitutional Appears: Well, Non-toxic, No Acute Distress - Head Exam Head Exam: ATRAUMATIC, NORMAL INSPECTION, NORMOCEPHALIC - Eye Exam Eye Exam: EOMI, Normal appearance. absent: Scleral icterus - ENT Exam ENT Exam: Mucous Membranes Moist - Respiratory Exam Respiratory Exam: NORMAL BREATHING PATTERN. absent: Accessory Muscle Use, Respiratory Distress - Cardiovascular Exam Cardiovascular Exam: RRR. absent: JVD - GI/Abdominal Exam GI & Abdominal Exam: Soft. absent: Distended, Guarding, Rigid, Tenderness, Re bound Additional comments: RUQ drain with 48cc/24 hours serous output. Dressing clean, dry and intact. - Extremities Exam Extremities Exam: Normal Inspection. absent: Calf Tenderness - Neurological Exam Neurological Exam: Alert, Awake, Oriented x3 - Psychiatric Exam Psychiatric exam: Normal Affect, Normal Mood - Skin Skin Exam: Dry, Intact, Normal Color, Warm Assessment and Plan - Assessment and Plan (Free Text) Assessment: 78yo M s/p Lap Marisela 09/13/18, admitted 10/13 with SOB and noted to have perihepatic collection and reactive R Pleural effusion. S/p IR drain placement Plan: - Continue Abx as per ID team recs. Fluid culture - MDR enterococcus. - Monitor Drain outputs. - No further surgical intervention warranted at this time - Follow up with Dr. Haq in clinic 5 days after discharge. Patient may call for appointment Further recs as per Dr. Severino Brennan PGY2 surgery
[2018-10-19] MEDS: Lactobacillus Acidophilus 500 MU Cap PO SCH ×2 (09:56→18:10)
[2018-10-19] MEDS: Metoprolol Succinate 50 mg XL Tab PO SCH ×2 (09:57→16:32)
--- NOTE | 2018-10-19 15:16 | CP.PCM.PN ---
<Sujit Montague - Last Filed: 10/19/18 15:17> Subjective - Date & Time of Evaluation Date of Evaluation: 10/19/18 Time of Evaluation: 15:16 - Subjective Subjective: PGY-[address] Rashid Patient seen and examined at bedside prior to and following EGD today. Patient with no complaints except one small bout of runny brown diarrhea this morning. Patient not complaining of any abdominal pain. He tolerated EGD well Objective - Vital Signs/Intake and Output Vital Signs (last 24 hours): Temp Pulse Resp BP Pulse Ox 98.9 F 64 21 123/79 98 10/19/18 11:39 10/19/18 11:39 10/19/18 11:39 10/19/18 11:39 10/19/18 11:39 Intake and Output: 10/19/18 10/19/18 06:59 18:59 Intake Total 300 400 Output Total 23 Balance 277 400 - Medications Medications: Current Medications Acetaminophen (Tylenol 325mg Tab) 650 mg PO Q6 PRN PRN Reason: Pain, Mild (1-3) Last Admin: 10/18/18 20:12 Dose: 650 mg Aspirin (Ecotrin) 81 mg PO DAILY [facility] Last Admin: 10/19/18 09:56 Dose: Not Given Dabigatran (Pradaxa) 150 mg PO DAILY [facility] Last Admin: 10/18/18 09:29 Dose: Not Given Enalapril Maleate (Vasotec) 10 mg PO DAILY [facility] Last Admin: 10/19/18 09:57 Dose: Not Given Guaifenesin/Dextromethorphan (Robitussin Dm) 10 ml PO Q4H PRN PRN Reason: Cough and congestion Last Admin: 10/17/18 00:02 Dose: 10 ml Metronidazole (Flagyl) 500 mg in 100 mls @ 100 mls/hr IVPB Q8H [facility]; Protocol Last Admin: 10/19/18 08:30 Dose: 100 mls/hr Piperacillin Sod/Tazobactam (Sod 3.375 gm/ Sodium Chloride) 100 mls @ 200 mls/hr IVPB Q6H [facility]; Protocol Last Admin: 10/19/18 12:39 Dose: Not Given Lactobacillus Acidophilus (Bacid Acidophilus) 1 cap PO BID [facility] Last Admin: 10/19/18 09:56 Dose: Not Given Metoprolol Succinate (Toprol Xl) 50 mg PO DAILY [facility] Last Admin: 10/19/18 09:57 Dose: Not Given Pantoprazole Sodium (Protonix Inj) 40 mg IVP DAILY [facility] Last Admin: 10/18/18 09:26 Dose: 40 mg Rosuvastatin Calcium (Crestor) 10 mg PO HS [facility] Last Admin: 10/17/18 21:36 Dose: 10 mg Tamsulosin HCl (Flomax) 0.4 mg PO DAILY [facility] Last Admin: 10/19/18 09:56 Dose: Not Given Zolpidem Tartrate (Ambien) 5 mg PO HS PRN PRN Reason: Insomnia Last Admin: 10/19/18 00:07 Dose: 5 mg - Labs Labs: 10/19/18 07:15 10/19/18 07:15 PT 16.4 SECONDS (9.7-12.2) H 10/14/18 10:58 INR 1.5 10/14/18 10:58 APTT 31 SECONDS (21-34) 10/14/18 10:58 - Constitutional Appears: Non-toxic, No Acute Distress - Head Exam Head Exam: ATRAUMATIC, NORMOCEPHALIC - Eye Exam Eye Exam: EOMI - ENT Exam ENT Exam: Mucous Membranes Moist - Respiratory Exam Respiratory Exam: Clear to Ausculation Bilateral, NORMAL BREATHING PATTERN. absent: Rhonchi, Wheezes - Cardiovascular Exam Cardiovascular Exam: REGULAR RHYTHM, +S1, +S2 - GI/Abdominal Exam GI & Abdominal Exam: Soft, Normal Bowel Sounds. absent: Tenderness Additional comments: RICARDO draining scant serosanguinous fluid - Extremities Exam Extremities Exam: absent: Pedal Edema, Tenderness - Neurological Exam Neurological Exam: Alert, Awake, Oriented x3 - Psychiatric Exam Psychiatric exam: Normal Affect, Normal Mood - Skin Skin Exam: Dry, Intact Assessment and Plan - Assessment and Plan (Free Text) Assessment: 78 yo Hisp Male with recent lap cesar, h/o biliary stent, CAD s/p CABG on dabigatran presenting with shortness of breath and abd pain. Perihepatic abscess with Fluid Collection s/p laparoscopic cholecystectomy - s/p lap cesar 09/13/18, biliary stent 09/2016 - CT abdomen/pelvis on admission: 12.0 x 8.0 x 14.2 cm loculated fluid collection with air fluid level in subcapsular right hepatic lobe concernng for an abscess, large right and small left pleural effusion - repeat CT abd/pel w/ PO and IV contrast - Large subscapula/perihepatic cyst loculated fluid collection with air-fluid level in the right hepatic lobe suspicious for complex bilioma vs abscess -HIDA Scan 10/15: Findings suspicious for bile leak. There is pooling of radionu clide in the gallbladder fossa and amorphous collection of radionuclide anteriorly and laterally on the left. - IR consulted, Dr Castaneda -10/16/18- patient underwent CT guided drainage of right perihepatic collection with removal of 20 cc of purulent drainage from abdominal abscess - Gen Sx consulted, Dr. Haq -Hidaurelio scan shows possible leak in location of RICARDO drain. Drainage should decrease with time. Monitor drainage. - GI consulted, Dr. Vera - LATISHA scan reviewed, possible bile leak yudy-laterally. Will continue to monitor RICARDO output. - Fluid Micro pending - Gen Surg Consulted - Diet and Abx per primary/surgery - Monitor labs - ID Jing, consulted - will follow up recs - Zosyn IVPB Q6hrs - Metronidazole IVPB Q8h - blood cultures- No growth x4days - perihepatic collection prelim: Enterococcus faecalis, gram neg kelley - S/p HIDA scan today 10/19 - f/u official report - -per surgery, no surgical intervention at this time - -Resumed heart heatlthy diet Acute Anemia - Patient had initially stated having black stools, now saying they are brown - -Patient did have acute drop in HgB yesterday with FOBT positive - Hgb drop from 9.2 to 8.3 -S/p EGD today 10/19 - Evidence of gastritis, biopsied. Normal esophagus, normal duodenum. (see full report). - AC held this morning - per GI, ok to resume Pradaxa/ASA- - He will require outpatient colonoscopy - Protonix 40mg Pleural Effusions - CT abd/pelvis: Large right and small left pleural effusion - likely due to RUQ fluid collection - management as mentioned above - CT guided thoracentesis with removal of 1100 cc of serosanguinous pleural fluid on 10/16 -pleural fluid culture: no growth 48H Bilateral lower extremity edema -Venous duplex 10/15: No evidence of deep or superficial vein CAD - ECHO 09/10/18: LV systolic function is normal. EF is 50-55%. No aortic regurgitation. Abnormal prosthetic aortic valve gradients. Mitral Annular calcification is mild to moderate. Mitral regurgitation is mild. There is mild to moderate tricuspid regurgitation. There is mild pulmonary htn. Mild pulmonic valvular regurgitation. - crestor 10mg PO HS - Continue to hold home pradaxa 150mg PO daily- patient with complaint of black bowel movement 10/18/18 HTN enalapril 10mg PO daily metoprolol succinate 50mg PO daily hx of BPH - Flomax .4mg PO daily HLD - crestor 10mg PO HS PPX GI: protonix DVT: lovenox discontinued HHD restarted Lactobacillus 1 cap PO BID PT eval and treat - continue treatments - will f/u Patient draining yellow/serosanguanous fluid into drain. Continue to monitor output. As per neurosurgical nurse practitioner, patient will likely remain with RICARDO drain for several weeks. Perihepatic abscess fluid culture positive for Enterococcus faecalis and gram neg rods. Follow up with ID. Anticoagulation restarted Patient now on HHD. S/p EDG and HIDA - negative for acute upper GIB and no surgical intervention at this time. Case discussed with Dr. Rashid. Sujit Montague, PGY-1 <Babita Rashid V - Last Filed: 10/22/18 18:49> Objective - Vital Signs/Intake and Output Vital Signs (last 24 hours): Temp Pulse Resp BP Pulse Ox 98.4 F 62 20 100/57 L 97 10/22/18 15:00 10/22/18 15:00 10/22/18 15:00 10/22/18 15:00 10/22/18 15:00 Intake and Output: 10/22/18 10/22/18 06:59 18:59 Intake Total 880 600 Output Total 20 5 Balance 860 595 - Medications Medications: Current Medications Acetaminophen (Tylenol 325mg Tab) 650 mg PO Q6 PRN PRN Reason: Pain, Mild (1-3) Last Admin: 10/22/18 02:51 Dose: 650 mg Aspirin (Ecotrin) 81 mg PO DAILY [facility] Last Admin: 10/22/18 09:09 Dose: 81 mg Dabigatran (Pradaxa) 150 mg PO DAILY [facility] Last Admin: 10/22/18 09:10 Dose: 150 mg Enalapril Maleate (Vasotec) 10 mg PO DAILY [facility] Last Admin: 10/22/18 09:10 Dose: 10 mg Guaifenesin/Dextromethorphan (Robitussin Dm) 10 ml PO Q4H PRN PRN Reason: Cough and congestion Last Admin: 10/17/18 00:02 Dose: 10 ml Metronidazole (Flagyl) 500 mg in 100 mls @ 100 mls/hr IVPB Q8H [facility]; Protocol Last Admin: 10/22/18 16:08 Dose: 100 mls/hr Meropenem 1 gm/ Sodium (Chloride) 100 mls @ 100 mls/hr IVPB Q8H [facility]; Protocol Last Admin: 10/22/18 17:12 Dose: 100 mls/hr Lactobacillus Acidophilus (Bacid Acidophilus) 1 cap PO BID [facility] Last Admin: 10/22/18 17:12 Dose: 1 cap Metoprolol Succinate (Toprol Xl) 50 mg PO DAILY [facility] Last Admin: 10/22/18 09:10 Dose: 50 mg Pantoprazole Sodium (Protonix Inj) 40 mg IVP DAILY [facility] Last Admin: 10/18/18 09:26 Dose: 40 mg Rosuvastatin Calcium (Crestor) 10 mg PO HS [facility] Last Admin: 10/21/18 21:45 Dose: 10 mg Tamsulosin HCl (Flomax) 0.4 mg PO DAILY [facility] Last Admin: 10/22/18 09:10 Dose: 0.4 mg Zolpidem Tartrate (Ambien) 5 mg PO HS PRN PRN Reason: Insomnia Last Admin: 10/22/18 00:40 Dose: 5 mg - Labs Labs: 10/22/18 09:16 10/22/18 09:16 PT 16.4 SECONDS (9.7-12.2) H 10/14/18 10:58 INR 1.5 10/14/18 10:58 APTT 31 SECONDS (21-34) 10/14/18 10:58 Attending/Attestation - Attestation I have personally seen and examined this patient.: Yes I have fully participated in the care of the patient.: Yes I have reviewed all pertinent clinical information, including history, physical exam and plan: Yes Notes (Text): This is late computer entry for 10/19/18. Patient seen, examined, and case discussed with day-time resident. 1) Perihepatic abscess with Fluid Collection s/p laparoscopic cholecystectomy Assessment/Plan * Dr. Vera (GI) on case help appreciated * Dr. Haq (surgery) on case help appreciated * Infectious Disease (Dr. Ch) on the case help appreciated * s/p lap cesar 09/13/18, biliary stent 09/2016 * CT abdomen/pelvis (10/14/18): 12.0 x 8.0 x 14.2 cm loculated fluid collection with air fluid level in subcapsular right hepatic lobe concernng for an abscess, large right and small left pleural effusion * Repeat CT abd/pel w/ PO and IV contrast (10/14/18) - Large subscapula/perihepatic cyst loculated fluid collection with air-fluid level in the right hepatic lobe suspicious for complex bilioma vs abscess. No other interval change. * HIDA Scan 10/15: Findings suspicious for bile leak. There is pooling of radionuclide in the gallbladder fossa and amorphous collection of radionuclide anteriorly and laterally on the left. * Patient underwent 10/16/[address] guided drainage of right perihepatic collection with removal of 20 cc of purulent drainage from abdominal abscess. * Antibiotics: * Zosyn 3/375 gm IVPB Q6H (active since 10/14/18) * Flagyl 500mg IVPB Q8H (active since 10/14/18) * Blood culture (10/13/18): No growth x4days * Awaiting Perihepatic collection (10/16/18) prelim: Enterococcus faecalis, gram neg kelley 2) Pleural Effusions Assessment/Plan * CT Chest (10/14/18): NO CTA evidence of acute pulmonary embolism. Large right and small left pleural effusions with compressive atelctasis of the underlying lungs. mild cardiomegaly and small pericardial effusion. Large loculated fluid collection with air fluid level in the right upper quadrant. Further findings per report * Patient underwent thoracentesis with IR; removal of 1.1 L of fluid. 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 EF is 50-55%. No aortic regurgitation. Abnormal prosthetic aortic valve gradients. Mitral Annular calcification is mild to moderate. Mitral regurgitation is mild. There is mild to moderate tricuspid regurgitation. There is mild pulmonary htn. Mild pulmonic valvular regurgitation. * Crestor 10mg PO HS * Continue to hold home pradaxa 150mg PO daily- patient with complaint of black bowel movement 10/18/18 * enalapril 10mg PO daily * metoprolol succinate 50mg PO daily 6) Hypertension Assessment/Plan * enalapril 10mg PO daily * metoprolol succinate 50mg PO daily 7) Hx of BPH Assessment/Plan * Flomax .4mg PO daily 8) Lipid Disorder Assessment/Plan * Crestor 10mg PO HS 9) PPX * GI ppx: protonix 40mg IVQ12 * DVT ppx: lovenox discontinued; pradexa on hold in light of black stool complaint * Lactobacillus 1 cap PO BID * PT eval and treat - continue treatments - will f/u * Changed diet to clears in light of black stool complaint
[2018-10-19] MEDS: Meropenem 1 GM in Sodium Chloride 0.9% 100 ML IVPB SCH (18:10)
--- NOTE | 2018-10-19 18:38 | NM ---
Date of service: 10/19/2018 PROCEDURE: Nuclear Medicine Hepatobiliary Scan HISTORY: r/o bile leak COMPARISON: 10/16/2018. hepatobiliary scan. TECHNIQUE: 5.9 mCi of technetium 99m Mebrofenin was administered intravenously. Planar images of the abdomen were obtained at 5 min intervals to 60 mins. Delayed images were also obtained. FINDINGS: LIVER: No significant interval change compared to the prior examination(s). COMMON BILE DUCT: identified at fifteen mins. GALLBLADDER: Prior cholecystectomy. No appreciable accumulation of radionuclide in the gallbladder fossa. SMALL BOWEL: Identified at twenty-five mins. IMPRESSION: Interval improvement in bile leak. Prompt visualization of the hepatobiliary system and small bowel noted.
--- NOTE | 2018-10-19 19:17 | CP.PCM.PN ---
Subjective - Date & Time of Evaluation Date of Evaluation: 10/19/18 Time of Evaluation: 18:00 - Subjective Subjective: dictated Objective - Vital Signs/Intake and Output Vital Signs (last 24 hours): Temp Pulse Resp BP Pulse Ox 97.8 F 69 20 130/74 96 10/19/18 17:13 10/19/18 17:13 10/19/18 17:13 10/19/18 17:13 10/19/18 17:13 Intake and Output: 10/19/18 10/20/18 18:59 06:59 Intake Total 400 Balance 400 - Medications Medications: Current Medications Acetaminophen (Tylenol 325mg Tab) 650 mg PO Q6 PRN PRN Reason: Pain, Mild (1-3) Last Admin: 10/18/18 20:12 Dose: 650 mg Aspirin (Ecotrin) 81 mg PO DAILY [facility] Last Admin: 10/19/18 09:56 Dose: Not Given Dabigatran (Pradaxa) 150 mg PO DAILY [facility] Last Admin: 10/18/18 09:29 Dose: Not Given Enalapril Maleate (Vasotec) 10 mg PO DAILY [facility] Last Admin: 10/19/18 16:33 Dose: 10 mg Guaifenesin/Dextromethorphan (Robitussin Dm) 10 ml PO Q4H PRN PRN Reason: Cough and congestion Last Admin: 10/17/18 00:02 Dose: 10 ml Metronidazole (Flagyl) 500 mg in 100 mls @ 100 mls/hr IVPB Q8H [facility]; Protocol Last Admin: 10/19/18 17:52 Dose: 100 mls/hr Meropenem 1 gm/ Sodium (Chloride) 100 mls @ 100 mls/hr IVPB Q8H [facility]; Protocol Last Admin: 10/19/18 18:10 Dose: 100 mls/hr Lactobacillus Acidophilus (Bacid Acidophilus) 1 cap PO BID [facility] Last Admin: 10/19/18 18:10 Dose: 1 cap Metoprolol Succinate (Toprol Xl) 50 mg PO DAILY [facility] Last Admin: 10/19/18 16:32 Dose: 50 mg Pantoprazole Sodium (Protonix Inj) 40 mg IVP DAILY [facility] Last Admin: 10/18/18 09:26 Dose: 40 mg Rosuvastatin Calcium (Crestor) 10 mg PO HS [facility] Last Admin: 10/17/18 21:36 Dose: 10 mg Tamsulosin HCl (Flomax) 0.4 mg PO DAILY [facility] Last Admin: 10/19/18 09:56 Dose: Not Given Zolpidem Tartrate (Ambien) 5 mg PO HS PRN PRN Reason: Insomnia Last Admin: 10/19/18 00:07 Dose: 5 mg - Labs Labs: 10/19/18 07:15 10/19/18 07:15 PT 16.4 SECONDS (9.7-12.2) H 10/14/18 10:58 INR 1.5 10/14/18 10:58 APTT 31 SECONDS (21-34) 10/14/18 10:58
--- NOTE | 2018-10-20 00:51 | PN ---
DATE: 10/19/2018 SUBJECTIVE: The patient was seen today. He did say he had a procedure done this morning and I want to see when the procedure was done, status post EGD without evidence of bleeding. EGD only done to second portion of duodenum and biliary stent was not visualized. HIDA scan x2 reviewed, area of pooling of nucleoid in gallbladder fossa, is most likely small portion of gallbladder infundibulum rather than any leak. This was written by Dr. Haq, so they are not going to do any more procedure on him. I understand and he says he has minimal pain there, he is feeling better. He still has a drain present. PHYSICAL EXAMINATION: VITAL SIGNS: T-max is 97.8, pulse 69, blood pressure is 130/74, and respirations are 20. HEENT: Head is atraumatic and normocephalic. Pupils are reacting to light. He is breathing easier. NECK: Supple. JVP is flat. LUNGS: Decreased breath sounds bilaterally. HEART: S1, S2 are regular. ABDOMEN: Soft, mildly tender in the right upper quadrant with the drain present. EXTREMITIES: He does have edema right now on lower extremities, which is new. He does have big time cardiac history, so probably needs his cardiac meds. White count is 5.6, hemoglobin 9.4, hematocrit 28.5, and platelet count is 238. Sodium is 133, potassium 4.4, chloride 101, CO2 is 26, anion gap is 4, creatinine 0.6. AST is 85, alk phos is 143, bilirubin is 0.5. So hopefully, surgical evaluation is correct. If that is the case, then the patient probably should improve and his micro cultures revealed enterococcus, E. Coli, and Enterobacter and I think all three can be covered with meropenem, so we will give him Merrem 1 g every 8 hours at this time and probably can be switched to 1 g every 12 hours later on once he is stable. He is 78-year-old and he is on Flagyl for now, we will continue that. The patient needs to be followed up with a repeat CT scan. He probably will need minimum of four weeks of antibiotics and CAT scan prior to completing the antibiotics and probably will need PICC line. This information should be shared with Surgery. If they agree to it or not, still has a drain, probably he should be in the hospital until the drain is removed. The patient has a complication, status post gallbladder surgery and has hepatic abscess and right pleural effusion, which were both drained and he has cardiac history, he has defibrillator and prosthetic valve, hence he has to be a little careful. Leno Ch MD
[2018-10-20] MEDS: Meropenem 1 GM in Sodium Chloride 0.9% 100 ML IVPB SCH ×3 (02:36→18:21)
[2018-10-20 06:47] LABS: BASO % 0.8 % (0.0-2.0); EOS # 0.1 K/uL (0.0-0.7); HEMOGLOBIN 10.1 g/dL (12.0-18.0); LYMPH # 2.8 K/uL (1.0-4.3); LYMPH % 44.6 % (20.0-40.0); MEAN CELL VOLUME 85.3 fL (80.0-94.0); MEAN CORPUSCULAR HEMOGLOBIN 28.1 pg (27.0-31.0); MEAN PLATELET VOLUME 7.3 fL (7.2-11.7); MONO # 0.5 K/uL (0.0-0.8); MONO % 7.9 % (0.0-10.0); NEUT # 2.8 K/uL (1.8-7.0); NEUT % 44.7 % (50.0-75.0); NRBC % 0.1 % (0.0-2.0); RBC 3.58 Mil/uL (4.40-5.90); RED CELL DISTRIBUTION WIDTH 15.7 % (11.5-14.5); WHITE BLOOD COUNT 6.3 K/uL (4.8-10.8)
[2018-10-20 07:07] LABS: ALB/GLOB RATIO 0.7 (1.0-2.1); ALBUMIN 2.7 g/dL (3.5-5.0); ALT/SGPT 65 U/L (21-72); AST/SGOT 107 U/L (17-59); BLOOD UREA NITROGEN 5 mg/dL (9-20); GFR NON-AFRICAN AMERICAN > 60
--- NOTE | 2018-10-20 08:09 | CP.PCM.PN ---
Subjective - Date & Time of Evaluation Date of Evaluation: 10/20/18 Time of Evaluation: 06:20 - Subjective Subjective: General Surgery Pt seen and examined. NAEO. No new complaints Objective - Vital Signs/Intake and Output Vital Signs (last 24 hours): Temp Pulse Resp BP Pulse Ox 98.2 F 67 20 104/62 98 10/19/18 23:10 10/19/18 23:10 10/19/18 23:10 10/19/18 23:10 10/19/18 23:10 Intake and Output: 10/20/18 10/20/18 06:59 18:59 Intake Total 600 Output Total 20 Balance 580 - Medications Medications: Current Medications Acetaminophen (Tylenol 325mg Tab) 650 mg PO Q6 PRN PRN Reason: Pain, Mild (1-3) Last Admin: 10/19/18 23:16 Dose: 650 mg Aspirin (Ecotrin) 81 mg PO DAILY [facility] Last Admin: 10/19/18 09:56 Dose: Not Given Dabigatran (Pradaxa) 150 mg PO DAILY [facility] Last Admin: 10/18/18 09:29 Dose: Not Given Enalapril Maleate (Vasotec) 10 mg PO DAILY [facility] Last Admin: 10/19/18 16:33 Dose: 10 mg Guaifenesin/Dextromethorphan (Robitussin Dm) 10 ml PO Q4H PRN PRN Reason: Cough and congestion Last Admin: 10/17/18 00:02 Dose: 10 ml Metronidazole (Flagyl) 500 mg in 100 mls @ 100 mls/hr IVPB Q8H [facility]; Protocol Last Admin: 10/19/18 23:45 Dose: 100 mls/hr Meropenem 1 gm/ Sodium (Chloride) 100 mls @ 100 mls/hr IVPB Q8H [facility]; Protocol Last Admin: 10/20/18 02:36 Dose: 100 mls/hr Lactobacillus Acidophilus (Bacid Acidophilus) 1 cap PO BID [facility] Last Admin: 10/19/18 18:10 Dose: 1 cap Metoprolol Succinate (Toprol Xl) 50 mg PO DAILY [facility] Last Admin: 10/19/18 16:32 Dose: 50 mg Pantoprazole Sodium (Protonix Inj) 40 mg IVP DAILY [facility] Last Admin: 10/18/18 09:26 Dose: 40 mg Rosuvastatin Calcium (Crestor) 10 mg PO HS [facility] Last Admin: 10/19/18 22:38 Dose: 10 mg Tamsulosin HCl (Flomax) 0.4 mg PO DAILY [facility] Last Admin: 10/19/18 09:56 Dose: Not Given Zolpidem Tartrate (Ambien) 5 mg PO HS PRN PRN Reason: Insomnia Last Admin: 10/19/18 22:38 Dose: 5 mg - Labs Labs: 10/20/18 06:40 10/20/18 06:40 PT 16.4 SECONDS (9.7-12.2) H 10/14/18 10:58 INR 1.5 10/14/18 10:58 APTT 31 SECONDS (21-34) 10/14/18 10:58 - Constitutional Appears: Non-toxic, No Acute Distress - Head Exam Head Exam: ATRAUMATIC, NORMOCEPHALIC - Eye Exam Eye Exam: EOMI. absent: Scleral icterus - Respiratory Exam Respiratory Exam: NORMAL BREATHING PATTERN. absent: Respiratory Distress - GI/Abdominal Exam GI & Abdominal Exam: Soft. absent: Distended, Tenderness Additional comments: IR drain in place with 40cc serous fluid - Neurological Exam Neurological Exam: Alert, Awake, Oriented x3 - Skin Skin Exam: Dry, Warm Assessment and Plan - Assessment and Plan (Free Text) Assessment: 78M s/p Lap Marisela 09/13/18, admitted 10/13 with SOB and noted to have perihepatic collection. S/p IR drain placement Plan: - Monitor Drain outputs. - No further surgical intervention warranted at this time. May DC home with drain in place. - Follow up with Dr. Haq in clinic 5 days after discharge. Patient may call for appointment D/W Dr. Severino Martini PGY4
[2018-10-20] MEDS: metroNIDAZOLE IV 500 mg/100 ml 500 MG/100 ML BAG IVPB SCH ×2 (09:45→17:15)
[2018-10-20] MEDS: Lactobacillus Acidophilus 500 MU Cap PO SCH ×2 (10:19→17:14)
[2018-10-20] MEDS: Metoprolol Succinate 50 mg XL Tab PO SCH (10:19)
--- NOTE | 2018-10-20 10:21 | CP.PCM.PN ---
Subjective - Date & Time of Evaluation Date of Evaluation: 10/20/18 Time of Evaluation: 07:00 - Subjective Subjective: PGY-[address] Rashid Patient seen and examined at bedside. No acute distress. No overnight events. Tolerating diet. Patient reports abdominal bloating. FRANCA drain in place. Denies abdominal pain or irritation at the site of franca drain. Diarrhea from yesterday resolved. Denies fever, chills, headache, chest pain, dyspnea, abdominal pain, nausea/vomiting, diarrhea/constipation. 12-point review of systems is otherwise negative without any additional acute complaints. Objective - Vital Signs/Intake and Output Vital Signs (last 24 hours): Temp Pulse Resp BP Pulse Ox 98.1 F 67 18 135/65 97 10/20/18 07:45 10/20/18 07:45 10/20/18 07:45 10/20/18 07:45 10/20/18 07:45 Intake and Output: 10/20/18 10/20/18 06:59 18:59 Intake Total 600 Output Total 20 Balance 580 - Medications Medications: Current Medications Acetaminophen (Tylenol 325mg Tab) 650 mg PO Q6 PRN PRN Reason: Pain, Mild (1-3) Last Admin: 10/19/18 23:16 Dose: 650 mg Aspirin (Ecotrin) 81 mg PO DAILY [facility] Last Admin: 10/19/18 09:56 Dose: Not Given Dabigatran (Pradaxa) 150 mg PO DAILY [facility] Last Admin: 10/18/18 09:29 Dose: Not Given Enalapril Maleate (Vasotec) 10 mg PO DAILY [facility] Last Admin: 10/19/18 16:33 Dose: 10 mg Guaifenesin/Dextromethorphan (Robitussin Dm) 10 ml PO Q4H PRN PRN Reason: Cough and congestion Last Admin: 10/17/18 00:02 Dose: 10 ml Metronidazole (Flagyl) 500 mg in 100 mls @ 100 mls/hr IVPB Q8H [facility]; Protocol Last Admin: 10/20/18 09:45 Dose: 100 mls/hr Meropenem 1 gm/ Sodium (Chloride) 100 mls @ 100 mls/hr IVPB Q8H [facility]; Protocol Last Admin: 10/20/18 02:36 Dose: 100 mls/hr Lactobacillus Acidophilus (Bacid Acidophilus) 1 cap PO BID [facility] Last Admin: 10/19/18 18:10 Dose: 1 cap Metoprolol Succinate (Toprol Xl) 50 mg PO DAILY [facility] Last Admin: 10/19/18 16:32 Dose: 50 mg Pantoprazole Sodium (Protonix Inj) 40 mg IVP DAILY [facility] Last Admin: 10/18/18 09:26 Dose: 40 mg Rosuvastatin Calcium (Crestor) 10 mg PO HS [facility] Last Admin: 10/19/18 22:38 Dose: 10 mg Tamsulosin HCl (Flomax) 0.4 mg PO DAILY [facility] Last Admin: 10/19/18 09:56 Dose: Not Given Zolpidem Tartrate (Ambien) 5 mg PO HS PRN PRN Reason: Insomnia Last Admin: 10/19/18 22:38 Dose: 5 mg - Labs Labs: 10/20/18 06:40 10/20/18 06:40 PT 16.4 SECONDS (9.7-12.2) H 10/14/18 10:58 INR 1.5 10/14/18 10:58 APTT 31 SECONDS (21-34) 10/14/18 10:58 - Additional Findings Additional findings: - Constitutional Appears: Non-toxic, No Acute Distress - Head Exam Head Exam: ATRAUMATIC, NORMOCEPHALIC - Eye Exam Eye Exam: EOMI - ENT Exam ENT Exam: Mucous Membranes Moist - Respiratory Exam Respiratory Exam: Clear to Ausculation Bilateral, NORMAL BREATHING PATTERN. absent: Rhonchi, Wheezes - Cardiovascular Exam Cardiovascular Exam: REGULAR RHYTHM, +S1, +S2 - GI/Abdominal Exam GI & Abdominal Exam: Soft, Normal Bowel Sounds. absent: Tenderness Additional comments: FRANCA draining 15ml serosanguinous fluid. No erythema at FRANCA site - Extremities Exam Extremities Exam: absent: Pedal Edema, Tenderness - Neurological Exam Neurological Exam: Alert, Awake, Oriented x3 - Psychiatric Exam Psychiatric exam: Normal Affect, Normal Mood - Skin Skin Exam: Dry, Intact Assessment and Plan - Assessment and Plan (Free Text) Assessment: 78 yo Hisp Male with recent lap cesar, h/o biliary stent, CAD s/p CABG on dabigatran presenting with shortness of breath and abd pain. Perihepatic abscess with Fluid Collection s/p laparoscopic cholecystectomy 10/20: Patient draining serosanguanous fluid into drain. Continue to monitor output. Perihepatic abscess fluid culture positive for Enterococcus faecalis, E. coli, and Enterobacter cloacae. Patient to continue IV Meropenem for 4 weeks. - s/p lap cesar 09/13/18, biliary stent 09/2016 - CT abdomen/pelvis on admission: 12.0 x 8.0 x 14.2 cm loculated fluid collection with air fluid level in subcapsular right hepatic lobe concernng for an abscess, large right and small left pleural effusion - repeat CT abd/pel w/ PO and IV contrast - Large subscapula/perihepatic cyst loculated fluid collection with air-fluid level in the right hepatic lobe suspicious for complex bilioma vs abscess -HIDA Scan 10/15: Findings suspicious for bile leak. There is pooling of radionuclide in the gallbladder fossa and amorphous collection of radionuclide anteriorly and laterally on the left. - IR consulted, Dr Castaneda -10/16/18- patient underwent CT guided drainage of right perihepatic collection with removal of 20 cc of purulent drainage from abdominal abscess - Gen Sx consulted, Dr. Haq -Hida scan shows possible leak in location of FRANCA drain. Drainage should decrease with time. Monitor drainage. - GI consulted, Dr. Vera - HIDA scan reviewed, possible bile leak yudy-laterally. Will co ntinue to monitor FRANCA output. - Fluid Micro pending - Gen Surg Consulted - Diet and Abx per primary/surgery - Monitor labs - ID Jing consulted - will follow up recs - Zosyn IVPB Q6hrs - Metronidazole IVPB Q8h - blood cultures- No growth x4days - perihepatic collection prelim: Enterococcus faecalis, gram neg kelley - S/p HIDA scan today 10/19 - f/u official report - -per surgery, no surgical intervention at this time - -Resumed heart heatlthy diet Acute Anemia 10/20: Negative for acute upper GIB and no surgical intervention at this time. 10/19: Anticoagulation restarted Patient now on HHD. S/p EDG and HIDA - - Patient had initially stated having black stools, now saying they are brown - -Patient did have acute drop in HgB yesterday with FOBT positive - Hgb drop from 9.2 to 8.3 -S/p EGD today 10/19 - Evidence of gastritis, biopsied. Normal esophagus, normal d uodenum. (see full report). - AC held this morning - per GI, ok to resume Pradaxa/ASA- - He will require outpatient colonoscopy - Protonix 40mg Pleural Effusions - CT abd/pelvis: Large right and small left pleural effusion - likely due to RUQ fluid collection - management as mentioned above - CT guided thoracentesis with removal of 1100 cc of serosanguinous pleural fluid on 10/16 -pleural fluid culture: no growth 48H Bilateral lower extremity edema -Venous duplex 10/15: No evidence of deep or superficial vein CAD - ECHO 09/10/18: LV systolic function is normal. EF is 50-55%. No aortic regurgitation. Abnormal prosthetic aortic valve gradients. Mitral Annular calcification is mild to moderate. Mitral regurgitation is mild. There is mild to moderate tricuspid regurgitation. There is mild pulmonary htn. Mild pulmonic valvular regurgitation. - crestor 10mg PO HS - Continue to hold home pradaxa 150mg PO daily- patient with complaint of black bowel movement 10/18/18 HTN 10/20: BP stable, continue to monitor. enalapril 10mg PO daily metoprolol succinate 50mg PO daily hx of BPH - Flomax .4mg PO daily [facility] - crestor 10mg PO HS PPX GI: protonix DVT: lovenox discontinued HHD restarted Lactobacillus 1 cap PO BID PT eval and treat - continue treatments - will f/u Disposition: Patient draining serosanguanous fluid into drain. Continue to monitor. As per vice president residential [employer], patient will likely remain with FRANCA drain for several weeks. As per ID, Patient to continue IV Meropenem for 4 weeks. Patient got PICC line today and SW working on placement to [facility]. Case discussed with Dr. Rashid. Na Moreno, PGY-1.
[2018-10-20 10:38] LABS: GAMMA GLUTAMYL TRANSPEPTIDASE 184 U/L (8-78)
--- NOTE | 2018-10-20 11:54 | CP.PCM.PN ---
<Augie Tyson - Last Filed: 10/20/18 11:50> Subjective - Date & Time of Evaluation Date of Evaluation: 10/20/18 Time of Evaluation: 11:50 - Subjective Subjective: GI Fellow PGY4, progress note. Patient is feeling well. No complaints. Still with RICARDO drain in place. No fevers, abdominal pain. 5pt ROS completed and negative except for above. Objective - Vital Signs/Intake and Output Vital Signs (last 24 hours): Temp Pulse Resp BP Pulse Ox 98.1 F 67 18 129/80 97 10/20/18 07:45 10/20/18 07:45 10/20/18 07:45 10/20/18 10:19 10/20/18 07:45 Intake and Output: 10/20/18 10/20/18 06:59 18:59 Intake Total 600 Output Total 20 Balance 580 - Medications Medications: Current Medications Acetaminophen (Tylenol 325mg Tab) 650 mg PO Q6 PRN PRN Reason: Pain, Mild (1-3) Last Admin: 10/19/18 23:16 Dose: 650 mg Aspirin (Ecotrin) 81 mg PO DAILY [facility] Last Admin: 10/20/18 10:19 Dose: 81 mg Dabigatran (Pradaxa) 150 mg PO DAILY [facility] Enalapril Maleate (Vasotec) 10 mg PO DAILY [facility] Last Admin: 10/20/18 10:19 Dose: 10 mg Guaifenesin/Dextromethorphan (Robitussin Dm) 10 ml PO Q4H PRN PRN Reason: Cough and congestion Last Admin: 10/17/18 00:02 Dose: 10 ml Metronidazole (Flagyl) 500 mg in 100 mls @ 100 mls/hr IVPB Q8H [facility]; Protocol Last Admin: 10/20/18 09:45 Dose: 100 mls/hr Meropenem 1 gm/ Sodium (Chloride) 100 mls @ 100 mls/hr IVPB Q8H [facility]; Protocol Last Admin: 10/20/18 10:19 Dose: 100 mls/hr Lactobacillus Acidophilus (Bacid Acidophilus) 1 cap PO BID [facility] Last Admin: 10/20/18 10:19 Dose: 1 cap Metoprolol Succinate (Toprol Xl) 50 mg PO DAILY [facility] Last Admin: 10/20/18 10:19 Dose: 50 mg Pantoprazole Sodium (Protonix Inj) 40 mg IVP DAILY [facility] Last Admin: 10/18/18 09:26 Dose: 40 mg Rosuvastatin Calcium (Crestor) 10 mg PO HS [facility] Last Admin: 10/19/18 22:38 Dose: 10 mg Tamsulosin HCl (Flomax) 0.4 mg PO DAILY [facility] Last Admin: 10/20/18 10:19 Dose: 0.4 mg Zolpidem Tartrate (Ambien) 5 mg PO HS PRN PRN Reason: Insomnia Last Admin: 10/19/18 22:38 Dose: 5 mg - Labs Labs: 10/20/18 06:40 10/20/18 06:40 PT 16.4 SECONDS (9.7-12.2) H 10/14/18 10:58 INR 1.5 10/14/18 10:58 APTT 31 SECONDS (21-34) 10/14/18 10:58 - Constitutional Appears: Well, Non-toxic - Head Exam Head Exam: ATRAUMATIC, NORMAL INSPECTION - Eye Exam Eye Exam: EOMI, Normal appearance - ENT Exam ENT Exam: Mucous Membranes Moist, Normal Exam - Respiratory Exam Respiratory Exam: Clear to Ausculation Bilateral, NORMAL BREATHING PATTERN - Cardiovascular Exam Cardiovascular Exam: REGULAR RHYTHM, +S1, +S2 - GI/Abdominal Exam GI & Abdominal Exam: Soft, Normal Bowel Sounds. absent: Tenderness - Extremities Exam Extremities Exam: Pedal Edema. absent: Tenderness - Neurological Exam Neurological Exam: Alert, Awake, Oriented x3 - Psychiatric Exam Psychiatric exam: Normal Affect, Normal Mood - Skin Skin Exam: Normal Color, Warm Assessment and Plan - Assessment and Plan (Free Text) Assessment: 78 yo Hisp Male with recent lap cesar, h/o biliary stent, CAD s/p CABG on dabigatran presenting with shortness of breath and abd pain. #Perihepatic fluid collection, Pleural effusion: Suspect related to post-op complication of lap cesar with resulting abscess. #Possible Bile leak #CBD stent Plan: - CT reviewed, reported metallic CBD stent in good position. - Repeat HIDA shows interval improvement in leak. RICARDO drain functioning well. - S/P IR drain with foul smelling purulent fluid. Cultures growing multiple species. - Gen Surg Consulted. Recommends patient can be d/c to rehab with drain in place. - Diet and Abx per ID. - Monitor labs AST/alk phos at rehab facility. - OK to restart anticoagulation from GI perspective - Must have colonoscopy as an outpatient. - Follow up with Dr. Vera in 1 month. - OK to d/c per GI. Signing off, please reconsult as needed. Pt discussed with Dr. Vera; please see attestation for further recs/changes. <Rajan Vera - Last Filed: 10/20/18 13:14> Objective - Vital Signs/Intake and Output Vital Signs (last 24 hours): Temp Pulse Resp BP Pulse Ox 98.1 F 67 18 129/80 97 10/20/18 07:45 10/20/18 07:45 10/20/18 07:45 10/20/18 10:19 10/20/18 07:45 Intake and Output: 10/20/18 10/20/18 06:59 18:59 Intake Total 600 Output Total 20 Balance 580 - Medications Medications: Current Medications Acetaminophen (Tylenol 325mg Tab) 650 mg PO Q6 PRN PRN Reason: Pain, Mild (1-3) Last Admin: 10/19/18 23:16 Dose: 650 mg Aspirin (Ecotrin) 81 mg PO DAILY [facility] Last Admin: 10/20/18 10:19 Dose: 81 mg Dabigatran (Pradaxa) 150 mg PO DAILY [facility] Enalapril Maleate (Vasotec) 10 mg PO DAILY [facility] Last Admin: 10/20/18 10:19 Dose: 10 mg Guaifenesin/Dextromethorphan (Robitussin Dm) 10 ml PO Q4H PRN PRN Reason: Cough and congestion Last Admin: 10/17/18 00:02 Dose: 10 ml Metronidazole (Flagyl) 500 mg in 100 mls @ 100 mls/hr IVPB Q8H [facility]; Protocol Last Admin: 10/20/18 09:45 Dose: 100 mls/hr Meropenem 1 gm/ Sodium (Chloride) 100 mls @ 100 mls/hr IVPB Q8H [facility]; Protocol Last Admin: 10/20/18 10:19 Dose: 100 mls/hr Lactobacillus Acidophilus (Bacid Acidophilus) 1 cap PO BID [facility] Last Admin: 10/20/18 10:19 Dose: 1 cap Metoprolol Succinate (Toprol Xl) 50 mg PO DAILY [facility] Last Admin: 10/20/18 10:19 Dose: 50 mg Pantoprazole Sodium (Protonix Inj) 40 mg IVP DAILY [facility] Last Admin: 10/18/18 09:26 Dose: 40 mg Rosuvastatin Calcium (Crestor) 10 mg PO HS [facility] Last Admin: 10/19/18 22:38 Dose: 10 mg Tamsulosin HCl (Flomax) 0.4 mg PO DAILY [facility] Last Admin: 10/20/18 10:19 Dose: 0.4 mg Zolpidem Tartrate (Ambien) 5 mg PO HS PRN PRN Reason: Insomnia Last Admin: 10/19/18 22:38 Dose: 5 mg - Labs Labs: 10/20/18 06:40 10/20/18 06:40 PT 16.4 SECONDS (9.7-12.2) H 10/14/18 10:58 INR 1.5 10/14/18 10:58 APTT 31 SECONDS (21-34) 10/14/18 10:58 Attending/Attestation - Attestation I have personally seen and examined this patient.: Yes I have fully participated in the care of the patient.: Yes I have reviewed all pertinent clinical information, including history, physical exam and plan: Yes Notes (Text): 10/20/18 13:10 I have seen and examined patient with GI fellow. No acute events overnight, he is seen resting in bed comfortably. He denies abdominal pain, nausea, vomiting, fever/chills. Tolerating PO diet without difficulty. Abdominal drain with scant serosanguinous output. Review of vitals from today are normal. CAD/CABG Abdominal pain, s/p cholecystectomy Anemia - s/p EGD yesterday showing gastritis Lily-hepatic fluid collection, abscess vs biloma s/p IR guided drain placement - Diet as tolerated - LFTs stable, continue to monitor - Follow up EGD biopsy results - Follow up ID recommendations regarding duration of antibiotic therapy - Follow up surgical recommendations regarding drain removal - Repeat HIDA reviewed by me showing no ongoing biliary leak - Patient would benefit from further outpatient follow up, clarification of currently placed metallic biliary stent, and colonoscopy. No further GI interventions planned at this time, will sign off case. Please reconsult as necessary, thank you.
--- NOTE | 2018-10-20 13:34 | RAD ---
Date of service: 10/20/2018 HISTORY: verify right PICC COMPARISON: 10/13/2018 FINDINGS: Right PICC line terminates in the SVC. LUNGS: The lungs are well inflated and clear. PLEURA: There is a moderate right pleural effusion small left pleural effusion. No pneumothorax. CARDIOVASCULAR: Moderate cardiomegaly. Status post CABG. There is stable position of left-sided permanent pacing device. There are aortic atherosclerotic calcifications present. OSSEOUS STRUCTURES: Within normal limits for the patient's age. VISUALIZED UPPER ABDOMEN: Normal. OTHER FINDINGS: A pigtail catheter overlies the right upper quadrant. IMPRESSION: Little interval change in moderate right pleural effusion. Persistent moderate cardiomegaly and small left pleural effusion Right PICC line terminates in the SVC.
--- NOTE | 2018-10-20 19:52 | CP.PCM.PN ---
Subjective - Date & Time of Evaluation Date of Evaluation: 10/20/18 Time of Evaluation: 15:00 - Subjective Subjective: dictated Objective - Vital Signs/Intake and Output Vital Signs (last 24 hours): Temp Pulse Resp BP Pulse Ox 98.7 F 64 18 105/61 95 10/20/18 16:10 10/20/18 16:10 10/20/18 16:10 10/20/18 16:10 10/20/18 16:10 Intake and Output: 10/20/18 10/21/18 18:59 06:59 Intake Total 500 Balance 500 - Medications Medications: Current Medications Acetaminophen (Tylenol 325mg Tab) 650 mg PO Q6 PRN PRN Reason: Pain, Mild (1-3) Last Admin: 10/20/18 15:02 Dose: 650 mg Aspirin (Ecotrin) 81 mg PO DAILY [facility] Last Admin: 10/20/18 10:19 Dose: 81 mg Dabigatran (Pradaxa) 150 mg PO DAILY [facility] Last Admin: 10/20/18 17:14 Dose: 150 mg Enalapril Maleate (Vasotec) 10 mg PO DAILY [facility] Last Admin: 10/20/18 10:19 Dose: 10 mg Guaifenesin/Dextromethorphan (Robitussin Dm) 10 ml PO Q4H PRN PRN Reason: Cough and congestion Last Admin: 10/17/18 00:02 Dose: 10 ml Metronidazole (Flagyl) 500 mg in 100 mls @ 100 mls/hr IVPB Q8H [facility]; Protocol Last Admin: 10/20/18 17:15 Dose: 100 mls/hr Meropenem 1 gm/ Sodium (Chloride) 100 mls @ 100 mls/hr IVPB Q8H [facility]; Protocol Last Admin: 10/20/18 18:21 Dose: 100 mls/hr Lactobacillus Acidophilus (Bacid Acidophilus) 1 cap PO BID [facility] Last Admin: 10/20/18 17:14 Dose: 1 cap Metoprolol Succinate (Toprol Xl) 50 mg PO DAILY [facility] Last Admin: 10/20/18 10:19 Dose: 50 mg Pantoprazole Sodium (Protonix Inj) 40 mg IVP DAILY [facility] Last Admin: 10/18/18 09:26 Dose: 40 mg Rosuvastatin Calcium (Crestor) 10 mg PO HS [facility] Last Admin: 01/03/19 22:38 Dose: 10 mg Tamsulosin HCl (Flomax) 0.4 mg PO DAILY [facility] Last Admin: 10/20/18 10:19 Dose: 0.4 mg Zolpidem Tartrate (Ambien) 5 mg PO HS PRN PRN Reason: Insomnia Last Admin: 10/19/18 22:38 Dose: 5 mg - Labs Labs: 10/20/18 06:40 10/20/18 06:40 PT 16.4 SECONDS (9.7-12.2) H 10/14/18 10:58 INR 1.5 10/14/18 10:58 APTT 31 SECONDS (21-34) 10/14/18 10:58
[2018-10-21] MEDS: metroNIDAZOLE IV 500 mg/100 ml 500 MG/100 ML BAG IVPB SCH ×3 (00:30→17:02)
[2018-10-21 01:40] VITALS: RESP 20
--- NOTE | 2018-10-21 01:40 | PN ---
DATE: 10/20/2018 SUBJECTIVE: The patient was seen today. He says his pain is much better today. He also had a HIDA scan and the nurse told me that it was better, I will review the report at this time and I am writing the note. He has no nausea, no vomiting. He still has leg edema bilaterally. PHYSICAL EXAMINATION: VITAL SIGNS: T-max is 98.7, pulse 64 today, blood pressure 105/61, respirations are 18. HEENT: Head is atraumatic and normocephalic. NECK: Supple. He has got a PICC line now. LUNGS: Clear. Decreased breath sounds on right base. HEART: S1, S2 are present. He has a defibrillator. ABDOMEN: He has a RICARDO drain. Soft, nontender. No guarding, no rigidity present. EXTREMITIES: Bilateral edema at this time. ASSESSMENT AND PLAN: He is with recent laparoscopic cholecystectomy, history of biliary stent in the past, but he had a repeat hepatobiliary scan, which showed an interval improvement in leak. [place] drain is functioning well, and he is status post drainage of the hepatic abscess which has formed post laparoscopic cholecystectomy. The patient also has coronary artery disease, status post coronary artery bypass graft. He is on Pradaxa. He will need a colonoscopy as outpatient, but at this time he needs to be treated for the hepatic abscess and if there is no leak, he should improve. I would leave him on Merrem at this time, which is covering all the three organisms. He is to get meropenem 1 g. Right now, he is going to the assisted, so we will start with 1 g every 8 hours and need to monitor complete blood count, comprehensive metabolic panel, erythrocyte sedimentation rate, C-reactive protein weekly. We should reevaluate the computed axial tomography scan after 3 weeks and also the chest because he did have pleural effusion. He is a cardiac patient and needs to be monitored closely and peripherally inserted central catheter line to be discontinued when he is done with his antibiotics. I do not think he can manage himself, so he needs to go to a rehab. Leno Ch MD [facility] # [id number]
[2018-10-21] MEDS: Meropenem 1 GM in Sodium Chloride 0.9% 100 ML IVPB SCH ×3 (02:56→18:03)
--- NOTE | 2018-10-21 07:25 | CP.PCM.PN ---
Subjective - Date & Time of Evaluation Date of Evaluation: 10/21/18 Time of Evaluation: 07:23 - Subjective Subjective: PGY-[address] Rashid Patient seen and examined at bedside. No acute distress. No overnight events. Tolerating diet. RICARDO drain in place. Complaining of pain at the site of RICARDO drain relieved with Tylenol. Patient also complains of worsening lower extremity swelling L>R. Denies fever, chills, headache, chest pain, dyspnea, n ausea/vomiting, diarrhea/constipation. Objective - Vital Signs/Intake and Output Vital Signs (last 24 hours): Temp Pulse Resp BP Pulse Ox 98.0 F 63 20 112/60 95 10/20/18 23:20 10/20/18 23:20 10/20/18 23:20 10/20/18 23:20 10/20/18 16:10 Intake and Output: 10/21/18 10/21/18 06:59 18:59 Intake Total 500 Output Total 10 Balance 490 - Medications Medications: Current Medications Acetaminophen (Tylenol 325mg Tab) 650 mg PO Q6 PRN PRN Reason: Pain, Mild (1-3) Last Admin: 10/20/18 22:27 Dose: 650 mg Aspirin (Ecotrin) 81 mg PO DAILY [facility] Last Admin: 10/20/18 10:19 Dose: 81 mg Dabigatran (Pradaxa) 150 mg PO DAILY [facility] Last Admin: 10/20/18 17:14 Dose: 150 mg Enalapril Maleate (Vasotec) 10 mg PO DAILY [facility] Last Admin: 10/20/18 10:19 Dose: 10 mg Guaifenesin/Dextromethorphan (Robitussin Dm) 10 ml PO Q4H PRN PRN Reason: Cough and congestion Last Admin: 10/17/18 00:02 Dose: 10 ml Metronidazole (Flagyl) 500 mg in 100 mls @ 100 mls/hr IVPB Q8H [facility]; Protocol Last Admin: 10/21/18 00:30 Dose: 100 mls/hr Meropenem 1 gm/ Sodium (Chloride) 100 mls @ 100 mls/hr IVPB Q8H [facility]; Protocol Last Admin: 10/21/18 02:56 Dose: 100 mls/hr Lactobacillus Acidophilus (Bacid Acidophilus) 1 cap PO BID [facility] Last Admin: 10/20/18 17:14 Dose: 1 cap Metoprolol Succinate (Toprol Xl) 50 mg PO DAILY [facility] Last Admin: 10/20/18 10:19 Dose: 50 mg Pantoprazole Sodium (Protonix Inj) 40 mg IVP DAILY [facility] Last Admin: 10/18/18 09:26 Dose: 40 mg Rosuvastatin Calcium (Crestor) 10 mg PO HS [facility] Last Admin: 10/20/18 21:22 Dose: 10 mg Tamsulosin HCl (Flomax) 0.4 mg PO DAILY [facility] Last Admin: 10/20/18 10:19 Dose: 0.4 mg Zolpidem Tartrate (Ambien) 5 mg PO HS PRN PRN Reason: Insomnia Last Admin: 10/20/18 21:22 Dose: 5 mg - Labs Labs: 10/20/18 06:40 10/20/18 06:40 PT 16.4 SECONDS (9.7-12.2) H 10/14/18 10:58 INR 1.5 10/14/18 10:58 APTT 31 SECONDS (21-34) 10/14/18 10:58 - Additional Findings Additional findings: - Constitutional Appears: Non-toxic, No Acute Distress - Head Exam Head Exam: ATRAUMATIC, NORMOCEPHALIC - Eye Exam Eye Exam: EOMI - ENT Exam ENT Exam: Mucous Membranes Moist - Respiratory Exam Respiratory Exam: Clear to Ausculation Bilateral, NORMAL BREATHING PATTERN. absent: Rhonchi, Wheezes - Cardiovascular Exam Cardiovascular Exam: REGULAR RHYTHM, +S1, +S2 - GI/Abdominal Exam GI & Abdominal Exam: Soft, Normal Bowel Sounds. absent: Tenderness Additional comments: RICARDO draining 35ml serosanguinous fluid. No erythema at RICARDO site - Extremities Exam Extremities Exam: 1+ LLE pitting edema. Trace RLE pitting edema. PICC line RUE. - Neurological Exam Neurological Exam: Alert, Awake, Oriented x3 - Psychiatric Exam Psychiatric exam: Normal Affect, Normal Mood - Skin Skin Exam: Dry, Intact Assessment and Plan - Assessment and Plan (Free Text) Plan: 78 yo Hisp Male with recent lap cesar, h/o biliary stent, CAD s/p CABG on dabigatran presenting with shortness of breath and abd pain. Perihepatic abscess with Fluid Collection s/p laparoscopic cholecystectomy 10/20: Patient draining serosanguanous fluid into drain. Continue to monitor output. Perihepatic abscess fluid culture positive for Enterococcus faecalis, E. coli, and Enterobacter cloacae. Patient to continue IV Meropenem for 4 weeks. - s/p lap cesar 09/13/18, biliary stent 09/2016 - CT abdomen/pelvis on admission: 12.0 x 8.0 x 14.2 cm loculated fluid collection with air fluid level in subcapsular right hepatic lobe concernng for an abscess, large right and small left pleural effusion - repeat CT abd/pel w/ PO and IV contrast - Large subscapula/perihepatic cyst loculated fluid collection with air-fluid level in the right hepatic lobe suspicious for complex bilioma vs abscess -HIDA Scan 10/15: Findings suspicious for bile leak. There is pooling of radionuclide in the gallbladder fossa and amorphous collection of radionuclide anteriorly and laterally on the left. - IR consulted, Dr Castaneda -10/16/18- patient underwent CT guided drainage of right perihepatic collection with removal of 20 cc of purulent drainage from abdominal abscess - Gen Sx consulted, Dr. Haq -Hida scan shows possible leak in location of RICARDO drain. Drainage should decrease with time. Monitor drainage. - GI consulted, Dr. Vera - DALJIT Ch, consulted - 4 weeks of out patient antibiotics -Meropenem 1g IV Q8H due to sensitivities -Zosyn IVPB Q6hrs and Metronidazole IVPB Q8h discontinued - blood cultures- No growth x5days - perihepatic collection prelim: Enterococcus faecalis, E. coli, and Enteroba cter cloacae. Acute Anemia 10/20: Negative for acute upper GIB and no surgical intervention at this time. 10/19: Anticoagulation restarted Patient now on HHD. S/p EDG and HIDA - Patient had initially stated having black stools, now saying they are brown - Patient did have acute drop in HgB yesterday with FOBT positive - Hgb drop from 9.2 to 8.3 -EGD 10/19 - Evidence of gastritis, biopsied. Normal esophagus, normal duodenum. (see full report). - He will require outpatient colonoscopy - Protonix 40mg Pleural Effusions - CT abd/pelvis: Large right and small left pleural effusion - likely due to RUQ fluid collection - management as mentioned above - CT guided thoracentesis with removal of 1100 cc of serosanguinous pleural fluid on 10/16 -pleural fluid culture: no growth 48H Bilateral lower extremity edema 10/21: Worsening LE edema-> follow up repeat venous duplex -Venous duplex 10/15: No evidence of deep or superficial vein CAD - ECHO 09/10/18: LV systolic function is normal. EF is 50-55%. No aortic regurgitation. Abnormal prosthetic aortic valve gradients. Mitral Annular calcification is mild to moderate. Mitral regurgitation is mild. There is mild to moderate tricuspid regurgitation. There is mild pulmonary htn. Mild pulmonic valvular regurgitation. - crestor 10mg PO HS - Continue to hold home pradaxa 150mg PO daily- patient with complaint of black bowel movement 10/18/18 HTN 10/20: BP stable, continue to monitor. enalapril 10mg PO daily metoprolol succinate 50mg PO daily hx of BPH - Flomax .4mg PO daily HLD - crestor 10mg PO HS PPX GI: protonix DVT: lovenox discontinued HHD restarted Lactobacillus 1 cap PO BID PT eval and treat - continue treatments Disposition: F/u LE duplex, due to increased LE edema. As per ID, will need IV antibiotics for 4 weeks. Patient to continue IV Meropenem 1g Q8H for now. Patient has PICC line in place. He has placement at [facility] for Tuesday. Case discussed with Dr. Rashid. Na Moreno, PGY-1.
[2018-10-21 08:14] LABS: BASO % 0.9 % (0.0-2.0); EOS # 0.1 K/uL (0.0-0.7); EOS % 2.3 % (0.0-4.0); HEMOGLOBIN 8.9 g/dL (12.0-18.0); LYMPH # 1.6 K/uL (1.0-4.3); MEAN CELL VOLUME 86.3 fL (80.0-94.0); MEAN CORPUSCULAR HEMOGLOBIN 27.4 pg (27.0-31.0); MEAN CORPUSCULAR HGB CONC 31.8 g/dL (33.0-37.0); MEAN PLATELET VOLUME 7.4 fL (7.2-11.7); MONO # 0.4 K/uL (0.0-0.8); NEUT # 2.6 K/uL (1.8-7.0); NEUT % 53.8 % (50.0-75.0); NRBC % 0.1 % (0.0-2.0); RBC 3.23 Mil/uL (4.40-5.90); WHITE BLOOD COUNT 4.8 K/uL (4.8-10.8)
[2018-10-21 08:32] LABS: ALB/GLOB RATIO 0.7 (1.0-2.1); ALBUMIN 2.5 g/dL (3.5-5.0); ALT/SGPT 48 U/L (21-72); AST/SGOT 54 U/L (17-59); BLOOD UREA NITROGEN 6 mg/dL (9-20); CALCIUM 7.8 mg/dl (8.6-10.4); GFR NON-AFRICAN AMERICAN > 60
[2018-10-21] MEDS: Lactobacillus Acidophilus 500 MU Cap PO SCH ×2 (10:39→18:01)
[2018-10-21] MEDS: Metoprolol Succinate 50 mg XL Tab PO SCH (10:39)
[2018-10-22] MEDS: metroNIDAZOLE IV 500 mg/100 ml 500 MG/100 ML BAG IVPB SCH ×3 (00:40→16:08)
[2018-10-22] MEDS: Meropenem 1 GM in Sodium Chloride 0.9% 100 ML IVPB SCH ×3 (02:51→17:12)
[2018-10-22] MEDS: Metoprolol Succinate 50 mg XL Tab PO SCH (09:10)
[2018-10-22] MEDS: Lactobacillus Acidophilus 500 MU Cap PO SCH ×2 (09:10→17:12)
[2018-10-22 09:21] LABS: BASO % 0.9 % (0.0-2.0); EOS # 0.1 K/uL (0.0-0.7); EOS % 2.1 % (0.0-4.0); HEMOGLOBIN 9.3 g/dL (12.0-18.0); LYMPH # 1.7 K/uL (1.0-4.3); LYMPH % 33.9 % (20.0-40.0); MEAN CELL VOLUME 87.1 fL (80.0-94.0); MEAN CORPUSCULAR HEMOGLOBIN 28.2 pg (27.0-31.0); MEAN CORPUSCULAR HGB CONC 32.4 g/dL (33.0-37.0); MEAN PLATELET VOLUME 7.3 fL (7.2-11.7); MONO # 0.3 K/uL (0.0-0.8); MONO % 6.3 % (0.0-10.0); NEUT # 2.8 K/uL (1.8-7.0); NEUT % 56.8 % (50.0-75.0); NRBC % 0.1 % (0.0-2.0); RBC 3.29 Mil/uL (4.40-5.90); RED CELL DISTRIBUTION WIDTH 16.6 % (11.5-14.5); WHITE BLOOD COUNT 4.9 K/uL (4.8-10.8)
[2018-10-22 09:53] LABS: ALB/GLOB RATIO 0.7 (1.0-2.1); ALBUMIN 2.7 g/dL (3.5-5.0); ALT/SGPT 51 U/L (21-72); AST/SGOT 49 U/L (17-59); BLOOD UREA NITROGEN 11 mg/dL (9-20); CALCIUM 7.8 mg/dl (8.6-10.4); GFR NON-AFRICAN AMERICAN > 60
--- NOTE | 2018-10-22 14:53 | CP.PCM.PN ---
Subjective - Date & Time of Evaluation Date of Evaluation: 10/22/18 Time of Evaluation: 14:15 - Subjective Subjective: dictated Objective - Vital Signs/Intake and Output Vital Signs (last 24 hours): Temp Pulse Resp BP Pulse Ox 98.2 F 62 20 119/63 95 10/22/18 07:00 10/22/18 07:00 10/22/18 07:00 10/22/18 09:10 10/22/18 07:00 Intake and Output: 10/22/18 10/22/18 06:59 18:59 Intake Total 880 Output Total 20 Balance 860 - Medications Medications: Current Medications Acetaminophen (Tylenol 325mg Tab) 650 mg PO Q6 PRN PRN Reason: Pain, Mild (1-3) Last Admin: 10/22/18 02:51 Dose: 650 mg Aspirin (Ecotrin) 81 mg PO DAILY [facility] Last Admin: 10/22/18 09:09 Dose: 81 mg Dabigatran (Pradaxa) 150 mg PO DAILY [facility] Last Admin: 10/22/18 09:10 Dose: 150 mg Enalapril Maleate (Vasotec) 10 mg PO DAILY [facility] Last Admin: 10/22/18 09:10 Dose: 10 mg Guaifenesin/Dextromethorphan (Robitussin Dm) 10 ml PO Q4H PRN PRN Reason: Cough and congestion Last Admin: 10/17/18 00:02 Dose: 10 ml Metronidazole (Flagyl) 500 mg in 100 mls @ 100 mls/hr IVPB Q8H [facility]; Protocol Last Admin: 10/22/18 08:49 Dose: 100 mls/hr Meropenem 1 gm/ Sodium (Chloride) 100 mls @ 100 mls/hr IVPB Q8H [facility]; Protocol Last Admin: 10/22/18 09:16 Dose: 100 mls/hr Lactobacillus Acidophilus (Bacid Acidophilus) 1 cap PO BID [facility] Last Admin: 10/22/18 09:10 Dose: 1 cap Metoprolol Succinate (Toprol Xl) 50 mg PO DAILY [facility] Last Admin: 10/22/18 09:10 Dose: 50 mg Pantoprazole Sodium (Protonix Inj) 40 mg IVP DAILY [facility] Last Admin: 10/18/18 09:26 Dose: 40 mg Rosuvastatin Calcium (Crestor) 10 mg PO HS [facility] Last Admin: 10/21/18 21:45 Dose: 10 mg Tamsulosin HCl (Flomax) 0.4 mg PO DAILY [facility] Last Admin: 10/22/18 09:10 Dose: 0.4 mg Zolpidem Tartrate (Ambien) 5 mg PO HS PRN PRN Reason: Insomnia Last Admin: 10/22/18 00:40 Dose: 5 mg - Labs Labs: 10/22/18 09:16 10/22/18 09:16 PT 16.4 SECONDS (9.7-12.2) H 10/14/18 10:58 INR 1.5 10/14/18 10:58 APTT 31 SECONDS (21-34) 10/14/18 10:58
--- NOTE | 2018-10-22 16:12 | CP.PCM.PN ---
Subjective - Date & Time of Evaluation Date of Evaluation: 10/22/18 Time of Evaluation: 07:05 - Subjective Subjective: PGY-[address] Rashid Patient seen and examined at bedside. No acute distress. No acute overnight events. Tolerating diet. RICARDO drain in place. States pain at the site of RICARDO drain has improved. Denies fever, chills, headache, chest pain, dyspnea, nausea/vomiting, diarrhea/constipation. Objective - Vital Signs/Intake and Output Vital Signs (last 24 hours): Temp Pulse Resp BP Pulse Ox 98.4 F 62 20 100/57 L 97 10/22/18 15:00 10/22/18 15:00 10/22/18 15:00 10/22/18 15:00 10/22/18 15:00 Intake and Output: 10/22/18 10/22/18 06:59 18:59 Intake Total 880 600 Output Total 20 5 Balance 860 595 - Medications Medications: Current Medications Acetaminophen (Tylenol 325mg Tab) 650 mg PO Q6 PRN PRN Reason: Pain, Mild (1-3) Last Admin: 10/22/18 02:51 Dose: 650 mg Aspirin (Ecotrin) 81 mg PO DAILY [facility] Last Admin: 10/22/18 09:09 Dose: 81 mg Dabigatran (Pradaxa) 150 mg PO DAILY [facility] Last Admin: 10/22/18 09:10 Dose: 150 mg Enalapril Maleate (Vasotec) 10 mg PO DAILY [facility] Last Admin: 10/22/18 09:10 Dose: 10 mg Guaifenesin/Dextromethorphan (Robitussin Dm) 10 ml PO Q4H PRN PRN Reason: Cough and congestion Last Admin: 10/17/18 00:02 Dose: 10 ml Metronidazole (Flagyl) 500 mg in 100 mls @ 100 mls/hr IVPB Q8H [facility]; Protocol Last Admin: 10/22/18 16:08 Dose: 100 mls/hr Meropenem 1 gm/ Sodium (Chloride) 100 mls @ 100 mls/hr IVPB Q8H [facility]; Protocol Last Admin: 10/22/18 09:16 Dose: 100 mls/hr Lactobacillus Acidophilus (Bacid Acidophilus) 1 cap PO BID [facility] Last Admin: 10/22/18 09:10 Dose: 1 cap Metoprolol Succinate (Toprol Xl) 50 mg PO DAILY [facility] Last Admin: 10/22/18 09:10 Dose: 50 mg Pantoprazole Sodium (Protonix Inj) 40 mg IVP DAILY [facility] Last Admin: 10/18/18 09:26 Dose: 40 mg Rosuvastatin Calcium (Crestor) 10 mg PO HS [facility] Last Admin: 10/21/18 21:45 Dose: 10 mg Tamsulosin HCl (Flomax) 0.4 mg PO DAILY [facility] Last Admin: 10/22/18 09:10 Dose: 0.4 mg Zolpidem Tartrate (Ambien) 5 mg PO HS PRN PRN Reason: Insomnia Last Admin: 10/22/18 00:40 Dose: 5 mg - Labs Labs: 10/22/18 09:16 10/22/18 09:16 PT 16.4 SECONDS (9.7-12.2) H 10/14/18 10:58 INR 1.5 10/14/18 10:58 APTT 31 SECONDS (21-34) 10/14/18 10:58 - Additional Findings Additional findings: - Constitutional Appears: Non-toxic, No Acute Distress - Head Exam Head Exam: ATRAUMATIC, NORMOCEPHALIC - Eye Exam Eye Exam: EOMI - ENT Exam ENT Exam: Mucous Membranes Moist - Respiratory Exam Respiratory Exam: Clear to Ausculation Bilateral, NORMAL BREATHING PATTERN. absent: Rhonchi, Wheezes - Cardiovascular Exam Cardiovascular Exam: REGULAR RHYTHM, +S1, +S2 - GI/Abdominal Exam GI & Abdominal Exam: Soft, Normal Bowel Sounds. absent: Tenderness Additional comments: RICARDO draining 5ml serosanguinous fluid. No erythema at RICARDO site - Extremities Exam Extremities Exam: 1+ LLE pitting edema. Trace RLE pitting edema. PICC line RUE. - Neurological Exam Neurological Exam: Alert, Awake, Oriented x3 - Psychiatric Exam Psychiatric exam: Normal Affect, Normal Mood - Skin Skin Exam: Dry, Intact Assessment and Plan - Assessment and Plan (Free Text) Plan: 78 yo Hisp Male with recent lap cesar, h/o biliary stent, CAD s/p CABG on dabigatran presenting with shortness of breath and abd pain. Perihepatic abscess with Fluid Collection s/p laparoscopic cholecystectomy - s/p lap cesar 09/13/18, biliary stent 09/2016 - CT abdomen/pelvis on admission: 12.0 x 8.0 x 14.2 cm loculated fluid collection with air fluid level in subcapsular right hepatic lobe concernng for an abscess, large right and small left pleural effusion - repeat CT abd/pel w/ PO and IV contrast - Large subscapula/perihepatic cyst loculated fluid collection with air-fluid level in the right hepatic lobe suspicious for complex bilioma vs abscess -HIDA Scan 10/15: Findings suspicious for bile leak. There is pooling of radionuclide in the gallbladder fossa and amorphous collection of radionuclide anteriorly and laterally on the left. - IR consulted, Dr Castaneda -10/16/18- patient underwent CT guided drainage of right perihepatic collection with removal of 20 cc of purulent drainage from abdominal abscess - Gen Sx consulted, Dr. Haq -Hida scan shows possible leak in location of RICARDO drain. Drainage should decrease with time. Monitor drainage. - GI consulted, Dr. Vera- management as per surgery - DALJIT Ch, consulted - 4 weeks of out patient antibiotics -Meropenem 1g IV Q8H due to sensitivities -Zosyn IVPB Q6hrs and Metronidazole IVPB Q8h discontinued Perihepatic abscess fluid culture Enterococcus faecalis, E. coli, and Enterobacter cloacae. Patient to continue IV Meropenem for 4 weeks. - blood cultures- No growth x5days - perihepatic collection prelim: Enterococcus faecalis, E. coli, and Enterobacter cloacae. Pleural Effusions - CT abd/pelvis: Large right and small left pleural effusion - likely due to RUQ fluid collection - management as mentioned above- CT guided thoracentesis with removal of 1100cc of serosanguinous pleural fluid on 10/16 -pleural fluid culture 10/16: no growth 48H -CXR 10/22: Small to moderate R sided pleural effusion and associated consolidation. Small L pleural effusion. L basilar atelectasis. (See full report) -Order placed for thoracentesis with IR for 10/25, Pradaxa held starting 10/23/17 Bilateral lower extremity edema 10/21: Worsening LE edema-> follow up repeat venous duplex -Venous duplex 10/15: No evidence of deep or superficial vein Acute Anemia - Patient had initially stated having black stools, now saying they are brown - Patient did have acute drop in HgB with FOBT positive - Hgb drop from 9.2 to 8.3 -EGD 10/19 - Evidence of gastritis, biopsied. Normal esophagus, normal duodenum. (see full report). - He will require outpatient colonoscopy - Protonix 40mg -10/19: Anticoagulation restarted Patient now on HHD. S/p EDG and HIDA -10/20: Negative for acute upper GIB and no surgical intervention at this time. CAD - ECHO 09/10/18: LV systolic function is normal. EF is 50-55%. No aortic regurgi tation. Abnormal prosthetic aortic valve gradients. Mitral Annular calcification is mild to moderate. Mitral regurgitation is mild. There is mild to moderate tricuspid regurgitation. There is mild pulmonary htn. Mild pulmonic valvular regurgitation. - crestor 10mg PO HS - Continue to hold home pradaxa 150mg PO daily- patient with complaint of black bowel movement 10/18/18 HTN -enalapril 10mg PO daily -metoprolol succinate 50mg PO daily hx of BPH - Flomax .4mg PO daily [facility] - crestor 10mg PO HS PPX GI: protonix DVT: Home pradaxa held for anticipated thoracentesis 10/25. HHD Lactobacillus 1 cap PO BID PT eval and treat - continue treatments Disposition: CXR: small to moderate R sided pleural effusion. Plan for thoracentesis 10/25. Pradaxa held starting 10/23. As per ID, will need IV antibi otics for 4 weeks. Patient to continue IV Meropenem 1g Q8H for now. Patient has PICC line in place for continuation of abx as outpatient at [facility]. Case discussed with Dr. Rashid. Na Moreno, PGY-1.
--- NOTE | 2018-10-22 18:07 | RAD ---
HISTORY: right pleural effusion COMPARISON: Chest x-ray performed 10/20/18 TECHNIQUE: Chest, one view. FINDINGS: Right-sided PICC the SVC. Right upper quadrant pigtail catheter. LUNGS: Small to moderate right-sided pleural effusion associated consolidation. Biapical pleural thickening. Small left pleural effusion. Left basilar atelectasis. No definite pneumothorax. CARDIOVASCULAR: Median sternotomy wires. Cardiomegaly. Atherosclerotic calcifications of the aorta. Dual lead left-sided pacemaker. OSSEOUS STRUCTURES: Degenerative changes. Osseous demineralization. VISUALIZED UPPER ABDOMEN: Unremarkable. OTHER FINDINGS: None. IMPRESSION: Small to moderate right-sided pleural effusion and associated consolidation. Small left pleural effusion. Left basilar atelectasis. Biapical pleural thickening. Cardiomegaly. Right-sided PICC the SVC. Right upper quadrant pigtail catheter.
--- NOTE | 2018-10-22 19:52 | PN ---
DATE: 10/22/2018 SUBJECTIVE: He feels better but when he is trying to get up or sit up, he still has pain. He also has a biliary drain also present and a RICARDO drain. He is awake and alert and he denies any cough. No chest pain. No fever, no chills. He does have a PICC line now. No nausea, no vomiting. PHYSICAL EXAMINATION: VITAL SIGNS: T-max is 98, pulse is 63, respirations are 20, blood pressure 147/64. GENERAL: He is awake and alert. NECK: Supple. LUNGS: Still have decreased breath sounds on right base, right lung actually; left is unremarkable. HEART: Irregularly irregular. ABDOMEN: Soft. He does have this right side postop tenderness. EXTREMITIES: No edema. ASSESSMENT AND PLAN: Labs are noted. Labs show his body culture has revealed, Enterococcus, Escherichia coli and Enterobacter. He is on meropenem at this time and he will receive this till his infection clears. He had a hepatic abscess and right pleural effusion. There was a chest x-ray done on 10/20/2018 which shows moderate cardiomegaly, status post coronary artery bypass graft. There is moderate right pleural effusion, small left effusion. No pneumothorax. I am going to repeat another x-ray tomorrow to be sure that the effusion is decreasing. As he is a cardiac patient, they did a HIDA and so chest x-ray one view tomorrow. We will follow as needed, but he is going to need antibiotics for hepatic abscess. Leno Ch MD
[2018-10-23] MEDS: metroNIDAZOLE IV 500 mg/100 ml 500 MG/100 ML BAG IVPB SCH ×3 (00:21→17:23)
[2018-10-23] MEDS: Meropenem 1 GM in Sodium Chloride 0.9% 100 ML IVPB SCH ×3 (01:37→17:24)
[2018-10-23 06:37] LABS: BASO # 0.1 K/uL (0.0-0.2); BASO % 0.9 % (0.0-2.0); EOS # 0.2 K/uL (0.0-0.7); EOS % 3.5 % (0.0-4.0); HEMOGLOBIN 8.9 g/dL (12.0-18.0); LYMPH # 2.2 K/uL (1.0-4.3); LYMPH % 38.3 % (20.0-40.0); MEAN CELL VOLUME 86.4 fL (80.0-94.0); MEAN CORPUSCULAR HEMOGLOBIN 28.5 pg (27.0-31.0); MEAN PLATELET VOLUME 7.2 fL (7.2-11.7); MONO # 0.5 K/uL (0.0-0.8); MONO % 9.2 % (0.0-10.0); NEUT # 2.8 K/uL (1.8-7.0); NEUT % 48.1 % (50.0-75.0); NRBC % 0.1 % (0.0-2.0); RBC 3.11 Mil/uL (4.40-5.90); RED CELL DISTRIBUTION WIDTH 16.7 % (11.5-14.5); WHITE BLOOD COUNT 5.7 K/uL (4.8-10.8)
[2018-10-23 06:51] LABS: ALB/GLOB RATIO 0.8 (1.0-2.1); ALBUMIN 2.6 g/dL (3.5-5.0); ALT/SGPT 43 U/L (21-72); AST/SGOT 47 U/L (17-59); BLOOD UREA NITROGEN 10 mg/dL (9-20); CALCIUM 7.7 mg/dl (8.6-10.4); GFR NON-AFRICAN AMERICAN > 60
[2018-10-23] MEDS: Lactobacillus Acidophilus 500 MU Cap PO SCH ×2 (10:26→17:23)
[2018-10-23] MEDS: Metoprolol Succinate 50 mg XL Tab PO SCH (10:26)
--- NOTE | 2018-10-23 11:48 | CP.PCM.PN ---
Subjective - Date & Time of Evaluation Date of Evaluation: 10/23/18 Time of Evaluation: 08:00 - Subjective Subjective: PGY-[address] Rashid Patient seen and examined at bedside. No acute overnight events. States pain at the site of RICARDO drain has improved and cough has improved. Denies fever, chills, headache, chest pain, dyspnea, nausea/vomiting, diarrhea/constipation. L leg dvt found on arterial duplex today. Patient started on Heparin drip. Objective - Vital Signs/Intake and Output Vital Signs (last 24 hours): Temp Pulse Resp BP Pulse Ox 97.7 F 70 20 133/75 98 10/23/18 07:00 10/23/18 07:00 10/23/18 07:00 10/23/18 10:26 10/23/18 07:00 Intake and Output: 10/23/18 10/23/18 06:59 18:59 Intake Total 600 Output Total 5 Balance 595 - Medications Medications: Current Medications Acetaminophen (Tylenol 325mg Tab) 650 mg PO Q6 PRN PRN Reason: Pain, Mild (1-3) Last Admin: 10/23/18 04:34 Dose: 650 mg Aspirin (Ecotrin) 81 mg PO DAILY [facility] Last Admin: 10/23/18 10:26 Dose: 81 mg Dabigatran (Pradaxa) 150 mg PO DAILY [facility] Last Admin: 10/22/18 09:10 Dose: 150 mg Enalapril Maleate (Vasotec) 10 mg PO DAILY [facility] Last Admin: 10/23/18 10:26 Dose: 10 mg Guaifenesin/Dextromethorphan (Robitussin Dm) 10 ml PO Q4H PRN PRN Reason: Cough and congestion Last Admin: 10/17/18 00:02 Dose: 10 ml Metronidazole (Flagyl) 500 mg in 100 mls @ 100 mls/hr IVPB Q8H [facility]; Protocol Last Admin: 10/23/18 08:24 Dose: 100 mls/hr Meropenem 1 gm/ Sodium (Chloride) 100 mls @ 100 mls/hr IVPB Q8H [facility]; Protocol Last Admin: 10/23/18 10:25 Dose: 100 mls/hr Lactobacillus Acidophilus (Bacid Acidophilus) 1 cap PO BID [facility] Last Admin: 10/23/18 10:26 Dose: 1 cap Metoprolol Succinate (Toprol Xl) 50 mg PO DAILY [facility] Last Admin: 10/23/18 10:26 Dose: 50 mg Pantoprazole Sodium (Protonix Inj) 40 mg IVP DAILY [facility] Last Admin: 10/18/18 09:26 Dose: 40 mg Rosuvastatin Calcium (Crestor) 10 mg PO HS [facility] Last Admin: 10/21/18 21:45 Dose: 10 mg Tamsulosin HCl (Flomax) 0.4 mg PO DAILY [facility] Last Admin: 10/23/18 10:26 Dose: 0.4 mg Zolpidem Tartrate (Ambien) 5 mg PO HS PRN PRN Reason: Insomnia Last Admin: 10/23/18 02:49 Dose: 5 mg - Labs Labs: 10/23/18 06:25 10/23/18 06:23 PT 16.4 SECONDS (9.7-12.2) H 10/14/18 10:58 INR 1.5 10/14/18 10:58 APTT 31 SECONDS (21-34) 10/14/18 10:58 - Additional Findings Additional findings: - Constitutional Appears: Non-toxic, No Acute Distress - Head Exam Head Exam: ATRAUMATIC, NORMOCEPHALIC - Eye Exam Eye Exam: EOMI - ENT Exam ENT Exam: Mucous Membranes Moist - Respiratory Exam Respiratory Exam: Clear to Ausculation Bilateral, NORMAL BREATHING PATTERN. absent: Rhonchi, Wheezes - Cardiovascular Exam Cardiovascular Exam: REGULAR RHYTHM, +S1, +S2 - GI/Abdominal Exam GI & Abdominal Exam: Soft, Normal Bowel Sounds. absent: Tenderness Additional comments: RICARDO draining 5ml serosanguinous fluid. No erythema at RICARDO site - Extremities Exam Extremities Exam: 1+ LLE pitting edema. Trace RLE pitting edema. PICC line RUE. - Neurological Exam Neurological Exam: Alert, Awake, Oriented x3 - Psychiatric Exam Psychiatric exam: Normal Affect, Normal Mood - Skin Skin Exam: Dry, Intact Assessment and Plan - Assessment and Plan (Free Text) Plan: 78 yo Hisp Male with recent lap cesar, h/o biliary stent, CAD s/p CABG on dabigatran presenting with shortness of breath and abd pain. Perihepatic abscess with Fluid Collection s/p laparoscopic cholecystectomy - s/p lap cesar 09/13/18, biliary stent 09/2016 - CT abdomen/pelvis on admission: 12.0 x 8.0 x 14.2 cm loculated fluid collection with air fluid level in subcapsular right hepatic lobe concernng for an abscess, large right and small left pleural effusion - repeat CT abd/pel w/ PO and IV contrast - Large subscapula/perihepatic cyst loculated fluid collection with air-fluid level in the right hepatic lobe suspicious for complex bilioma vs abscess -HIDA Scan 10/15: Findings suspicious for bile leak. There is pooling of radionuclide in the gallbladder fossa and amorphous collection of radionuclide anteriorly and laterally on the left. - IR consulted, Dr Castaneda -10/16/18- patient underwent CT guided drainage of right perihepatic collect ion with removal of 20 cc of purulent drainage from abdominal abscess - Gen Sx consulted, Dr. Haq -Hida scan shows possible leak in location of RICARDO drain. Drainage should decrease with time. Monitor drainage. - GI consulted, Dr. Vera- management as per surgery - ID Jing, consulted - 4 weeks of out patient antibiotics -Meropenem 1g IV Q8H due to sensitivities -Zosyn IVPB Q6hrs and Metronidazole IVPB Q8h discontinued Perihepatic abscess fluid culture Enterococcus faecalis, E. coli, and Enterobacter cloacae. Patient to continue IV Meropenem for 4 weeks. - blood cultures- No growth x5days - perihepatic collection final: Enterococcus faecalis, E. coli, and Enterobacter cloacae. Pleural Effusions - CT abd/pelvis: Large right and small left pleural effusion - likely due to RUQ fluid collection - management as mentioned above- CT guided thoracentesis with removal of 1100cc of serosanguinous pleural fluid on 10/16 -pleural fluid culture 10/16: no growth final -CXR 10/22: Small to moderate R sided pleural effusion and associated consolidation. Small L pleural effusion. L basilar atelectasis. (See full report) -Order placed for thoracentesis with IR for 10/25, Pradaxa held starting 10/23/17 Bilateral lower extremity edema DVT L leg 10/21: Worsening LE edema-> follow up repeat arterial duplex -Arterial duplex 10/23: DVT L leg -Start Heparin drip 18 units per kg per hour Anemia - Patient had initially stated having black stools, now saying they are brown - Patient did have acute drop in HgB with FOBT positive - Hgb drop from 9.2 to 8.3 - EGD 10/19 - Evidence of gastritis, biopsied. Normal esophagus, normal duodenum. (see full report). - He will require outpatient colonoscopy - Protonix 40mg -10/20: Negative for acute upper GIB and no surgical intervention at this time. -stable CAD - ECHO 09/10/18: LV systolic function is normal. EF is 50-55%. No aortic regurgitation. Abnormal prosthetic aortic valve gradients. Mitral Annular calcification is mild to moderate. Mitral regurgitation is mild. There is mild to moderate tricuspid regurgitation. There is mild pulmonary htn. Mild pulmonic valvular regurgitation. - crestor 10mg PO HS -Pradaxa on hold 10/23 for possible thoracentesis HTN -enalapril 10mg PO daily -metoprolol succinate 50mg PO daily hx of BPH - Flomax .4mg PO daily [facility] - crestor 10mg PO HS PPX GI: protonix DVT: Home pradaxa held for anticipated thoracentesis 10/25. HHD Lactobacillus 1 cap PO BID PT eval and treat - continue treatments Disposition: Patient found to have L leg DVT. Started Heparin drip 18 units per kg per hour as patient is for possible thoracentesis on 10/25. Patient has PICC line in place for continuation of abx as outpatient at [facility]. Case discussed with Dr. Rashid. Na Moreno, PGY-1.
--- NOTE | 2018-10-23 11:50 | RAD ---
Date of service: 10/23/2018 HISTORY: Pleural effusion progress COMPARISON: No prior. FINDINGS: In situ right-sided pigtail chest tube catheter again noted. There is also a right-sided PICC line, the tip of which has migrated distally now located in the right subclavian vein. Note that the lung apices are partially obscured by mandible and some facial soft tissue artifact. LUNGS: Mild pulmonary vascular congestive changes with bilateral lower lobe alveolar-type infiltrates and bilateral effusions. No change right-sided pigtail chest tube catheter PLEURA: No significant pleural effusion identified, no pneumothorax apparent. CARDIOVASCULAR: Mild aortic atherosclerotic calcification present. Heart remains enlarged. Sternotomy wires again noted no change bipolar pacemaker. OSSEOUS STRUCTURES: No significant abnormalities. VISUALIZED UPPER ABDOMEN: Normal. OTHER FINDINGS: None. IMPRESSION: Slightly limited study as described. In situ right-sided pigtail chest tube catheter again noted. There is also a right-sided PICC line, the tip of which has migrated distally now located in the right subclavian vein. Pulmonary vascular congestive changes with bilateral lower lobe alveolar-type infiltrates and bilateral effusions.
[2018-10-23] MEDS ORDERED: Heparin25000 units/250ml 1/2NS 25,000 UNITS/250 ML BAG IV PRN (16:05)
--- NOTE | 2018-10-23 18:14 | CP.PCM.PN ---
Subjective - Date & Time of Evaluation Date of Evaluation: 10/23/18 Time of Evaluation: 14:15 - Subjective Subjective: dictated Objective - Vital Signs/Intake and Output Vital Signs (last 24 hours): Temp Pulse Resp BP Pulse Ox 97.7 F 70 20 133/75 98 10/23/18 07:00 10/23/18 07:00 10/23/18 07:00 10/23/18 10:26 10/23/18 07:00 Intake and Output: 10/23/18 10/23/18 06:59 18:59 Intake Total 600 Output Total 5 Balance 595 - Medications Medications: Current Medications Acetaminophen (Tylenol 325mg Tab) 650 mg PO Q6 PRN PRN Reason: Pain, Mild (1-3) Last Admin: 10/23/18 04:34 Dose: 650 mg Aspirin (Ecotrin) 81 mg PO DAILY [facility] Last Admin: 10/23/18 10:26 Dose: 81 mg Dabigatran (Pradaxa) 150 mg PO DAILY [facility] Last Admin: 10/22/18 09:10 Dose: 150 mg Enalapril Maleate (Vasotec) 10 mg PO DAILY [facility] Last Admin: 10/23/18 10:26 Dose: 10 mg Guaifenesin/Dextromethorphan (Robitussin Dm) 10 ml PO Q4H PRN PRN Reason: Cough and congestion Last Admin: 10/17/18 00:02 Dose: 10 ml Metronidazole (Flagyl) 500 mg in 100 mls @ 100 mls/hr IVPB Q8H [facility]; Protocol Last Admin: 10/23/18 17:23 Dose: 100 mls/hr Meropenem 1 gm/ Sodium (Chloride) 100 mls @ 100 mls/hr IVPB Q8H [facility]; Protocol Last Admin: 10/23/18 17:24 Dose: 100 mls/hr Heparin Sodium/Sodium Chloride (Heparin 82886 Units/250ml 1/2 Normal Saline) 25,000 units in 250 mls @ 10.688 mls/hr IV .[id number] PRN; Protocol PRN Reason: PROTOCOL Last Admin: 10/23/18 17:45 Dose: 18 units/kg/hr, 10.688 mls/hr Lactobacillus Acidophilus (Bacid Acidophilus) 1 cap PO BID [facility] Last Admin: 10/23/18 17:23 Dose: 1 cap Metoprolol Succinate (Toprol Xl) 50 mg PO DAILY [facility] Last Admin: 10/23/18 10:26 Dose: 50 mg Pantoprazole Sodium (Protonix Inj) 40 mg IVP DAILY [facility] Last Admin: 10/18/18 09:26 Dose: 40 mg Rosuvastatin Calcium (Crestor) 10 mg PO HS [facility] Last Admin: 10/21/18 21:45 Dose: 10 mg Tamsulosin HCl (Flomax) 0.4 mg PO DAILY [facility] Last Admin: 10/23/18 10:26 Dose: 0.4 mg Zolpidem Tartrate (Ambien) 5 mg PO HS PRN PRN Reason: Insomnia Last Admin: 10/23/18 02:49 Dose: 5 mg - Labs Labs: 10/23/18 06:25 10/23/18 06:23 PT 16.4 SECONDS (9.7-12.2) H 10/14/18 10:58 INR 1.5 10/14/18 10:58 APTT 31 SECONDS (21-34) 10/14/18 10:58
[2018-10-24] MEDS: metroNIDAZOLE IV 500 mg/100 ml 500 MG/100 ML BAG IVPB SCH ×3 (00:11→17:15)
--- NOTE | 2018-10-24 00:42 | PN ---
DATE: 10/23/2018 INFECTIOUS DISEASE CONSULT FOLLOWUP SUBJECTIVE: The patient remains afebrile. He had an x-ray showing some effusion. T-max is 98.3, pulse 70, blood pressure 116/75, respirations are 20. He denies any complaints. However, x-ray did show problems and did show effusion and still complains of pain at the RICARDO site. His cough is little better. Denies any fever or chills. Denies pain, but when he gets up in a sitting position, he does have pain in the right side. He remains on meropenem and Flagyl also. PHYSICAL EXAMINATION VITAL SIGNS: T-max is 97.7, pulse 70, respirations are 20, blood pressure is 133/75. HEENT: Head is atraumatic, normocephalic. NECK: Supple. LUNGS: Right lung, there are decreased breath sounds. Left lung is unremarkable. HEART: S1, S2 are regular. No murmurs appreciated. ABDOMEN: Has a RICARDO drain and he gets very little drainage in it. EXTREMITIES: Remain with 1+ edema at this time. ASSESSMENT AND PLAN: He is status post laparoscopic cholecystectomy, ended up with the loculated abscess which was drained and it had 3 organisms and we are treating them by giving Merrem and Flagyl. At this time, we will continue the same. He also has a peripherally inserted central catheter line and he had a chest x-ray today and the chest x-ray shows slightly limited study, in situ right-sided pigtail chest tube catheter got noted. There is also right-sided peripherally inserted central catheter line, the tip of which has migrated distally, now located in the right subclavian vein. Pulmonary vascular congestion with bilateral lower lobe alveolar type infiltrates and bilateral effusions. So, he does have bilateral alveolar infiltrates and effusions. I want to make sure that he is not leaking more bile as there was some issue of leak, but the last hepatobiliary iminodiacetic acid scan I am told it showed some improvement. Leno Ch MD
[2018-10-24] MEDS: Meropenem 1 GM in Sodium Chloride 0.9% 100 ML IVPB SCH ×3 (01:53→17:15)
--- NOTE | 2018-10-24 07:44 | CP.PCM.PN ---
Subjective - Date & Time of Evaluation Date of Evaluation: 10/24/18 Time of Evaluation: 07:00 - Subjective Subjective: PGY-1 Progress Note Patient seen and examined at bedside. No acute overnight events. Continues to complain of mild pain to RICARDO insertion site. Denies fever, chills, headache, chest pain, dyspnea, nausea/vomiting, diarrhea/constipation. Objective - Vital Signs/Intake and Output Vital Signs (last 24 hours): Temp Pulse Resp BP Pulse Ox 97.9 F 66 20 103/63 97 10/23/18 23:10 10/23/18 23:10 10/23/18 23:10 10/23/18 23:10 10/23/18 23:10 Intake and Output: 10/24/18 10/24/18 06:59 18:59 Intake Total 664.2 Output Total 10 Balance 654.2 - Medications Medications: Current Medications Acetaminophen (Tylenol 325mg Tab) 650 mg PO Q6 PRN PRN Reason: Pain, Mild (1-3) Last Admin: 10/23/18 20:27 Dose: 650 mg Aspirin (Ecotrin) 81 mg PO DAILY [facility] Last Admin: 10/23/18 10:26 Dose: 81 mg Dabigatran (Pradaxa) 150 mg PO DAILY [facility] Last Admin: 10/22/18 09:10 Dose: 150 mg Enalapril Maleate (Vasotec) 10 mg PO DAILY [facility] Last Admin: 10/23/18 10:26 Dose: 10 mg Guaifenesin/Dextromethorphan (Robitussin Dm) 10 ml PO Q4H PRN PRN Reason: Cough and congestion Last Admin: 10/17/18 00:02 Dose: 10 ml Metronidazole (Flagyl) 500 mg in 100 mls @ 100 mls/hr IVPB Q8H [facility]; Protocol Last Admin: 10/24/18 00:11 Dose: 100 mls/hr Meropenem 1 gm/ Sodium (Chloride) 100 mls @ 100 mls/hr IVPB Q8H [facility]; Protocol Last Admin: 10/24/18 01:53 Dose: 100 mls/hr Heparin Sodium/Sodium Chloride (Heparin 86543 Units/250ml 1/2 Normal Saline) 25,000 units in 250 mls @ 10.688 mls/hr IV .[id number] PRN; Protocol PRN Reason: PROTOCOL Last Admin: 10/23/18 17:45 Dose: 18 units/kg/hr, 10.688 mls/hr Lactobacillus Acidophilus (Bacid Acidophilus) 1 cap PO BID [facility] Last Admin: 10/23/18 17:23 Dose: 1 cap Metoprolol Succinate (Toprol Xl) 50 mg PO DAILY [facility] Last Admin: 10/23/18 10:26 Dose: 50 mg Pantoprazole Sodium (Protonix Inj) 40 mg IVP DAILY [facility] Last Admin: 10/18/18 09:26 Dose: 40 mg Rosuvastatin Calcium (Crestor) 10 mg PO HS [facility] Last Admin: 10/23/18 21:46 Dose: 10 mg Tamsulosin HCl (Flomax) 0.4 mg PO DAILY [facility] Last Admin: 10/23/18 10:26 Dose: 0.4 mg Zolpidem Tartrate (Ambien) 5 mg PO HS PRN PRN Reason: Insomnia Last Admin: 10/24/18 00:11 Dose: 5 mg - Labs Labs: 10/23/18 06:25 10/23/18 06:23 PT 16.4 SECONDS (9.7-12.2) H 10/14/18 10:58 INR 1.5 10/14/18 10:58 APTT 66 SECONDS (21-34) H 10/24/18 00:32 - Additional Findings Additional findings: - Constitutional Appears: Non-toxic, No Acute Distress - Head Exam Head Exam: ATRAUMATIC, NORMOCEPHALIC - Eye Exam Eye Exam: EOMI - ENT Exam ENT Exam: Mucous Membranes Moist - Respiratory Exam Respiratory Exam: Decreased Breath sounds RLL, NORMAL BREATHING PATTERN. absent: Rhonchi, Wheezes - Cardiovascular Exam Cardiovascular Exam: REGULAR RHYTHM, +S1, +S2 - GI/Abdominal Exam GI & Abdominal Exam: Soft, Normal Bowel Sounds. absent: Tenderness Additional comments: RICARDO draining scant serosanguinous fluid. No erythema at RICARDO site - Extremities Exam Extremities Exam: 1+ LLE pitting edema. Trace RLE pitting edema. PICC line RUE. - Neurological Exam Neurological Exam: Alert, Awake, Oriented x3 - Psychiatric Exam Psychiatric exam: Normal Affect, Normal Mood - Skin Skin Exam: Dry, Intact Assessment and Plan - Assessment and Plan (Free Text) Plan: 78 yo Hisp Male with recent lap cesar, h/o biliary stent, CAD s/p CABG on dabigatran presenting with shortness of breath and abd pain. Perihepatic abscess with Fluid Collection s/p laparoscopic cholecystectomy - s/p lap cesar 09/13/18, biliary stent 09/2016 - CT abdomen/pelvis on admission: 12.0 x 8.0 x 14.2 cm loculated fluid collectio n with air fluid level in subcapsular right hepatic lobe concernng for an abscess, large right and small left pleural effusion - repeat CT abd/pel w/ PO and IV contrast - Large subscapula/perihepatic cyst loculated fluid collection with air-fluid level in the right hepatic lobe suspicious for complex bilioma vs abscess -HIDA Scan 10/15: Findings suspicious for bile leak. There is pooling of radio nuclide in the gallbladder fossa and amorphous collection of radionuclide anteriorly and laterally on the left. - IR consulted, Dr Castaneda -10/16/18- patient underwent CT guided drainage of right perihepatic collection with removal of 20 cc of purulent drainage from abdominal abscess - Gen Sx consulted, Dr. Haq -Hida scan shows possible leak in location of RICARDO drain. Drainage should decrease with time. Monitor drainage. - GI consulted, Dr. Vera- management as per surgery - ID Jing, consulted - 4 weeks of out patient antibiotics -Meropenem 1g IV Q8H due to sensitivities -Zosyn IVPB Q6hrs discontinued -Metronidazole IVPB Q8h -Perihepatic abscess fluid culture Enterococcus faecalis, E. coli, and Enterobacter cloacae. Patient to continue IV Meropenem for 4 weeks. - blood cultures- No growth x5days - perihepatic collection final: Enterococcus faecalis, E. coli, and Enterobacter cloacae. Pleural Effusions - CT abd/pelvis: Large right and small left pleural effusion - likely due to RUQ fluid collection - management as mentioned above- CT guided thoracentesis with removal of 1100cc of serosanguinous pleural fluid on 10/16 -pleural fluid culture 10/16: no growth final -CXR 10/22: Small to moderate R sided pleural effusion and associated consolidation. Small L pleural effusion. L basilar atelectasis. (See full report) -Order placed for thoracentesis with IR for 10/25, Pradaxa held starting 10/23/17 Bilateral lower extremity edema DVT L leg 10/21: Worsening LE edema-> follow up repeat arterial duplex -Arterial duplex 10/23: DVT L leg -Start Heparin drip 18 units per kg per hour Anemia - Patient had initially stated having black stools, now saying they are brown - Patient did have acute drop in HgB with FOBT positive - Hgb drop from 9.2 to 8.3 - EGD 10/19 - Evidence of gastritis, biopsied. Normal esophagus, normal duodenum. (see full report). - He will require outpatient colonoscopy - Protonix 40mg -10/20: Negative for acute upper GIB and no surgical intervention at this time. -stable CAD - ECHO 09/10/18: LV systolic function is normal. EF is 50-55%. No aortic regurgitation. Abnormal prosthetic aortic valve gradients. Mitral Annular calcification is mild to moderate. Mitral regurgitation is mild. There is mild to moderate tricuspid regurgitation. There is mild pulmonary htn. Mild pulmonic valvular regurgitation. - crestor 10mg PO HS -Pradaxa on hold 10/23 for possible thoracentesis HTN -enalapril 10mg PO daily -metoprolol succinate 50mg PO daily hx of BPH - Flomax .4mg PO daily [facility] - crestor 10mg PO HS PPX GI: protonix DVT: Home pradaxa held for anticipated thoracentesis 10/25. HHD Lactobacillus 1 cap PO BID PT eval and treat - continue treatments Disposition: For possible thoracentesis on 10/25. Will call IR to confirm and will hold Heparin dripp 4 hours prior to procedure. Patient has authorization for OLE[facility]. Case discussed with Dr. Weiss. Na Moreno, PGY-1.
[2018-10-24 08:10] LABS: BASO # 0.1 K/uL (0.0-0.2); BASO % 1.2 % (0.0-2.0); EOS # 0.2 K/uL (0.0-0.7); EOS % 3.7 % (0.0-4.0); HEMOGLOBIN 9.3 g/dL (12.0-18.0); LYMPH % 39.8 % (20.0-40.0); MEAN CELL VOLUME 87.4 fL (80.0-94.0); MEAN CORPUSCULAR HEMOGLOBIN 28.1 pg (27.0-31.0); MEAN CORPUSCULAR HGB CONC 32.1 g/dL (33.0-37.0); MEAN PLATELET VOLUME 7.3 fL (7.2-11.7); MONO # 0.4 K/uL (0.0-0.8); MONO % 8.4 % (0.0-10.0); NEUT # 2.4 K/uL (1.8-7.0); NEUT % 46.9 % (50.0-75.0); NRBC % 0.1 % (0.0-2.0); RBC 3.31 Mil/uL (4.40-5.90); RED CELL DISTRIBUTION WIDTH 17.5 % (11.5-14.5); WHITE BLOOD COUNT 5.1 K/uL (4.8-10.8)
[2018-10-24 08:16] LABS: ALB/GLOB RATIO 0.8 (1.0-2.1); ALBUMIN 2.9 g/dL (3.5-5.0); ALT/SGPT 46 U/L (21-72); AST/SGOT 55 U/L (17-59); BLOOD UREA NITROGEN 9 mg/dL (9-20); GFR NON-AFRICAN AMERICAN > 60
[2018-10-24] MEDS: Metoprolol Succinate 50 mg XL Tab PO SCH (10:07)
[2018-10-24] MEDS: Lactobacillus Acidophilus 500 MU Cap PO SCH ×2 (10:08→17:15)
[2018-10-24] MEDS: Heparin25000 units/250ml 1/2NS 25,000 UNITS/250 ML BAG IV PRN ×2 (11:43→21:33)
--- NOTE | 2018-10-24 15:04 | CP.PCM.PN ---
Subjective - Date & Time of Evaluation Date of Evaluation: 10/24/18 Time of Evaluation: 14:45 - Subjective Subjective: dictated Objective - Vital Signs/Intake and Output Vital Signs (last 24 hours): Temp Pulse Resp BP Pulse Ox 98.0 F 62 20 152/78 H 95 10/24/18 07:00 10/24/18 07:00 10/24/18 07:00 10/24/18 10:07 10/24/18 07:00 Intake and Output: 10/24/18 10/24/18 06:59 18:59 Intake Total 664.2 405.6 Output Total 10 10 Balance 654.2 395.6 - Medications Medications: Current Medications Acetaminophen (Tylenol 325mg Tab) 650 mg PO Q6 PRN PRN Reason: Pain, Mild (1-3) Last Admin: 10/23/18 20:27 Dose: 650 mg Aspirin (Ecotrin) 81 mg PO DAILY [facility] Last Admin: 10/24/18 10:07 Dose: 81 mg Dabigatran (Pradaxa) 150 mg PO DAILY [facility] Last Admin: 10/22/18 09:10 Dose: 150 mg Enalapril Maleate (Vasotec) 10 mg PO DAILY [facility] Last Admin: 10/24/18 10:07 Dose: 10 mg Guaifenesin/Dextromethorphan (Robitussin Dm) 10 ml PO Q4H PRN PRN Reason: Cough and congestion Last Admin: 10/17/18 00:02 Dose: 10 ml Metronidazole (Flagyl) 500 mg in 100 mls @ 100 mls/hr IVPB Q8H [facility]; Protocol Last Admin: 10/24/18 09:49 Dose: 100 mls/hr Meropenem 1 gm/ Sodium (Chloride) 100 mls @ 100 mls/hr IVPB Q8H [facility]; Protocol Last Admin: 10/24/18 10:57 Dose: 100 mls/hr Heparin Sodium/Sodium Chloride (Heparin 85248 Units/250ml 1/2 Normal Saline) 25,000 units in 250 mls @ 9.5 mls/hr IV .Q24H PRN; Protocol PRN Reason: PROTOCOL Last Admin: 10/24/18 11:43 Dose: 16 units/kg/hr, 9.5 mls/hr Lactobacillus Acidophilus (Bacid Acidophilus) 1 cap PO BID [facility] Last Admin: 10/24/18 10:08 Dose: 1 cap Metoprolol Succinate (Toprol Xl) 50 mg PO DAILY [facility] Last Admin: 10/24/18 10:07 Dose: 50 mg Pantoprazole Sodium (Protonix Inj) 40 mg IVP DAILY [facility] Last Admin: 10/18/18 09:26 Dose: 40 mg Rosuvastatin Calcium (Crestor) 10 mg PO HS [facility] Last Admin: 10/23/18 21:46 Dose: 10 mg Tamsulosin HCl (Flomax) 0.4 mg PO DAILY [facility] Last Admin: 10/24/18 10:07 Dose: 0.4 mg Zolpidem Tartrate (Ambien) 5 mg PO HS PRN PRN Reason: Insomnia Last Admin: 10/24/18 00:11 Dose: 5 mg - Labs Labs: 10/24/18 07:53 10/24/18 07:53 PT 16.4 SECONDS (9.7-12.2) H 10/14/18 10:58 INR 1.5 10/14/18 10:58 APTT 97 SECONDS (21-34) H D 10/24/18 07:53
--- NOTE | 2018-10-24 15:09 | VASCLAB ---
Date of service: 10/23/2018 PROCEDURE: Lower Extremity Venous Duplex Exam. HISTORY: worsening LE edema PRIORS: None. TECHNIQUE: Bilateral common femoral, femoral, popliteal and posterior tibial, peroneal and great saphenous veins were evaluated. Flow was assessed with color Doppler, compressibility, assessment of phasic flow and augmentation response. Report prepared by Thuan Lowe, BS, RVT FINDINGS: RIGHT: 1. Common Femoral Vein: 1.1. Compressibility - Fully compressible: Thrombus - None : Flow - Phasic: Augmentation -Normal: Reflux - None. 2. Femoral Vein: 2.1. Compressibility - Fully compressible: Thrombus - None : Flow - Phasic: Augmentation -Normal: Reflux - None. 3. Popliteal Vein: 3.1. Compressibility - Fully compressible: Thrombus - None : Flow - Phasic: Augmentation -Normal: Reflux - None. 4. Posterior Tibial Vein: 4.1. Compressibility - Fully compressible: Thrombus - None: Flow - Phasic: Augmentation -Normal: Reflux - None. 5. Peroneal Vein: 5.1. Compressibility - Fully compressible: Thrombus - None: Flow - Phasic: Augmentation -Normal: Reflux - None. 6. Great Saphenous Vein: 6.1. Compressibility - Fully compressible: Thrombus - None: Flow - Phasic: Augmentation - Normal: Reflux - None. LEFT: 1. Common Femoral Vein: 1.1. Compressibility - Fully compressible: Thrombus - None: Flow - Phasic: Augmentation -Normal: Reflux - None. 2. Femoral Vein: 2.1. Compressibility - Fully compressible: Thrombus - None: Flow - Phasic: Augmentation -Normal: Reflux - None. 3. Popliteal Vein: 3.1. Compressibility - Fully compressible: Thrombus - None : Flow - Phasic: Augmentation -Normal: Reflux - None. 4. Posterior Tibial Vein: 4.1. Compressibility - Fully compressible: Thrombus - None: Flow - Phasic: Augmentation -Normal: Reflux - None. 5. Peroneal Vein: 5.1. Compressibility - Fully compressible: Thrombus - None: Flow - Phasic: Augmentation -Normal: Reflux - None. 6. Great Saphenous Vein: 6.1. Compressibility - Fully compressible: Thrombus - None: Flow - Phasic: Augmentation - Normal: Reflux - None. OTHER FINDINGS: RN Ray notified about the findings. IMPRESSION: Right: No evidence of deep or superficial vein thrombosis of the right lower extremity. Normal valve function noted of the right side. Left: Acute thrombosis of the left soleal vein with severe reduction of the venous return.
[2018-10-25] MEDS: metroNIDAZOLE IV 500 mg/100 ml 500 MG/100 ML BAG IVPB SCH ×3 (00:44→18:02)
--- NOTE | 2018-10-25 01:04 | PN ---
DATE: 10/24/2018 SUBJECTIVE: When I went to see the patient today, he says he has a clot in his left leg and he has been started on heparin drip. It is surprising because yesterday he did not complain of any pain on the left leg. He still has pain in the right side. He has RICARDO drain. He denies any fever, chills, no headaches. He does not complain much. However, there is a new issue now. He was on Pradaxa before. PHYSICAL EXAMINATION: VITAL SIGNS: T-max is 98.3, pulse is 61, blood pressure 112/56, respirations are 20. HEENT: Head is atraumatic, normocephalic. NECK: Supple. LUNGS: Decreased breath sounds on right base. HEART: S1, S2, regular. ABDOMEN: Soft, mild tenderness. RICARDO drain is present. EXTREMITIES: Trace edema. Left leg appears more swollen than the right. LABORATORY DATA: White count is 5.1, hemoglobin 9.3. Body fluids show meropenem sensitive, so he has been on meropenem and Flagyl, and I want to see the report of the vascular study imaging which was done on 10/21/2018. Lower extremity showed acute thrombosis of the left soleal vein with severe reduction of the venous return. Soleal vein, this is superficial vein, I think; we need to find out because he had this developed while he has been on an anticoagulant and he has a hepatic abscess which was drained due to the leak after the surgery for this, and he also had a right pleural effusion which was drained. He also had a chest x-ray done yesterday which showed right-sided pigtail chest tube catheter. Again noted, there is also a right-sided PICC line, the tip of which has migrated distally, now located in the right subclavian vein. Pulmonary vascular congestive changes and bilateral lower lobe alveolar type infiltrates and bilateral effusions are noted. This patient also has a severe cardiac issue. He has coronary artery disease with valve replacement and also a defibrillator. Leno Ch MD
--- NOTE | 2018-10-25 01:19 | CP.PCM.PCO ---
Physician Communication Note - Physician Communication Note Physician Communication Note: PICC line pulled. Can give heparin ggt and IV abx in 2nd peripheral line
[2018-10-25] MEDS: Meropenem 1 GM in Sodium Chloride 0.9% 100 ML IVPB SCH ×3 (01:47→18:03)
[2018-10-25 07:30] LABS: ALB/GLOB RATIO 0.8 (1.0-2.1); ALBUMIN 2.8 g/dL (3.5-5.0); ALT/SGPT 50 U/L (21-72); AST/SGOT 53 U/L (17-59); BLOOD UREA NITROGEN 11 mg/dL (9-20); GFR NON-AFRICAN AMERICAN > 60
[2018-10-25 07:34] LABS: EOS # 0.1 K/uL (0.0-0.7); EOS % 2.5 % (0.0-4.0); HEMOGLOBIN 9.4 g/dL (12.0-18.0); LYMPH % 44.1 % (20.0-40.0); MEAN CELL VOLUME 87.5 fL (80.0-94.0); MEAN CORPUSCULAR HEMOGLOBIN 28.5 pg (27.0-31.0); MEAN CORPUSCULAR HGB CONC 32.6 g/dL (33.0-37.0); MEAN PLATELET VOLUME 7.4 fL (7.2-11.7); MONO # 0.4 K/uL (0.0-0.8); MONO % 9.4 % (0.0-10.0); NRBC % 0.1 % (0.0-2.0); RBC 3.29 Mil/uL (4.40-5.90); RED CELL DISTRIBUTION WIDTH 17.8 % (11.5-14.5); WHITE BLOOD COUNT 4.6 K/uL (4.8-10.8)
[2018-10-25 09:45] LABS: INR 1.1; PROTHROMBIN TIME 12.4 SECONDS (9.7-12.2)
[2018-10-25] MEDS: Lactobacillus Acidophilus 500 MU Cap PO SCH ×2 (10:04→21:35)
--- NOTE | 2018-10-25 11:05 | CP.PCM.PN ---
Subjective - Date & Time of Evaluation Date of Evaluation: 10/25/18 Time of Evaluation: 07:20 - Subjective Subjective: PGY-1 Progress Note Patient seen and examined at bedside. Patient's PICC line came out overnight and had to be pulled. Patient to have it replaced. He is to go for thoracentesis and RICARDO drain removal with IR. Denies fever, chills, headache, chest pain, dyspnea, nausea/vomiting, diarrhea/constipation. Objective - Vital Signs/Intake and Output Vital Signs (last 24 hours): Temp Pulse Resp BP Pulse Ox 98.0 F 69 20 113/71 95 10/25/18 07:00 10/25/18 07:00 10/25/18 07:00 10/25/18 07:00 10/25/18 07:00 Intake and Output: 10/25/18 10/25/18 06:59 18:59 Intake Total 1006 Output Total 10 Balance 996 - Medications Medications: Current Medications Acetaminophen (Tylenol 325mg Tab) 650 mg PO Q6 PRN PRN Reason: Pain, Mild (1-3) Last Admin: 10/24/18 21:43 Dose: 650 mg Aspirin (Ecotrin) 81 mg PO DAILY [facility] Last Admin: 10/24/18 10:07 Dose: 81 mg Dabigatran (Pradaxa) 150 mg PO DAILY [facility] Last Admin: 10/22/18 09:10 Dose: 150 mg Enalapril Maleate (Vasotec) 10 mg PO DAILY [facility] Last Admin: 10/24/18 10:07 Dose: 10 mg Guaifenesin/Dextromethorphan (Robitussin Dm) 10 ml PO Q4H PRN PRN Reason: Cough and congestion Last Admin: 10/17/18 00:02 Dose: 10 ml Metronidazole (Flagyl) 500 mg in 100 mls @ 100 mls/hr IVPB Q8H [facility]; Protocol Last Admin: 10/25/18 08:24 Dose: 100 mls/hr Meropenem 1 gm/ Sodium (Chloride) 100 mls @ 100 mls/hr IVPB Q8H [facility]; Protocol Last Admin: 10/25/18 10:02 Dose: 100 mls/hr Heparin Sodium/Sodium Chloride (Heparin 65278 Units/250ml 1/2 Normal Saline) 25,000 units in 250 mls @ 9.5 mls/hr IV .Q24H PRN; Protocol PRN Reason: PROTOCOL Last Admin: 10/24/18 21:33 Dose: 16 units/kg/hr, 9.5 mls/hr Lactobacillus Acidophilus (Bacid Acidophilus) 1 cap PO BID [facility] Last Admin: 10/25/18 10:04 Dose: Not Given Metoprolol Succinate (Toprol Xl) 50 mg PO DAILY [facility] Last Admin: 10/24/18 10:07 Dose: 50 mg Pantoprazole Sodium (Protonix Inj) 40 mg IVP DAILY [facility] Last Admin: 10/18/18 09:26 Dose: 40 mg Rosuvastatin Calcium (Crestor) 10 mg PO HS [facility] Last Admin: 10/24/18 21:33 Dose: 10 mg Tamsulosin HCl (Flomax) 0.4 mg PO DAILY [facility] Last Admin: 10/24/18 10:07 Dose: 0.4 mg Zolpidem Tartrate (Ambien) 5 mg PO HS PRN PRN Reason: Insomnia Last Admin: 10/25/18 02:05 Dose: 5 mg - Labs Labs: 10/25/18 07:09 10/25/18 07:09 PT 12.4 SECONDS (9.7-12.2) H 10/25/18 09:32 INR 1.1 10/25/18 09:32 APTT 35 SECONDS (21-34) H 10/25/18 09:32 - Additional Findings Additional findings: - Constitutional Appears: Non-toxic, No Acute Distress - Head Exam Head Exam: ATRAUMATIC, NORMOCEPHALIC - Eye Exam Eye Exam: EOMI - ENT Exam ENT Exam: Mucous Membranes Moist - Respiratory Exam Respiratory Exam: Decreased Breath sounds RLL, NORMAL BREATHING PATTERN. absent: Rhonchi, Wheezes - Cardiovascular Exam Cardiovascular Exam: REGULAR RHYTHM, +S1, +S2 - GI/Abdominal Exam GI & Abdominal Exam: Soft, Normal Bowel Sounds. absent: Tenderness Additional comments: RICARDO draining 5ml serosanguinous fluid. No erythema at RICARDO site - Extremities Exam Extremities Exam: 1+ LLE pitting edema. Trace RLE pitting edema. No PICC line in RUE. - Neurological Exam Neurological Exam: Alert, Awake, Oriented x3 - Psychiatric Exam Psychiatric exam: Normal Affect, Normal Mood - Skin Skin Exam: Dry, Intact Assessment and Plan - Assessment and Plan (Free Text) Plan: 78 yo Hisp Male with recent lap cesar, h/o biliary stent, CAD s/p CABG on dabigatran presenting with shortness of breath and abd pain. Perihepatic abscess with Fluid Collection s/p laparoscopic cholecystectomy - s/p lap cesar 09/13/18, biliary stent 09/2016 - CT abdomen/pelvis on admission: 12.0 x 8.0 x 14.2 cm loculated fluid collection with air fluid level in subcapsular right hepatic lobe concernng for an abscess, large right and small left pleural effusion - repeat CT abd/pel w/ PO and IV contrast - Large subscapula/perihepatic cyst loculated fluid collection with air-fluid level in the right hepatic lobe suspicious for complex bilioma vs abscess -HIDA Scan 10/15: Findings suspicious for bile leak. There is pooling of radionuclide in the gallbladder fossa and amorphous collection of radionuclide anteriorly and laterally on the left. -Repeat CT chest, abd, pelvis10/25: In the interval, a large intrahepatic fluid collection has been decompressed by a pigtail catheter draining it down to a size of 8.3 x 1.0 x 5.1 cm (anteroposterior by transverse by superoinferior dimensions) approximately. Limited gas is seen within the lumen as well as trace fluid. The remainder of the liver is unremarkable as imaged. - IR consulted, Dr Castaneda -10/16/18- patient underwent CT guided drainage of right perihepatic collection with removal of 20 cc of purulent drainage from abdominal abscess - Gen Sx consulted, Dr. Haq -10/25/18: RICARDO drain in RUQ removed -Hida scan shows possible leak in location of RICARDO drain. Drainage should decrease with time. Monitor drainage. - GI consulted, Dr. Vera- management as per surgery - ID Jing, consulted - 4 weeks of out patient antibiotics -Meropenem 1g IV Q8H due to sensitivities -Zosyn IVPB Q6hrs discontinued -Metronidazole IVPB Q8h -Perihepatic abscess fluid culture Enterococcus faecalis, E. coli, and Enterobacter cloacae. Patient to continue IV Meropenem for 4 weeks. - blood cultures- No growth x5days - perihepatic collection final: Enterococcus faecalis, E. coli, and Enterobacter cloacae. Pleural Effusions - CT abd/pelvis: Large right and small left pleural effusion - likely due to RUQ fluid collection - management as mentioned above- CT guided thoracentesis with removal of 1100cc of serosanguinous pleural fluid on 10/16 -pleural fluid culture 10/16: no growth final -CXR 10/22: Small to moderate R sided pleural effusion and associated consolidation. Small L pleural effusion. L basilar atelectasis. (See full report) -Order placed for thoracentesis with IR for 10/25, Pradaxa held starting 10/23/17 -Repeat CT 10/25: 1. Diminishing right pleural effusion now moderate in overall volume with trace left pleural effusion remaining. Improving right sided pulm onary atelectasis with minimal noted at the lingula and left lower lobe. 2. Pulmonary artery hypertension not excluded with prominent main pulmonary segment identified. Upper limits normal caliber is at the thoracic aorta. Stable cardiomegaly. 3. Significant decompression of right lobe hepatic fluid collection with limited residual as described above. Pigtail catheter is identified in situ in the interval terminating at the lumen of the collection. 4. Prior cholecystectomy with biliary stent in situ once again. -10/25: Thoracentesis with IR, 900cc of goran fluid removed Bilateral lower extremity edema DVT L leg 10/21: Worsening LE edema-> follow up repeat arterial duplex -Arterial duplex 10/23: DVT L leg -Heparin discontinued -Pradaxa increased to 150mg BID for dvt tx, restarted on 10/25 Anemia - Patient had initially stated having black stools, now saying they are brown - Patient did have acute drop in HgB with FOBT positive - Hgb drop from 9.2 to 8.3 - EGD 10/19 - Evidence of gastritis, biopsied. Normal esophagus, normal duodenum. (see full report). - He will require outpatient colonoscopy - Protonix 40mg -10/20: Negative for acute upper GIB and no surgical intervention at this time. -stable CAD - ECHO 09/10/18: LV systolic function is normal. EF is 50-55%. No aortic regurgitation. Abnormal prosthetic aortic valve gradients. Mitral Annular calcification is mild to moderate. Mitral regurgitation is mild. There is mild to moderate tricuspid regurgitation. There is mild pulmonary htn. Mild pulmonic valvular regurgitation. - crestor 10mg PO HS -Pradaxa increased to 150mg BID for dvt tx, restarted on 10/25 HTN -enalapril 10mg PO daily -metoprolol succinate 50mg PO daily hx of BPH - Flomax .4mg PO daily HLD - crestor 10mg PO HS PPX GI: protonix DVT: Pradaxa restarted 10/25 evening HHD Lactobacillus 1 cap PO BID PT eval and treat - continue treatments Disposition: Patient went for thoracentesis and RICARDO removal. PICC line replaced as well. Patient has authorization for [place]. Anticipate discharge 10/26 or 10/27. Case discussed with Dr. Weiss. Na Moreno, PGY-1.
[2018-10-25] MEDS ORDERED: Lidocaine Hydrochloride 5 ML INJ ONE (11:49)
--- NOTE | 2018-10-25 12:39 | CT ---
Date of service: 10/25/2018 PROCEDURE: CT Chest and Abdomen without intravenous contrast HISTORY: f/u R pleural effusion and perihepatic fluid COMPARISON: CT angiogram chest 10/13/2018. CT abdomen and pelvis with contrast 10/14/2018. TECHNIQUE: Helical CT of the chest and abdomen was from the thoracic inlet to the iliac crest without oral or intravenous contrast as requested. Reformatted dataset have been provided. Radiation dose: Total exam DLP = 383.2 mGy-cm. This CT exam was performed using one or more of the following dose reduction techniques: Automated exposure control, adjustment of the mA and/or kV according to patient size, and/or use of iterative reconstruction technique. FINDINGS: CT CHEST WITHOUT CONTRAST: LUNGS: Central airways remain clear with limited compression atelectasis identified at the right middle and left lower lobe with significant residual atelectasis remaining at the right lower lobe. Skin no definitive pulmonary mass appreciable. Limited linear atelectasis appreciate the lingula and left lower lobe once again. MEDIASTINUM: Cardiomegaly is reiterated with pacemaker again identified in situ. Ascending thoracic aorta is upper limits normal caliber at 3.8 cm with a similar size aortic root. Main pulmonary artery is prominent at 3.5 cm. Considered clinically correlate for potential pulmonary artery hypertension. Prior median sternotomy reiterated. No definite pulmonary vascular congestion. Nonaneurysmal abdominal aortic calcific atherosclerotic changes are identified. LYMPH NODES: No significant lymphadenopathy identified grossly in this unenhanced examination. PLEURA: Diminished right pleural effusion now remains moderate in overall volume with minimal left pleural effusion identified. No pericardial effusion. BONES: Unremarkable. OTHER FINDINGS: None. CT ABDOMEN AND PELVIS: LIVER: In the interval, a large intrahepatic fluid collection has been decompressed by a pigtail catheter draining it down to a size of 8.3 x 1.0 x 5.1 cm (anteroposterior by transverse by superoinferior dimensions) approximately. Limited gas is seen within the lumen as well as trace fluid. The remainder of the liver is unremarkable as imaged. GALLBLADDER AND BILE DUCTS: Prior cholecystectomy. Metallic CBD stent again identified in situ bridging the intra and extrahepatic bile ducts and duodenum. PANCREAS: Unremarkable. No gross lesion or ductal dilatation. SPLEEN: Unremarkable. ADRENALS: Unremarkable. No mass. KIDNEYS AND URETERS: Unremarkable. No hydronephrosis. No solid mass. VASCULATURE: Nonaneurysmal abdominal aortic calcific atherosclerotic changes are identified. BOWEL: Unremarkable appearing as imaged. LYMPH NODES: Unremarkable. No enlarged lymph nodes. BONES: No acute fracture. OTHER FINDINGS: None. IMPRESSION: 1. Diminishing right pleural effusion now moderate in overall volume with trace left pleural effusion remaining. Improving right sided pulmonary atelectasis with minimal noted at the lingula and left lower lobe. 2. Pulmonary artery hypertension not excluded with prominent main pulmonary segment identified. Upper limits normal caliber is at the thoracic aorta. Stable cardiomegaly. 3. Significant decompression of right lobe hepatic fluid collection with limited residual as described above. Pigtail catheter is identified in situ in the interval terminating at the lumen of the collection. 4. Prior cholecystectomy with biliary stent in situ once again.
--- NOTE | 2018-10-25 12:42 | PCM.SURG1 ---
Surgeon's Initial Post Op Note - Surgeon's Notes Surgeon: Abdiel Castaneda MD [employer] Supervisor: NONE Type of Anesthesia: Local Pre-Operative Diagnosis: Right pleural effusion Operative Findings: US showed moderate right pleural effusion. Post-Operative Diagnosis: Right pleural effusion Operation Performed: Removal of perihepatic abscess drainage catheter. US guided right thoracentesis. Specimen/Specimens Removed: 900 cc of goran colored fluid Estimated Blood Loss: EBL {In ML}: 1 Blood Products Given: N/A Drains Used: No Drains Post-Op Condition: Fair Date of Surgery/Procedure: 10/25/18 Time of Surgery/Procedure: 12:40
--- NOTE | 2018-10-25 14:27 | US ---
PROCEDURE: Date of procedure: 10/25/2018 Procedure: 1. Ultrasound-guided Right thoracentesis, CPT 07696 Medications: 6 cc 1% Lidocaine HISTORY: Right pleural effusion, shortness of breath TECHNIQUE: Following informed consent ,the Patients' right chest was marked. Procedure time-out was called, and the patient was placed in the sitting position and limited ultrasound showed a moderate right effusion. The patient's right back was prepped and draped in the usual sterile fashion. After the skin was anesthetized with lidocaine, a drainage catheter was advanced under ultrasound guidance into the pleural space. Ultrasound-guided thoracentesis was performed. A total of 800 cubic centimeters of goran-colored fluid removed without complication. A Xeroform dressing was applied. IMPRESSION: Ultrasound guided Right thoracentesis. There were no immediate complications.
--- NOTE | 2018-10-25 14:45 | RAD ---
Date of service: 10/25/2018 HISTORY: PICC Insertion COMPARISON: Portable chest 10/23/2017. FINDINGS: LUNGS: Bipolar permanent cardiac pacemaker reiterated as well as sternotomy wires. Right PICC unchanged in position. Improving bilateral pleural effusions are identified with potential interval resolution bilaterally. Linear atelectasis or fibrosis seen at the right base, borderline at the left limited patchy infrahilar density remains at the left as well with questionable air bronchograms raising question infiltrate here. No pneumothorax bilaterally. PLEURA: As above. CARDIOVASCULAR: Calcific atherosclerotic changes are seen related to the thoracic aorta. Stable cardiac size. No pulmonary vascular congestion. OSSEOUS STRUCTURES: No significant abnormalities. VISUALIZED UPPER ABDOMEN: Normal. OTHER FINDINGS: None. IMPRESSION: Bilateral pleural effusions may be resolved bilaterally. Linear atelectasis seen at both bases with trace patchy left infrahilar patchy density identified.
--- NOTE | 2018-10-25 20:45 | CP.PCM.PN ---
Subjective - Date & Time of Evaluation Date of Evaluation: 10/25/18 Time of Evaluation: 18:00 - Subjective Subjective: dictated Objective - Vital Signs/Intake and Output Vital Signs (last 24 hours): Temp Pulse Resp BP Pulse Ox 98.5 F 71 20 95/56 L 98 10/25/18 15:15 10/25/18 15:15 10/25/18 15:15 10/25/18 15:15 10/25/18 15:15 - Medications Medications: Current Medications Acetaminophen (Tylenol 325mg Tab) 650 mg PO Q6 PRN PRN Reason: Pain, Mild (1-3) Last Admin: 10/24/18 21:43 Dose: 650 mg Aspirin (Ecotrin) 81 mg PO DAILY [facility] Last Admin: 10/25/18 13:51 Dose: Not Given Dabigatran (Pradaxa) 150 mg PO BID [facility] Last Admin: 10/25/18 18:03 Dose: 150 mg Enalapril Maleate (Vasotec) 10 mg PO DAILY [facility] Last Admin: 10/24/18 10:07 Dose: 10 mg Guaifenesin/Dextromethorphan (Robitussin Dm) 10 ml PO Q4H PRN PRN Reason: Cough and congestion Last Admin: 10/17/18 00:02 Dose: 10 ml Metronidazole (Flagyl) 500 mg in 100 mls @ 100 mls/hr IVPB Q8H [facility]; Protocol Last Admin: 10/25/18 18:02 Dose: 100 mls/hr Meropenem 1 gm/ Sodium (Chloride) 100 mls @ 100 mls/hr IVPB Q8H [facility]; Protocol Last Admin: 10/25/18 18:03 Dose: 100 mls/hr Lactobacillus Acidophilus (Bacid Acidophilus) 1 cap PO BID [facility] Last Admin: 10/25/18 10:04 Dose: Not Given Metoprolol Succinate (Toprol Xl) 50 mg PO DAILY [facility] Last Admin: 10/24/18 10:07 Dose: 50 mg Pantoprazole Sodium (Protonix Inj) 40 mg IVP DAILY [facility] Last Admin: 10/18/18 09:26 Dose: 40 mg Rosuvastatin Calcium (Crestor) 10 mg PO HS [facility] Last Admin: 10/24/18 21:33 Dose: 10 mg Tamsulosin HCl (Flomax) 0.4 mg PO DAILY [facility] Last Admin: 10/24/18 10:07 Dose: 0.4 mg Zolpidem Tartrate (Ambien) 5 mg PO HS PRN PRN Reason: Insomnia Last Admin: 10/25/18 02:05 Dose: 5 mg - Labs Labs: 10/25/18 07:09 10/25/18 07:09 PT 12.4 SECONDS (9.7-12.2) H 10/25/18 09:32 INR 1.1 10/25/18 09:32 APTT 35 SECONDS (21-34) H 10/25/18 09:32
[2018-10-26] MEDS: metroNIDAZOLE IV 500 mg/100 ml 500 MG/100 ML BAG IVPB SCH ×3 (00:47→16:27)
[2018-10-26] MEDS: Meropenem 1 GM in Sodium Chloride 0.9% 100 ML IVPB SCH ×2 (01:42→09:57)
--- NOTE | 2018-10-26 02:42 | PN ---
DATE: 10/25/2017 INFECTIOUS DISEASE FOLLOWUP SUBJECTIVE: The patient was seen today. He had ultrasound-guided moderate effusion removed, and they removed remove the perihepatic abscess drainage catheter, and they did ultrasound-guided right thoracocentesis in which 900 mL of colored fluid was removed, and the patient is feeling lot better right now. He said he is able to breathe easier. OBJECTIVE: VITAL SIGNS: T-max is 98.5, pulse 71. His blood pressure is on the low side 95/56, but he is awake, alert. Respirations are 20. HEENT: Head is atraumatic, normocephalic. NECK: Supple. LUNGS: Still has decreased breath sounds in right lung base, left is unremarkable. HEART: S1, S2 irregularly irregular. He has some irregularity. I do not know if it is ectopic or is irregular. ABDOMEN: Soft, nontender. Now, he has a dressing at the previous RICARDO drain site. EXTREMITIES: Have no edema. He does have a history of coronary artery disease and a defibrillator. He had a left leg DVT, and he is on Pradaxa 150 p.o. b.i.d., and he remains on Vasotec. He is on guaifenesin, lactobacillus. He is on Merrem 1 g every 8 hours, and he is on Flagyl 500 every 8 hours, and I want to see the interventional procedure report. They did a chest and abdominal CT today. The chest and the abdominal CT showed that central airway remains clear with limited compression atelectasis, identified in right middle and left lower lobe with significant residual atelectasis remaining in the right lower lobe. Skin, no definite pulmonary mass appreciable, limited linear atelectasis at the lingula and left lower lobe once again. Mediastinum main artery is prominent at 3.5, consider clinically, correlate for potential pulmonary artery hypertension. He has a prior mediastinal sternotomy, and he has a diminished right pleural effusion. Now remains moderate in overall volume with minimal left pleural effusion. No pericardial effusion. Liver has a large intrahepatic fluid collection, has been decompressed by a pigtail draining down to a size of 8.3 x 1 x 5.3. Limited gas is seen within the lumen as well as trace fluid. The remainder of the liver is unremarkable, still 8.3 x 1 x 5.1, but they removed. So, impression was diminishing right pleural effusion, now moderate in overall volume with trace left pleural effusion, improving right-sided pulmonary atelectasis, pulmonary artery hypertension, not excluded, and then he has significant decompression of right lobe hepatic fluid collection with limited residual as described above, and prior cholecystectomy and biliary stent. Still it once again seems like that the hepatic fluid collection has diminished, and on the duplex scan on 10/15/2018, no evidence of deep or superficial vein of the left lower extremity. Normal valve function noted on the left side. Normal evidence of deep superficial vein. No evidence of this, probably there was no evidence that came out, and so at this time, the patient is on Merrem, and he has received this treatment since he came in 10/05/2018. He has been on this treatment since , and IR was done on 10/16/2018, so it is like 9 days into the treatment. I have a think that he should get antibiotics for another two weeks and that should be okay, and he should go back on Merrem and Flagyl, and continue for 2 weeks, and this should be given in an rehab as I do not think the patient can do it on his own, and to monitor x-ray as well as abdominal hepatic abscess prior to discontinuing the antibiotics to repeat another CAT scan in two weeks' time, and it may need extension for another 2 to 3 weeks depending on how the abscess or the collection appears. Leno Ch MD
[2018-10-26 08:13] LABS: BASO # 0.1 K/uL (0.0-0.2); BASO % 1.3 % (0.0-2.0); EOS # 0.2 K/uL (0.0-0.7); EOS % 3.6 % (0.0-4.0); HEMOGLOBIN 9.7 g/dL (12.0-18.0); LYMPH # 2.4 K/uL (1.0-4.3); LYMPH % 41.9 % (20.0-40.0); MEAN CELL VOLUME 87.3 fL (80.0-94.0); MEAN CORPUSCULAR HEMOGLOBIN 28.4 pg (27.0-31.0); MEAN CORPUSCULAR HGB CONC 32.5 g/dL (33.0-37.0); MEAN PLATELET VOLUME 7.5 fL (7.2-11.7); MONO # 0.5 K/uL (0.0-0.8); MONO % 8.6 % (0.0-10.0); NEUT # 2.5 K/uL (1.8-7.0); NEUT % 44.6 % (50.0-75.0); NRBC % 0.2 % (0.0-2.0); RBC 3.42 Mil/uL (4.40-5.90); RED CELL DISTRIBUTION WIDTH 18.5 % (11.5-14.5); WHITE BLOOD COUNT 5.7 K/uL (4.8-10.8)
[2018-10-26 08:39] LABS: ALB/GLOB RATIO 0.8 (1.0-2.1); ALBUMIN 2.9 g/dL (3.5-5.0); ALT/SGPT 40 U/L (21-72); AST/SGOT 43 U/L (17-59); BLOOD UREA NITROGEN 10 mg/dL (9-20); CALCIUM 8.1 mg/dl (8.6-10.4); GFR NON-AFRICAN AMERICAN > 60
[2018-10-26] MEDS: Lactobacillus Acidophilus 500 MU Cap PO SCH (09:57)
[2018-10-26] MEDS: Metoprolol Succinate 50 mg XL Tab PO SCH (09:57)
[2018-10-26 16:45] VITALS: BP 128/60; PULSE 69; TEMP 98.4; O2SAT 99
--- NOTE | 2018-10-26 17:41 | CP.PCM.DIS ---
Provider - Provider Date of Admission: 10/13/18 20:41 Attending physician: Meir Weiss MD Consults: 10/20/18 19:16 Case Management Referral Routine Comment: Physician Instructions: Reason For Exam: OLEG eval Reason for Referral: Discharge Planning 10/13/18 20:34 General Surgery Consult Stat Comment: Consulting Provider: Robles Haq Consulting Physician: Robles Haq Reason for Consult: ruq pain s/p cholecystitis possible abscess 10/14/18 08:07 Radiology Consult Routine Comment: Consulting Provider: Abdiel Castaneda Consulting Physician: Adbiel Castaneda Reason for Consult: Possible thoracentesis Rt pleural fluid collection, abd fluid 10/14/18 16:39 Infectious Disease Consult Routine Comment: Hx Lap Marisela 09/13/18 Consulting Provider: Leno Ch Consulting Physician: Leno Ch Reason for Consult: [id number] liver abscess S/P Lap Marisela. Ceftriaxone/Flagyl. IR pendng Time Spent in preparation of Discharge (in minutes): 45 Diagnosis - Discharge Diagnosis (1) Perihepatic fluid collection Status: Acute Hospital Course - Lab Results Lab Results: Micro Results 10/16/18 13:07 Pleural Fluid Gram Stain - Final 10/16/18 13:07 Pleural Fluid Body Fluid Culture - Final No growth. 10/16/18 13:07 Other: Please Indicate Gram Stain - Final 10/16/18 13:07 Other: Please Indicate Body Fluid Culture - Final Enterococcus Faecalis Escherichia Coli Enterobacter Cloacae Ssp Cloac 10/13/18 21:21 Blood-Venous Blood Culture - Final NO GROWTH AFTER 5 DAYS 10/13/18 21:21 Blood-Venous Gram Stain - Final TEST NOT PERFORMED 10/13/18 21:21 Blood-Venous Blood Culture - Final NO GROWTH AFTER 5 DAYS 10/13/18 21:21 Blood-Venous Gram Stain - Final TEST NOT PERFORMED 10/17/18 14:49 Urine,Clean Catch Urine Culture - Final No Growth (<1,000 CFU/ML) Most Recent Lab Values WBC 5.7 K/uL (4.8-10.8) 10/26/18 08:01 RBC 3.42 Mil/uL (4.40-5.90) L 10/26/18 08:01 Hgb 9.7 g/dL (12.0-18.0) L 10/26/18 08:01 Hct 29.8 % (35.0-51.0) L 10/26/18 08:01 MCV 87.3 fL (80.0-94.0) 10/26/18 08:01 MCH 28.4 pg (27.0-31.0) 10/26/18 08:01 MCHC 32.5 g/dL (33.0-37.0) L 10/26/18 08:01 RDW 18.5 % (11.5-14.5) H 10/26/18 08:01 Plt Count 242 K/uL (130-400) 10/26/18 08:01 MPV 7.5 fL (7.2-11.7) 10/26/18 08:01 Neut % (Auto) 44.6 % (50.0-75.0) L 10/26/18 08:01 Lymph % (Auto) 41.9 % (20.0-40.0) H 10/26/18 08:01 Gray % (Auto) 8.6 % (0.0-10.0) 10/26/18 08:01 Eos % (Auto) 3.6 % (0.0-4.0) 10/26/18 08:01 Baso % (Auto) 1.3 % (0.0-2.0) 10/26/18 08:01 Neut # (Auto) 2.5 K/uL (1.8-7.0) 10/26/18 08:01 Lymph # (Auto) 2.4 K/uL (1.0-4.3) 10/26/18 08:01 Gray # (Auto) 0.5 K/uL (0.0-0.8) 10/26/18 08:01 Eos # (Auto) 0.2 K/uL (0.0-0.7) 10/26/18 08:01 Baso # (Auto) 0.1 K/uL (0.0-0.2) 10/26/18 08:01 ESR 50 mm/hr (0-15) H 10/15/18 07:49 PT 12.4 SECONDS (9.7-12.2) H 10/25/18 09:32 INR 1.1 10/25/18 09:32 APTT 35 SECONDS (21-34) H 10/25/18 09:32 D-Dimer, Quantitative 4232 ng/mlDDU (0-243) H 10/13/18 17:48 Sodium 135 mmol/L (132-148) 10/26/18 08:01 Potassium 4.8 mmol/L (3.6-5.2) 10/26/18 08:01 Chloride 101 mmol/L (98-107) 10/26/18 08:01 Carbon Dioxide 31 mmol/L (22-30) H 10/26/18 08:01 Anion Gap 8 (10-20) L 10/26/18 08:01 BUN 10 mg/dL (9-20) 10/26/18 08:01 Creatinine 0.7 mg/dL (0.8-1.5) L 10/26/18 08:01 Est GFR ( Amer) > 60 10/26/18 08:01 Est GFR (Non-Af Amer) > 60 10/26/18 08:01 POC Glucose (mg/dL) 146 mg/dL (65-110) H 10/20/18 11:19 Random Glucose 99 mg/dL (75-110) 10/26/18 08:01 Calcium 8.1 mg/dl (8.6-10.4) L 10/26/18 08:01 Phosphorus 2.3 mg/dL (2.5-4.5) L 10/18/18 06:16 Magnesium 1.8 mg/dL (1.6-2.3) 10/18/18 06:16 Total Bilirubin 0.5 mg/dL (0.2-1.3) 10/26/18 08:01 GGT 184 U/L (8-78) H 10/20/18 06:40 AST 43 U/L (17-59) 10/26/18 08:01 ALT 40 U/L (21-72) 10/26/18 08:01 Alkaline Phosphatase 149 U/L (38-126) H 10/26/18 08:01 Troponin I 0.0230 ng/mL (0.00-0.120) 10/13/18 17:48 C-React Prot High Sens > 15.00 mg/L (1.00-3.00) H 10/15/18 07:49 NT-Pro-B Natriuret Pep 6520 pg/mL (0-900) H 10/13/18 17:48 Total Protein 6.5 g/dL (6.3-8.3) 10/26/18 08:01 Albumin 2.9 g/dL (3.5-5.0) L 10/26/18 08:01 Globulin 3.6 gm/dL (2.2-3.9) 10/26/18 08:01 Albumin/Globulin Ratio 0.8 (1.0-2.1) L 10/26/18 08:01 Urine Color Yellow (YELLOW) 10/15/18 14:45 Urine Clarity Hazy (Clear) 10/15/18 14:45 Urine pH 5.0 (5.0-8.0) 10/15/18 14:45 Ur Specific [place] 1.031 (1.003-1.030) H 10/15/18 14:45 Urine Protein 1+ mg/dL (NEGATIVE) H 10/15/18 14:45 Urine Glucose (UA) Normal mg/dL (Normal) 10/15/18 14:45 Urine Ketones Negative mg/dL (NEGATIVE) 10/15/18 14:45 Urine Blood Negative (NEGATIVE) 10/15/18 14:45 Urine Nitrate Negative (NEGATIVE) 10/15/18 14:45 Urine Bilirubin Negative (NEGATIVE) 10/15/18 14:45 Urine Urobilinogen Normal mg/dL (0.2-1.0) 10/15/18 14:45 Ur Leukocyte Esterase 1+ Javad/uL (Negative) H 10/15/18 14:45 Urine WBC (Auto) 15 /hpf (0-5) H 10/15/18 14:45 Urine RBC (Auto) 5 /hpf (0-3) H 10/15/18 14:45 Ur Squamous Epith Cells 1 /hpf (0-5) 10/15/18 14:45 Stool Occult Blood Positive (NEGATIVE) 10/19/18 02:05 Stool Occult Blood #2 Positive (NEGATIVE) 10/19/18 02:05 - Hospital Course Hospital Course: Initial HPI: Pt is a 78yo M with PMHx of HTN, HLD, CAD s/p CABG, s/p lap marisela 09/13/18 presenting to ED with shortness of breath for 1 week. He reports progressive shortness of breath over the past week, worse with exertion. He also reports some swelling in the legs b/l since the surgery. He also complains of abdominal pain since his surgery, which is mild. Pt denies fever, chills, nausea, vomiting, diarrhea. He reports last bowel movement was today which was formed and without any blood. Pt denies chest pain, dizziness, dysuria. Hospital Course: Patient was admitted following recent cholecystectomy and found to have a perihepatic fluid collection. Antibiotics were started and maintained- started on Zosyn/flagyl and then switched to Meropenem/Flagyl based on sensitivities. GI and IR were consulted on the case. Patient underwent IR drainage of perihepatic abscess on 10/16 and pigtail catheter was placed. Fluid cultures were positive for E. Faecalis and E. coli. Patient was continued on antibiotics. GI followed the patient throughout the course, however no intervention was indicated. Patient did have an acute drop in hemoglobin at one point from 10.1 to 8.9 overnight. However FOBT was negative and GI said no need for intervention during hospitalization, though patient should follow up for outpatient colonoscopy. Course was also complicated by pleural effusions which were suspected due to the primary perihepatic fluid collection. Subsequently on 10/25, patient went for thoracentesis with removal of 900 cc goran colored fluid. By end of hospital course, patient was no longer short of breath. Hospital course also complicated by left lower extremity DVT, for which patient was treated with Pradaxa (held for procedures). He was continued on Pradaxa up on dischargge. On discharge, symptoms had resolved, patient afebrile with no white count and negative blood cultures. He has been discharged to [facility] and will require two additional weeks of IV antibiotics per Dr. Jing BOCANEGRA. Imaging: - CXR 10/13: Moderate right pleural effusion. No definite consolidation. Permanent pacemaker - CT abdomen/pelvis on admission 10/14: 12.0 x 8.0 x 14.2 cm loculated fluid collection with air fluid level in subcapsular right hepatic lobe concernng for an abscess, large right and small left pleural effusion - HIDA Scan 10/15: Findings suspicious for bile leak. There is pooling of radionuclide in the gallbladder fossa and amorphous collection of radionuclide anteriorly and laterally on the left. B/L LE Dopplers 10/21: Acute thrombus of the left soleal vein with severe reduction in venous return. Right - no evidence of deep or superficial vein thrombosis -CXR 10/22: Small to moderate R sided pleural effusion and associated consolid ation. Small L pleural effusion. L basilar atelectasis. (See full report) - Repeat CT chest, abd, pelvis 10/25: In the interval, a large intrahepatic fluid collection has been decompressed by a pigtail catheter draining it down to a size of 8.3 x 1.0 x 5.1 cm (anteroposterior by transverse by superoinferior dimensions) approximately. Limited gas is seen within the lumen as well as trace fluid. The remainder of the liver is unremarkable as imaged. -Repeat CT 10/25: 1. Diminishing right pleural effusion now moderate in overall volume with trace left pleural effusion remaining. Improving right sided pulmonary atelectasis with minimal noted at the lingula and left lower lobe. 2. Pulmonary artery hypertension not excluded with prominent main pulmonary segment identified. Upper limits normal caliber is at the thoracic aorta. Stable cardiomegaly. 3. Significant decompression of right lobe hepatic fluid collection with limited residual as described above. Pigtail catheter is identified in situ in the interval terminating at the lumen of the collection. 4. Prior cholecystectomy with biliary stent in situ once again. Discharge Exam - Head Exam Head Exam: ATRAUMATIC, NORMAL INSPECTION - Eye Exam Eye Exam: EOMI, Normal appearance - ENT Exam ENT Exam: Mucous Membranes Moist - Neck Exam Neck exam: Full Rom - Respiratory Exam Respiratory Exam: Clear to PA & Lateral, UNREMARKABLE. absent: Wheezes - Cardiovascular Exam Cardiovascular Exam: REGULAR RHYTHM, +S1, +S2 - GI/Abdominal Exam GI & Abdominal Exam: Normal Bowel Sounds, Soft. absent: Tenderness - Extremities Exam Extremities exam: normal inspection - Neurological Exam Neurological exam: Alert, CN II-XII Intact, Oriented x3 - Psychiatric Exam Psychiatric exam: Normal Affect, Normal Mood - Skin Skin Exam: Dry, Intact Discharge Plan - Discharge Medications Prescriptions: metroNIDAZOLE IV 500 mg/100 ml [Flagyl] 500 mg IV Q8 14 Days bag - Follow Up Plan Condition: FAIR Disposition: HOME/ ROUTINE Instructions: Heart Healthy Diet, Skin Abscess, Shortness of Breath (Dyspnea) (DC), Pleural Effusion (DC), Peripherally-Inserted Central Catheter (DC) Additional Instructions: Patient is cleared for discharge per Dr. Weiss. Patient will require IV antibiotics until at least 11/08 Please continue taking the following medications: -Tylenol 650 mg one tab by mouth daily -Aspirin 81 mg one tab by mouth daily -Pradaxa 150 mg one tab by mouth twice a daily -Vasotec 10 mg one tab by mouth daily -Crestor 10 mg one tab by mouth daily before bed -Flomax 0.4 mg one tab by mouth daily -Zolpidem 150 mg one tab by mouth at bedtime -Lactobacillus 1 cap by mouth twice a day -Meropenem 1 gm by IV every 8 hours until 11/08 -Flagyl 500 mg by mouth every 8 hours until 11/08 Pt will leave with PICC line for 2 weeks or more of IV Meropenem and Flagyl. Patient to continue to have weekly CBC, CMP, ESR, CRP Patient should follow with primary care following discharge from rehab. Patient to follow up with Dr. Ch in office for further management. Patient should also follow up with GI for outpatient colonoscopy. Patient should also make an appointment to follow with general surgery. Referrals: Robles Haq MD [Staff Provider] -
== END 2018-10-26 18:20 | DRG 862 ==
LOC: C.ER 17:00 → C.9E 20:41 → C.6T 21:13
PROVIDERS: ADMIT Internal Medicine; ATTEND Internal Medicine
PROC: 0W993ZZ Drainage of Right Pleural Cavity, Percutaneous Approach (ICD-10-PCS; 2018-10-16)
PROC: 0F9130Z Drainage of Right Lobe Liver with Drainage Device, Percutaneous Approach (ICD-10-PCS; 2018-10-16)
PROC: 0DB68ZX Excision of Stomach, Via Natural or Artificial Opening Endoscopic, Diagnostic (ICD-10-PCS; 2018-10-19)
PROC: 02HV33Z Insertion of Infusion Device into Superior Vena Cava, Percutaneous Approach (ICD-10-PCS; 2018-10-20)
PROC: 0FP0X0Z Removal of Drainage Device from Liver, External Approach (ICD-10-PCS; principal; 2018-10-25)
PROC: 0W993ZZ Drainage of Right Pleural Cavity, Percutaneous Approach (ICD-10-PCS; 2018-10-25)
PROC: 02HV33Z Insertion of Infusion Device into Superior Vena Cava, Percutaneous Approach (ICD-10-PCS; 2018-10-25)
DX: T81.43XA Infection following a procedure, organ and space surgical site, initial encounter (principal); K75.0 Abscess of liver; J90 Pleural effusion, not elsewhere classified; K91.89 Other postprocedural complications and disorders of digestive system; R18.8 Other ascites; I31.3 Pericardial effusion (noninflammatory); J98.11 Atelectasis; I82.4Z2 Acute embolism and thrombosis of unspecified deep veins of left distal lower extremity; B95.2 Enterococcus as the cause of diseases classified elsewhere; K29.50 Unspecified chronic gastritis without bleeding; I10 Essential (primary) hypertension; I25.10 Atherosclerotic heart disease of native coronary artery without angina pectoris; I27.20 Pulmonary hypertension, unspecified; D64.9 Anemia, unspecified; I08.1 Rheumatic disorders of both mitral and tricuspid valves; I37.1 Nonrheumatic pulmonary valve insufficiency; N40.0 Benign prostatic hyperplasia without lower urinary tract symptoms; E78.5 Hyperlipidemia, unspecified; Z90.49 Acquired absence of other specified parts of digestive tract; Z95.2 Presence of prosthetic heart valve; Z95.0 Presence of cardiac pacemaker; Z95.1 Presence of aortocoronary bypass graft; Z79.02 Long term (current) use of antithrombotics/antiplatelets

== ENCOUNTER 2018-11-24 14:07 | Observation (INO) | payer MEDICARE ==
[2018-11-24 14:47] VITALS: BMI 20.5
--- NOTE | 2018-11-24 15:53 | RAD ---
Date of service: 11/24/2018 HISTORY: Shortness of breath COMPARISON: 10/13/2018. TECHNIQUE: Chest PA and lateral FINDINGS: LINES AND TUBES: None. LUNG AND PLEURA: The lungs are well inflated and clear. Small right pleural effusion. No pneumothorax. HEART AND MEDIASTINUM: Mild cardiomegaly. Status post CABG. Stable position of left-sided permanent pacing device. No aortic atherosclerotic calcifications present. The hilar and mediastinal contours are within normal limits. SKELETAL STRUCTURES: The bony structures are within normal limits for the patient's age. VISUALIZED UPPER ABDOMEN: Normal. OTHER FINDINGS: None. IMPRESSION: Small right pleural effusion..
[2018-11-24 15:55] LABS: BASO % 0.4 % (0.0-2.0); EOS # 0.1 K/uL (0.0-0.7); EOS % 1.5 % (0.0-4.0); HEMOGLOBIN 11.2 g/dL (12.0-18.0); LYMPH # 1.9 K/uL (1.0-4.3); LYMPH % 28.8 % (20.0-40.0); MEAN CORPUSCULAR HEMOGLOBIN 25.8 pg (27.0-31.0); MEAN CORPUSCULAR HGB CONC 31.3 g/dL (33.0-37.0); MEAN PLATELET VOLUME 8.6 fL (7.2-11.7); MONO # 0.6 K/uL (0.0-0.8); MONO % 8.5 % (0.0-10.0); NEUT # 4.1 K/uL (1.8-7.0); NEUT % 60.8 % (50.0-75.0); NRBC % 0.1 % (0.0-2.0); RBC 4.35 Mil/uL (4.40-5.90); RED CELL DISTRIBUTION WIDTH 17.1 % (11.5-14.5); WHITE BLOOD COUNT 6.7 K/uL (4.8-10.8)
[2018-11-24 15:56] LABS: MEAN CELL VOLUME 82.3 fL (80.0-94.0)
[2018-11-24 16:05] LABS: ALT/SGPT 23 U/L (21-72); AST/SGOT 36 U/L (17-59); BLOOD UREA NITROGEN 15 mg/dL (9-20); CALCIUM 8.6 mg/dl (8.6-10.4); GFR NON-AFRICAN AMERICAN > 60
[2018-11-24 16:16] LABS: B-TYPE NATRIURETIC PEPTIDE 4560 pg/mL (0-900)
--- NOTE | 2018-11-24 18:33 | CP.PCM.HP ---
<Lorena Guadalupe - Last Filed: 11/24/18 18:59> History of Present Illness - History of Present Illness History of Present Illness: CC: shortness of breath 78 year old male with history of HTN, HLD, CAD s/p CABG, s/p pacemaker, diastolic CHF, perihepatic abscess, DVT on Pradaxa presenting to ED with shortness of breath on exertion for 1 week. He reports becomes shortness of breath easily after walking just a few blocks, to the point where he has to take short breaks after 2 blocks. He also reports mild bilateral lower extremity swelling since August. Patient visited his cardiology 3 days ago and was told discontinue the aspirin. He also got his pacemaker interrogated during at visit. Patient denies fever, chills, headache, chest pain, abdominal, nausea, vomiting, diarrhea, or urinary symptoms. PMD and cardiology: Estephanie PMHx: HTN, HLD, CAD s/p CABG, s/p pacemaker, diastolic CHF, perihepatic abscess, DVT on Pradaxa PSHx: Lap Marisela 09/13/18, biliary stent 09/2016. CABG 2009, pacemaker 2008 FamHx: denies SocH: Denies tobacco use. Reports prior social etoh. Denies recreational drug use. Allergies: NKDA Meds: as per EMR Present on Admission - Present on Admission Any Indicators Present on Admission: Yes History of DVT/PE: Yes Review of Systems - Constitutional Constitutional: As Per HPI. absent: Chills, Fatigue, Fever, Weight Loss - EENT Eyes: As Per HPI. absent: Blind Spots, Blurred Vision, Diplopia, Floaters Ears: As Per HPI. absent: Abnormal Hearing, Disequilibrium, Dizziness Nose/Mouth/Throat: As Per HPI. absent: Epistaxis, Nasal Obstruction, Nasal Trauma, Bleeding Gums - Cardiovascular Cardiovascular: As Per HPI, Dyspnea, Dyspnea on Exertion, Pedal Edema. absent: Chest Pain, Chest Pain at Rest, Chest Pain with Activity, Diaphoresis, Irregular Heart Rhythm, Syncope - Respiratory Respiratory: As Per HPI, Dyspnea. absent: Cough, Hemoptysis, Wheezing - Gastrointestinal Gastrointestinal: As Per HPI. absent: Abdominal Pain, Bloating, Diarrhea, Nausea, Vomiting - Genitourinary Genitourinary: As Per HPI. absent: Dysuria, Flank Pain, Hematuria, Freq UTI - Musculoskeletal Musculoskeletal: As Per HPI. absent: Atrophy, Back Pain, Deformity, Joint Swelling - Integumentary Integumentary: As Per HPI. absent: Acne, Alopecia, Change in Nails, Change in Pigmentation - Neurological Neurological: As Per HPI. absent: Abnormal Gait, Abnormal Speech, Behavioral Changes, Dizziness, Numbness - Psychiatric Psychiatric: As Per HPI. absent: Anxiety, Confusion, Depression - Endocrine Endocrine: As Per HPI. absent: Change in Body Appearance, Change in Libido, Polydipsia, Polyphagia, Polyuria - Hematologic/Lymphatic Hematologic: As Per HPI. absent: Lymphadenopathy Past Patient History - Infectious Disease Hx of Infectious Diseases: None - Past Medical History & Family History Past Medical History?: Yes - Past Social History Smoking Status: Never Smoked - CARDIAC Hx Pacemaker: Yes (left) - PULMONARY Hx Respiratory Disorders: No - NEUROLOGICAL Hx Neurological Disorder: No - HEENT Hx HEENT Problems: No - RENAL Hx Chronic Kidney Disease: No - ENDOCRINE/METABOLIC Hx Endocrine Disorders: No - HEMATOLOGICAL/ONCOLOGICAL Hx Cancer: No - INTEGUMENTARY Hx Dermatological Problems: No - MUSCULOSKELETAL/RHEUMATOLOGICAL Hx Musculoskeletal Disorders: Yes Hx Falls: Yes - GASTROINTESTINAL Hx Gastrointestinal Disorders: Yes Hx Gall Bladder Disease: Yes - GENITOURINARY/GYNECOLOGICAL Hx Genitourinary Disorders: No - PSYCHIATRIC Hx Psychophysiologic Disorder: No Hx Substance Use: No - SURGICAL HISTORY Hx Mastectomy: No Hx Open Heart Surgery: Yes (x3) - ANESTHESIA Hx Anesthesia: Yes Hx Anesthesia Reactions: No Hx Malignant Hyperthermia: No Meds Allergies/Adverse Reactions: Allergies Allergy/AdvReac Type Severity Reaction Status Date / Time shrimp Allergy RASH Verified 11/24/18 14:46 Physical Exam - Constitutional Appears: Well, Non-toxic, No Acute Distress - Head Exam Head Exam: ATRAUMATIC, NORMAL INSPECTION, NORMOCEPHALIC - Eye Exam Eye Exam: EOMI, Normal appearance, PERRL Pupil Exam: NORMAL ACCOMODATION, PERRL - ENT Exam ENT Exam: Mucous Membranes Moist, Normal Exam - Neck Exam Neck exam: Positive for: Normal Inspection - Respiratory Exam Respiratory Exam: Decreased Breath Sounds, Clear to Auscultation Bilateral, NORMAL BREATHING PATTERN. absent: Wheezes, Respiratory Distress - Cardiovascular Exam Cardiovascular Exam: REGULAR RHYTHM, +S1, +S2 - GI/Abdominal Exam GI & Abdominal Exam: Normal Bowel Sounds, Soft - Extremities Exam Extremities exam: Positive for: normal capillary refill, pedal edema (mild bila teral lower extremity swelling), pedal pulses present. Negative for: tenderness - Neurological Exam Neurological exam: Alert, Oriented x3, Reflexes Normal - Psychiatric Exam Psychiatric exam: Normal Affect, Normal Mood - Skin Skin Exam: Dry, Normal Color, Warm Results - Vital Signs Recent Vital Signs: Last Vital Signs Temp 98.6 F 11/24/18 16:31 Pulse 81 11/24/18 16:31 Resp 20 11/24/18 16:31 BP 108/60 11/24/18 16:31 Pulse Ox 97 11/24/18 16:31 - Labs Result Diagrams: 11/24/18 15:41 11/24/18 15:41 Labs: Laboratory Results - last 24 hr 11/24/18 11/24/18 15:41 15:41 WBC 6.7 RBC 4.35 L Hgb 11.2 L Hct 35.9 MCV 82.3 D MCH 25.8 L MCHC 31.3 L RDW 17.1 H Plt Count 182 MPV 8.6 Neut % (Auto) 60.8 Lymph % (Auto) 28.8 Hardy % (Auto) 8.5 Eos % (Auto) 1.5 Baso % (Auto) 0.4 Neut # (Auto) 4.1 Lymph # (Auto) 1.9 Hardy # (Auto) 0.6 Eos # (Auto) 0.1 Baso # (Auto) 0.0 Sodium 137 Potassium 4.3 Chloride 101 Carbon Dioxide 26 Anion Gap 14 BUN 15 Creatinine 0.7 L Est GFR ( Amer) > 60 Est GFR (Non-Af Amer) > 60 Random Glucose 97 Calcium 8.6 Total Bilirubin 0.4 AST 36 ALT 23 Alkaline Phosphatase 99 Total Creatine Kinase 34 L CK-MB (Mass) 1.80 Troponin I 0.0170 NT-Pro-B Natriuret Pep 4560 H Total Protein 8.1 Albumin 4.0 Globulin 4.0 H Albumin/Globulin Ratio 1.0 Assessment & Plan - Assessment and Plan (Free Text) Assessment: Shortness of breath -Likely secondary to acute diastolic CHF exacerbation -Previous echo 08/2018 showed EF 50-55% -BNP 4560 -Troponin negative, repeats pending -Follow up EKG -Lasix 40mg IV given once, BID starting tomorrow -HOB 45 degree -PT eval and treat Right sided pleural effusion -CXR today shows small right pleural effusion -Lasix 40mg IV given once, BID starting tomorrow -Repeat CXR Hx of left leg DVT -Pradaxa 150mg BID CAD -Previous echo 08/2018 showed EF 50-55% -Crestor 10mg PO HS -Pradaxa 150mg BID -Metoprolol succinate 50mg PO daily HTN -enalapril 10mg PO daily -metoprolol succinate 50mg PO daily Hx of BPH - Flomax 0.4mg PO daily HLD - crestor 10mg PO HS PPX GI: protonix DVT: Pradaxa PT Case discussed with attending physician Dr. Mathur <Satnam Mathur - Last Filed: 11/24/18 19:09> Results - Vital Signs Recent Vital Signs: Last Vital Signs Temp 98.2 F 11/24/18 18:38 Pulse 69 11/24/18 18:38 Resp 18 11/24/18 18:38 BP 113/73 11/24/18 18:38 Pulse Ox 96 11/24/18 18:38 - Labs Result Diagrams: 11/24/18 15:41 11/24/18 15:41 Labs: Laboratory Results - last 24 hr 11/24/18 11/24/18 15:41 15:41 WBC 6.7 RBC 4.35 L Hgb 11.2 L Hct 35.9 MCV 82.3 D MCH 25.8 L MCHC 31.3 L RDW 17.1 H Plt Count 182 MPV 8.6 Neut % (Auto) 60.8 Lymph % (Auto) 28.8 Hardy % (Auto) 8.5 Eos % (Auto) 1.5 Baso % (Auto) 0.4 Neut # (Auto) 4.1 Lymph # (Auto) 1.9 Hardy # (Auto) 0.6 Eos # (Auto) 0.1 Baso # (Auto) 0.0 Sodium 137 Potassium 4.3 Chloride 101 Carbon Dioxide 26 Anion Gap 14 BUN 15 Creatinine 0.7 L Est GFR ( Amer) > 60 Est GFR (Non-Af Amer) > 60 Random Glucose 97 Calcium 8.6 Total Bilirubin 0.4 AST 36 ALT 23 Alkaline Phosphatase 99 Total Creatine Kinase 34 L CK-MB (Mass) 1.80 Troponin I 0.0170 NT-Pro-B Natriuret Pep 4560 H Total Protein 8.1 Albumin 4.0 Globulin 4.0 H Albumin/Globulin Ratio 1.0 Attending/Attestation - Attestation I have personally seen and examined this patient.: Yes I have fully participated in the care of the patient.: Yes I have reviewed all pertinent clinical information: Yes Notes (Text): 11/24/18 19:06 Medical attending: Patient was seen and examined by me. Agree with the above note by the resident The patient was not in any acute distress when I came and saw him. Reviewed the medical history and he was here in September and October due to complications of gall bladder as well as hepatic area abbcess which required prolonged IV abx During that time he also had a RLL pleural effusion which required thoracenteis Today the CXRAY does not show a pleural effusion but he does have what appears to be an area of venous congestion. WBC is stable. He denies fevers, also denies abdominal pain Will start lasix BID and see how he does with this. If he does ok then may discharge tommorow depending on how he is doing thank you Satnam Mathur
[2018-11-24 19:39] VITALS: RESP 20
--- NOTE | 2018-11-24 20:14 | C.PDOC ---
History Of Present Illness 78 year old male with a PMHx of HTN, HLD, CAD s/p CABG, s/p pacemaker, presents to the ED complaining of SOB and dyspnea on exertion for 1 week. Denies any chest pain, fever, cough, nausea, vomiting, dizziness, or headache. Patient has recent hx of pleural effusion which was drained 4-6 weeks ago. Time Seen by Provider: 11/24/18 14:55 Chief Complaint (Nursing): Shortness Of Breath History Per: Patient History/Exam Limitations: no limitations Onset/Duration Of Symptoms: Days Current Symptoms Are (Timing): Still Present Exacerbating Factor(s): Exertion Current Respiratory Medications: See Home Med List Past Medical History Reviewed: Historical Data, Nursing Documentation, Vital Signs Vital Signs: Last Vital Signs Temp 97.9 F 11/24/18 19:38 Pulse 87 11/24/18 19:38 Resp 20 11/24/18 19:38 BP 135/73 11/24/18 19:38 Pulse Ox 97 11/24/18 19:38 - Medical History PMH: CAD, Gall Bladder Disease, HTN, Hyperlipidemia Denies: Deep Vein Thrombosis, Chronic Kidney Disease Surgical History: CABG, Cholecystectomy, Pacemaker (left) - [facility] Procedures DILATION OF COMMON BILE DUCT WITH INTRALUMINAL DEVICE, ENDO (10/08/16) DRAINAGE OF RIGHT LOBE LIVER WITH DRAIN DEV, PERC APPROACH (10/13/18) DRAINAGE OF RIGHT PLEURAL CAVITY, PERCUTANEOUS APPROACH (10/13/18) EXCISION OF STOMACH, ENDO, DIAGN (10/13/18) INSERTION OF INFUSION DEV INTO SUP VENA CAVA, PERC APPROACH (10/13/18) REMOVAL OF DRAINAGE DEVICE FROM LIVER, EXTERNAL APPROACH (10/13/18) RESECTION OF GALLBLADDER, PERCUTANEOUS ENDOSCOPIC APPROACH (09/10/18) Family History: States: Unknown Family Hx - Social History Hx Alcohol Use: No Hx Substance Use: No - Immunization History Hx Tetanus Toxoid Vaccination: No Hx Influenza Vaccination: No Hx Pneumococcal Vaccination: No Review Of Systems Except As Marked, All Systems Reviewed And Found Negative. Constitutional: Negative for: Fever, Chills Eyes: Negative for: Vision Change Cardiovascular: Negative for: Chest Pain, Palpitations Respiratory: Positive for: Shortness of Breath, SOB with Excertion. Negative for: Cough Gastrointestinal: Negative for: Nausea, Vomiting, Diarrhea Skin: Negative for: Rash Neurological: Negative for: Weakness, Numbness, Headache, Dizziness Physical Exam - Physical Exam Appears: Non-toxic, No Acute Distress Skin: Warm, Dry, No Diaphoretic Head: Atraumatic, Normacephalic Eye(s): bilateral: Normal Inspection, PERRL, EOMI Oral Mucosa: Moist Neck: Normal ROM Chest: No Tenderness, Other (Pacemaker noted to chest well) Cardiovascular: Rhythm Regular, No Murmur Respiratory: Decreased Breath Sounds (Diminished breath sounds to right lung, up to midline), No Accessory Muscle Use, Other (No respiratory distress) Gastrointestinal/Abdominal: Soft, No Tenderness, No Distention Back: Normal Inspection Extremity: Bilateral: Atraumatic, No Pedal Edema, Normal ROM Pulses: Left Dorsalis Pedis: Normal, Right Dorsalis Pedis: Normal Neurological/Psych: Oriented x3 Gait: Steady ED Course And Treatment - Laboratory Results Result Diagrams: 11/24/18 15:41 11/24/18 15:41 Lab Results: Troponin I 0.0170 ng/mL (0.00-0.120) 11/24/18 15:41 NT-Pro-B Natriuret Pep 4560 pg/mL (0-900) H 11/24/18 15:41 Total Bilirubin 0.4 mg/dL (0.2-1.3) 11/24/18 15:41 AST 36 U/L (17-59) 11/24/18 15:41 ALT 23 U/L (21-72) 11/24/18 15:41 Alkaline Phosphatase 99 U/L (38-126) 11/24/18 15:41 Total Protein 8.1 g/dL (6.3-8.3) 11/24/18 15:41 Albumin 4.0 g/dL (3.5-5.0) 11/24/18 15:41 Globulin 4.0 gm/dL (2.2-3.9) H 11/24/18 15:41 Albumin/Globulin Ratio 1.0 (1.0-2.1) 11/24/18 15:41 ECG: Interpreted By Me, Viewed By Me ECG Rhythm: V Paced Rate From EC O2 Sat by Pulse Oximetry: 97 (RA) Pulse Ox Interpretation: Normal - Other Rad CXR X-Ray: Read By Radiologist Interpretation: Accession No. : [id number]. Patient Name / ID : DWAYNE Jackson / [id number]. Exam Date : 11/24/2018 15:22:06 ( Approved ). Study Comment : Sex / Age : M / 78Y. Creator : Rebeka Christensen MD. Dictator : Rebeka Christensen MD. Veterinary Poultry Inspector : Gang Mower Operator : Rebeka Christensen MD. Approver2 : Report Date : 11/24/2018 15:49:59. My Comment : . Date of service: 11/24/2018. HISTORY: Shortness of breath. COMPARISON: 10/13/2018. TECHNIQUE: Chest PA and lateral. FINDINGS: LINES AND TUBES: None. LUNG AND PLEURA: The lungs are well inflated and clear. Small right pleural effusion. No pneumothorax. HEART AND MEDIASTINUM: Mild cardiomegaly. Status post CABG. Stable position of left-sided permanent pacing device. No aortic atherosclerotic calcifications present. The hilar and mediastinal contours are within normal limits. SKELETAL STRUCTURES: The bony structures are within normal limits for the patient's age. VISUALIZED UPPER ABDOMEN: Normal. OTHER FINDINGS: None. IMPRESSION: Small right pleural effusion. Medical Decision Making Medical Decision Making: Initial Plan: - EKG - CMP - Troponin I - BLANCA panel - Pro-BNP - CBC - Chest x-ray Progress: Labs and imaging reviewed. 16:[address] Mathur, patient accepted for admission. Disposition Counseled Patient/Family Regarding: Studies Performed, Diagnosis - Disposition Disposition: HOSPITALIZED Disposition Time: 16:30 Condition: FAIR - Clinical Impression Clinical Impression: Pleural effusion, CHF (congestive heart failure) - Scribe Statement The provider has reviewed the documentation as recorded by the Salvadoribvíctor Rojas Provider Attestation: All medical record entries made by the Scribe were at my direction and personally dictated by me. I have reviewed the chart and agree that the record accurately reflects my personal performance of the history, physical exam, the [facility] decision making, and the department course for this patient. I have also personally directed, reviewed, and agree with the discharge instructions and disposition.
[2018-11-24 22:33] LABS: CK-MB 1.48 ng/mL (0.0-3.38); TROPONIN I 0.016 ng/mL (0.00-0.120)
[2018-11-25 07:17] LABS: BASO % 0.4 % (0.0-2.0); EOS # 0.2 K/uL (0.0-0.7); EOS % 3.5 % (0.0-4.0); HEMOGLOBIN 11.1 g/dL (12.0-18.0); LYMPH # 1.8 K/uL (1.0-4.3); MEAN CORPUSCULAR HEMOGLOBIN 26.8 pg (27.0-31.0); MEAN CORPUSCULAR HGB CONC 33.1 g/dL (33.0-37.0); MEAN PLATELET VOLUME 8.7 fL (7.2-11.7); MONO # 0.5 K/uL (0.0-0.8); MONO % 9.3 % (0.0-10.0); NEUT # 2.7 K/uL (1.8-7.0); NEUT % 51.8 % (50.0-75.0); RBC 4.14 Mil/uL (4.40-5.90); RED CELL DISTRIBUTION WIDTH 17.2 % (11.5-14.5); WHITE BLOOD COUNT 5.2 K/uL (4.8-10.8)
[2018-11-25 08:33] VITALS: BP 108/63; PULSE 80; TEMP 98.3; O2SAT 98
--- NOTE | 2018-11-25 09:30 | RAD ---
Date of service: 11/25/2018 HISTORY: right pleural effusion COMPARISON: Chest radiographs 11/24/2018. FINDINGS: LUNGS: No interval change in right basilar atelectasis or consolidation. None is seen at the left in the interval. PLEURA: Mild right pleural effusion persists. None is seen the left. No pneumothorax bilaterally. CARDIOVASCULAR: Calcific atherosclerotic changes are seen related to the thoracic aorta. Permanent cardiac pacemaker reiterated. Sternotomy wires again noted. Stable cardiomegaly. No pulmonary vascular congestion. OSSEOUS STRUCTURES: No significant abnormalities. VISUALIZED UPPER ABDOMEN: Surgical clips right upper quadrant abdomen. OTHER FINDINGS: None. IMPRESSION: No interval change in right basilar airspace disease and mild pleural effusion. Cardiomegaly stable. No pulmonary vascular congestion.
[2018-11-25 09:54] LABS: ALB/GLOB RATIO 0.9 (1.0-2.1); ALBUMIN 3.3 g/dL (3.5-5.0); ALT/SGPT 29 U/L (21-72); AST/SGOT 37 U/L (17-59); BLOOD UREA NITROGEN 15 mg/dL (9-20); CALCIUM 8.6 mg/dl (8.6-10.4); GFR NON-AFRICAN AMERICAN > 60
[2018-11-25] MEDS ORDERED: Metoprolol Succinate 50 mg XL Tab PO SCH (10:00)
[2018-11-25] MEDS ORDERED: Pantoprazole 40 mg EC Tab PO SCH (10:00)
[2018-11-25] MEDS ORDERED: Influenza Vaccine 60 mcg/0.5 mL SYR (4YR UP) IM ONE (13:30)
--- NOTE | 2018-11-25 14:49 | IP.NPCORE ---
Heart Failure Core Measure - Heart Failure Ejection Fraction: 40 % or Greater MORRIS Inhibitor Prescribed: Yes Beta-Kerrie Prescribed: Metoprolol Succinate Angiotensin II Receptor Kerrie Prescribed: No Contraindication/Reason for not providing: ON MORRIS AnticoagulationTherapy for Atrial Fibrillation/Atrialflutter: Yes Aldosterone Antagonist Prescribed: No Contraindication/Reason for not providing: NOT INDICATED Hydralazine Nitrate Prescribed: No Contraindication/Reason for not providing: NOT INDICATED Implantable Cardioverter Defibrillator Therapy: No Contraindication/Reason for not providing: PATIENT HAS A PACEMAKER Cardiac Resynchronization Therapy Prescribed: No Contraindication/Reason for not providing: PATIENT HAS A PACEMAKER - Follow up Will be discharged to: Home Follow Up Date (must be within 7 days from discharge): 11/30/18 Follow Up Time: 12:00
--- NOTE | 2018-11-25 19:28 | CP.PCM.DIS ---
Provider - Provider Date of Admission: 11/24/18 16:50 Attending physician: Satnam Mathur DO Primary care physician: Dr. Estephanie Rogers Time Spent in preparation of Discharge (in minutes): 40 Diagnosis - Discharge Diagnosis (1) Acute exacerbation of CHF (congestive heart failure) Status: Resolved Hospital Course - Lab Results Lab Results: Most Recent Lab Values WBC 5.2 K/uL (4.8-10.8) 11/25/18 07:02 RBC 4.14 Mil/uL (4.40-5.90) L 11/25/18 07:02 Hgb 11.1 g/dL (12.0-18.0) L 11/25/18 07:02 Hct 33.5 % (35.0-51.0) L 11/25/18 07:02 MCV 81.0 fL (80.0-94.0) 11/25/18 07:02 MCH 26.8 pg (27.0-31.0) L 11/25/18 07:02 MCHC 33.1 g/dL (33.0-37.0) 11/25/18 07:02 RDW 17.2 % (11.5-14.5) H 11/25/18 07:02 Plt Count 172 K/uL (130-400) 11/25/18 07:02 MPV 8.7 fL (7.2-11.7) 11/25/18 07:02 Neut % (Auto) 51.8 % (50.0-75.0) 11/25/18 07:02 Lymph % (Auto) 35.0 % (20.0-40.0) 11/25/18 07:02 [facility] % (Auto) 9.3 % (0.0-10.0) 11/25/18 07:02 Eos % (Auto) 3.5 % (0.0-4.0) 11/25/18 07:02 Baso % (Auto) 0.4 % (0.0-2.0) 11/25/18 07:02 Neut # (Auto) 2.7 K/uL (1.8-7.0) 11/25/18 07:02 Lymph # (Auto) 1.8 K/uL (1.0-4.3) 11/25/18 07:02 [facility] # (Auto) 0.5 K/uL (0.0-0.8) 11/25/18 07:02 Eos # (Auto) 0.2 K/uL (0.0-0.7) 11/25/18 07:02 Baso # (Auto) 0.0 K/uL (0.0-0.2) 11/25/18 07:02 Sodium 134 mmol/L (132-148) 11/25/18 07:02 Potassium 3.9 mmol/L (3.6-5.2) 11/25/18 07:02 Chloride 101 mmol/L (98-107) 11/25/18 07:02 Carbon Dioxide 26 mmol/L (22-30) 11/25/18 07:02 Anion Gap 11 (10-20) 11/25/18 07:02 BUN 15 mg/dL (9-20) 11/25/18 07:02 Creatinine 0.8 mg/dL (0.8-1.5) 11/25/18 07:02 Est GFR ( Amer) > 60 11/25/18 07:02 Est GFR (Non-Af Amer) > 60 11/25/18 07:02 Random Glucose 92 mg/dL (75-110) 11/25/18 07:02 Calcium 8.6 mg/dl (8.6-10.4) 11/25/18 07:02 Total Bilirubin 0.5 mg/dL (0.2-1.3) 11/25/18 07:02 AST 37 U/L (17-59) 11/25/18 07:02 ALT 29 U/L (21-72) 11/25/18 07:02 Alkaline Phosphatase 90 U/L (38-126) 11/25/18 07:02 Total Creatine Kinase 33 U/L (55-170) L 11/24/18 22:04 CK-MB (Mass) 1.48 ng/mL (0.0-3.38) 11/24/18 22:04 Troponin I 0.0160 ng/mL (0.00-0.120) 11/24/18 22:04 NT-Pro-B Natriuret Pep 4560 pg/mL (0-900) H 11/24/18 15:41 Total Protein 6.9 g/dL (6.3-8.3) 11/25/18 07:02 Albumin 3.3 g/dL (3.5-5.0) L 11/25/18 07:02 Globulin 3.5 gm/dL (2.2-3.9) 11/25/18 07:02 Albumin/Globulin Ratio 0.9 (1.0-2.1) L 11/25/18 07:02 - Hospital Course Hospital Course: HPI: 78 year old male with history of HTN, HLD, CAD s/p CABG, s/p pacemaker, diastolic CHF, perihepatic abscess, DVT on Pradaxa presenting to ED with shortness of breath on exertion for 1 week. He reports becomes shortness of breath easily after walking just a few blocks, to the point where he has to take short breaks after 2 blocks. He also reports mild bilateral lower extremity swelling since August. Patient visited his cardiology 3 days ago and was told discontinue the aspirin. He also got his pacemaker interrogated during at visit. Patient denies fever, chills, headache, chest pain, abdominal, nausea, vomiting, diarrhea, or urinary symptoms. Patient admitted for acute diastolic CHF exacerbation. BNP was 4560. Patient started on Lasix 40mg iv BID. Cxray showed small right pleural effusion. Patient continued on home medication Pradaxa 150mg BID for DVT. Patient continued on home medication Metoprolol 50mg po daily for HTN. Patient continued on Crestor 10mg for HLD and Flomax for BPH. Patient's symptoms were much improved with Lasix. Patient was able to walk around the [place] in the hospital with no shortness of breath. Upon discharge patient had no complaints and was ready to go home. Patient explained importance of being compliant with medications. Prescriptions for home medications were given. Lasix 20mg po daily to be started. This is a summary of the patient's hospital course, please see chart for full details. Discharge Exam - Head Exam Head Exam: ATRAUMATIC, NORMAL INSPECTION, NORMOCEPHALIC - Eye Exam Eye Exam: EOMI, Normal appearance - ENT Exam ENT Exam: Mucous Membranes Dry - Respiratory Exam Respiratory Exam: Decreased Breath Sounds, NORMAL BREATHING PATTERN - Cardiovascular Exam Cardiovascular Exam: REGULAR RHYTHM, RRR, +S1, +S2 - GI/Abdominal Exam GI & Abdominal Exam: Normal Bowel Sounds, Soft. absent: Tenderness - Extremities Exam Extremities exam: normal inspection, pedal edema (trace b/l edema) - Back Exam Back exam: NORMAL INSPECTION - Neurological Exam Neurological exam: Alert, Oriented x3 - Psychiatric Exam Psychiatric exam: Normal Affect, Normal Mood - Skin Skin Exam: Intact, Normal Color, Warm Discharge Plan - Discharge Medications Prescriptions: Dabigatran [Pradaxa] 150 mg PO BID #60 cap Enalapril Maleate [Vasotec] 10 mg PO DAILY #30 tab Furosemide [Lasix] 20 mg PO DAILY #30 tablet Metoprolol Succinate 50 mg PO DAILY #30 tab.er.24h Rosuvastatin Calcium [Crestor] 10 mg PO HS #30 tab Tamsulosin [Flomax] 0.4 mg PO DAILY #30 cap - Follow Up Plan Condition: FAIR Disposition: HOME/ ROUTINE Instructions: Heart Failure, Adult, Heart Healthy Diet, Medicines for Heart Failure With Reduced Ejection Fraction, Medical Devices for Congestive Heart Failure (CHF), Heart Failure (DC), Pacemaker (DC) Additional Instructions: Patient stable for discharge as per Dr. Mathur. Patient to take the following mediations: -Pradaxa 150mg by mouth twice a day -Vasotec 10mg by mouth daily -Lasix 20mg by mouth daily -Metoprolol Succinate 50mg by mouth daily -Crestor 10mg by mouth before bed -Flomax .4mg by mouth daily Patient given prescriptions for the above medications. Patient to follow up with Dr. Estephanie Rogers within 1 week. If symptoms worsen/return patient should return to ER. Patient explained instructions who understands and agrees. Referrals: Estephanie Rogers MD [Staff Provider] -
== END 2018-11-25 14:55 | disposition home or self-care (01) ==
LOC: C.ER 14:07 → C.9E 16:50 → C.3T 19:00
PROVIDERS: ADMIT Hospitalist; ATTEND Hospitalist
DX: I11.0 Hypertensive heart disease with heart failure (principal); I50.30 Unspecified diastolic (congestive) heart failure; J90 Pleural effusion, not elsewhere classified; Z95.0 Presence of cardiac pacemaker; I25.10 Atherosclerotic heart disease of native coronary artery without angina pectoris; Z95.1 Presence of aortocoronary bypass graft; N40.0 Benign prostatic hyperplasia without lower urinary tract symptoms; E78.5 Hyperlipidemia, unspecified; Z87.19 Personal history of other diseases of the digestive system; Z86.718 Personal history of other venous thrombosis and embolism; Z90.49 Acquired absence of other specified parts of digestive tract; Z79.02 Long term (current) use of antithrombotics/antiplatelets; Z79.899 Other long term (current) drug therapy
CPT/HCPCS: 36415; 71045; 71046; 80053; 83880; 84484; 85025; 90674; 96374; 97116; 97161; 99285; G0008; G0378; G8978; G8979; G8980; J1940

== ENCOUNTER 2018-12-02 11:56 | Emergency (ER) | payer MEDICARE ==
[2018-12-02 11:56] VITALS: BMI 20.5
[2018-12-02 12:30] VITALS: RESP 16
--- NOTE | 2018-12-02 13:35 | C.PDOC ---
History Of Present Illness 78 y/o male pt with hx of cholecystectomy presents to the ER for itchy rash on his trunk and b/l arms for x1 week. Associate sx includes RUQ abdominal pain. Pt reports he thinks the rash started after the flu shot during the time that he was discharge from his admission for CHF. Pt denies SOB, nausea, vomiting, numbness, dysuria, hematuria, ear pain, body aches, fever, diarrhea and chest pain. Pt took benadryl, last dose was x2 days ago with no relief. Pt did not place any cream or ointment on the rash. Time Seen by Provider: 12/02/18 12:45 Chief Complaint (Nursing): Abnormal Skin Integrity History Per: Patient History/Exam Limitations: no limitations Onset/Duration Of Symptoms: Days (x1 week ) Current Symptoms Are (Timing): Still Present Quality Of Symptoms: Itching Past Medical History Reviewed: Historical Data, Nursing Documentation, Vital Signs Vital Signs: Last Vital Signs Temp 98.1 F 12/02/18 12:10 Pulse 82 12/02/18 12:10 Resp 16 12/02/18 12:10 BP 98/60 L 12/02/18 12:10 Pulse Ox 98 12/02/18 12:10 - Medical History PMH: CAD, Gall Bladder Disease (GALLBLADDER REMOVAL), HTN, Hyperlipidemia Comment Only: CHF (diastolic CHF) Surgical History: CABG, Cholecystectomy, Pacemaker (left) - [facility] Procedures DILATION OF COMMON BILE DUCT WITH INTRALUMINAL DEVICE, ENDO (10/08/16) DRAINAGE OF RIGHT LOBE LIVER WITH DRAIN DEV, PERC APPROACH (10/13/18) DRAINAGE OF RIGHT PLEURAL CAVITY, PERCUTANEOUS APPROACH (10/13/18) EXCISION OF STOMACH, ENDO, DIAGN (10/13/18) INSERTION OF INFUSION DEV INTO SUP VENA CAVA, PERC APPROACH (10/13/18) REMOVAL OF DRAINAGE DEVICE FROM LIVER, EXTERNAL APPROACH (10/13/18) RESECTION OF GALLBLADDER, PERCUTANEOUS ENDOSCOPIC APPROACH (09/10/18) Family History: States: Unknown Family Hx - Social History Hx Alcohol Use: No Hx Substance Use: No - Immunization History Hx Tetanus Toxoid Vaccination: No Hx Influenza Vaccination: No Hx Pneumococcal Vaccination: No Review Of Systems Constitutional: Negative for: Fever ENT: Negative for: Ear Pain Cardiovascular: Negative for: Chest Pain Respiratory: Negative for: Shortness of Breath Gastrointestinal: Positive for: Abdominal Pain (RUQ ). Negative for: Diarrhea Genitourinary: Negative for: Dysuria, Hematuria Musculoskeletal: Negative for: Other (body aches ) Skin: Positive for: Rash (itchy ) Neurological: Negative for: Numbness Physical Exam - Physical Exam Appears: Non-toxic, No Acute Distress Skin: Warm, Dry, Rash (urticaria; b/l arms and trunk ) Head: Normacephalic Eye(s): bilateral: Normal Inspection Oral Mucosa: Moist Throat: Normal, No Erythema Neck: Normal ROM, Supple Chest: Symmetrical, No Deformity, Other (well-healed midline incision ) Cardiovascular: Rhythm Regular Respiratory: Normal Breath Sounds, No Rales, No Rhonchi, No Wheezing Gastrointestinal/Abdominal: Soft, No Tenderness, No Distention, No Guarding, No Rebound Neurological/Psych: Oriented x3, Normal Speech, Normal Cognition, Normal Motor, Normal Sensation ED Course And Treatment - Laboratory Results Result Diagrams: 12/02/18 13:41 12/02/18 13:41 O2 Sat by Pulse Oximetry: 98 (RA) Pulse Ox Interpretation: Normal Medical Decision Making Medical Decision Making: Plans: -- chem labs -- blood work -- prednisone Patient given one dose of prednisone here in the ED. Labs done as patient reports abdominal pain, and were unremarkable. Patient pain free on re-eval. Rx written for prednisone. Advised outpatient followup. Return to the ED for any new or worsening symptoms. Disposition - Disposition Disposition: HOME/ ROUTINE Disposition Time: 15:40 Condition: STABLE Additional Instructions: SAM RICE, thank you for letting us take care of you today. Your provider was Donna Mariee MD and you were treated for RASH. The emergency medical care you received today was directed at your acute symptoms. If you were prescribed any medication, please fill it and take as directed. It may take several days for your symptoms to resolve. Return to the Emergency Department if your symptoms worsen, do not improve, or if you have any other problems. Please contact your doctor or call one of the physicians/clinics you have been referred to that are listed on the Patient Visit Information form that is included in your discharge packet. Bring any paperwork you were given at discharge with you along with any medications you are taking to your follow up visit. Our treatment cannot replace ongoing medical care by a primary care provider outside of the emergency department. Thank you for allowing the [facility] team to be part of your care today. If you had an X-Ray or CT scan: A Radiologist will review the ED reading if any change in treatment is needed we will contact you. If you had a blood, urine, or wound culture: It will take several days for the results, if any change in treatment is needed we will contact you. If you had an STI test: It will take 48 hours for the results. Please call after 1 week if you have not heard back. Prescriptions: predniSONE [Prednisone] 40 mg PO DAILY 5 Days tab Instructions: Acute Abdomen (Belly Pain), Adult (DC), Hives (DC) Forms: [employer] ([place]) - Clinical Impression Clinical Impression: Urticaria, Right upper quadrant abdominal pain - Scribe Statement The provider has reviewed the documentation as recorded by the Rui Longoria Do Provider Attestation: All medical record entries made by the Scribe were at my direction and pe rsonally dictated by me. I have reviewed the chart and agree that the record accurately reflects my personal performance of the history, physical exam, medical decision making, and the department course for this patient. I have also personally directed, reviewed, and agree with the discharge instructions and disposition.
[2018-12-02 13:44] LABS: MEAN CELL VOLUME 81.3 fL (80.0-94.0); MEAN CORPUSCULAR HEMOGLOBIN 25.9 pg (27.0-31.0); MEAN CORPUSCULAR HGB CONC 31.8 g/dL (33.0-37.0); MEAN PLATELET VOLUME 7.7 fL (7.2-11.7); RBC 4.24 Mil/uL (4.40-5.90); RED CELL DISTRIBUTION WIDTH 17.5 % (11.5-14.5)
[2018-12-02 13:58] LABS: ALBUMIN 3.7 g/dL (3.5-5.0); ALT/SGPT 25 U/L (21-72); AST/SGOT 28 U/L (17-59); BLOOD UREA NITROGEN 12 mg/dL (9-20); CALCIUM 8.3 mg/dl (8.6-10.4); GFR NON-AFRICAN AMERICAN > 60; LIPASE 58 U/L (23-300)
[2018-12-02 15:53] VITALS: BP 111/63; PULSE 75; TEMP 98.2
[2018-12-02 21:31] VITALS: O2SAT 98
== END 2018-12-02 15:52 | disposition home or self-care (01) ==
LOC: C.ER 11:56
DX: R10.11 Right upper quadrant pain (principal); L50.9 Urticaria, unspecified; E78.5 Hyperlipidemia, unspecified; I25.10 Atherosclerotic heart disease of native coronary artery without angina pectoris; I10 Essential (primary) hypertension; I50.30 Unspecified diastolic (congestive) heart failure